=== PATIENT | female | born 1960 | race Caucasian/White ===

== ENCOUNTER 2019-08-12 17:33 | Emergency (ER) | payer MEDICAID, SELFPAY ==
[2019-08-12] VITALS (7 sets, daily range): BP systolic 146–179; BP diastolic 45–78; PULSE 88–95; RESP 18–20; TEMP 36.4–37.7; O2SAT 95–98; BMI 54.8
--- NOTE | 2019-08-12 19:51 | EKG12_ITS ---
Test Reason : SOB Blood Pressure : / mmHG Vent. Rate : 085 BPM Atrial Rate : 085 BPM P-R Int : 140 ms QRS Dur : 152 ms QT Int : 422 ms P-R-T Axes : 073 074 024 degrees QTc Int : 502 ms Normal sinus rhythm Right bundle branch block Abnormal ECG Confirmed by CHELSEA PITTMAN, MICHAEL ([id number]), department editor STANLEY HERRMANN ([id number]) on 08/15/2019 10:36:20 AM Referred By: JAY Confirmed By:MICHAEL TRAN MD
--- NOTE | 2019-08-12 19:53 | ED.VISSUMM ---
- ER Visit Summary Date of Service: 08/12/19 Chief Complaint: Shortness of breath History of Present Illness: The patient is a 58 F who presents with shortness of breath that began today. Patient states that her breathing has been getting worse throughout the day today. Patient went to express care and was referred to the emergency department because they were not sure if she was in congestive heart failure or had a pulmonary embolism. Patient states she had a chest x-ray there which did not show any pneumonia. Patient states her breathing feels similar to her prior episode of pneumonia. Patient has a history of lymphedema but states her legs are not more swollen than usual. Patient denies any chest pain. Patient denies any fevers but admits to subjective chills. Patient admits to a cough with some sputum production. Physical Examination: Vital signs are stable. Patient is afebrile. Patient is in no acute distress. Oral mucosa is pink and moist. Neck is supple. Trachea is midline. There is no JVD. Heart was regular rate and rhythm. Lungs were diminished bilaterally. Abdomen is soft. Bowel sounds are normal. There is no tenderness. Cranial nerves II through XII are intact. There are no focal motor or sensory deficits noted. Extremities were intact. There is 4+ edema of the lower extremities bilaterally. Patient states this is unchanged. Test Results: EKG showed normal sinus rhythm with a rate of 85. There is a right bundle branch block pattern noted. This was new compared to previous EKG dated 12/30/2012. There are no acute ST or T wave changes. PA and lateral chest x-ray was obtained. There is no acute cardiopulmonary process. This was interpreted by the radiologist and myself. CBC and basic metabolic profile were within normal limits. Troponin was less than 0.015. BNP was normal at 26. D-dimer was 0.52 which is normal for her age. Emergency Department Course and Treatment: Patient is feeling better on reevaluation. Patient was advised of her findings. Patient was instructed to follow-up with her primary care physician in 5 to 7 days. Patient understood and was agreeable with the plan. All questions were answered. Disposition: Discharge home Impression: Dyspnea This note was generated with [employer] software. It may contain incorrect words, spelling, and punctuation that were not noted in review of the chart prior to signing ED Disposition - Plan for ED Patient: Disposition: Home or Assisted Living Diagnosis: Dyspnea Instructions: ED Dyspnea Referrals: Radha Medina MD [Primary Care Provider] - 5-7 Days
[2019-08-12 19:54] LABS: Absolute Lymphocyte Count 0.52 X10^3/uL (0.83-4.51); Absolute Neutrophil Count 4.5 X10^3/uL (2.0-7.7); Basophil# 0.03 X10^3/uL; Basophil% 0.5 % (0-1); Eosinophil# 0.07 X10^3/uL; Eosinophils% 1.3 % (0-5); Hematocrit 37.9 % (37-47); Lymphocyte # 0.52 X10^3/ul (4.0); Lymphocyte % 9.4 % (19-41); Mean Corp Hgb Conc 31.7 g/dL (32-36); Mean Corpuscular Hgb 28.1 pg (27.0-32.0); Mean Corpuscular Volume 88.8 fL (81-99); Mean Platelet Vol. 9.9 fl (6.2-12.0); Monocyte# 0.44 X10^3/uL; Monocyte% 7.9 % (0-10); NRBC Flagged by Analyzer 0 % (0-5); Neutrophil # 4.45 X10^3/uL (2.7-7.7); Neutrophil % 80.4 % (47-70); POSITIVE DIFFERENTIAL YES; Platelet Count 371 K/mm3 (150-450); RBC Distribution Width CV 14.6 % (11.6-14.6); RBC Distribution Width SD 46.8 fl (35.1-43.9); Red Blood Count 4.27 M/mm3 (4.2-5.4); White Blood Count 5.5 K/mm3 (4.4-11.0)
[2019-08-12 20:04] LABS: Differential Indicated SCAN CRITERIA MET
[2019-08-12 20:05] LABS: Anion Gap 6 (5-15); BUN 10 mg/dL (7-18); BUN/Creat Ratio 8.3 RATIO (10-20); Chloride 100 mmol/L (98-107); Creatinine, Serum 1.21 mg/dL (0.55-1.02); EST Glomerular Filtration Rate 48 mL/min (>60); Est Glom Filt Rate - Afr Amer 59 mL/min (>60); Glucose 102 mg/dL (74-106); Sodium Level 137 mmol/L (136-145)
--- NOTE | 2019-08-12 20:11 | RAD_ITS ---
STUDY: X-RAY CHEST REASON FOR EXAM: Female, 58 years old. sob. hx of asthma TECHNIQUE: PA and lateral views of the chest. COMPARISON: Previous study of 12/30/2012 FINDINGS: radiation monitor leads are present. There is diffuse prominence of the pulmonary interstitial pattern appearing similar to the previous study. There is mild CHF with cephalization of pulmonary blood flow. There is bilateral perihilar peribronchial cuffing. There is no demonstrated pleural abnormality. There is mild cardiac enlargement. Normal mediastinum and getachew. Normal visualized pulmonary arteries. Normal visualized aortic arch and descending thoracic aorta. Normal visualized thoracic spine. Normal visualized ribs, clavicles, and shoulders. There is no demonstrated abnormality of the visualized soft tissue structures of the upper abdomen. RAD/Chest PA and Lateral IMPRESSION: Diffuse prominence of the pulmonary interstitial pattern, appearing similar to the previous study. Mild CHF is presently noted, new in the interval. Bilateral perihilar peribronchial cuffing. Electronically Signed: Héctor Kumar MD at 20:25 EDT , Service support ,
[2019-08-12 20:34] LABS: Platelet Estimate ADEQUATE (ADEQ); Red Cell Morphology NORM C+C NORMAL (NORM C&C)
[2019-08-12 21:05] LABS: D-Dimer Quantitative (DVT/PE) 0.52 FEU/ug/m (0.27-0.49)
== END 2019-08-12 22:39 | disposition home or self-care (01) ==
PROVIDERS: Emergency Provider Emergency Medicine; PCP Internal Medicine
DX: R06.00 Dyspnea, unspecified (principal); E11.9 Type 2 diabetes mellitus without complications; I10 Essential (primary) hypertension; I89.0 Lymphedema, not elsewhere classified; R60.0 Localized edema; J45.909 Unspecified asthma, uncomplicated; G47.33 Obstructive sleep apnea (adult) (pediatric); Z79.82 Long term (current) use of aspirin; Z79.4 Long term (current) use of insulin; Z79.899 Other long term (current) drug therapy
CPT/HCPCS: 71046; 80048; 83880; 84484; 85025; 85379; 93005; 94760; 99284; A4216

== ENCOUNTER → 2019-08-23 16:30 | Outpatient (CLI) | payer MEDICAID, SELFPAY ==
[2019-08-12 17:35] VITALS: BMI 54.8
== END ==
PROVIDERS: PCP Internal Medicine; Referring Provider Clinical Nurse Specialist; Visit Provider Clinical Nurse Specialist
DX: Z20.828 Contact with and (suspected) exposure to other viral communicable diseases (principal); R06.02 Shortness of breath; R05 Cough
CPT/HCPCS: 87635; G2023; U0003

== ENCOUNTER → 2020-01-20 12:54 | Outpatient (CLI) | payer MEDICAID, SELFPAY ==
[2019-08-12 17:35] VITALS: BMI 54.8
--- NOTE | 2020-01-20 12:59 | CT_ITS ---
STUDY: LOW DOSE CT LUNG CANCER SCREENING REASON FOR EXAM: Female, 59 years old. LUNG SCREEN, NON-SMOKER X 9 YRS, SMOKER X 45 YRS 1PPD RADIATION DOSAGE (If Supplied By Facility): CTDIvol = ( 3.40 ) mGy, DLP = ( 106.37 ) mGycm TECHNIQUE: No contrast was administered. Low dose technique was utilized (average mAS-38 and kVp 120). 1.25 mm axial source images with a slice interval of 1.25-mm were reconstructed in lung windows. 2.5 mm axial source images with a slice interval of 2.5-mm were reconstructed in lung windows. 5.0 mm axial source images with a slice interval of 5.0-mm were reconstructed in soft tissue windows. Nodule measured using lung windows on PACS and/or independent workstation with automated measurement of minimum and maximum diameter. Nodule measurement reported as average diameter rounded to the nearest whole number. Growth is defined as an increase ins size of greater than 1.5 mm. COMPARISON: None. NODULES: Emphysema: Mild degree of reticular interstitial nodular pattern suggestive of chronic scarring. Endobronchial lesion: None Aorta: Atherosclerotic plaque formation of the aortic arch. Coronary arteries: Coronary artery calcification Heart: Unremarkable Pulmonary artery: Unremarkable Mediastinal nodes: Small mediastinal lymph nodes. Other chest and abdominal findings: CT/Low Dose CT Lung Screening IMPRESSION: Lung-RADS category 2 - Continue annual screening with LDCT in 12 months. IMPORTANT NOTES FOR USE: ACR Lung-RADS Version 1.0 Assessment Categories Release Date: July 08, 2013 Category: Coded 0-4 bases on nodule(s) with highest degree of suspicion. Negative screen is defined as categories 1 and 2; a positive screen is defined as categories 3 and 4. Category 3 and 4A nodules that are unchanged on interval CT should be coded as category 2, and individuals returned to screening in 12 months. Category 4X: Category 3 or 4 nodules with additional imaging findings that increase the suspicion of lung cancer, such as spiculation, GGN that doubles in size in 1 year, enlarged lymph notes, etc. Category Modifiers: S (significant finding unrelated to lung cancer) and C (prior history of treated lung cancer) may be added to the 0-4 Lung-RADS Electronically Signed: Meir Kingsley, at 14:25 EST , Service support ,
== END ==
PROVIDERS: PCP Internal Medicine; Referring Provider Internal Medicine Pulmonary Disease; Visit Provider Internal Medicine Pulmonary Disease
DX: Z87.891 Personal history of nicotine dependence (principal)
CPT/HCPCS: G0297

== ENCOUNTER 2021-12-26 11:30 | Emergency (ER) | payer MEDICAID, SELFPAY ==
[2021-12-26 11:33] VITALS: BP 179/68; PULSE 81; RESP 18; TEMP 36.8; O2SAT 98; BMI 64.1
[2021-12-26 11:44] VITALS: BP 160/67; PULSE 85; RESP 15; TEMP 36.8; O2SAT 96
--- NOTE | 2021-12-26 11:48 | EX.ED.DYSGE1 ---
HPI History of Present Illness Chief Complaint: Cellulitis Informant: patient Narrative Narrative: Patient presents with concern for cellulitis. She states she has been having more discomfort and some weeping on her legs since October. She has never had fevers or chills. No trauma. She has history of chronic lymphedema. The lymphedema has not worsened. But she is getting moisture around the left heel where her sock digs in. She has been treated with Bactrim before with good results. She came in today just because she last saw her doctor more than a month ago and she is concerned that it is getting worse. She is eating and drinking normally. She does not feel ill. No fevers. She states her blood sugars have been overall reasonably well controlled. She tells me she checks it 3 or 4 times a day. She was 125 last night. She states she was little higher this morning at 280 but she normally ranges between 1 50-2 50 so these are within her range relatively PFSH PFSH Home Medications Omeprazole [Prilosec] 40 mg PO DAILY 12/30/12 [History Last Taken 01/17/13] aspirin 81 mg chewable tablet 81 mg PO DAILY@0800 12/30/12 [History Last Taken 01/17/13] gabapentin 600 mg tablet 1,200 mg PO QHS 12/30/12 [History Last Taken Unknown] loratadine 10 mg tablet (Allergy Relief (loratadine)) 10 mg PO DAILY 12/30/12 [History Last Taken 01/17/13] metformin 1,000 mg tablet 1,000 mg PO BID 12/30/12 [History Last Taken 01/17/13] montelukast 10 mg tablet 10 mg PO DAILY 12/30/12 [History Last Taken 01/17/13] furosemide 40 mg tablet 40 mg PO DAILY 08/12/19 [History Last Taken Unknown] cholecalciferol (vitamin D3) 1,250 mcg (50,000 unit) capsule 50,000 unit PO WE 12/26/21 [History Last Taken Unknown] dulaglutide 3 mg/0.5 mL subcutaneous pen injector (Trulicity) 3 mg subcut NIEVES 12/26/21 [History Last Taken Unknown] hydrocodone-acetaminophen 5-325mg 5mg-325mg 1 tab PO Q6H PRN Pain 12/26/21 [History Last Taken Unknown] insulin degludec 100 unit/mL (3 mL) subcutaneous pen (Tresiba FlexTouch U-100 insulin) 80 unit subcut QHS 12/26/21 [History Last Taken Unknown] insulin lispro 100 unit/mL subcutaneous pen 20 unit subcut TIDCM 12/26/21 [History Last Taken Unknown] nortriptyline 10 mg capsule 20 mg PO QHS 12/26/21 [History Last Taken Unknown] potassium chloride 10 mEq tablet,extended release 10 meq PO DAILY 12/26/21 [History Last Taken Unknown] sulfamethoxazole 800 mg-trimethoprim 160 mg tablet (Bactrim DS) 1 tab PO BID #20 tabs 12/26/21 [Rx Last Taken Unknown] Allergy/AdvReac Type Severity Reaction Status Date / Time Penicillins [PCN] Allergy Rash Verified 12/26/21 11:31 Social History Smoking Status: Former smoker ROS ROS ED Constitutional Constitutional ED: Denies chills, fever(s) or subjective ENT ENT ED: Denies rhinorrhea Cardiovascular Cardiovascular: Denies chest pain or palpitations Respiratory/Chest Respiratory/Chest: Denies cough or dyspnea Gastrointestinal Gastrointestinal: Denies abdominal pain, diarrhea, nausea or vomiting Genitourinary Genitourinary ED: Denies dysuria Musculoskeletal Musculoskeletal: Denies myalgias Integumentary Reports rash and other Details: See history of present illness. Endocrine Endocrinology: Denies polydipsia or polyuria Hematologic/Lymphatic Hematologic/Lymphatic: Denies easy bleeding or easy bruising EXAM Physical Exam Const Vital Signs: 12/26/21 11:33 12/26/21 11:33 12/26/21 11:44 Temperature 98.2 F 98.2 F Temperature Source Oral Oral Pulse Rate 81 85 Respiratory Rate 18 15 Respiratory Effort Normal Non-Labored Respiratory Pattern Normal Blood Pressure 179/68 H 160/67 H Blood Pressure Mean 105 98 Pulse Ox 98 96 Oxygen Delivery Method Room Air Room Air 12/26/21 13:11 Temperature 98.2 F Temperature Source Oral Pulse Rate 79 Respiratory Rate 17 Respiratory Effort Respiratory Pattern Blood Pressure 163/68 H Blood Pressure Mean 99 Pulse Ox 96 Oxygen Delivery Method Room Air Positive well nourished and well developed General Appearance ED: well developed and NAD; Negative for cyanotic or diaphoretic HEENT Reports moist mucous membranes Resp normal respiratory effort and clear to auscultation bilaterally Cardio regular rate and regular rhythm GI normal to inspection, nondistended, normoactive bowel sounds, non-tender and non-distended Extremity Extremity Narrative: Patient has significant lymphedema both lower extremities. I was able to get her socks off. There is minimal erythema around the back of the lower calf on the right. On the left side in this area she has some moist skin with some overall mild erosion. No ulceration or hole. There is some moisture in the area but no obvious purulence. There is a bit of an odor. There are also 2 areas of slight break in the skin about a centimeter round on the posterior left thigh but these do not look acutely infected. Neuro Sensorium / Orientation: alert Psych mental status grossly normal Skin Skin Narrative: See above exam. MDM MDM MDM Narrative Medical decision making narrative: Blood work shows normal white count. She does have some anemia. She states that she has had this. She also has a low MCV and MCH. She denies black or bloody stools. She is not having symptoms of this. Electrolytes are overall unremarkable other than her glucose is at 249. This is within her normal range. Patient does not have fevers white count hypotension tachycardia. She has had symptoms since October. I do think this does represent a cellulitis. But I do not think we need to come in the hospital at this point. She has responded to and tolerated Bactrim well in the past so we will try this initially and have her follow-up with her physician. If she is failing outpatient therapy she may need admission at some point. But she has evidently responded to oral drugs well. Lab Data Attestation: I reviewed the patient's lab results. Labs: Laboratory Results - last 24 hr 12/26/21 12/26/21 11:15 11:15 WBC 8.8 RBC 4.13 L Hgb 8.8 L Hct 31.9 L MCV 77.2 L MCH 21.3 L MCHC 27.6 L RDW Std Deviation 57.9 H RDW Coeff of Heather 21.2 H Plt Count 465 H MPV 9.4 Immature Gran % (Auto) 2.000 H Neut % (Auto) 74.4 H Lymph % (Auto) 15.0 L [place] % (Auto) 6.8 Eos % (Auto) 1.5 Baso % (Auto) 0.3 Absolute Neuts (auto) 6.6 Absolute Lymphs (auto) 1.33 Nucleated RBC % 0 Differential Comment SCANNED Anisocytosis 2+ Microcytosis 1+ Macrocytosis 1+ Sodium 136 Potassium 4.0 Chloride 99 Carbon Dioxide 30.0 Anion Gap 7 BUN 13 Creatinine 1.06 H Estim Creat Clear Calc 46.10 Est GFR (MDRD) Af Amer 68 Est GFR (MDRD) Non-Af 56 L BUN/Creatinine Ratio 12.3 Glucose 249 H Calcium 9.0 Radiography Diagnostic Testing: Clinical Impression(s) from Imaging Studies Ankle X-Ray 12/26/21 11:55 IMPRESSION: Significant soft tissue swelling Electronically Signed: Hugo Wren MD at 12:54 EDT , X-ray is read as soft tissue swelling but this is really patient's chronic edema. There is no sign of bony involvement or osteomyelitis seen on these films. Discharge Plan Triage Chief Complaint: Cellulitis ED Provider: Pedro Gao Dx/Rx/DC Orders Clinical Impression: Cellulitis of left lower extremity Instructions: ED Cellulitis Prescriptions: New sulfamethoxazole-trimethoprim [Bactrim DS] 800-160 mg tablet 1 tab PO BID Qty: 20 0RF No Action gabapentin 600 MG tablet 1,200 mg PO QHS aspirin 81 MG tablet,chewable 81 mg PO DAILY@0800 Label Comments: HEART montelukast 10 MG tablet 10 mg PO DAILY Label Comments: ALLERGIES Omeprazole [Prilosec] 40 MG capsule 40 mg PO DAILY Label Comments: REFLUX metformin 1,000 MG tablet 1,000 mg PO BID Label Comments: DIABETES loratadine [Allergy Relief (loratadine)] 10 MG tablet 10 mg PO DAILY Label Comments: ALLERGIES furosemide 40 MG tablet 40 mg PO DAILY potassium chloride 10 mEq tablet extended release 10 meq PO DAILY Label Comments: TAKE 1 TABLET BY MOUTH EVERY DAY nortriptyline 10 mg capsule 20 mg PO QHS Label Comments: TAKE 2 CAPSULES BY MOUTH DAILY AT BEDTIME. insulin lispro 100 unit/mL insulin pen 20 unit SUBCUT TIDCM Label Comments: INJECT 20 UNITS SUBCUTANEOUSLY WITH MEALS PLUS SLIDING SCALE OF 0-10 UNITS PER MEAL cholecalciferol (vitamin D3) 1,250 mcg (50,000 unit) capsule 50,000 unit PO WE Label Comments: TAKE ONE CAPSULE BY MOUTH ONE TIME A WEEK insulin degludec [Tresiba FlexTouch U-100] 100 unit/mL (3 mL) insulin pen 80 unit SUBCUT QHS Label Comments: INJECT 80 UNITS SUBCUTANEOUSLY DAILY AT BEDTIME. Trulicity 3 mg/0.5 mL pen injector 3 mg SUBCUT NIEVES Label Comments: INJECT 3 MG SUBCUTANEOUSLY ONE TIME A WEEK. hydrocodone-acetaminophen 5-325 mg tablet 1 tab PO Q6H PRN (Reason: Pain) Label Comments: TAKE 1 TABLET BY MOUTH EVERY 6 HOURS NEEDED FOR UP TO 7 DAYS Primary Care Provider: Radha Medina Referrals: Radha Medina MD [Primary Care Provider] - 1 Week if not improving Disposition Disposition: Home, Self Care
--- NOTE | 2021-12-26 11:55 | RAD_ITS ---
STUDY: X-RAY - LEFT ANKLE REASON FOR EXAM: Female, 61 years old. pain INCREASED EDEMA AND REDNESS IN B/L LOWER EXTREMITIES OVER THE LAST 2 WEEKS. WOUNDS TO LOWER LEGS INCREASED DRAINAGE TECHNIQUE: 4 view(s) of the ankle. COMPARISON: None. FINDINGS: Significant soft tissue swelling of the lower leg and ankle and foot. No subcutaneous gas is present. No evidence of osteomyelitis. Moderate to large size plantar calcaneal spur noted. No fractures seen. Normal visualized distal tibia and fibula. Normal medial and lateral malleoli. Normal tibiotalar articulation and ankle mortise. Normal visualized talus and calcaneus. The visualized subtalar, talonavicular, calcaneocuboid and tarsal articulations are normal. RAD/Ankle min 3 Views IMPRESSION: Significant soft tissue swelling Electronically Signed: Hugo Wren MD at 12:54 EDT ,
[2021-12-26 12:18] LABS: Absolute Lymphocyte Count 1.33 X10^3/uL (0.83-4.51); Absolute Neutrophil Count 6.6 X10^3/uL (2.0-7.7); Basophil# 0.03 X10^3/uL; Basophil% 0.3 % (0-1); Eosinophil# 0.13 X10^3/uL; Eosinophils% 1.5 % (0-5); Hematocrit 31.9 % (37-47); Hemoglobin 8.8 g/dL (12.0-15.0); Lymphocyte # 1.33 X10^3/ul (0.83-4.51); Mean Corp Hgb Conc 27.6 g/dL (32-36); Mean Corpuscular Hgb 21.3 pg (27.0-32.0); Mean Corpuscular Volume 77.2 fL (81-99); Mean Platelet Vol. 9.4 fl (6.2-12.0); Monocyte% 6.8 % (0-10); NRBC Flagged by Analyzer 0 % (0-5); Neutrophil # 6.57 X10^3/uL (2.7-7.7); Neutrophil % 74.4 % (47-70); POSITIVE MORPHOLOGY YES; Platelet Count 465 K/mm3 (150-450); RBC Distribution Width CV 21.2 % (11.6-14.6); RBC Distribution Width SD 57.9 fl (35.1-43.9); Red Blood Count 4.13 M/mm3 (4.2-5.4); White Blood Count 8.8 K/mm3 (4.4-11.0)
[2021-12-26 12:20] LABS: Differential Indicated SCAN CRITERIA MET
[2021-12-26 12:27] LABS: Anion Gap 7 (5-15); BUN 13 mg/dL (7-18); BUN/Creat Ratio 12.3 RATIO (10-20); Chloride 99 mmol/L (98-107); Creatinine, Serum 1.06 mg/dL (0.55-1.02); EST Glomerular Filtration Rate 56 mL/min (>60); Est Glom Filt Rate - Afr Amer 68 mL/min (>60); Glucose 249 mg/dL (74-106); Sodium Level 136 mmol/L (136-145)
[2021-12-26 12:47] LABS: Anisocytosis 2+; Differential Comment SCANNED; Macrocytosis 1+; Microcytosis 1+
[2021-12-26 13:11] VITALS: BP 163/68; PULSE 79; RESP 17; TEMP 36.8; O2SAT 96
[2021-12-26 15:39] VITALS: BP 154/66; PULSE 83; RESP 18; TEMP 36.6; O2SAT 91
[2021-12-26 16:03] VITALS: PULSE 88; RESP 17; O2SAT 95
== END 2021-12-26 16:05 | disposition home or self-care (01) ==
PROVIDERS: Emergency Provider Emergency Medicine; PCP Internal Medicine; Visit Provider Emergency Medicine
DX: L03.116 Cellulitis of left lower limb (principal); Z79.4 Long term (current) use of insulin; I89.0 Lymphedema, not elsewhere classified; D64.9 Anemia, unspecified; Z79.82 Long term (current) use of aspirin; Z79.899 Other long term (current) drug therapy; Z87.891 Personal history of nicotine dependence
CPT/HCPCS: 73610; 80048; 85025; 96365; 96366; 99285; J7040; J7050

== ENCOUNTER 2022-04-28 19:57 | Inpatient (IN) | payer MEDICAID, SELFPAY ==
[2022-04-28] VITALS (7 sets, daily range): BP systolic 109–133; BP diastolic 57–79; PULSE 88–104; RESP 18–22; TEMP 36.8; O2SAT 87–100; BMI 56.5; BMI 61.7
--- NOTE | 2022-04-28 20:59 | EX.ED.DYSGE1 ---
HPI History of Present Illness Chief Complaint: Chest Pain Narrative Narrative: Patient presents with multiple complaints, she is feeling weak and short of breath, she has some chest pain, she also has nausea vomiting and diarrhea, she also has left leg pain and cellulitis. Patient has chronic debility at home with significant lymphedema and morbid obesity she is wheelchair-bound. She has been feeling worse over the past few days. [facility] Medical History Chest pain Home Medications Omeprazole [Prilosec] 40 mg PO DAILY 12/30/12 [History Last Taken 01/17/13] aspirin 81 mg chewable tablet 81 mg PO DAILY@0800 12/30/12 [History Last Taken 01/17/13] gabapentin 600 mg tablet 1,200 mg PO QHS 12/30/12 [History Last Taken Unknown] loratadine 10 mg tablet (Allergy Relief (loratadine)) 10 mg PO DAILY 12/30/12 [History Last Taken 01/17/13] metformin 1,000 mg tablet 1,000 mg PO BID 12/30/12 [History Last Taken 01/17/13] montelukast 10 mg tablet 10 mg PO DAILY 12/30/12 [History Last Taken 01/17/13] furosemide 40 mg tablet 40 mg PO DAILY 08/12/19 [History Last Taken Unknown] cholecalciferol (vitamin D3) 1,250 mcg (50,000 unit) capsule 50,000 unit PO WE 12/26/21 [History Last Taken Unknown] dulaglutide 3 mg/0.5 mL subcutaneous pen injector (Trulicity) 3 mg subcut NIEVES 12/26/21 [History Last Taken Unknown] hydrocodone-acetaminophen 5-325mg 5mg-325mg 1 tab PO Q6H PRN Pain 12/26/21 [History Last Taken Unknown] insulin degludec 100 unit/mL (3 mL) subcutaneous pen (Tresiba FlexTouch U-100 insulin) 80 unit subcut QHS 12/26/21 [History Last Taken Unknown] insulin lispro 100 unit/mL subcutaneous pen 20 unit subcut TIDCM 12/26/21 [History Last Taken Unknown] nortriptyline 10 mg capsule 20 mg PO QHS 12/26/21 [History Last Taken Unknown] potassium chloride 10 mEq tablet,extended release 10 meq PO DAILY 12/26/21 [History Last Taken Unknown] sulfamethoxazole 800 mg-trimethoprim 160 mg tablet (Bactrim DS) 1 tab PO BID #20 tabs 12/26/21 [Rx Last Taken Unknown] Allergy/AdvReac Type Severity Reaction Status Date / Time Penicillins [PCN] Allergy Rash Verified 04/28/22 20:10 Social History Smoking Status: Former smoker ROS ROS ED ROS Narrative Past medical history: Reviewed Medications: Reviewed Social history: Noncontributory Review of systems: All systems negative except as indicated General: No fever. Generalized weakness Eyes: No visual changes ENT: No upper airway congestion, normal voice Neck: No neck pain Cardiovascular: Chest pain as in HPI Respiratory: Dyspnea as in HPI. She was found to be hypoxic at 87% on room air Gastrointestinal: Nausea vomiting and watery diarrhea Genitourinary: No dysuria Musculoskeletal: Left lower extremity redness, bilateral lymphedema Skin: As above Neurological: No memory loss, confusion or any focal weakness EXAM Physical Exam Narrative Exam Narrative: Physical exam General: Patient appears chronically ill. Smell of feces and necroses in the room. Head: Normocephalic, Atraumatic Eyes: Conjunctiva not pale ENT: Somewhat dry mucous membranes Neck: Supple, Nontender, No lymphadenopathy Cardiovascular: Regular rate, Regular rhythm Respiratory: Coarse bilateral breath sounds, slightly tachypneic. Abdomen: Soft, as I palpate throughout the abdomen she does not seem to have any pain. Back: Nontender, Normal Inspection. Negative for: CVA tenderness Extremities: Significant chronic bilateral lymphedema, left-sided shows erythema and calor consistent with cellulitis. Skin: As above Const Vital Signs: 04/28/22 20:10 04/28/22 20:12 04/28/22 20:55 Temperature 98.3 F Temperature Source Oral Pulse Rate 104 H Respiratory Rate 22 H Blood Pressure 109/57 L Blood Pressure Mean 74 Pulse Ox 91 87 Oxygen Delivery Method Room Air Room Air Oxygen Flow Rate (L/min) 04/28/22 20:55 04/28/22 21:39 Temperature Temperature Source Pulse Rate 102 H 96 Respiratory Rate 18 18 Blood Pressure 133/63 H 125/69 H Blood Pressure Mean 86 87 Pulse Ox 95 94 Oxygen Delivery Method Room Air Nasal Cannula Oxygen Flow Rate (L/min) 2 MDM MDM Lab Data Labs: Laboratory Results - last 24 hr 04/28/22 04/28/22 04/28/22 21:00 21:00 21:00 WBC 12.7 H RBC 3.95 L Hgb 9.3 L Hct 30.4 L MCV 77.0 L MCH 23.5 L MCHC 30.6 L RDW Std Deviation 46.1 H RDW Coeff of Heather 16.4 H Plt Count 416 MPV 9.5 Immature Gran % (Auto) 1.200 H Neut % (Auto) 89.0 H Lymph % (Auto) 4.3 L [place] % (Auto) 5.2 Eos % (Auto) 0.0 Baso % (Auto) 0.3 Absolute Neuts (auto) 11.3 H Absolute Lymphs (auto) 0.54 L Nucleated RBC % 0 Differential Comment SCANNED PT 15.6 H INR 1.3 Sodium 130 L Potassium 3.8 Chloride 93 L Carbon Dioxide 25.0 Anion Gap 12 BUN 27 H Creatinine 1.86 H Estim Creat Clear Calc 26.27 Est GFR (MDRD) Af Amer 35 L Est GFR (MDRD) Non-Af 29 L BUN/Creatinine Ratio 14.5 Glucose 213 H Calcium 8.6 Total Bilirubin 1.30 H AST 37 ALT 15 Alkaline Phosphatase 215 H Troponin I High Sens 2224 H* B-Natriuretic Peptide Total Protein 7.8 Albumin 2.2 L Globulin 5.6 H Albumin/Globulin Ratio 0.4 L POC Glucose 04/28/22 04/28/22 21:00 21:27 WBC RBC Hgb Hct MCV MCH MCHC RDW Std Deviation RDW Coeff of Heather Plt Count MPV Immature Gran % (Auto) Neut % (Auto) Lymph % (Auto) [place] % (Auto) Eos % (Auto) Baso % (Auto) Absolute Neuts (auto) Absolute Lymphs (auto) Nucleated RBC % Differential Comment PT INR Sodium Potassium Chloride Carbon Dioxide Anion Gap BUN Creatinine Estim Creat Clear Calc Est GFR (MDRD) Af Amer Est GFR (MDRD) Non-Af BUN/Creatinine Ratio Glucose Calcium Total Bilirubin AST ALT Alkaline Phosphatase Troponin I High Sens B-Natriuretic Peptide 243.3 H Total Protein Albumin Globulin Albumin/Globulin Ratio POC Glucose 173 H Radiography Diagnostic Testing: Clinical Impression(s) from Imaging Studies Chest X-Ray 04/28/22 21:10 IMPRESSION: No radiographic evidence of acute cardiopulmonary disease. Electronically Signed: Bhaskar Ordonez MD at 21:26 EST , Chest x-ray interpreted by me is unremarkable Treatment and Re-Evaluation Narrative: A. Problems addressed: Patient is hypoxic on room air she was started on 2 L. She also has a significant NSTEMI but her pain is almost gone. I talked to cardiology who recommended heparin drip. Patient also has lower extremity cellulitis which I will treat. She will need admission talk to the hospitalist. B. Amount and/or complexity of the data (2 out of 3) 1. CBC, CMP, troponin, natruretic peptide ordered interpreted by me 2. Independent interpretation of test Telemetry: Sinus rhythm with a rate in the 90s without ectopy 3. I discussed the patient with cardiology, Dr. Cotton, and the hospitalist for admission C. Risk of complications and/or morbidity Differential diagnosis: See above Critical Care Time Critical Care Time: Yes Critical care time (excluding procedures): 30-74 minutes and - (30 minutes. I certify that I spent 30 minutes of critical care time with the patient this includes time at the bedside, time documenting, time discussing with consultants including medicine and cardiology.) Discharge Plan Triage Chief Complaint: Chest Pain ED Provider: Sam Fletcher Dx/Rx/DC Orders Clinical Impression: Acute non-ST elevation myocardial infarction (NSTEMI), Cellulitis, Hypoxia, Weakness Prescriptions: No Action gabapentin 600 MG tablet 1,200 mg PO QHS aspirin 81 MG tablet,chewable 81 mg PO DAILY@0800 Label Comments: HEART montelukast 10 MG tablet 10 mg PO DAILY Label Comments: ALLERGIES Omeprazole [Prilosec] 40 MG capsule 40 mg PO DAILY Label Comments: REFLUX metformin 1,000 MG tablet 1,000 mg PO BID Label Comments: DIABETES loratadine [Allergy Relief (loratadine)] 10 MG tablet 10 mg PO DAILY Label Comments: ALLERGIES furosemide 40 MG tablet 40 mg PO DAILY potassium chloride 10 mEq tablet extended release 10 meq PO DAILY Label Comments: TAKE 1 TABLET BY MOUTH EVERY DAY nortriptyline 10 mg capsule 20 mg PO QHS Label Comments: TAKE 2 CAPSULES BY MOUTH DAILY AT BEDTIME. insulin lispro 100 unit/mL insulin pen 20 unit SUBCUT TIDCM Label Comments: INJECT 20 UNITS SUBCUTANEOUSLY WITH MEALS PLUS SLIDING SCALE OF 0-10 UNITS PER MEAL cholecalciferol (vitamin D3) 1,250 mcg (50,000 unit) capsule 50,000 unit PO WE Label Comments: TAKE ONE CAPSULE BY MOUTH ONE TIME A WEEK insulin degludec [Tresiba FlexTouch U-100] 100 unit/mL (3 mL) insulin pen 80 unit SUBCUT QHS Label Comments: INJECT 80 UNITS SUBCUTANEOUSLY DAILY AT BEDTIME. Trulicity 3 mg/0.5 mL pen injector 3 mg SUBCUT NIEVES Label Comments: INJECT 3 MG SUBCUTANEOUSLY ONE TIME A WEEK. hydrocodone-acetaminophen 5-325 mg tablet 1 tab PO Q6H PRN (Reason: Pain) Label Comments: TAKE 1 TABLET BY MOUTH EVERY 6 HOURS NEEDED FOR UP TO 7 DAYS sulfamethoxazole-trimethoprim [Bactrim DS] 800-160 mg tablet 1 tab PO BID Qty: 20 0RF Primary Care Provider: Radha Medina Referrals: Radha Medina MD [Primary Care Provider] -
--- NOTE | 2022-04-28 21:10 | RAD_ITS ---
EXAM: XR CHEST, 1 VIEW CLINICAL INDICATION: sob TECHNIQUE: Frontal view of the chest. This report was created using [employer] report generation technology. COMPARISON: 08.12.19 FINDINGS: LUNGS AND PLEURAL SPACES: Unremarkable. No consolidation or edema. No pneumothorax. No effusion. HEART: Unremarkable. Cardiac silhouette not enlarged. MEDIASTINUM: Central airways and mediastinal contour are unremarkable. BONES/JOINTS: Unremarkable. SOFT TISSUES: Unremarkable. RAD/Chest 1 View (Portable) IMPRESSION: No radiographic evidence of acute cardiopulmonary disease. Electronically Signed: Bhaskar Ordonez MD at 21:26 [facility] ,
[2022-04-28 21:15] LABS: Absolute Lymphocyte Count 0.54 X10^3/uL (0.83-4.51); Absolute Neutrophil Count 11.3 X10^3/uL (2.0-7.7); Basophil# 0.04 X10^3/uL; Basophil% 0.3 % (0-1); Hematocrit 30.4 % (37-47); Hemoglobin 9.3 g/dL (12.0-15.0); Lymphocyte # 0.54 X10^3/ul (0.83-4.51); Lymphocyte % 4.3 % (19-41); Mean Corp Hgb Conc 30.6 g/dL (32-36); Mean Corpuscular Hgb 23.5 pg (27.0-32.0); Mean Platelet Vol. 9.5 fl (6.2-12.0); Monocyte# 0.66 X10^3/uL; Monocyte% 5.2 % (0-10); NRBC Flagged by Analyzer 0 % (0-5); Neutrophil # 11.26 X10^3/uL (2.7-7.7); POSITIVE DIFFERENTIAL YES; POSITIVE MORPHOLOGY YES; Platelet Count 416 K/mm3 (150-450); RBC Distribution Width CV 16.4 % (11.6-14.6); RBC Distribution Width SD 46.1 fl (35.1-43.9); Red Blood Count 3.95 M/mm3 (4.2-5.4); White Blood Count 12.7 K/mm3 (4.4-11.0)
[2022-04-28 21:32] LABS: International Normalized Ratio 1.3; Prothrombin Time (Protime)PT. 15.6 SECONDS (11.7-14.9)
[2022-04-28 21:33] LABS: Differential Indicated SCAN CRITERIA MET
[2022-04-28 21:40] LABS: ALB/GLOB Ratio 0.4 RATIO (0.9-2.4); AST(SGOT) 37 U/L (15-37); Alanine Aminotransfer ALT/SGPT 15 U/L (13-56); Albumin, Serum 2.2 g/dL (3.2-5.0); Alkaline Phosphatase 215 U/L (45-117); Anion Gap 12 (5-15); BUN 27 mg/dL (7-18); BUN/Creat Ratio 14.5 RATIO (10-20); Calcium,Total 8.6 mg/dL (8.5-10.1); Chloride 93 mmol/L (98-107); Creatinine, Serum 1.86 mg/dL (0.55-1.02); EST Glomerular Filtration Rate 29 mL/min (>60); Est Glom Filt Rate - Afr Amer 35 mL/min (>60); Estimated Creatinine Clearance 26.27 ml/min; Globulin 5.6 g/dL (2.2-4.2); Glucose 213 mg/dL (74-106); Potassium 3.8 mmol/L (3.5-5.1); Protein, Total 7.8 g/dL (6.4-8.2); Sodium Level 130 mmol/L (136-145); Troponin-I HS 2224 pg/mL (3.0-54.0)
[2022-04-28 21:41] LABS: Differential Comment SCANNED
[2022-04-28 21:45] LABS: Bedside Glucose 173 mg/dL (74-106)
[2022-04-28 21:58] LABS: BNP,B-Type NATRIURETIC PEPTIDE 243.3 pg/mL (0-100)
[2022-04-28] MEDS: Ipratropium/Albuterol Sulfate 3 ML AMPUL.NEB INHALATION (21:58)
[2022-04-28 22:20] LABS: Base Excess 0 mmol/L (-2 to +2); Bicarbonate 24.4 mmol/L (22-26); Blood Gas Specimen Type ART; O2 Delivery Device Cannula; PO2 96 mmHG (75-100); SITE L Radial; SO2 98 % (95-99); Total Carbon Dioxide 26 mmol/L; pCO2 39.2 mmHg (35-45)
[2022-04-28 22:38] LABS: Partial Thromboplast Time 38.7 Seconds (24.1-36.2)
[2022-04-28] MEDS: Clindamycin 600 MG/50 ML BAG 100 MG IV (22:41)
[2022-04-28] MEDS: Heparin Injection (Vial) 5,000 UNIT/ML VIAL 4000 UNIT IV (22:42)
[2022-04-28] MEDS: HEPARIN/D5w 25,000 UNITS 25,000 UNITS/250 ML IV.SOLN. 10 UNITS CONT INF (22:43)
[2022-04-29] VITALS (13 sets, daily range): BP systolic 116–150; BP diastolic 67–128; PULSE 86–106; RESP 14–21; TEMP 36.1–37.2; O2SAT 84–99
[2022-04-29 00:14] LABS: Troponin-I HS 2490 pg/mL (3.0-54.0)
[2022-04-29 02:31] LABS: Troponin-I HS 2391 pg/mL (3.0-54.0)
--- NOTE | 2022-04-29 02:45 | ECHOCS_ITS ---
Reason For Study: S/P IA Procedure This was a 2D Doppler, Color Flow transthoracic echocardiogram. The study was technically difficult. Contrast injection was performed. Exam performed portable in ICU/CCU. Left Ventricle Normal size and thickness. The left ventricular ejection fraction is 50 %. Right Ventricle Mildly dilated right ventricle. Moderate global right ventricular systolic dysfunction. Atria Normal left atrium. The right atrium is not well visualized. Mitral Valve The mitral valve is structurally normal. No prolapse or stenosis seen. Tricuspid Valve Trivial tricuspid valve insufficiency. Aortic Valve Normal aortic valve. Pulmonic Valve The pulmonic valve is not well visualized. Mild (1+) eccentric pulmonic valve insufficiency. Great Vessels Normal sized aortic root. Pericardium/Pleural No pericardial effusion. Medication Diluted definity 3ml given slow IV push to enhance endocardial definition. MMode/2D Measurements & Calculations LVIDd: 5.1 cm IVSd: 1.4 cm Ao root diam: 3.0 cm LVIDs: 3.5 cm LVPWd: 1.3 cm FS: 31.1 % LA dimension(2D): 3.7 cm Time Measurements MV dec time: 0.22 sec Doppler Measurements & Calculations MV E max graham: 105.2 cm/sec Lat Peak E' Graham: 8.5 cm/sec Med Peak E' Graham: 7.9 cm/sec MV A max graham: 103.2 cm/sec E/E' lat: 12.4 E/E' med: 13.3 MV E/A: 1.0 MV V2 max: 117.0 cm/sec Ao V2 max: 131.7 cm/sec MV max P.5 mmHg MV dec slope: 493.9 cm/sec2 Ao max P.0 mmHg MV V2 mean: 78.4 cm/sec Ao V2 mean: 90.9 cm/sec MV mean P.7 mmHg Ao mean P.8 mmHg MV V2 VTI: 30.8 cm Ao V2 VTI: 23.9 cm AV (velocity ratio): 1.2 LV V1 max: 142.8 cm/sec PA V2 max: 119.9 cm/sec TR max graham: 265.6 cm/sec LV V1 max P.2 mmHg PA V2 mean: 82.9 cm/sec TR max P.2 mmHg LV V1 mean P.1 mmHg LV V1 mean: 104.1 cm/sec LV V1 VTI: 28.5 cm ECHO/Echo Complete W/ Contrast Interpretation Summary The left ventricular ejection fraction is 50 %. Mildly dilated right ventricle. Moderate global right ventricular systolic dysfunction. Mild (1+) eccentric pulmonic valve insufficiency. Ordering Physician: Kierra Rivera Referring Physician: Radha Medina M.D. Performed By: Erika Harrell RCS
[2022-04-29 03:03] LABS: Absolute Neutrophil Count 7.4 X10^3/uL (2.0-7.7); Basophil# 0.03 X10^3/uL; Basophil% 0.3 % (0-1); Eosinophil# 0.01 X10^3/uL; Eosinophils% 0.1 % (0-5); Hemoglobin 8.8 g/dL (12.0-15.0); Lymphocyte % 6.9 % (19-41); Mean Corp Hgb Conc 30.3 g/dL (32-36); Mean Corpuscular Hgb 23.6 pg (27.0-32.0); Mean Corpuscular Volume 77.7 fL (81-99); Mean Platelet Vol. 9.4 fl (6.2-12.0); Monocyte# 0.46 X10^3/uL; Monocyte% 5.3 % (0-10); NRBC Flagged by Analyzer 0 % (0-5); Neutrophil # 7.44 X10^3/uL (2.7-7.7); POSITIVE DIFFERENTIAL YES; POSITIVE MORPHOLOGY YES; Platelet Count 367 K/mm3 (150-450); RBC Distribution Width CV 16.6 % (11.6-14.6); RBC Distribution Width SD 47.1 fl (35.1-43.9); Red Blood Count 3.73 M/mm3 (4.2-5.4); White Blood Count 8.7 K/mm3 (4.4-11.0)
--- NOTE | 2022-04-29 03:07 | PCM.HP.STD ---
HPI - General General Date of Admission: 04/28/22 Date of Service: 04/29/22 Chief Complaint: Chest pain HPI Narrative JUNG DUNAWAY, is a 61 F with a history of COPD, type 1 diabetes mellitus, SUSANNA per chart review, hypertension, chronic lymphedema of bilateral lower extremities, morbid obesity who presented to [facility] 04/28 with chest pain. She had been having chest pain for 2 to 3 days and shortness of breath for 3 to 4 days. In the ED she was found to have a troponin of 2391 and cardiology was contacted and recommended heparin drip and admission. Additionally she was found to have left lower extremity cellulitis and was given a dose of clindamycin due to her penicillin allergy. Hospitalist consulted for admission. Upon evaluation patient will wake up and participate in exam but often was tired and would fall back asleep. She did endorse the chest pain for 2 to 3 days with some possible shortness of breath. Was unable to identify anything that made the chest pain better or worse. Denied cough. Reports left leg is chronically red and appears more cellulitic than right leg. Additional complaint of some diarrhea for the past 1 to 2 days after her son bought a sandwich at a gas station that she said tasted foul. Has not had nausea and vomiting but has had some slight abdominal discomfort. Did not endorse any other complaints at this time. Additionally chest pain had resolved by time of evaluation [facility] Medical History Chest pain Home Medications Omeprazole [Prilosec] 40 mg PO DAILY 12/30/12 [History Last Taken 01/17/13] aspirin 81 mg chewable tablet 81 mg PO DAILY@0800 12/30/12 [History Last Taken 01/17/13] gabapentin 600 mg tablet 1,200 mg PO QHS 12/30/12 [History Last Taken Unknown] loratadine 10 mg tablet (Allergy Relief (loratadine)) 10 mg PO DAILY 12/30/12 [History Last Taken 01/17/13] metformin 1,000 mg tablet 1,000 mg PO BID 12/30/12 [History Last Taken 01/17/13] montelukast 10 mg tablet 10 mg PO DAILY 12/30/12 [History Last Taken 01/17/13] furosemide 40 mg tablet 40 mg PO DAILY 08/12/19 [History Last Taken Unknown] cholecalciferol (vitamin D3) 1,250 mcg (50,000 unit) capsule 50,000 unit PO WE 12/26/21 [History Last Taken Unknown] dulaglutide 3 mg/0.5 mL subcutaneous pen injector (Trulicity) 3 mg subcut NIEVES 12/26/21 [History Last Taken Unknown] hydrocodone-acetaminophen 5-325mg 5mg-325mg 1 tab PO Q6H PRN Pain 12/26/21 [History Last Taken Unknown] insulin degludec 100 unit/mL (3 mL) subcutaneous pen (Tresiba FlexTouch U-100 insulin) 80 unit subcut QHS 12/26/21 [History Last Taken Unknown] insulin lispro 100 unit/mL subcutaneous pen 20 unit subcut TIDCM 12/26/21 [History Last Taken Unknown] nortriptyline 10 mg capsule 20 mg PO QHS 12/26/21 [History Last Taken Unknown] potassium chloride 10 mEq tablet,extended release 10 meq PO DAILY 12/26/21 [History Last Taken Unknown] sulfamethoxazole 800 mg-trimethoprim 160 mg tablet (Bactrim DS) 1 tab PO BID #20 tabs 12/26/21 [Rx Last Taken Unknown] Allergy/AdvReac Type Severity Reaction Status Date / Time Penicillins [PCN] Allergy Rash Verified 04/28/22 20:10 Social History Smoking Status: Former smoker ROS ROS Narrative General: Denies fever or chills HENT: Denies headache, denies stuffy nose, denies sore throat EYES: Denies changes in vision Resp: Denies cough, did have some shortness of breath Cardiac: Did have some central chest pain for several days but is resolved since being in the ED GI: Did have some general diffuse abdominal pain reported with diarrhea : Denies changes in urination Extremity: Denies swelling MSK: Denies weakness Neuro: Denies any numbness, denies tingling Heme: Denies any bleeding or bruising Skin: Left lower extremity cellulitis Psychiatric: No complaints voiced Vital Signs Vital Signs Vital Signs: 04/28/22 20:10 04/28/22 20:12 04/28/22 20:55 Temperature 98.3 F Temperature Source Oral Pulse Rate 104 H Respiratory Rate 22 H Respiratory Effort Respiratory Depth Respiratory Pattern Blood Pressure 109/57 L Blood Pressure Mean 74 Blood Pressure Source Blood Pressure Position Blood Pressure Location Pulse Ox 91 87 Oxygen Delivery Method Room Air Room Air Oxygen Flow Rate (L/min) 04/28/22 20:55 04/28/22 21:39 04/28/22 21:59 Temperature Temperature Source Pulse Rate 102 H 96 88 Respiratory Rate 18 18 22 H Respiratory Effort Respiratory Depth Respiratory Pattern Blood Pressure 133/63 H 125/69 H Blood Pressure Mean 86 87 Blood Pressure Source Blood Pressure Position Blood Pressure Location Pulse Ox 95 94 Oxygen Delivery Method Room Air Nasal Cannula Oxygen Flow Rate (L/min) 2 04/28/22 22:41 04/28/22 23:33 04/29/22 00:00 Temperature 98.3 F Temperature Source Oral Pulse Rate 93 89 Respiratory Rate 18 18 Respiratory Effort Normal Non-Labored Respiratory Depth Normal Respiratory Pattern Tachypnea Blood Pressure 132/72 H 111/79 Blood Pressure Mean 92 89 Blood Pressure Source Blood Pressure Position Blood Pressure Location Pulse Ox 100 98 Oxygen Delivery Method Nasal Cannula Nasal Cannula Nasal Cannula Oxygen Flow Rate (L/min) 2 2 2 04/29/22 00:00 04/29/22 00:52 Temperature 97.0 F L 97.0 F L Temperature Source Temporal Temporal Pulse Rate 95 95 Respiratory Rate 18 18 Respiratory Effort Respiratory Depth Respiratory Pattern Blood Pressure 127/99 H 116/67 Blood Pressure Mean 108 83 Blood Pressure Source Monitor Blood Pressure Position Semi-Fowlers Blood Pressure Location Right Forearm Pulse Ox 96 96 Oxygen Delivery Method Nasal Cannula Nasal Cannula Oxygen Flow Rate (L/min) 2 2 Weight Weight: 158.2 kg Body Mass Index (BMI) 61.7 Physical Exam Narrative General: Resting comfortably, will wake up when prompted but does fall back asleep quickly HEENT: Atraumatic, normocephalic Eyes: Anicteric, normal conjunctiva, extraocular movements grossly intact Neck: Supple Respiratory: Normal respiratory effort, breath sounds diminished at the bases but suspect this is largely due to body habitus Cardiovascular: Regular rate and rhythm GI: Soft, nondistended, mild tenderness to palpation diffusely without rebound, guarding, rigidity Extremities: Significant bilateral lower extremity lymphedema appreciated Musculoskeletal: Moving all extremities Neuro: No overt focal neurological deficits Skin: Left foot cellulitis and chronic changes on both legs Psych: Overall cooperative Results Lab / Micro Data Result Diagrams: 04/29/22 02:05 04/29/22 02:05 Labs: Laboratory Results - last 24 hr 04/28/22 21:00: WBC 12.7 H, RBC 3.95 L, Hgb 9.3 L, Hct 30.4 L, MCV 77.0 L, MCH 23.5 L, MCHC 30.6 L, RDW Std Deviation 46.1 H, RDW Coeff of Heather 16.4 H, Plt Count 416, MPV 9.5, Immature Gran % (Auto) 1.200 H, Neut % (Auto) 89.0 H, Lymph % (Auto) 4.3 L, [place] % (Auto) 5.2, Eos % (Auto) 0.0, Baso % (Auto) 0.3, Absolute Neuts (auto) 11.3 H, Absolute Lymphs (auto) 0.54 L, Nucleated RBC % 0, Differential Comment SCANNED 04/28/22 21:00: PT 15.6 H, INR 1.3 04/28/22 21:00: Sodium 130 L, Potassium 3.8, Chloride 93 L, Carbon Dioxide 25.0, Anion Gap 12, BUN 27 H, Creatinine 1.86 H, Estim Creat Clear Calc 26.27, Est GFR (MDRD) Af Amer 35 L, Est GFR (MDRD) Non-Af 29 L, BUN/Creatinine Ratio 14.5, Glucose 213 H, Calcium 8.6, Total Bilirubin 1.30 H, AST 37, ALT 15, Alkaline Phosphatase 215 H, Troponin I High Sens 2224 H*, Total Protein 7.8, Albumin 2.2 L, Globulin 5.6 H, Albumin/Globulin Ratio 0.4 L 04/28/22 21:00: B-Natriuretic Peptide 243.3 H 04/28/22 21:00: APTT 38.7 H 04/28/22 21:27: POC Glucose 173 H 04/28/22 23:40: Troponin I High Sens 2490 H* 04/29/22 02:05: Troponin I High Sens 2391 H* Micro: Microbiology 04/28/22 21:05 Nasal Secretion SARS-CoV-2 & FLU Antigen (Rapid) - Final ABG Data ABG results: ABG 04/28/22 22:13 Specimen Type ART Sample Site L Radial pH 7.40 Bicarbonate Actual 24.4 Total CO2 26 Base Excess 0 O2 Saturation 98 ABG pCO2 39.2 ABG pO2 96 Valeriy Test N/A O2 Delivery Device Cannula Liter Flow 2.0 Radiology Impression Chest X-Ray 04/28/22 21:10 IMPRESSION: No radiographic evidence of acute cardiopulmonary disease. Electronically Signed: Bhaskar Ordonez MD at 21:26 EST Reading Location ID and State: [facility] / [place] , Service support , Assessment & Plan Assessment/Plan (1) Acute non-ST elevation myocardial infarction (NSTEMI): (2) Hypoxia: (3) Cellulitis: (4) Obstructive sleep apnea: (5) Type I diabetes mellitus: PLAN: Plan #NSTEMI, concern for type I Troponin 2391 in the ED and peaked at 2490 before downtrending to 2224 Cardiology consulted in the ED and recommended heparin drip Chest pain has resolved at time of exam Had refused chewable aspirin prior to arrival We will try daily aspirin first dose now Lipid panel Echocardiogram Continue heparin drip Start beta-татьяна and statin Cardiology consulted #Hypoxia and shortness of breath with reported history of COPD Reported to be hypoxic in the ED with several days of shortness of breath but work-up unrevealing Chest x-ray in ED with no radiographic evidence of acute pulmonary disease, ABG without significant abnormality Unclear if she uses CPAP or BiPAP at home but on chart review she does have SUSANNA listed, will check VBG in a.m. to assess for CO2 retention, will likely need BiPAP or CPAP nightly Is not wheezing has not had increased cough with sputum production so do not feel she is in exacerbation and will hold off on any steroids Nebs #Type 1 diabetes mellitus Every 6 glucose checks and coverage while n.p.o. for possible heart cath A1c in the a.m. We will start glargine lower then home dose of long-acting, given reported type I patient will need some amount of basal insulin but is n.p.o. #Left lower extremity cellulitis with chronic bilateral lower extremity lymphedema No systemic signs or symptoms of infection Given dose of antibiotics in the ED, given nonsevere infection will start cefazolin, has penicillin allergy that is listed as rash but no mention of history of anaphylaxis Wound care consulted Blood culture sent in the ED, WBC 12.7 but afebrile do not suspect sepsis but will monitor cultures #Diarrhea and some abdominal pain Reportedly after eating a foul gas station sandwich on Monday We will send stool studies Slight diffuse tenderness without rebound, guarding, rigidity, no indication for abdominal imaging at this time but can reevaluate pending progress and symptoms #STEPHY on CKD stage III unclear subtype Unclear why she is on furosemide, will need to clarify but will hold at this time and will give small fluid bolus as with her diarrhea this is likely prerenal No echo in our system and no reported history of heart failure noted, BNP is 243 with no recent value, chest x-ray does not appear overloaded or have any acute process Echo ordered #Morbid obesity Complicates care #General debility pt/ot #DVT ppx: On heparin drip Kierra Rivera MD Time spent in the patient's overall evaluation,decision-making process, review of diagnostic data, adjustment of management, discussion with other providers, nursing nursing and ancillary staff involved in patient's care documentation, 60 minutes Charges/Coding Visit Charges Inpatient E&M: 59537 Init Hosp L2
[2022-04-29 03:14] LABS: ALB/GLOB Ratio 0.4 RATIO (0.9-2.4); AST(SGOT) 44 U/L (15-37); Alanine Aminotransfer ALT/SGPT 15 U/L (13-56); Alkaline Phosphatase 196 U/L (45-117); Anion Gap 10 (5-15); BUN 28 mg/dL (7-18); BUN/Creat Ratio 16.1 RATIO (10-20); Calcium,Total 8.6 mg/dL (8.5-10.1); Chloride 95 mmol/L (98-107); Cholesterol 68 mg/dL (200); Creatinine, Serum 1.74 mg/dL (0.55-1.02); EST Glomerular Filtration Rate 32 mL/min (>60); Est Glom Filt Rate - Afr Amer 38 mL/min (>60); Estimated Creatinine Clearance 28.09 ml/min; Globulin 5.4 g/dL (2.2-4.2); Glucose 142 mg/dL (74-106); High Density Lipoprotein 14 mg/dL; Potassium 3.9 mmol/L (3.5-5.1); Protein, Total 7.4 g/dL (6.4-8.2); Sodium Level 131 mmol/L (136-145); Triglycerides 112 mg/dL; Very Low Density Lipoprotein 22 mg/dL (5-40)
[2022-04-29 03:37] LABS: Differential Indicated SCAN CRITERIA MET
[2022-04-29] MEDS: 0.9% Normal Saline 1,000 ML 100 ML IV (03:45)
[2022-04-29] MEDS: Ondansetron 4 MG/2 ML Vial IV (03:48)
[2022-04-29] MEDS: CLARIFY ORDER NOTE (04:14)
[2022-04-29 04:25] LABS: Differential Comment SCANNED; Hypochromasia RARE
[2022-04-29 05:06] LABS: Blood Gas Specimen Type VEN; O2 Delivery Device Cannula; VBG BASE EXCESS 3 mmol/L (-1.0-3.5); VBG Bicarbonate 27 mmol/L (22-26); VBG PO2 30 mmHg (25-40); VBG SO2 57 % (50-70); VBG TCO2 29 mmol/L (23-33); VBG pCO2 44.2 mmHg (41-51)
[2022-04-29] MEDS: Cefazolin 1 GM/50 ML BAG IV (05:39)
[2022-04-29 06:10] LABS: Bedside Glucose 117 mg/dL (74-106)
[2022-04-29] MEDS: Ipratropium/Albuterol Sulfate 3 ML AMPUL.NEB INHALATION ×3 (07:03→18:53)
--- NOTE | 2022-04-29 07:42 | PN.HOSP_ITS ---
Reason for Visit Reason for Visit: Follow-up for shortness of breath, non-STEMI left heel cellulitis with purulent collection. Diagnoses Type 1 diabetes mellitus without complications (04/28/22) Obstructive sleep apnea (adult) (pediatric) (04/28/22) Non-ST elevation (NSTEMI) myocardial infarction (04/28/22) Cellulitis, unspecified (04/28/22) Hypoxemia (04/28/22) Objective Data Objective Data Seen and examined. I talked to the patient's daughter near the bedside. Patient admitted with shortness of breath. She has been admitted before for cellulitis. Left heel purulent collection and painful. Physical exam General: Alert, Oriented x3, Cooperative, morbid obesity BMI 61.8 KG per square meter HEENT: Atraumatic, PERRLA, EOMI, Normocephalic Oral: Deep oropharyngeal structures could not be seen. Neck: Supple, No JVD, Negative Carotid Bruits Lungs: Air entry diminished in bilateral lung bases. No crepitation/rhonchi Cardiovascular: Sinus rhythm with PVCs, Normal S1, Normal S2, No murmurs Abdomen: Bowel Sounds Present, Soft, Non Tender, Non-Distended : No renal angle tenderness. No suprapubic tenderness. Extremities: No edema, Capillary Refill Less than 3 Seconds Skin: History rash over abdominal fold of his skin and groin. Left heel purulent collection, pain tenderness with adjoining cellulitis. Musculoskeletal: No Tenderness to Palpation of Joints or Extremities. ROM severely limited, degenerative arthritis of hip and knee joints. Neurological: Cranial nerves II-XII grossly intact, DTR 2+/4, muscle strength could not be evaluated. Psych/Mental Status: Flat affect. Vital Signs: Vital Signs Temp Pulse Resp BP Pulse Ox O2 Del Method O2 Flow Rate 99.0 F 106 H 20 H 139/88 H 94 Nasal Cannula 3 04/29/22 06:00 04/29/22 07:04 04/29/22 07:04 04/29/22 06:00 04/29/22 07:04 04/29/22 07:04 04/29/22 07:04 Oxygen Flow Rate (L/min) 3 Oxygen Delivery Method Nasal Cannula Weight: 348 lb 12.34 oz Body Mass Index (BMI) 61.7 Intake & Output: Intake and Output for Last 24 Hours 0204/28/22 04/29/22 23:59 23:59 23:59 Intake Total 50 / 50 50 / 50 Output Total 0 / 0 Balance 50 / 50 50 / 50 Lab / Micro Data Result Diagrams: 04/29/22 02:05 04/29/22 02:05 Labs: Laboratory Results - last 24 hr 04/28/22 21:00: WBC 12.7 H, RBC 3.95 L, Hgb 9.3 L, Hct 30.4 L, MCV 77.0 L, MCH 23.5 L, MCHC 30.6 L, RDW Std Deviation 46.1 H, RDW Coeff of Heather 16.4 H, Plt Count 416, MPV 9.5, Immature Gran % (Auto) 1.200 H, Neut % (Auto) 89.0 H, Lymph % (Auto) 4.3 L, [place] % (Auto) 5.2, Eos % (Auto) 0.0, Baso % (Auto) 0.3, Absolute Neuts (auto) 11.3 H, Absolute Lymphs (auto) 0.54 L, Nucleated RBC % 0, Differential Comment SCANNED 04/28/22 21:00: PT 15.6 H, INR 1.3 04/28/22 21:00: Sodium 130 L, Potassium 3.8, Chloride 93 L, Carbon Dioxide 25.0, Anion Gap 12, BUN 27 H, Creatinine 1.86 H, Estim Creat Clear Calc 26.27, Est GFR (MDRD) Af Amer 35 L, Est GFR (MDRD) Non-Af 29 L, BUN/Creatinine Ratio 14.5, Glucose 213 H, Calcium 8.6, Total Bilirubin 1.30 H, AST 37, ALT 15, Alkaline Phosphatase 215 H, Troponin I High Sens 2224 H*, Total Protein 7.8, Albumin 2.2 L, Globulin 5.6 H, Albumin/Globulin Ratio 0.4 L 04/28/22 21:00: B-Natriuretic Peptide 243.3 H 04/28/22 21:00: APTT 38.7 H 04/28/22 21:27: POC Glucose 173 H 04/28/22 23:40: Troponin I High Sens 2490 H* 04/29/22 02:05: Troponin I High Sens 2391 H* 04/29/22 02:05: WBC 8.7, RBC 3.73 L, Hgb 8.8 L, Hct 29.0 L, MCV 77.7 L, MCH 23.6 L, MCHC 30.3 L, RDW Std Deviation 47.1 H, RDW Coeff of Heather 16.6 H, Plt Count 367, MPV 9.4, Immature Gran % (Auto) 1.400 H, Neut % (Auto) 86.0 H, Lymph % (Auto) 6.9 L, [place] % (Auto) 5.3, Eos % (Auto) 0.1, Baso % (Auto) 0.3, Absolute Neuts (auto) 7.4, Absolute Lymphs (auto) 0.60 L, Nucleated RBC % 0, Differential Comment SCANNED, Hypochromasia RARE 04/29/22 02:05: Sodium 131 L, Potassium 3.9, Chloride 95 L, Carbon Dioxide 26.0, Anion Gap 10, BUN 28 H, Creatinine 1.74 H, Estim Creat Clear Calc 28.09, Est GFR (MDRD) Af Amer 38 L, Est GFR (MDRD) Non-Af 32 L, BUN/Creatinine Ratio 16.1, Glucose 142 H, Calcium 8.6, Total Bilirubin 1.20 H, AST 44 H, ALT 15, Alkaline Phosphatase 196 H, Total Protein 7.4, Albumin 2.0 L, Globulin 5.4 H, Album in/Globulin Ratio 0.4 L, Triglycerides 112, Cholesterol 68, LDL Cholesterol 32, VLDL Cholesterol 22, HDL Cholesterol 14 L 04/29/22 04:47: APTT 45.0 H 04/29/22 05:43: POC Glucose 117 H Micro: Microbiology 04/28/22 21:05 Nasal Secretion SARS-CoV-2 & FLU Antigen (Rapid) - Final ABG Data ABG results: ABG 04/28/22 04/29/22 22:13 04:58 Specimen Type ART ARBEN Sample Site L Radial pH 7.40 Bicarbonate Actual 24.4 Total CO2 26 Base Excess 0 O2 Saturation 98 ABG pCO2 39.2 ABG pO2 96 Valeriy Test N/A VBG pH 7.40 VBG pO2 30 VBG HCO3 27 H VBG Total CO2 29 VBG O2 Sat (Calc) 57 VBG Base Excess 3 POC Mix VBG pCO2 Pt Tmp 44.2 O2 Delivery Device Cannula Cannula Liter Flow 2.0 6.0 Radiography Diagnostic Testing: Radiology Impression Chest X-Ray 04/28/22 21:10 IMPRESSION: No radiographic evidence of acute cardiopulmonary disease. Electronically Signed: Bhaskar Ordonez MD at 21:26 EST Reading Location ID and State: [facility] / ID , Service support , Assessment & Plan Assessment/Plan (1) Acute non-ST elevation myocardial infarction (NSTEMI): (2) Hypoxia: (3) Cellulitis: (4) Obstructive sleep apnea: (5) Type I diabetes mellitus: PLAN: Plan 61-year-old female was admitted for shortness of breath, chest pain mild nausea vomiting and diarrhea. She cannot describe completely about characteristics of chest pain poor historian. Troponins elevated suggestive of non-STEMI. #NSTEMI: Troponin progressively increased. Patient is admitted in ICU. Delivery Man consulted. Currently asymptomatic for chest pain, shortness of breath better. On aspirin, Plavix, metoprolol. Discussed with the psychiatric nurse practitioner. Patient creatinine is high with creatinine clearance about 28 mill per minute therefore nephrology consult and optimization of kidney function prior to cardiac cath. Fasting lipid profile normal except HDL very low 14. 2D echo EF 50%, mildly dilated RV with moderate global RV systolic dysfunction. Mild eccentric PI. Technically difficult study suggestive of biventricular heart failure with chronic HFpEF Microbiology Past 72 Hours 04/29/22 10:15 Wound - Heel, Left Gram Stain - Final 04/28/22 21:05 Nasal Secretion SARS-CoV-2 & FLU Antigen (Rapid) - Final Laboratory Results 04/28/22 21:00: WBC 12.7 H, RBC 3.95 L, Hgb 9.3 L, Hct 30.4 L, MCV 77.0 L, MCH 23.5 L, MCHC 30.6 L, RDW Std Deviation 46.1 H, RDW Coeff of Heather 16.4 H, Plt Count 416, MPV 9.5, Immature Gran % (Auto) 1.200 H, Neut % (Auto) 89.0 H, Lymph % (Auto) 4.3 L, [place] % (Auto) 5.2, Eos % (Auto) 0.0, Baso % (Auto) 0.3, Absolute Neuts (auto) 11.3 H, Absolute Lymphs (auto) 0.54 L, Nucleated RBC % 0, Differential Comment SCANNED 04/28/22 21:00: PT 15.6 H, INR 1.3 04/28/22 21:00: Sodium 130 L, Potassium 3.8, Chloride 93 L, Carbon Dioxide 25.0, Anion Gap 12, BUN 27 H, Creatinine 1.86 H, Estim Creat Clear Calc 26.27, Est GFR (MDRD) Af Amer 35 L, Est GFR (MDRD) Non-Af 29 L, BUN/Creatinine Ratio 14.5, Gluc ose 213 H, Calcium 8.6, Total Bilirubin 1.30 H, AST 37, ALT 15, Alkaline Phosphatase 215 H, Troponin I High Sens 2224 H*, Total Protein 7.8, Albumin 2.2 L, Globulin 5.6 H, Albumin/Globulin Ratio 0.4 L 04/28/22 21:00: B-Natriuretic Peptide 243.3 H 04/28/22 21:00: APTT 38.7 H 04/28/22 21:27: POC Glucose 173 H 04/28/22 22:13: Specimen Type ART, Sample Site L Radial, pH 7.40, Bicarbonate Actual 24.4, Total CO2 26, Base Excess 0, O2 Saturation 98, ABG pCO2 39.2, ABG pO2 96, Valeriy Test N/A, O2 Delivery Device Cannula, Liter Flow 2.0 04/28/22 23:40: Troponin I High Sens 2490 H* 04/29/22 02:05: Troponin I High Sens 2391 H* 04/29/22 02:05: WBC 8.7, RBC 3.73 L, Hgb 8.8 L, Hct 29.0 L, MCV 77.7 L, MCH 23.6 L, MCHC 30.3 L, RDW Std Deviation 47.1 H, RDW Coeff of Heather 16.6 H, Plt Count 367, MPV 9.4, Immature Gran % (Auto) 1.400 H, Neut % (Auto) 86.0 H, Lymph % (Auto) 6.9 L, [place] % (Auto) 5.3, Eos % (Auto) 0.1, Baso % (Auto) 0.3, Absolute Neuts (auto) 7.4, Absolute Lymphs (auto) 0.60 L, Nucleated RBC % 0, Differential Comment SCANNED, Hypochromasia RARE 04/29/22 02:05: Sodium 131 L, Potassium 3.9, Chloride 95 L, Carbon Dioxide 26.0, Anion Gap 10, BUN 28 H, Creatinine 1.74 H, Estim Creat Clear Calc 28.09, Est GFR (MDRD) Af Amer 38 L, Est GFR (MDRD) Non-Af 32 L, BUN/Creatinine Ratio 16.1, Glucose 142 H, Calcium 8.6, Total Bilirubin 1.20 H, AST 44 H, ALT 15, Alkaline Phosphatase 196 H, Total Protein 7.4, Albumin 2.0 L, Globulin 5.4 H, Albumin/Globulin Ratio 0.4 L, Triglycerides 112, Cholesterol 68, LDL Cholesterol 32, VLDL Cholesterol 22, HDL Cholesterol 14 L 04/29/22 02:05: Hemoglobin A1c 7.7 H 04/29/22 04:47: APTT 45.0 H 04/29/22 04:58: Specimen Type ARBEN, VBG pH 7.40, VBG pO2 30, VBG HCO3 27 H, VBG Total CO2 29, VBG O2 Sat (Calc) 57, VBG Base Excess 3, POC Mix VBG pCO2 Pt Tmp 44.2, O2 Delivery Device Cannula, Liter Flow 6.0 04/29/22 05:43: POC Glucose 117 H 04/29/22 10:15: S.aureus Protein A PCR NEGATIVE, MRSA (PCR) Negative 04/29/22 12:10: APTT 39.6 H 04/29/22 12:15: POC Glucose 65 L # COPD with chronic cor pulmonale: Noted chronic cor pulmonale as mentioned in echo above. Chest x-ray does not show acute cardiopulmonary disease, individually reviewed. ABG no significant abnormality. BiPAP as patient might have sleep apnea. DuoNeb as needed patient not in exacerbation. #Type 1 diabetes mellitus: Diet allowed. Accu-Chek insulin coverage with sliding scale. A1c 7.7%. Mild hyperglycemia but not bad. #Left heel purulent fluid/abscess with surrounding cellulitis, bilateral lymphedema: Wound photo reviewed and shows left heel purulent collection, absc ess with surrounding cellulitis. Gram stain from left heel drainage shows 4+ GPC, 3+ GPR, 2+ GNR, no cells seen. Bilateral Candidal intertrigo over abdominal folds of inframammary skin and groin. Podiatry consulted. Wound nurse consulted. Patient on IV antibiotics, IV cefazolin. On fluconazole. #Diarrhea and some abdominal pain probably food poisoning: Patient diarrhea has stopped. Stool studies could not be done. Reportedly after eating a foul gas station sandwich on Monday We will send stool studies Slight diffuse tenderness without rebound, guarding, rigidity, no indication for abdominal imaging at this time but can reevaluate pending progress and symptoms #STEPHY on CKD stage III unclear subtype: Director Skills is consulted. Patient creatinine was 1.0 in December 2021. Patient admitted with creatinine 1.86, today 1.74. Director Skills consulted for optimization of kidney function prior to heart cath. #Morbid obesity Complicates care #General debility pt/ot #DVT ppx: On heparin drip Total time of the visit including total time spent in counseling or coordination of care, (more than 50% of the total time, spent in obtaining medical information from nurses and other ancillary care providers,explaining to the patient about labs, imaging, diagnosis and management of active complex medical conditions), clinical update given to the patient's daughter on the room, discussion with psychiatric nurse practitioner, vice president of software development, client services representative and wound care nurse, review of labs and imaging is 55 minutes Charges/Coding Visit Charges Inpatient E&M: 92370 Subs Hosp L3
[2022-04-29 09:34] LABS: Hemoglobin A1c 7.7 % (3.8-5.6)
--- NOTE | 2022-04-29 10:42 | CASEMGMT ---
Addendum entered by Jessica Momin 04/29/22 10:52: SW also called [facility], message left. ROXANE Herbert Original Note: Social Work SW met w/pt and daughter Jami in room. SW reviewed prior level of function and anticipated discharge plan. PCP: Dr. Medina Specialists: Dr. Johns--podiatry. Dr. Caro--pt states this is a [facility] clinical care manager she sees. Pharmacy: [facility] Insurance: Medicaid LW/POA: Pt has not completed the documents, but states daughter Jami is the one who helps. Pt interested in completing the document while here. LNOK: Pt has three children, and an exhusband. Living arrangements: Pt rents a two story house, lives w/her son Jackson. Pt explains has lived there for 20 years. She states the home has black mold so she has to stay upstairs. She crawls up the steps as she cannot walk. She states the landlord won't do anything about it. Pt explains every time she tries to move the landlord sabotages it as he thinks she needs to be in a long term, and he doesn't like her son. Prior level of function: Pt's son helps pt with most ADLs, including dressing, getting into the tub to shower, cooking, laundry, cleaning. At times she can get to the toilet on her own, pt's son does need to help her at times. As per pt and daughter son is not very good at cooking and cleaning. Pt organizes her own medication. Pt's son drives pt when needed. DME: Pt primarily uses a wheelchair to get around. She has two rollators, grab bars, shower chair, bedside commode. SNF/HHC: Pt does not have a history of SNF, had HHC at one time. Pt does have [facility], Brittany Gunderson is her CM. Pt does get home delivered meals. She does not have an aide as there are no aides willing to come to the home due to both black mold and bed bugs. SW spoke w/pt and daughter about the home issues. They state they have called [facility] and they will not help. They have spoken w/Brittany at [facility] also who has not helped. Daughter states the only thing they can do is call the Department of Health, but they have not done this yet. SW spoke w/pt and daughter about discharge plan. SW provided to daughter(as pt is visually impaired) a list [facility] custod[facility] in their preferred geographic area, complete with quality and resource use data, that takes pt's insurance. Pt immediately stated she can't go to a long term as there will be nobody to take care of Jackson(her son). SW explained we are talking about short term, not termite helper. Pt still focused on concern over son. bead wire insulator came in to care for pt's legs. SW left list w/daughter, explained will come back. SW will also assist w/LW and POA if time allows today. CARLOS called Brittany Gunderson at [facility] and left a message to call CARLOS. CARLOS will continue to follow. ROXANE Herbert
[2022-04-29] MEDS: Nystatin Powder 15gm Bottle 1 APPLIC TOPICAL ×2 (10:59→21:16)
[2022-04-29] MEDS: Menthol/Lanolin/Calamine/Znox 113 GM Tube 1 APPLIC TOPICAL ×2 (11:00→21:17)
--- NOTE | 2022-04-29 11:12 | WOUNDNOTE ---
wound photo: left heel
--- NOTE | 2022-04-29 11:12 | WOUNDNOTE ---
wound photo: left heel
--- NOTE | 2022-04-29 11:13 | WOUNDNOTE ---
skin photo: right abdominal fold
--- NOTE | 2022-04-29 11:36 | CON.PCM.CA_ITS ---
Assessment & Plan Assessment/Plan (1) Acute non-ST elevation myocardial infarction (NSTEMI): PLAN: Presently asymptomatic. Continue aspirin. Started on Plavix. Continue beta-blockers. Coronary angiography with possible revascularization offered to patient. Risks benefits and alternatives discussed. She understands these and wishes to proceed. However she is reluctant to have it done today. Also noted increased creatinine. Will get nephrology input regarding optimizing her renal function for coronary angiography. Plan coronary angiography on Monday. (2) Benign hypertension: PLAN: Controlled. (3) Type I diabetes mellitus: PLAN: As per internal medicine. (4) Obstructive sleep apnea: PLAN: As per pulmonary/internal medicine. (5) Cellulitis: PLAN: As per internal medicine. Diabetic foot. (6) Morbid obesity: PLAN: Lose weight. (7) Elevated serum creatinine: PLAN: Recommend nephrology consult. HPI Consult Data Date of Consult: 04/29/22 HPI Narrative Reason for Consultation: Non-ST elevation ID HPI Narrative: Patient is 61-year-old female with past medical history significant for diabetes mellitus, COPD, obstructive sleep apnea, hypertension and morbid obesity who presented to the emergency room with complaints of chest discomfort for the last 2 to 3 days. Also shortness of breath associated with it. Her troponins were noted to be elevated ruling her in for non-ST elevation myocardial infarction. Started on medical management and admitted. Presently patient is pain-free. Denies any previous history of coronary artery disease. [facility] Medical History Chest pain Home Medications Omeprazole [Prilosec] 40 mg PO DAILY 12/30/12 [History Last Taken 01/17/13] aspirin 81 mg chewable tablet 81 mg PO DAILY@0800 12/30/12 [History Last Taken 01/17/13] gabapentin 600 mg tablet 1,200 mg PO QHS 12/30/12 [History Last Taken Unknown] loratadine 10 mg tablet (Allergy Relief (loratadine)) 10 mg PO DAILY 12/30/12 [History Last Taken 01/17/13] metformin 1,000 mg tablet 1,000 mg PO BID 12/30/12 [History Last Taken 01/17/13] montelukast 10 mg tablet 10 mg PO DAILY 12/30/12 [History Last Taken 01/17/13] furosemide 40 mg tablet 40 mg PO DAILY 06/01/20 [History Last Taken Unknown] cholecalciferol (vitamin D3) 1,250 mcg (50,000 unit) capsule 50,000 unit PO WE 12/26/21 [History Last Taken Unknown] dulaglutide 3 mg/0.5 mL subcutaneous pen injector (Trulicity) 3 mg subcut NIEVES 12/26/21 [History Last Taken Unknown] hydrocodone-acetaminophen 5-325mg 5mg-325mg 1 tab PO Q6H PRN Pain 12/26/21 [History Last Taken Unknown] insulin degludec 100 unit/mL (3 mL) subcutaneous pen (Tresiba FlexTouch U-100 insulin) 80 unit subcut QHS 12/26/21 [History Last Taken Unknown] insulin lispro 100 unit/mL subcutaneous pen 20 unit subcut TIDCM 12/26/21 [Hi story Last Taken Unknown] nortriptyline 10 mg capsule 20 mg PO QHS 12/26/21 [History Last Taken Unknown] potassium chloride 10 mEq tablet,extended release 10 meq PO DAILY 12/26/21 [History Last Taken Unknown] sulfamethoxazole 800 mg-trimethoprim 160 mg tablet (Bactrim DS) 1 tab PO BID #20 tabs 12/26/21 [Rx Last Taken Unknown] Allergy/AdvReac Type Severity Reaction Status Date / Time Penicillins [PCN] Allergy Rash Verified 04/28/22 20:10 Social History Smoking Status: Former smoker Physical Exam Narrative Morbidly obese. No apparent distress. Heart sounds 1 and 2 are normal. Diminished entry at bilateral lung bases. Abdomen soft. Obese. Alert oriented x3. Moving all 4 extremities. Risk Stratification Risk Stratification Applicable: No Objective Data Vital Signs: Vital Signs Temp Pulse Resp BP Pulse Ox O2 Del Method O2 Flow Rate 99.0 F 106 H 20 H 139/88 H 94 Nasal Cannula 2 04/29/22 06:00 04/29/22 07:04 04/29/22 07:04 04/29/22 06:00 04/29/22 07:04 04/29/22 08:00 04/29/22 08:00 Oxygen Flow Rate (L/min) 2 Oxygen Delivery Method Nasal Cannula Weight: 348 lb 12.34 oz Body Mass Index (BMI) 61.7 Intake & Output: Intake and Output for Last 24 Hours 04/27/22 04/28/22 04/29/22 23:59 23:59 23:59 Intake Total 50 / 50 50 / 50 Output Total 0 / 0 Balance 50 / 50 50 / 50 Lab / Micro Data Attestation: I reviewed the patient's lab results. Result Diagrams: 04/29/22 02:05 04/29/22 02:05 Labs: Laboratory Results - last 24 hr 04/28/22 21:00: WBC 12.7 H, RBC 3.95 L, Hgb 9.3 L, Hct 30.4 L, MCV 77.0 L, MCH 23.5 L, MCHC 30.6 L, RDW Std Deviation 46.1 H, RDW Coeff of Heather 16.4 H, Plt Count 416, MPV 9.5, Immature Gran % (Auto) 1.200 H, Neut % (Auto) 89.0 H, Lymph % (Auto) 4.3 L, [place] % (Auto) 5.2, Eos % (Auto) 0.0, Baso % (Auto) 0.3, Absolute Neuts (auto) 11.3 H, Absolute Lymphs (auto) 0.54 L, Nucleated RBC % 0, Differential Comment SCANNED 04/28/22 21:00: PT 15.6 H, INR 1.3 04/28/22 21:00: Sodium 130 L, Potassium 3.8, Chloride 93 L, Carbon Dioxide 25.0, Anion Gap 12, BUN 27 H, Creatinine 1.86 H, Estim Creat Clear Calc 26.27, Est GFR (MDRD) Af Amer 35 L, Est GFR (MDRD) Non-Af 29 L, BUN/Creatinine Ratio 14.5, Glucose 213 H, Calcium 8.6, Total Bilirubin 1.30 H, AST 37, ALT 15, Alkaline Phosphatase 215 H, Troponin I High Sens 2224 H*, Total Protein 7.8, Albumin 2.2 L, Globulin 5.6 H, Albumin/Globulin Ratio 0.4 L 04/28/22 21:00: B-Natriuretic Peptide 243.3 H 04/28/22 21:00: APTT 38.7 H 04/28/22 21:27: POC Glucose 173 H 04/28/22 23:40: Troponin I High Sens 2490 H* 04/29/22 02:05: Troponin I High Sens 2391 H* 04/29/22 02:05: WBC 8.7, RBC 3.73 L, Hgb 8.8 L, Hct 29.0 L, MCV 77.7 L, MCH 23.6 L, MCHC 30.3 L, RDW Std Deviation 47.1 H, RDW Coeff of Heather 16.6 H, Plt Count 367, MPV 9.4, Immature Gran % (Auto) 1.400 H, Neut % (Auto) 86.0 H, Lymph % (Auto) 6.9 L, [place] % (Auto) 5.3, Eos % (Auto) 0.1, Baso % (Auto) 0.3, Absolute Neuts (auto) 7.4, Absolute Lymphs (auto) 0.60 L, Nucleated RBC % 0, Differential Comment SCANNED, Hypochromasia RARE 04/29/22 02:05: Sodium 131 L, Potassium 3.9, Chloride 95 L, Carbon Dioxide 26.0, Anion Gap 10, BUN 28 H, Creatinine 1.74 H, Estim Creat Clear Calc 28.09, Est GFR (MDRD) Af Amer 38 L, Est GFR (MDRD) Non-Af 32 L, BUN/Creatinine Ratio 16.1, Glucose 142 H, Calcium 8.6, Total Bilirubin 1.20 H, AST 44 H, ALT 15, Alkaline Phosphatase 196 H, Total Protein 7.4, Albumin 2.0 L, Globulin 5.4 H, Albumin/Globulin Ratio 0.4 L, Triglycerides 112, Cholesterol 68, LDL Cholesterol 32, VLDL Cholesterol 22, HDL Cholesterol 14 L 04/29/22 02:05: Hemoglobin A1c 7.7 H 04/29/22 04:47: APTT 45.0 H 04/29/22 05:43: POC Glucose 117 H Micro: Microbiology 04/28/22 21:05 Nasal Secretion SARS-CoV-2 & FLU Antigen (Rapid) - Final ABG Data ABG results: ABG 04/28/22 04/29/22 22:13 04:58 Specimen Type ART ARBEN Sample Site L Radial pH 7.40 Bicarbonate Actual 24.4 Total CO2 26 Base Excess 0 O2 Saturation 98 ABG pCO2 39.2 ABG pO2 96 Valeriy Test N/A VBG pH 7.40 VBG pO2 30 VBG HCO3 27 H VBG Total CO2 29 VBG O2 Sat (Calc) 57 VBG Base Excess 3 POC Mix VBG pCO2 Pt Tmp 44.2 O2 Delivery Device Cannula Cannula Liter Flow 2.0 6.0 Rhythm Strip Rhythm Strip: Sinus Rhythm Cardiology Labs/Tests 04/28/22 21:00: WBC 12.7 H, RBC 3.95 L, Hgb 9.3 L, Hct 30.4 L, MCV 77.0 L, MCH 23.5 L, MCHC 30.6 L, Plt Count 416, MPV 9.5, Immature Gran % (Auto) 1.200 H, Neut % (Auto) 89.0 H, Lymph % (Auto) 4.3 L, [place] % (Auto) 5.2, Eos % (Auto) 0.0, Baso % (Auto) 0.3, Absolute Neuts (auto) 11.3 H, Nucleated RBC % 0 04/28/22 21:00: PT 15.6 H, INR 1.3 04/28/22 21:00: Sodium 130 L, Potassium 3.8, Chloride 93 L, Carbon Dioxide 25.0, Anion Gap 12, BUN 27 H, Creatinine 1.86 H, Est GFR (MDRD) Af Amer 35 L, Est GFR (MDRD) Non-Af 29 L, BUN/Creatinine Ratio 14.5, Glucose 213 H, Calcium 8.6, Total Bilirubin 1.30 H 04/28/22 21:00: B-Natriuretic Peptide 243.3 H 04/28/22 21:00: APTT 38.7 H 04/28/22 22:13: pH 7.40, Bicarbonate Actual 24.4, Base Excess 0, O2 Saturation 98, ABG pCO2 39.2, ABG pO2 96, Valeriy Test N/A 04/29/22 02:05: WBC 8.7, RBC 3.73 L, Hgb 8.8 L, Hct 29.0 L, MCV 77.7 L, MCH 23.6 L, MCHC 30.3 L, Plt Count 367, MPV 9.4, Immature Gran % (Auto) 1.400 H, Neut % (Auto) 86.0 H, Lymph % (Auto) 6.9 L, [place] % (Auto) 5.3, Eos % (Auto) 0.1, Baso % (Auto) 0.3, Absolute Neuts (auto) 7.4, Nucleated RBC % 0 04/29/22 02:05: Sodium 131 L, Potassium 3.9, Chloride 95 L, Carbon Dioxide 26.0, Anion Gap 10, BUN 28 H, Creatinine 1.74 H, Est GFR (MDRD) Af Amer 38 L, Est GFR (MDRD) Non-Af 32 L, BUN/Creatinine Ratio 16.1, Glucose 142 H, Calcium 8.6, Total Bilirubin 1.20 H, Triglycerides 112, Cholesterol 68, LDL Cholesterol 32, VLDL Cholesterol 22, HDL Cholesterol 14 L 04/29/22 02:05: Hemoglobin A1c 7.7 H 04/29/22 04:47: APTT 45.0 H 04/29/22 04:58: VBG pH 7.40, VBG pO2 30, VBG HCO3 27 H, VBG O2 Sat (Calc) 57, VBG Base Excess 3 Rhythm: Normal sinus rhythm EKG: Normal sinus rhythm with right bundle branch block ECHO: Stress Test: Cardiac Cath: PCI: CT Surgery: Holter monitor: EPS: PPM: CXR: Chest CT Scan: Radiography Diagnostic Testing: Radiology Impression Chest X-Ray 04/28/22 21:10 IMPRESSION: No radiographic evidence of acute cardiopulmonary disease. Electronically Signed: Bhaskar Ordonez MD at 21:26 EST ,
--- NOTE | 2022-04-29 11:59 | CASEMGMT ---
Social Work SW assisted pt in completing Healthcare POA, she put her daughter as POA. Copy on chart and copy and original given to pt. Pt agreeable to referral to [facility], then [facility] as a second choice. SW will start referral in [facility] now. ROXANE Herbert
[2022-04-29] MEDS: 0.9% Saline Lock 10 ML Syringe IV (12:25)
[2022-04-29] MEDS: Metoprolol Tartrate 25 MG Tablet 12.5 MG PO (12:27)
[2022-04-29] MEDS: Clopidogrel Bisulfate 75 MG Tablet PO (12:30)
[2022-04-29 12:39] LABS: M R Staph aureus DNA By PCR Negative (Negative); Probe Check PASS; Specimen Processing Control PASS; Staph aureus DNA By PCR NEGATIVE (Negative)
[2022-04-29 12:44] LABS: Partial Thromboplast Time 39.6 Seconds (24.1-36.2)
[2022-04-29 13:26] LABS: Bedside Glucose 65 mg/dL (74-106)
[2022-04-29] MEDS: Heparin Injection (Vial) 5,000 UNIT/ML VIAL IV (14:19)
[2022-04-29] MEDS: Nitroglycerin Oint 1 INCH PACKET TD ×2 (14:22→21:18)
--- NOTE | 2022-04-29 14:31 | CASEMGMT ---
CARLOS called [facility] and spoke with Taylor. They are full right now. CARLOS will send the referral to [facility] which is patient's second choice. CARLOS will also attempt to notify patient. Rizwana PALMER
--- NOTE | 2022-04-29 15:33 | CASEMGMT ---
[facility] has declined patient. SW to check with patient to see her next choice. Rizwana Steen COLLEGE COACH SPENCER
--- NOTE | 2022-04-29 15:52 | CASEMGMT ---
SW went to patient's room and let her know that [facility] is full. SW also let patient know [facility] cannot take her. Patient said she is not going to worry about this until after her surgeries. Patient said they told her she is going to be here a long time. SW also said her family was looking at a place but she did not know where. SW will follow up with patient regarding next choice. 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
--- NOTE | 2022-04-29 16:11 | RAD_ITS ---
EXAM: XR LEFT FOOT COMPLETE, 3 OR MORE VIEWS CLINICAL INDICATION: left foot infection TECHNIQUE: Frontal, lateral and oblique views of the left foot. This report was created using Shout report generation technology. COMPARISON: None. FINDINGS: BONES/JOINTS: See below. SOFT TISSUES: Plantar soft tissue ulcer overlying the region of the calcaneal spur. Soft tissue air at this level suggests infectious process. Diffuse soft tissue edema and swelling around the foot. No radiopaque foreign body. RAD/Foot 2 Views IMPRESSION: Plantar soft tissue ulcer overlying the region of the calcaneal spur. Soft tissue air at this level suggests infectious process. Diffuse soft tissue edema and swelling around the foot. Electronically Signed: Bhaskar Ordonez MD at 17:21 EST ,
--- NOTE | 2022-04-29 16:11 | RAD_ITS ---
EXAM: XR LEFT TIBIA AND FIBULA, 2 VIEWS CLINICAL INDICATION: left foot infection TECHNIQUE: Frontal and lateral views of the left tibia and fibula. This report was created using [email or web address] report generation technology. COMPARISON: None. FINDINGS: BONES/JOINTS: Calcaneal spur. No acute fracture. No subluxation. Normal alignment. Preservation of the joint space. No sclerotic or destructive changes observed. SOFT TISSUES: Diffuse soft tissue edema around the foot and leg. On the plantar surface of the soft tissue, there is an ulcer at the level of the calcaneus. No radiopaque foreign body. RAD/Tibia & Fibula 2 Views IMPRESSION: 1. Diffuse soft tissue edema around the foot and leg. 2. On the plantar surface of the soft tissue, there is an ulcer at the level of the calcaneus. Electronically Signed: Bhaskar Ordonez MD at 17:20 EST Reading Location ID and State: [facility] / [place] , Service support ,
[2022-04-29] MEDS: Acetaminophen 325 MG Tablet 650 MG PO (16:14)
--- NOTE | 2022-04-29 16:49 | RAD_ITS ---
STUDY: XR Ankle Min 3 Views REASON FOR EXAM: Female, 61 years old. ANKLE PAIN TECHNIQUE: XR Ankle Min 3 Views LEFT COMPARISON: None. FINDINGS: Normal visualized distal tibia and fibula. Normal medial and lateral malleoli. Normal tibiotalar articulation and ankle mortise. Diffuse soft tissue swelling around the ankle. The visualized subtalar, talonavicular, calcaneocuboid and tarsal articulations are normal. There is a plantar calcaneal spur. There is soft tissue swelling around the ankle. Soft tissue air in the plantar aspect of the foot. A calcaneal spur suggests an ulcer. RAD/Ankle 2 Views IMPRESSION: There is soft tissue swelling around the ankle. Soft tissue air in the plantar aspect of the foot. A calcaneal spur suggests an ulcer. Electronically Signed: Bhaskar Ordonez MD at 17:21 EST ,
--- NOTE | 2022-04-29 17:25 | EKG12_ITS ---
Test Reason : Blood Pressure : / mmHG Vent. Rate : 088 BPM Atrial Rate : 088 BPM P-R Int : 156 ms QRS Dur : 148 ms QT Int : 456 ms P-R-T Axes : 073 066 028 degrees QTc Int : 551 ms Normal sinus rhythm Right bundle branch block Abnormal ECG When compared with ECG of 29-APR-2022 04:36, MANUAL COMPARISON REQUIRED, DATA IS UNCONFIRMED Confirmed by MAYNOR PITTMAN, KAISER ([id number]), editor news DOROTA CARLSON ([id number]) on 05/03/2022 11:13:08 AM Referred By: JOSE Confirmed By:KAISER MCGUIRE MD
--- NOTE | 2022-04-29 17:36 | CON.PCM_ITS ---
Assessment & Plan Assessment/Plan (1) Gas gangrene of foot: PLAN: Detailed exam performed Radiographs of the foot, ankle, tib-fib taken. Soft tissue gas noted extending from foot into ankle, no gas noted proximally. Patient admitted for NSTEMI, but has a life and limb threatening gas infection to the left foot. Patient is awaiting cardiac cath on Monday per cardiology. I discussed performing emergent surgical debridement to the foot. Cardiology/Anesthesia recommending awaiting cardiac catheterization on Monday. Due to this will plan for surgical debridement likely on Monday05/03/22. Nephrology on board for STEPHY. Inflammatory labs ordered. MRI left ankle ordered for more definitive infection delineation. Infectious disease consulted; recommending IV vanc/zosyn/clindamycin, wound cultures pending. Today after obtaining oral consent from the patient a bedside Incisoin and drainage was performed, a superficial blister was deroofed after 10cc of 2.0% lidocaine plain was aseptically injected using local infiltration technique. Approximately 15cc of black foul smelling purulence drained from the foot/ankle. There were several portals extending from the wound site distal and proximal in the foot and ankle. Upon blunt expansion of these portals using hemostats, an additional 10ccs of purulence was drained. The remaining wound bed was necrotic with residual purulence. Wound site was flushed with copious amounts of normal sterile saline and re-dressed with betadine/DSD/Yasmany bandages. Ultimately it was discussed with the patient that she may require proximal amputation. At this time we are planning for extensive surgical debridement of the foot wound to the medial left ankle. Patient understands that this infection is life and limb threatening as I discussed this in great detail. Patient should remain nonweightbearing to left foot. Patient should keep left heel offloaded with egg crate to prevent additional pressure injury to site. I will continue to follow the patient daily. If anyone has any questions or would like to discuss this patient further, I can be directly reached at [phone] (2) Diabetic infection of left foot: (3) Osteomyelitis of foot, left, acute: (4) Lymphedema: (5) Type 2 diabetes mellitus with diabetic polyneuropathy: HPI Consult Data Date of Consult: 04/29/22 HPI Narrative Reason for Consultation: Left ankle wound with gas infection HPI Narrative: JUNG DUNAWAY, is a 61 N-STEMI waiting catheterization on Monday. Patient has a chronic left heel ulceration in setting of diabetic neuropathy, lymphedema, smoking, morbid obesity. 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 Patient was ultimately referred to the wound center, but failed to attend. Patient notes that she does not walk very frequently due to inability and concern for black mold on her first floor. Patient is typically assisted by her son at home. Patient has noted increased swelling and foul smelling drainage to her left ankle that has been worsening over the past week. At current she denies any fever, chills, nausea, vomiting. No other complaints. [facility] Medical History Chest pain Home Medications Omeprazole [Prilosec] 40 mg PO DAILY 12/30/12 [History Last Taken 01/17/13] aspirin 81 mg chewable tablet 81 mg PO DAILY@0800 12/30/12 [History Last Taken 01/17/13] gabapentin 600 mg tablet 1,200 mg PO QHS 12/30/12 [History Last Taken Unknown] loratadine 10 mg tablet (Allergy Relief (loratadine)) 10 mg PO DAILY 12/30/12 [History Last Taken 01/17/13] metformin 1,000 mg tablet 1,000 mg PO BID 12/30/12 [History Last Taken 01/17/13] montelukast 10 mg tablet 10 mg PO DAILY 12/30/12 [History Last Taken 01/17/13] furosemide 40 mg tablet 40 mg PO DAILY 08/12/19 [History Last Taken Unknown] cholecalciferol (vitamin D3) 1,250 mcg (50,000 unit) capsule 50,000 unit PO WE 12/26/21 [History Last Taken Unknown] dulaglutide 3 mg/0.5 mL subcutaneous pen injector (Trulicity) 3 mg subcut NIEVES 12/26/21 [History Last Taken Unknown] hydrocodone-acetaminophen 5-325mg 5mg-325mg 1 tab PO Q6H PRN Pain 12/26/21 [History Last Taken Unknown] insulin degludec 100 unit/mL (3 mL) subcutaneous pen (Tresiba FlexTouch U-100 insulin) 80 unit subcut QHS 12/26/21 [History Last Taken Unknown] insulin lispro 100 unit/mL subcutaneous pen 20 unit subcut TIDCM 12/26/21 [History Last Taken Unknown] nortriptyline 10 mg capsule 20 mg PO QHS 12/26/21 [History Last Taken Unknown] potassium chloride 10 mEq tablet,extended release 10 meq PO DAILY 12/26/21 [History Last Taken Unknown] sulfamethoxazole 800 mg-trimethoprim 160 mg tablet (Bactrim DS) 1 tab PO BID #20 tabs 12/26/21 [Rx Last Taken Unknown] Allergy/AdvReac Type Severity Reaction Status Date / Time Penicillins [PCN] Allergy Rash Verified 04/28/22 20:10 Social History Smoking Status: Former smoker ROS Constitutional Constitutional: Denies change in weight, chills or daytime sleepiness Eyes Eyes: Denies acute decrease in peripheral vision, change in eye color or di scongugate gaze ENT HEENT: Denies bleeding gums, change in voice or epistaxis Cardiovascular Cardiovascular: Denies abdominal edema, abdominal pain or chest pain at rest Respiratory/Chest Respiratory/Chest: Reports as per HPI Gastrointestinal Gastrointestinal: Denies belching, bloating or constipation Musculoskeletal Musculoskeletal: Reports atrophy, back pain, difficulty walking, extremity pain and limited range of motion Integumentary Integumentary: Reports change in hair, change in pigmentation, non-healing lesions and skin ulcer; Denies jaundice Neurologic Neurologic: Denies abnormal hearing, convulsions or loss of vision Endocrine Endocrinology: Reports fatigue; Denies cold intolerance or deepening of the voice Physical Exam Narrative Patient alert and oriented x3. Vascular: Dorsalis Pedis and Posterior Tibial Pulse palpable bilaterally. Capillary fill time brisk to all digits. Diffuse non-pitting edema to bilateral lower extremities. Focal increase in warmth to left ankle. Neurologic: light touch/protective sensation absent to bilateral feet. Dermatologic: Full thickness wound to left medial ankle, probes directly to calcaneus with periwound bullous that demonstrates fluctuance and crepitus extending along the medial ankle. There is diffuse edema, erythema and warmth to the site extending proximally along the medial ankle. Post debridement the wound was full thickness and traversed the foot from the medial ankle to the lateral foot w/ diffuse tissue necrosis extending to the level of bone. Musculoskeletal: No gross musculoskeletal deformities. Const alert and oriented x3 Lab / Micro Data Result Diagrams: 04/29/22 02:05 04/29/22 02:05 Labs: Laboratory Results - last 24 hr 04/28/22 21:00: WBC 12.7 H, RBC 3.95 L, Hgb 9.3 L, Hct 30.4 L, MCV 77.0 L, MCH 23.5 L, MCHC 30.6 L, RDW Std Deviation 46.1 H, RDW Coeff of Heather 16.4 H, Plt Count 416, MPV 9.5, Immature Gran % (Auto) 1.200 H, Neut % (Auto) 89.0 H, Lymph % (Auto) 4.3 L, [place] % (Auto) 5.2, Eos % (Auto) 0.0, Baso % (Auto) 0.3, Absolute Neuts (auto) 11.3 H, Absolute Lymphs (auto) 0.54 L, Nucleated RBC % 0, Differential Comment SCANNED 04/28/22 21:00: PT 15.6 H, INR 1.3 04/28/22 21:00: Sodium 130 L, Potassium 3.8, Chloride 93 L, Carbon Dioxide 25.0, Anion Gap 12, BUN 27 H, Creatinine 1.86 H, Estim Creat Clear Calc 26.27, Est GFR (MDRD) Af Amer 35 L, Est GFR (MDRD) Non-Af 29 L, BUN/Creatinine Ratio 14.5, Glucose 213 H, Calcium 8.6, Total Bilirubin 1.30 H, AST 37, ALT 15, Alkaline Phosphatase 215 H, Troponin I High Sens 2224 H*, Total Protein 7.8, Albumin 2.2 L, Globulin 5.6 H, Albumin/Globulin Ratio 0.4 L 04/28/22 21:00: B-Natriuretic Peptide 243.3 H 04/28/22 21:00: APTT 38.7 H 04/28/22 21:27: POC Glucose 173 H 04/28/22 23:40: Troponin I High Sens 2490 H* 04/29/22 02:05: Troponin I High Sens 2391 H* 04/29/22 02:05: WBC 8.7, RBC 3.73 L, Hgb 8.8 L, Hct 29.0 L, MCV 77.7 L, MCH 23.6 L, MCHC 30.3 L, RDW Std Deviation 47.1 H, RDW Coeff of Heather 16.6 H, Plt Count 367, MPV 9.4, Immature Gran % (Auto) 1.400 H, Neut % (Auto) 86.0 H, Lymph % (Auto) 6.9 L, [place] % (Auto) 5.3, Eos % (Auto) 0.1, Baso % (Auto) 0.3, Absolute Neuts (auto) 7.4, Absolute Lymphs (auto) 0.60 L, Nucleated RBC % 0, Differential Comment SCANNED, Hypochromasia RARE 04/29/22 02:05: Sodium 131 L, Potassium 3.9, Chloride 95 L, Carbon Dioxide 26.0, Anion Gap 10, BUN 28 H, Creatinine 1.74 H, Estim Creat Clear Calc 28.09, Est GF R (MDRD) Af Amer 38 L, Est GFR (MDRD) Non-Af 32 L, BUN/Creatinine Ratio 16.1, Glucose 142 H, Calcium 8.6, Total Bilirubin 1.20 H, AST 44 H, ALT 15, Alkaline Phosphatase 196 H, Total Protein 7.4, Albumin 2.0 L, Globulin 5.4 H, Albumin/Globulin Ratio 0.4 L, Triglycerides 112, Cholesterol 68, LDL Cholesterol 32, VLDL Cholesterol 22, HDL Cholesterol 14 L 04/29/22 02:05: Hemoglobin A1c 7.7 H 04/29/22 04:47: APTT 45.0 H 04/29/22 05:43: POC Glucose 117 H 04/29/22 10:15: S.aureus Protein A PCR NEGATIVE, MRSA (PCR) Negative 04/29/22 12:10: APTT 39.6 H 04/29/22 12:15: POC Glucose 65 L Micro: Microbiology 04/29/22 10:15 Wound - Heel, Left Gram Stain - Final 04/28/22 21:05 Nasal Secretion SARS-CoV-2 & FLU Antigen (Rapid) - Final ABG Data ABG results: ABG 04/28/22 04/29/22 22:13 04:58 Specimen Type ART ARBEN Sample Site L Radial pH 7.40 Bicarbonate Actual 24.4 Total CO2 26 Base Excess 0 O2 Saturation 98 ABG pCO2 39.2 ABG pO2 96 Valeriy Test N/A VBG pH 7.40 VBG pO2 30 VBG HCO3 27 H VBG Total CO2 29 VBG O2 Sat (Calc) 57 VBG Base Excess 3 POC Mix VBG pCO2 Pt Tmp 44.2 O2 Delivery Device Cannula Cannula Liter Flow 2.0 6.0 Rhythm Strip Rhythm Strip: Sinus Rhythm Radiology Impression Chest X-Ray 04/28/22 21:10 IMPRESSION: No radiographic evidence of acute cardiopulmonary disease. Electronically Signed: Bhaskar Ordonez MD at 21:26 EST , Echocardiogram 04/29/22 02:45 Interpretation Summary The left ventricular ejection fraction is 50 %. Mildly dilated right ventricle. Moderate global right ventricular systolic dysfunction. Mild (1+) eccentric pulmonic valve insufficiency. Ordering Physician: Kierra Rivera Referring Physician: Radha Medina M.D. Performed By: Erika Harrell RCS Foot X-Ray 04/29/22 16:11 IMPRESSION: Plantar soft tissue ulcer overlying the region of the calcaneal spur. Soft tissue air at this level suggests infectious process. Diffuse soft tissue edema and swelling around the foot. Electronically Signed: Bhaskar Ordonez MD at 17:21 EST , Tibia/Fibula X-Ray 04/29/22 16:11 IMPRESSION: 1. Diffuse soft tissue edema around the foot and leg. 2. On the plantar surface of the soft tissue, there is an ulcer at the level of the calcaneus. Electronically Signed: Bhaskar Ordonez MD at 17:20 EST , Ankle X-Ray 04/29/22 16:49 IMPRESSION: There is soft tissue swelling around the ankle. Soft tissue air in the plantar aspect of the foot. A calcaneal spur suggests an ulcer. Electronically Signed: Bhaskar Ordonez MD at 17:21 EST ,
[2022-04-29] MEDS: Lidocaine 1% (20 ml mdv) 20 ML Vial INFILT (18:15)
[2022-04-29] MEDS: Fluconazole 100 MG Tablet 200 MG PO (18:15)
[2022-04-29] MEDS: Clindamycin 600 MG/50 ML BAG 100 MG IV (18:16)
[2022-04-29 18:35] LABS: Bedside Glucose 119 mg/dL (74-106)
[2022-04-29 18:44] LABS: Erythrocyte Sedimentation Rate > 130 mm/hr (0-30)
[2022-04-29 19:28] LABS: Procalcitonin 41.51 ng/mL (0.00-0.09)
[2022-04-29] MEDS: Metoprolol Tartrate 25 MG Tablet PO (21:17)
[2022-04-29] MEDS: Atorvastatin Calcium 40 MG Tablet PO (21:17)
[2022-04-29 22:03] LABS: Partial Thromboplast Time 37.8 Seconds (24.1-36.2)
[2022-04-29 22:11] LABS: Bedside Glucose 135 mg/dL (74-106)
--- NOTE | 2022-04-29 22:47 | PCM.RX.CS ---
Consult Pharmacy has been consulted to manage selected antiobiotic: Vancomycin Type of Consult: New start Suspected Infection: Osteomyelitis Prior Doses of Antibiotics Received/Current Regimen: Medications Vancomycin HCl 1,500 mg/ (Sodium Chloride) 530 mls @ 250 mls/hr IV Q24H SARAH Discontinued Medications Vancomycin HCl 2,000 mg/ (Sodium Chloride) 540 mls @ 250 mls/hr IV X1 ONE Stop: 04/29/22 20:09 Last Admin: 04/29/22 21:16 Dose: 250 mls/hr Labs: Sodium 131 mmol/L (136-145) L 04/29/22 02:05 Potassium 3.9 mmol/L (3.5-5.1) 04/29/22 02:05 Chloride 95 mmol/L (98-107) L 04/29/22 02:05 Carbon Dioxide 26.0 mmol/L (21.0-32.0) 04/29/22 02:05 Anion Gap 10 (5-15) 04/29/22 02:05 BUN 28 mg/dL (7-18) H 04/29/22 02:05 Creatinine 1.74 mg/dL (0.55-1.02) H 04/29/22 02:05 Est GFR (MDRD) Af Amer 38 mL/min (>60) L 04/29/22 02:05 Est GFR (MDRD) Non-Af 32 mL/min (>60) L 04/29/22 02:05 BUN/Creatinine Ratio 16.1 RATIO (10-20) 04/29/22 02:05 Glucose 142 mg/dL (74-106) H 04/29/22 02:05 Microbiology: Microbiology 04/29/22 10:15 Wound - Heel, Left Gram Stain - Final 04/28/22 21:05 Nasal Secretion SARS-CoV-2 & FLU Antigen (Rapid) - Final Weight used for dosin kg Estimated Creatinine Clearance: 48.5 Goal Trough: 15-20 mcg/mL Pharmacy Plan for Drug Dosing: Pharmacy Service will continue to monitor and adjust dosing as required. Follow-Up Labs: Trough Vancomycin Labs to be done on [date and time ordered]: 05/01/22 @2100
[2022-04-30] VITALS (13 sets, daily range): BP systolic 121–141; BP diastolic 64–112; PULSE 85–93; RESP 15–22; TEMP 36.4–36.8; O2SAT 96–99
[2022-04-30] MEDS: Heparin Injection (Vial) 5,000 UNIT/ML VIAL IV
[2022-04-30] MEDS: HEPARIN/D5w 25,000 UNITS 25,000 UNITS/250 ML IV.SOLN. 14 UNITS CONT INF ×2 (00:05→17:15)
[2022-04-30] MEDS: Clindamycin 600 MG/50 ML BAG 100 MG IV ×3 (02:06→13:40)
[2022-04-30] MEDS: Acetaminophen 325 MG Tablet 650 MG PO ×2 (02:29→16:19)
[2022-04-30] MEDS: Nitroglycerin Oint 1 INCH PACKET TD ×3 (05:04→21:48)
[2022-04-30 06:21] LABS: Partial Thromboplast Time 45.2 Seconds (24.1-36.2)
[2022-04-30] MEDS: Insulin Lispro 100 UNIT/ML INSULN.PEN SC ×3 (06:48→22:06)
[2022-04-30 07:10] LABS: Bedside Glucose 163 mg/dL (74-106)
[2022-04-30] MEDS: Ipratropium/Albuterol Sulfate 3 ML AMPUL.NEB INHALATION ×3 (07:23→19:23)
--- NOTE | 2022-04-30 08:36 | PCM.PN.HOSP ---
Reason for Visit Reason for Visit: Diagnoses Gas gangrene of left foot NSTEMI Subjective Subjective Mrs. Rojas is a 61-year-old female with a history of type 1 diabetes who presented to emergency department on 04/28/2021 with chest pain late in the evening. She had evidently been having chest pain for 2 or 3 days and increased shortness of breath for 3 or 4 days prior to presentation. In the emergency department she was found to have an initial troponin of 2391 and cardiology was contacted at that time and recommended a heparin drip and admission. She was also found to have a left lower extremity cellulitis and given a dose of clindamycin due to penicillin allergy. She was admitted to the PCU and cardiology was consulted. She was maintained on aspirin and started on Plavix. Coronary angiography was discussed with her with possible revascularization and the patient wished to proceed however was reluctant to have it done on the day of presentation therefore it was deferred until 05/02/2022. Nephrology was consulted as she does have some elevated renal function on presentation. She was also noted to have a left lower extremity cellulitis and podiatry was consulted. Imaging of her foot/ankle and tibia and fibula were performed. Imaging of the foot shows plantar soft tissue ulceration and soft tissue air along with diffuse soft tissue edema and swelling this was also noted in the ankle but the imaging of her tibia and fibula were unremarkable for any extension up into the leg. Podiatry did recommend emergent surgical debridement however with the patient awaiting cardiac catheterization and diagnosis of an NSTEMI this was deferred until 05/03/2022 until after her cardiac issues can be addressed. In the meantime an I&D was performed of the superficial blister and cultures were obtained. Purulent fluid was drained from this area and the remaining wound bed was necrotic with residual purulence and was flushed aggressively and redressed. It was discussed with the patient that she may ultimately require amputation, high however at this time limb salvaging surgery is planned for Monday as noted above. Broad-spectrum antibiotics were initiated and will be maintained. Patient is currently denying chest pain. Is talking on phone with family. Denies any current issues. Indicates she does not wear chronic oxygen however then states she was told previously that she needed it. She was a smoker but quit 12 years ago. Objective Data Objective Data Vital Signs: Vital Signs Temp Pulse Resp BP Pulse Ox O2 Del Method O2 Flow Rate 97.9 F 85 20 H 132/69 H 96 Nasal Cannula 3 04/30/22 04:19 04/30/22 07:24 04/30/22 07:24 04/30/22 05:04 04/30/22 07:24 04/30/22 07:24 04/30/22 07:24 Oxygen Flow Rate (L/min) 3 Oxygen Delivery Method Nasal Cannula Weight: 158.3 kg Body Mass Index (BMI) 61.7 Intake & Output: Intake and Output for Last 24 Hours 04/28/22 04/29/22 04/30/22 23:59 23:59 23:59 Intake Total 50 / 50 1302.83 / 1542.83 977.17 / 977.17 Output Total 675 / 875 650 / 650 Balance 50 / 50 627.83 / 667.83 327.17 / 327.17 Lab / Micro Data Result Diagrams: 04/29/22 02:05 04/29/22 02:05 Labs: Laboratory Results - last 24 hr 04/29/22 02:05: Hemoglobin A1c 7.7 H 04/29/22 10:15: S.aureus Protein A PCR NEGATIVE, MRSA (PCR) Negative 04/29/22 12:10: APTT 39.6 H 04/29/22 12:15: POC Glucose 65 L 04/29/22 18:11: POC Glucose 119 H 04/29/22 18:25: ESR > 130 H 04/29/22 18:25: C-React Prot Ext Range 316.00 H 04/29/22 18:25: Procalcitonin 41.51 H 04/29/22 21:22: POC Glucose 135 H 04/29/22 21:30: APTT 37.8 H 04/30/22 06:00: APTT 45.2 H 04/30/22 06:47: POC Glucose 163 H Micro: Microbiology 04/29/22 10:15 Wound - Heel, Left Gram Stain - Final 04/28/22 21:05 Nasal Secretion SARS-CoV-2 & FLU Antigen (Rapid) - Final Radiography Diagnostic Testing: Radiology Impression Echocardiogram 04/29/22 02:45 Interpretation Summary The left ventricular ejection fraction is 50 %. Mildly dilated right ventricle. Moderate global right ventricular systolic dysfunction. Mild (1+) eccentric pulmonic valve insufficiency. Ordering Physician: Kierra Rivera Referring Physician: Radha Medina M.D. Performed By: Erika Harrell RCS Foot X-Ray 04/29/22 16:11 IMPRESSION: Plantar soft tissue ulcer overlying the region of the calcaneal spur. Soft tissue air at this level suggests infectious process. Diffuse soft tissue edema and swelling around the foot. Electronically Signed: Bhaskar Ordonez MD at 17:21 EST Reading Location ID and State: [facility] / [place] , Service support , Tibia/Fibula X-Ray 04/29/22 16:11 IMPRESSION: 1. Diffuse soft tissue edema around the foot and leg. 2. On the plantar surface of the soft tissue, there is an ulcer at the level of the calcaneus. Electronically Signed: Bhaskar Ordonez MD at 17:20 EST , Ankle X-Ray 04/29/22 16:49 IMPRESSION: There is soft tissue swelling around the ankle. Soft tissue air in the plantar aspect of the foot. A calcaneal spur suggests an ulcer. Electronically Signed: Bhaskar Ordonez MD at 17:21 EST , Rhythm Strip Rhythm Strip: Sinus Rhythm Physical Exam Const alert, oriented x3, no apparent distress and well nourished Constitutional Narrative: Morbidly obese, upper middle-aged white female sitting up in bed on cell phone, patient appears older than stated age, nontoxic, appears comfortable HEENT head/scalp atraumatic and moist oral mucous membranes HEENT Narrative: edentulous, Mallampati 3, no thrush Head and Scalp: normocephalic Resp normal respiratory effort, no retractions, no use of accessory muscles and clear to auscultation bilaterally Resp Narrative: Diffusely diminished but clear Auscultation: Negative for rales, rhonchi or wheezes Cardio regular rate, regular rhythm, S1 normal heart sound, S2 normal heart sound, no murmurs, no rub, no gallops, no clicks and no JVD Cardio Narrative: Few intermittent ectopic beats GI normal to inspection, nondistended, normoactive bowel sounds, soft to palpation and non-tender Extremity Extremity Narrative: Cap refill is 1+ bilateral lower extremities, bilateral lower extremities with dressing in place, bilateral lower extremity lymphedema, no cyanosis or clubbing Neuro oriented x3, moves all extremities and no focal motor deficits Neuro Narrative: Decreased sensation bilateral lower extremities Speech: speech normal Psych Psych Narrative: Affect is somewhat flat however eye contact is good and mood does not appear to be depressed Assessment & Plan Assessment/Plan (1) Osteomyelitis of foot, left, acute: (2) Diabetic infection of left foot: (3) Gas gangrene of foot: (4) Elevated serum creatinine: (5) Type I diabetes mellitus: (6) Weakness: (7) Acute non-ST elevation myocardial infarction (NSTEMI): (8) Cellulitis: PLAN: Plan NSTEMI -Continue aspirin -Continue Plavix -Lipid panel obtained and shows a total cholesterol of 68/LDL 32/HDL 14/triglycerides 112 -Continue atorvastatin 40 mg daily -Continue metoprolol -KELSEA deferred with STEPHY -Echocardiogram performed and showed EF of 50% with a mildly dilated RV and moderate right ventricular global systolic dysfunction, pulmonary pressures were not identified -Plan is for cardiac catheterization on 05/02/2022 -Patient is currently chest pain-free Gas gangrene/osteomyelitis/cellulitis of the left foot -Podiatry is following and plans for surgical debridement with possible need for amputation -Surgical plan is for 05/03/2022 with presentation of NSTEMI and plans for cardiac catheterization on 05/02/2020 -Cultures are pending -Continue broad-spectrum antibiotics with vancomycin, clindamycin--> switch ceftriaxone to cefepime for pseudomonal coverage -Patient has allergy to penicillin in the form of a rash -Infectious disease was consulted Elevated serum creatinine -Last measured serum creatinine in our system was 1.06 from December 2021 -Serum creatinine on admission was 1.86 -Down slightly yesterday to 1.74 -Indra lab this morning -Highly suspect patient has diabetic nephropathy with history -Current baseline is unclear -Nephrology was consulted and this is pending -We will start some gentle hydration with IV fluids at 60 cc/h of LR -Repeat BMP in a.m. DM-2 -Uncontrolled but hemoglobin A1c was 7.7 -Blood sugar is may trend up with infection and NSTEMI due to stress response -Continue glargine 30 units daily -Continue sliding scale -Hold home oral agents -Hold home Trulicity -Would recommend outpatient endocrinology follow-up for improved glycemic control after discharge GERD -Continue PPI Seasonal allergies -Continue home loratadine -Continue home Singulair Diabetic neuropathy -Continue home nortriptyline -Continue home gabapentin but reduce dose Vitamin D deficiency -Continue home vitamin D weekly on Monday Chronic hypoxic respiratory failure -Suspected COPD but no documented history/OHS/SUSANNA -Patient with marked history of tobacco abuse -At baseline patient appears to wear 2 to 3 L -Continue supplemental oxygen -Echocardiogram does show some RV strain and dilation -Hold home diuretics for now with STEPHY Morbid obesity -BMI is 61.8 -Complicates treatment, prognosis, outcomes -Recommend weight loss CODE STATUS -Full code Charges/Coding Visit Charges Inpatient E&M: 34393 [facility] Hosp L3
[2022-04-30] MEDS: Metoprolol Tartrate 25 MG Tablet PO ×2 (09:17→21:46)
[2022-04-30] MEDS: Lactated Ringers 1,000 ML 60 ML IV (09:18)
[2022-04-30] MEDS: Clopidogrel Bisulfate 75 MG Tablet PO (09:18)
[2022-04-30] MEDS: Aspirin 81 MG TAB.CHEW PO (09:18)
[2022-04-30] MEDS: Fluconazole 100 MG Tablet 200 MG PO (09:19)
[2022-04-30] MEDS: Nystatin Powder 15gm Bottle 1 APPLIC TOPICAL ×2 (09:20→21:49)
[2022-04-30] MEDS: Insulin Glargine-YFGN 100 UNIT/ML Pen 30 UNIT SC (09:20)
[2022-04-30] MEDS: Menthol/Lanolin/Calamine/Znox 113 GM Tube 1 APPLIC TOPICAL ×2 (09:21→21:45)
[2022-04-30] MEDS: Loratadine 10 MG Tablet PO (09:22)
[2022-04-30] MEDS: Pantoprazole Sodium 40 MG Tablet PO (09:29)
--- NOTE | 2022-04-30 10:29 | PCM.PN.CARD ---
Subjective Subjective Resting comfortably. Denies any complaints. Objective Data Vital Signs: Vital Signs Temp Pulse Resp BP Pulse Ox O2 Del Method O2 Flow Rate 97.9 F 87 20 H 132/69 H 96 Nasal Cannula 3 04/30/22 04:19 04/30/22 09:17 04/30/22 07:24 04/30/22 05:04 04/30/22 07:24 04/30/22 08:39 04/30/22 07:24 Oxygen Flow Rate (L/min) 3 Oxygen Delivery Method Nasal Cannula Weight: 348 lb 15.868 oz Body Mass Index (BMI) 61.7 Intake & Output: Intake and Output for Last 24 Hours 04/28/22 04/29/22 04/30/22 23:59 23:59 23:59 Intake Total 50 / 50 1302.83 / 1542.83 977.17 / 977.17 Output Total 675 / 875 650 / 650 Balance 50 / 50 627.83 / 667.83 327.17 / 327.17 Lab / Micro Data Result Diagrams: 04/29/22 02:05 04/29/22 02:05 Labs: Laboratory Results - last 24 hr 04/29/22 10:15: S.aureus Protein A PCR NEGATIVE, MRSA (PCR) Negative 04/29/22 12:10: APTT 39.6 H 04/29/22 12:15: POC Glucose 65 L 04/29/22 18:11: POC Glucose 119 H 04/29/22 18:25: ESR > 130 H 04/29/22 18:25: C-React Prot Ext Range 316.00 H 04/29/22 18:25: Procalcitonin 41.51 H 04/29/22 21:22: POC Glucose 135 H 04/29/22 21:30: APTT 37.8 H 04/30/22 06:00: APTT 45.2 H 04/30/22 06:47: POC Glucose 163 H Micro: Microbiology 04/29/22 10:15 Wound - Heel, Left Gram Stain - Final 04/29/22 10:15 Wound - Heel, Left Wound Culture - Preliminary GNR non ophthalmic photographer Rhythm Strip Rhythm Strip: Sinus Rhythm Cardiology Labs/Tests 04/29/22 12:10: APTT 39.6 H 04/29/22 21:30: APTT 37.8 H 04/30/22 06:00: APTT 45.2 H Rhythm: EKG: ECHO: Stress Test: Cardiac Cath: PCI: CT Surgery: Holter monitor: EPS: PPM: CXR: Chest CT Scan: Radiography Diagnostic Testing: Radiology Impression Echocardiogram 04/29/22 02:45 Interpretation Summary The left ventricular ejection fraction is 50 %. Mildly dilated right ventricle. Moderate global right ventricular systolic dysfunction. Mild (1+) eccentric pulmonic valve insufficiency. Ordering Physician: Kierra Rivera Referring Physician: Radha Medina M.D. Performed By: Erika Harrell RCS Foot X-Ray 04/29/22 16:11 IMPRESSION: Plantar soft tissue ulcer overlying the region of the calcaneal spur. Soft tissue air at this level suggests infectious process. Diffuse soft tissue edema and swelling around the foot. Electronically Signed: Bhaskar Ordonez MD at 17:21 EST , Tibia/Fibula X-Ray 04/29/22 16:11 IMPRESSION: 1. Diffuse soft tissue edema around the foot and leg. 2. On the plantar surface of the soft tissue, there is an ulcer at the level of the calcaneus. Electronically Signed: Bhaskar Ordonez MD at 17:20 EST , Ankle X-Ray 04/29/22 16:49 IMPRESSION: There is soft tissue swelling around the ankle. Soft tissue air in the plantar aspect of the foot. A calcaneal spur suggests an ulcer. Electronically Signed: Bhaskar Ordonez MD at 17:21 EST , Physical Exam Narrative No apparent distress. Heart sounds 1 and 2 are normal. Decreased air entry at bilateral bases. Abdomen obese. Alert oriented x3. Moving all 4 extremities. Assessment & Plan Assessment/Plan (1) Acute non-ST elevation myocardial infarction (NSTEMI): PLAN: Continue medical management. For coronary angiography on Monday. (2) Benign hypertension: PLAN: Controlled. (3) Type I diabetes mellitus: PLAN: As per internal medicine. (4) Obstructive sleep apnea: PLAN: As per pulmonary/internal medicine. (5) Cellulitis: PLAN: As per podiatry. (6) Morbid obesity: PLAN: Lose weight. (7) Elevated serum creatinine: PLAN: Recommend nephrology consult.
--- NOTE | 2022-04-30 10:47 | PCM.PROGNOTE ---
Subjective Subjective Patient notes some fever/sweats overnight. no chest pain at current, patient on room air. No new complaints. left ankle wound demonstrates pain with manipulation. Objective Data Objective Data Vital Signs: Vital Signs Temp Pulse Resp BP Pulse Ox O2 Del Method O2 Flow Rate 97.9 F 87 20 H 132/69 H 96 Nasal Cannula 3 04/30/22 04:19 04/30/22 09:17 04/30/22 07:24 04/30/22 05:04 04/30/22 07:24 04/30/22 08:39 04/30/22 07:24 Oxygen Flow Rate (L/min) 3 Oxygen Delivery Method Nasal Cannula Weight: 158.3 kg Body Mass Index (BMI) 61.7 Intake & Output: Intake and Output for Last 24 Hours 04/28/22 04/29/22 04/30/22 23:59 23:59 23:59 Intake Total 50 / 50 1302.83 / 1542.83 977.17 / 977.17 Output Total 675 / 875 650 / 650 Balance 50 / 50 627.83 / 667.83 327.17 / 327.17 Lab / Micro Data Result Diagrams: 04/29/22 02:05 04/29/22 02:05 Labs: Laboratory Results - last 24 hr 04/29/22 10:15: S.aureus Protein A PCR NEGATIVE, MRSA (PCR) Negative 04/29/22 12:10: APTT 39.6 H 04/29/22 12:15: POC Glucose 65 L 04/29/22 18:11: POC Glucose 119 H 04/29/22 18:25: ESR > 130 H 04/29/22 18:25: C-React Prot Ext Range 316.00 H 04/29/22 18:25: Procalcitonin 41.51 H 04/29/22 21:22: POC Glucose 135 H 04/29/22 21:30: APTT 37.8 H 04/30/22 06:00: APTT 45.2 H 04/30/22 06:47: POC Glucose 163 H Micro: Microbiology 04/29/22 10:15 Wound - Heel, Left Gram Stain - Final 04/29/22 10:15 Wound - Heel, Left Wound Culture - Preliminary GNR non cloth colorer 04/28/22 21:05 Nasal Secretion SARS-CoV-2 & FLU Antigen (Rapid) - Final Radiography Diagnostic Testing: Radiology Impression Echocardiogram 04/29/22 02:45 Interpretation Summary The left ventricular ejection fraction is 50 %. Mildly dilated right ventricle. Moderate global right ventricular systolic dysfunction. Mild (1+) eccentric pulmonic valve insufficiency. Ordering Physician: Kierra Rivera Referring Physician: Radha Medina M.D. Performed By: Erika Harrell RCS Foot X-Ray 04/29/22 16:11 IMPRESSION: Plantar soft tissue ulcer overlying the region of the calcaneal spur. Soft tissue air at this level suggests infectious process. Diffuse soft tissue edema and swelling around the foot. Electronically Signed: Bhaskar Ordonez MD at 17:21 EST , Tibia/Fibula X-Ray 04/29/22 16:11 IMPRESSION: 1. Diffuse soft tissue edema around the foot and leg. 2. On the plantar surface of the soft tissue, there is an ulcer at the level of the calcaneus. Electronically Signed: Bhaskar Ordonez MD at 17:20 EST , Ankle X-Ray 04/29/22 16:49 IMPRESSION: There is soft tissue swelling around the ankle. Soft tissue air in the plantar aspect of the foot. A calcaneal spur suggests an ulcer. Electronically Signed: Bhaskar Ordonez MD at 17:21 EST , Rhythm Strip Rhythm Strip: Sinus Rhythm Physical Exam Narrative Patient alert and oriented x3. Vascular: Dorsalis Pedis and Posterior Tibial Pulse palpable bilaterally. Capillary fill time brisk to all digits. Diffuse non-pitting edema to bilateral lower extremities. Focal increase in warmth to left ankle. Neurologic: light touch/protective sensation absent to bilateral feet. Dermatologic: Full thickness wound to left medial ankle, probes directly to calcaneus with periwound bullous that demonstrates fluctuance and crepitus extending along the medial ankle. There is diffuse edema, erythema and warmth to the site extending proximally along the medial ankle. The wound is full thickness and traversed the foot from the medial ankle to the lateral foot w/ diffuse tissue necrosis extending to the level of bone. Musculoskeletal: No gross musculoskeletal deformities. Const alert and oriented x3 Assessment & Plan Assessment/Plan (1) Gas gangrene of foot: PLAN: Detailed exam performed Radiographs of the foot, ankle, tib-fib taken. Soft tissue gas noted extending from foot into ankle medially and laterally, no gas noted proximally. MRI pending, No leukocytosis, ESR>120, CRP >300. Patient has severe life and limb threatening infection to left ankle We are awaiting cardiac stabilization prior to surgical debridement Wound cultures + GNR (non-fermenting), patient receiving IV vanc/zosyn/clindamycin Intensivitist/hospitalist/ID/Cardiology/nephrology on board Dressing changed today bilaterally, no wounds on right, left heel wound still demonstrates significant necrosis and malodorous purulent drainage. Left side dressed with betadine wet to dry, DSD, Yasmany bandages Patient to maintain NWB on left Will follow patient daily. (2) Diabetic infection of left foot: (3) Osteomyelitis of foot, left, acute: (4) Lymphedema: (5) Type 2 diabetes mellitus with diabetic polyneuropathy:
[2022-04-30 11:29] LABS: Anion Gap 7 (5-15); BUN 25 mg/dL (7-18); BUN/Creat Ratio 17.2 RATIO (10-20); Chloride 98 mmol/L (98-107); Creatinine, Serum 1.45 mg/dL (0.55-1.02); EST Glomerular Filtration Rate 39 mL/min (>60); Est Glom Filt Rate - Afr Amer 47 mL/min (>60); Glucose 199 mg/dL (74-106); Potassium 3.9 mmol/L (3.5-5.1); Sodium Level 134 mmol/L (136-145)
[2022-04-30 15:36] LABS: Partial Thromboplast Time 46.7 Seconds (24.1-36.2)
[2022-04-30 16:46] LABS: Bedside Glucose 141 mg/dL (74-106)
[2022-04-30] MEDS: Gabapentin 300 MG Capsule PO (17:15)
--- NOTE | 2022-04-30 17:39 | PCM.CONS.R ---
Assessment & Plan Assessment/Plan (1) STEPHY (acute kidney injury): (2) Acute non-ST elevation myocardial infarction (NSTEMI): (3) Osteomyelitis of foot, left, acute: PLAN: Plan Impression/Plan: The patient is a 61-year-old woman with past history of type 1 diabetes mellitus, hypertension, chronic lymphedema to lower extremities, morbid obesity, SUSANNA, and GERD. The patient is admitted with NSTEMI and left diabetic foot infection/osteomyelitis. Nephrology is following for STEPHY. Acute kidney injury. The patient presented to the hospital with serum creatinine of 1.86 mg/dL on 04/28/2022. I suspect STEPHY was prerenal as kidney function has gradually improved with volume expansion. Serum creatinine is 1.45 mg/dL today. Continue volume expansion with current rate of IV LR. Since renal function has improved, risk for contrast associated nephropathy should be low and acceptable. Nonetheless, I would limit contrast load as much as we can. Recommend keeping patient on some fluid around the time of left heart catheterization to protect the kidney. Continue holding furosemide for now. NSTEMI. As discussed above, okay from my standpoint to proceed with left heart catheterization. Limit contrast load as much as possible. Continue hydration with isotonic crystalloid as were doing for at least 2 to 3 hours post contrast exposure. Left diabetic foot infection/gangrene/osteomyelitis. The patient is on antimicrobial. Looks like she will eventually need surgical intervention with podiatry after cardiac catheterization. HPI Consult Data Date of Consult: 04/30/22 HPI Narrative Reason for Consultation: Renal risk assessment and the patient requiring LHC in the setting of STEPHY HPI Narrative: The patient is a 61-year-old woman with past history of type 1 diabetes mellitus, hypertension, chronic lymphedema to lower extremities, morbid obesity, SUSANNA, and GERD. The patient presented to the hospital on 04/29/2022 with chest pain. She has been diagnosed with NSTEMI. She has been seen by cardiology who recommends left heart catheterization. The patient also has left diabetic foot infection with probable osteomyelitis. She will require surgical management although she will need cardiac clearance/work-up first. Nephrology was asked to see the patient because of STEPHY. The patient presented to the hospital with serum creatinine of 1.86 mg/dL. Prior serum creatinine in December 2021 was 1.06 mg/dL. Estimated GFR was 56 mL/min at that time. The patient denies current chest pain. She denies shortness of breath at rest. She denies nausea, vomiting, or diarrhea. There has been no LUTS. [facility] Medical History (Updated 04/30/22 @ 20:[address] Wilfrido Ramsey MD) Asymptomatic gallstones Benign hypertension Chest pain Chronic respiratory failure with hypoxia Diabetic neuropathy GERD (gastroesophageal reflux disease) History of smoking Interstitial cystitis Lymphedema Lymphedema of lower extremity Morbid obesity Obstructive sleep apnea Type 2 diabetes mellitus with diabetic polyneuropathy Home Medications Omeprazole [Prilosec] 40 mg PO DAILY 12/30/12 [History Last Taken 01/17/13] aspirin 81 mg chewable tablet 81 mg PO DAILY@0800 12/30/12 [History Last Taken 01/17/13] gabapentin 600 mg tablet 1,200 mg PO QHS 12/30/12 [History Last Taken Unknown] loratadine 10 mg tablet (Allergy Relief (loratadine)) 10 mg PO DAILY 12/30/12 [History Last Taken 01/17/13] metformin 1,000 mg tablet 1,000 mg PO BID 12/30/12 [History Last Taken 01/17/13] montelukast 10 mg tablet 10 mg PO DAILY 12/30/12 [History Last Taken 01/17/13] furosemide 40 mg tablet 40 mg PO DAILY 08/12/19 [History Last Taken Unknown] cholecalciferol (vitamin D3) 1,250 mcg (50,000 unit) capsule 50,000 unit PO WE 12/26/21 [History Last Taken Unknown] dulaglutide 3 mg/0.5 mL subcutaneous pen injector (Trulicity) 3 mg subcut NIEVES 12/26/21 [History Last Taken Unknown] hydrocodone-acetaminophen 5-325mg 5mg-325mg 1 tab PO Q6H PRN Pain 12/26/21 [History Last Taken Unknown] insulin degludec 100 unit/mL (3 mL) subcutaneous pen (Tresiba FlexTouch U-100 insulin) 80 unit subcut QHS 12/26/21 [History Last Taken Unknown] insulin lispro 100 unit/mL subcutaneous pen 20 unit subcut TIDCM 12/26/21 [History Last Taken Unknown] nortriptyline 10 mg capsule 20 mg PO QHS 12/26/21 [History Last Taken Unknown] potassium chloride 10 mEq tablet,extended release 10 meq PO DAILY 12/26/21 [History Last Taken Unknown] sulfamethoxazole 800 mg-trimethoprim 160 mg tablet (Bactrim DS) 1 tab PO BID #20 tabs 12/26/21 [Rx Last Taken Unknown] Allergy/AdvReac Type Severity Reaction Status Date / Time Penicillins [PCN] Allergy Rash Verified 04/28/22 20:10 Social History Smoking Status: Former smoker ROS ROS Narrative 12/20 ROS was done and is otherwise noncontributory to what is already documented in HPI. Physical Exam Narrative General: Resting comfortably, no apparent distress. HEENT: Atraumatic, normocephalic, mucous membrane moist without erythema, PERRLA, EOMI, hearing is intact. Neck: Supple, no JVD. No thyromegaly or lymphadenopathy. Respiratory: Normal respiratory effort, breath sounds diminished at the bases. Cardiovascular: Normal S1, S2. No rubs, murmurs, or gallops. Abdomen: Obese, soft, mild tenderness to palpation diffusely without rebound, guarding, rigidity. Extremities: Both legs are wrapped in Yasmany bandage which I did not take down. There is obvious edema/lymphedema of the lower extremities bilaterally Musculoskeletal: Full passive range of motion, no joint swelling or synovitis. Neurologic: No focal neurologic deficit. Cranial nerves II through XII are grossly intact. Skin: Erythema of the lower extremities bilaterally on the portion that I can see through the bandage. Psych: Normal mood and affect. Lab / Micro Data Result Diagrams: 04/29/22 02:05 04/30/22 11:05 Labs: Laboratory Results - last 24 hr 04/29/22 18:11: POC Glucose 119 H 04/29/22 18:25: ESR > 130 H 04/29/22 18:25: C-React Prot Ext Range 316.00 H 04/29/22 18:25: Procalcitonin 41.51 H 04/29/22 21:22: POC Glucose 135 H 04/29/22 21:30: APTT 37.8 H 04/30/22 06:00: APTT 45.2 H 04/30/22 06:47: POC Glucose 163 H 04/30/22 10:38: Sodium Cancelled, Potassium Cancelled, Chloride Cancelled, Carbon Dioxide Cancelled, Anion Gap Cancelled, BUN Cancelled, Creatinine Cancelled, Estim Creat Clear Calc Cancelled, Est GFR (MDRD) Af Amer Cancelled, Est GFR (MDRD) Non-Af Cancelled, BUN/Creatinine Ratio Cancelled, Glucose Cancelled, Calcium Cancelled 04/30/22 11:05: Sodium 134 L, Potassium 3.9, Chloride 98, Carbon Dioxide 29.0, Anion Gap 7, BUN 25 H, Creatinine 1.45 H, Estim Creat Clear Calc 33.70, Est GFR (MDRD) Af Amer 47 L, Est GFR (MDRD) Non-Af 39 L, BUN/Creatinine Ratio 17.2, Glucose 199 H, Calcium 9.0 04/30/22 14:48: APTT 46.7 H 04/30/22 16:24: POC Glucose 141 H Micro: Microbiology 04/29/22 10:15 Wound - Heel, Left Gram Stain - Final 04/29/22 10:15 Wound - Heel, Left Wound Culture - Preliminary GNR non ladle watcher Rhythm Strip Rhythm Strip: Sinus Rhythm
[2022-04-30] MEDS: Atorvastatin Calcium 40 MG Tablet PO (21:46)
[2022-04-30] MEDS: Montelukast 10 MG Tablet PO (21:48)
[2022-04-30 23:10] LABS: Bedside Glucose 230 mg/dL (74-106)
[2022-05-01] VITALS (14 sets, daily range): BP systolic 126–142; BP diastolic 63–75; PULSE 67–91; RESP 13–19; TEMP 36–36.9; O2SAT 95–99
[2022-05-01] MEDS: Clindamycin 600 MG/50 ML BAG 100 MG IV ×4 (00:47→22:16)
[2022-05-01 05:09] LABS: Absolute Lymphocyte Count 0.93 X10^3/uL (0.83-4.51); Absolute Neutrophil Count 9.3 X10^3/uL (2.0-7.7); Basophil# 0.03 X10^3/uL; Basophil% 0.3 % (0-1); Eosinophil# 0.06 X10^3/uL; Eosinophils% 0.5 % (0-5); Hematocrit 25.9 % (37-47); Hemoglobin 7.8 g/dL (12.0-15.0); Lymphocyte # 0.93 X10^3/ul (0.83-4.51); Lymphocyte % 8.2 % (19-41); Mean Corp Hgb Conc 30.1 g/dL (32-36); Mean Corpuscular Hgb 23.2 pg (27.0-32.0); Mean Corpuscular Volume 77.1 fL (81-99); Mean Platelet Vol. 9.4 fl (6.2-12.0); Monocyte# 0.74 X10^3/uL; Monocyte% 6.5 % (0-10); NRBC Flagged by Analyzer 0 % (0-5); Neutrophil # 9.34 X10^3/uL (2.7-7.7); Neutrophil % 82.5 % (47-70); Platelet Count 332 K/mm3 (150-450); RBC Distribution Width CV 17.1 % (11.6-14.6); RBC Distribution Width SD 47.8 fl (35.1-43.9); Red Blood Count 3.36 M/mm3 (4.2-5.4); White Blood Count 11.3 K/mm3 (4.4-11.0)
[2022-05-01 05:25] LABS: Anion Gap 7 (5-15); BUN 23 mg/dL (7-18); BUN/Creat Ratio 17.7 RATIO (10-20); Calcium,Total 9.1 mg/dL (8.5-10.1); Chloride 99 mmol/L (98-107); EST Glomerular Filtration Rate 44 mL/min (>60); Est Glom Filt Rate - Afr Amer 53 mL/min (>60); Estimated Creatinine Clearance 37.59 ml/min; Glucose 162 mg/dL (74-106); Partial Thromboplast Time 60.8 Seconds (24.1-36.2); Potassium 4.5 mmol/L (3.5-5.1); Sodium Level 134 mmol/L (136-145)
[2022-05-01] MEDS: Nitroglycerin Oint 1 INCH PACKET TD ×3 (05:52→22:18)
[2022-05-01] MEDS: Lactated Ringers 1,000 ML 60 ML IV ×2 (06:28→22:13)
[2022-05-01] MEDS: Ipratropium/Albuterol Sulfate 3 ML AMPUL.NEB INHALATION ×3 (07:27→19:54)
--- NOTE | 2022-05-01 07:42 | PCM.PN.HOSP ---
Reason for Visit Reason for Visit: Chest pain Subjective Subjective No issues overnight. Patient was sleeping at my arrival however does awaken and denies any chest pain now or through the evening. Falls back asleep quickly. Objective Data Objective Data Vital Signs: Vital Signs Temp Pulse Resp BP Pulse Ox O2 Del Method O2 Flow Rate 98.4 F 79 18 136/63 H 98 Nasal Cannula 2 05/01/22 02:18 05/01/22 07:28 05/01/22 07:28 05/01/22 05:52 05/01/22 07:28 05/01/22 07:28 05/01/22 07:28 Oxygen Flow Rate (L/min) 2 Oxygen Delivery Method Nasal Cannula Weight: 162.2 kg Body Mass Index (BMI) 61.7 Intake & Output: Intake and Output for Last 24 Hours 04/29/22 04/30/22 05/01/22 23:59 23:59 23:59 Intake Total 1302.83 / 1542.83 2402.00 / 2402.00 1261.75 / 1261.75 Output Total 675 / 875 1550 / 1550 350 / 350 Balance 627.83 / 667.83 852.00 / 852.00 911.75 / 911.75 Lab / Micro Data Result Diagrams: 05/01/22 05:00 05/01/22 05:00 Labs: Laboratory Results - last 24 hr 04/30/22 10:38: Sodium Cancelled, Potassium Cancelled, Chloride Cancelled, Carbon Dioxide Cancelled, Anion Gap Cancelled, BUN Cancelled, Creatinine Cancelled, Estim Creat Clear Calc Cancelled, Est GFR (MDRD) Af Amer Cancelled, Est GFR (MDRD) Non-Af Cancelled, BUN/Creatinine Ratio Cancelled, Glucose Cancelled, Calcium Cancelled 04/30/22 11:05: Sodium 134 L, Potassium 3.9, Chloride 98, Carbon Dioxide 29.0, Anion Gap 7, BUN 25 H, Creatinine 1.45 H, Estim Creat Clear Calc 33.70, Est GFR (MDRD) Af Amer 47 L, Est GFR (MDRD) Non-Af 39 L, BUN/Creatinine Ratio 17.2, Glucose 199 H, Calcium 9.0 04/30/22 14:48: APTT 46.7 H 04/30/22 16:24: POC Glucose 141 H 04/30/22 22:05: POC Glucose 230 H 05/01/22 05:00: WBC 11.3 H, RBC 3.36 L, Hgb 7.8 L, Hct 25.9 L, MCV 77.1 L, MCH 23.2 L, MCHC 30.1 L, RDW Std Deviation 47.8 H, RDW Coeff of Heather 17.1 H, Plt Count 332, MPV 9.4, Immature Gran % (Auto) 2.000 H, Neut % (Auto) 82.5 H, Lymph % (Auto) 8.2 L, [place] % (Auto) 6.5, Eos % (Auto) 0.5, Baso % (Auto) 0.3, Absolute Neuts (auto) 9.3 H, Absolute Lymphs (auto) 0.93, Nucleated RBC % 0 05/01/22 05:00: Sodium 134 L, Potassium 4.5, Chloride 99, Carbon Dioxide 28.0, Anion Gap 7, BUN 23 H, Creatinine 1.30 H, Estim Creat Clear Calc 37.59, Est GFR (MDRD) Af Amer 53 L, Est GFR (MDRD) Non-Af 44 L, BUN/Creatinine Ratio 17.7, Glucose 162 H, Calcium 9.1 05/01/22 05:00: APTT 60.8 H Micro: Microbiology 04/29/22 10:15 Wound - Heel, Left Gram Stain - Final 04/29/22 10:15 Wound - Heel, Left Wound Culture - Preliminary Serratia marcescens 04/28/22 21:10 Blood Culture (Wb) - Venous Blood Culture - Preliminary 04/28/22 21:05 Nasal Secretion SARS-CoV-2 & FLU Antigen (Rapid) - Final Rhythm Strip Rhythm Strip: Sinus Rhythm Physical Exam Const alert, oriented x3, no apparent distress and well nourished Constitutional Narrative: Morbidly obese, upper middle-aged white female lying in bed, sleeping, awakens and answers questions but falls back to sleep quickly, appears older than stated age, nontoxic, appears comfortable HEENT head/scalp atraumatic and moist oral mucous membranes Head and Scalp: normocephalic Resp normal respiratory effort, no retractions, no use of accessory muscles and clear to auscultation bilaterally Resp Narrative: Diffusely diminished but clear Auscultation: Negative for rales, rhonchi or wheezes Cardio regular rate, regular rhythm, S1 normal heart sound, S2 normal heart sound, no murmurs, no rub, no gallops, no clicks and no JVD Cardio Narrative: Few intermittent ectopic beats GI normal to inspection, nondistended, normoactive bowel sounds, soft to palpation and non-tender Extremity Extremity Narrative: Cap refill is 1+ bilateral lower extremities, bilateral lower extremities with dressing in place, bilateral lower extremity lymphedema, no cyanosis or clubbing Neuro oriented x3, moves all extremities and no focal motor deficits Neuro Narrative: Decreased sensation bilateral lower extremities Assessment & Plan Assessment/Plan (1) Osteomyelitis of foot, left, acute: (2) Diabetic infection of left foot: (3) Gas gangrene of foot: (4) Elevated serum creatinine: (5) Type I diabetes mellitus: (6) Weakness: (7) Acute non-ST elevation myocardial infarction (NSTEMI): (8) Cellulitis: PLAN: Plan NSTEMI -Continue aspirin -Continue Plavix -Lipid panel obtained and shows a total cholesterol of 68/LDL 32/HDL 14/triglycerides 112 -Continue atorvastatin 40 mg daily -Continue metoprolol -KELSEA deferred with STEPHY -Echocardiogram performed and showed EF of 50% with a mildly dilated RV and moderate right ventricular global systolic dysfunction, pulmonary pressures were not identified -Plan is for cardiac catheterization on 05/02/2022 -Renal function is improving with hydration -Patient is currently chest pain-free Gas gangrene/osteomyelitis/cellulitis of the left foot -Podiatry is following and plans for surgical debridement with possible need for amputation -Surgical plan is for 05/03/2022 with presentation of NSTEMI and plans for cardiac catheterization on 05/02/2020 -I did discuss the case with podiatry and they did attempt to do debridement in the OR under local however anesthesia would not allow it with her diagnosis of NSTEMI on admission -Wound culture is showing Serratia marcescens -Anaerobic blood culture positive for gram-positive cocci however it is only 1 of 2 cultures and I suspect this is going to be contaminant -Patient is on vancomycin and has coverage we will await finalized cultures -Continue broad-spectrum antibiotics with vancomycin, clindamycin, and cefepime -MRI foot is pending--> anticipate that this will be done tomorrow -Infectious disease was consulted--> awaiting input tomorrow Elevated serum creatinine -Last measured serum creatinine in our system was 1.06 from December 2021 -Serum creatinine on admission was 1.86 -Serum creatinine down to 1.3 today with hydration -Highly suspect patient has diabetic nephropathy with history -Current baseline is unclear -Nephrology is following and agrees with IV fluids -Continue gentle hydration with IV fluids at 60 cc/h of LR -Repeat BMP in a.m. DM-2 -Uncontrolled but hemoglobin A1c was 7.7 -Blood sugar is may trend up with infection and NSTEMI due to stress response -Fasting blood sugar was 162 -Overall blood sugars are fairly well controlled -Continue glargine but increase from 30 units daily to 35 units -Continue sliding scale -Hold home oral agents -Hold home Trulicity -Would recommend outpatient endocrinology follow-up for improved glycemic control after discharge GERD -Continue PPI Seasonal allergies -Continue home loratadine -Continue home Singulair 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 diabetic retinopathy Diabetic neuropathy -Continue home nortriptyline -Continue home gabapentin but reduce dose Vitamin D deficiency -Continue home vitamin D weekly on Monday Chronic hypoxic respiratory failure -Suspected COPD but no documented history/OHS/SUSANNA -Patient with marked history of tobacco abuse -At baseline patient appears to wear 2 to 3 L -Continue supplemental oxygen -Echocardiogram does show some RV strain and dilation -Hold home diuretics for now with STEPHY Morbid obesity -BMI is 61.8 -Complicates treatment, prognosis, outcomes -Recommend weight loss CODE STATUS -Full code Charges/Coding Visit Charges Inpatient E&M: 07579 Subs Hosp L2
[2022-05-01] MEDS: Gabapentin 300 MG Capsule PO ×2 (08:41→16:48)
[2022-05-01] MEDS: Acetaminophen 325 MG Tablet 650 MG PO (08:42)
[2022-05-01] MEDS: Aspirin 81 MG TAB.CHEW PO (08:43)
[2022-05-01] MEDS: Clopidogrel Bisulfate 75 MG Tablet PO (08:43)
[2022-05-01] MEDS: Pantoprazole Sodium 40 MG Tablet PO (08:43)
[2022-05-01] MEDS: Loratadine 10 MG Tablet PO (08:43)
[2022-05-01] MEDS: Metoprolol Tartrate 25 MG Tablet PO ×2 (08:44→22:23)
[2022-05-01] MEDS: Fluconazole 100 MG Tablet 200 MG PO (08:44)
[2022-05-01] MEDS: Insulin Lispro 100 UNIT/ML INSULN.PEN SC ×3 (08:45→22:42)
[2022-05-01 08:55] LABS: Bedside Glucose 165 mg/dL (74-106)
--- NOTE | 2022-05-01 10:00 | PCM.PN.CARD ---
Subjective Subjective Denies any Objective Data Vital Signs: Vital Signs Temp Pulse Resp BP Pulse Ox O2 Del Method O2 Flow Rate 97.7 F L 88 18 142/75 H 95 Nasal Cannula 2 05/01/22 08:20 05/01/22 08:44 05/01/22 08:20 05/01/22 08:44 05/01/22 08:20 05/01/22 08:20 05/01/22 08:20 Oxygen Flow Rate (L/min) 2 Oxygen Delivery Method Nasal Cannula Weight: 357 lb 9.436 oz Body Mass Index (BMI) 61.7 Intake & Output: Intake and Output for Last 24 Hours 04/29/22 04/30/22 05/01/22 23:59 23:59 23:59 Intake Total 1302.83 / 1542.83 2402.00 / 2402.00 1261.75 / 1261.75 Output Total 675 / 875 1550 / 1550 350 / 350 Balance 627.83 / 667.83 852.00 / 852.00 911.75 / 911.75 Lab / Micro Data Result Diagrams: 05/01/22 05:00 05/01/22 05:00 Labs: Laboratory Results - last 24 hr 04/30/22 10:38: Sodium Cancelled, Potassium Cancelled, Chloride Cancelled, Carbon Dioxide Cancelled, Anion Gap Cancelled, BUN Cancelled, Creatinine Cancelled, Estim Creat Clear Calc Cancelled, Est GFR (MDRD) Af Amer Cancelled, Est GFR (MDRD) Non-Af Cancelled, BUN/Creatinine Ratio Cancelled, Glucose Cancelled, Calcium Cancelled 04/30/22 11:05: Sodium 134 L, Potassium 3.9, Chloride 98, Carbon Dioxide 29.0, Anion Gap 7, BUN 25 H, Creatinine 1.45 H, Estim Creat Clear Calc 33.70, Est GFR (MDRD) Af Amer 47 L, Est GFR (MDRD) Non-Af 39 L, BUN/Creatinine Ratio 17.2, Glucose 199 H, Calcium 9.0 04/30/22 14:48: APTT 46.7 H 04/30/22 16:24: POC Glucose 141 H 04/30/22 22:05: POC Glucose 230 H 05/01/22 05:00: WBC 11.3 H, RBC 3.36 L, Hgb 7.8 L, Hct 25.9 L, MCV 77.1 L, MCH 23.2 L, MCHC 30.1 L, RDW Std Deviation 47.8 H, RDW Coeff of Heather 17.1 H, Plt Count 332, MPV 9.4, Immature Gran % (Auto) 2.000 H, Neut % (Auto) 82.5 H, Lymph % (Auto) 8.2 L, [place] % (Auto) 6.5, Eos % (Auto) 0.5, Baso % (Auto) 0.3, Absolute Neuts (auto) 9.3 H, Absolute Lymphs (auto) 0.93, Nucleated RBC % 0 05/01/22 05:00: Sodium 134 L, Potassium 4.5, Chloride 99, Carbon Dioxide 28.0, Anion Gap 7, BUN 23 H, Creatinine 1.30 H, Estim Creat Clear Calc 37.59, Est GFR (MDRD) Af Amer 53 L, Est GFR (MDRD) Non-Af 44 L, BUN/Creatinine Ratio 17.7, Glucose 162 H, Calcium 9.1 05/01/22 05:00: APTT 60.8 H 05/01/22 08:13: POC Glucose 165 H Micro: Microbiology 04/29/22 10:15 Wound - Heel, Left Gram Stain - Final 04/29/22 10:15 Wound - Heel, Left Wound Culture - Preliminary Serratia marcescens 04/28/22 21:10 Blood Culture (Wb) - Venous Blood Culture - Preliminary Rhythm Strip Rhythm Strip: Sinus Rhythm Cardiology Labs/Tests 04/30/22 10:38: Sodium Cancelled, Potassium Cancelled, Chloride Cancelled, Carbon Dioxide Cancelled, Anion Gap Cancelled, BUN Cancelled, Creatinine Cancelled, Est GFR (MDRD) Af Amer Cancelled, Est GFR (MDRD) Non-Af Cancelled, BUN/Creatinine Ratio Cancelled, Glucose Cancelled, Calcium Cancelled 04/30/22 11:05: Sodium 134 L, Potassium 3.9, Chloride 98, Carbon Dioxide 29.0, Anion Gap 7, BUN 25 H, Creatinine 1.45 H, Est GFR (MDRD) Af Amer 47 L, Est GFR (MDRD) Non-Af 39 L, BUN/Creatinine Ratio 17.2, Glucose 199 H, Calcium 9.0 04/30/22 14:48: APTT 46.7 H 05/01/22 05:00: WBC 11.3 H, RBC 3.36 L, Hgb 7.8 L, Hct 25.9 L, MCV 77.1 L, MCH 23.2 L, MCHC 30.1 L, Plt Count 332, MPV 9.4, Immature Gran % (Auto) 2.000 H, Neut % (Auto) 82.5 H, Lymph % (Auto) 8.2 L, [place] % (Auto) 6.5, Eos % (Auto) 0.5, Baso % (Auto) 0.3, Absolute Neuts (auto) 9.3 H, Nucleated RBC % 0 05/01/22 05:00: Sodium 134 L, Potassium 4.5, Chloride 99, Carbon Dioxide 28.0, Anion Gap 7, BUN 23 H, Creatinine 1.30 H, Est GFR (MDRD) Af Amer 53 L, Est GFR (MDRD) Non-Af 44 L, BUN/Creatinine Ratio 17.7, Glucose 162 H, Calcium 9.1 05/01/22 05:00: APTT 60.8 H Rhythm: EKG: ECHO: Stress Test: Cardiac Cath: PCI: CT Surgery: Holter monitor: EPS: PPM: CXR: Chest CT Scan: Physical Exam Narrative Comfortable. No distress. Heart rate regular rate and rhythm. Respirations unlabored. Alert oriented x3. Moving all 4 extremities. Assessment & Plan Assessment/Plan (1) Acute non-ST elevation myocardial infarction (NSTEMI): PLAN: Continue medical management. For coronary angiography on Monday. (2) Benign hypertension: PLAN: Controlled. (3) Type I diabetes mellitus: PLAN: As per internal medicine. (4) Obstructive sleep apnea: PLAN: As per pulmonary/internal medicine. (5) Cellulitis: PLAN: As per podiatry. (6) Morbid obesity: PLAN: Lose weight. (7) Elevated serum creatinine: PLAN: Recommend nephrology consult. (8) Anemia: PLAN: Hemoglobin dropped to 7.8 g/dL today. Microcytic. Consider GI consult. Follow as per internal medicine. Stop heparin. Monitor
[2022-05-01] MEDS: Menthol/Lanolin/Calamine/Znox 113 GM Tube 1 APPLIC TOPICAL ×2 (10:33→22:14)
[2022-05-01] MEDS: Nystatin Powder 15gm Bottle 1 APPLIC TOPICAL ×2 (10:34→22:14)
[2022-05-01] MEDS: Insulin Glargine-YFGN 100 UNIT/ML Pen 35 UNIT SC (10:35)
--- NOTE | 2022-05-01 11:18 | PCM.PROGNOTE ---
Subjective Subjective 61 year old female seen bedside for left lower extremity gas gangrene. No changes today. Dressing draining through. Objective Data Objective Data Vital Signs: Vital Signs Temp Pulse Resp BP Pulse Ox O2 Del Method O2 Flow Rate 97.7 F L 88 18 142/75 H 95 Nasal Cannula 2 05/01/22 08:20 05/01/22 08:44 05/01/22 08:20 05/01/22 08:44 05/01/22 08:20 05/01/22 08:20 05/01/22 08:20 Oxygen Flow Rate (L/min) 2 Oxygen Delivery Method Nasal Cannula Weight: 162.2 kg Body Mass Index (BMI) 61.7 Intake & Output: Intake and Output for Last 24 Hours 04/29/22 04/30/22 05/01/22 23:59 23:59 23:59 Intake Total 1302.83 / 1542.83 2402.00 / 2402.00 1261.75 / 1261.75 Output Total 675 / 875 1550 / 1550 350 / 350 Balance 627.83 / 667.83 852.00 / 852.00 911.75 / 911.75 Lab / Micro Data Result Diagrams: 05/01/22 05:00 05/01/22 05:00 Labs: Laboratory Results - last 24 hr 04/30/22 11:05: Sodium 134 L, Potassium 3.9, Chloride 98, Carbon Dioxide 29.0, Anion Gap 7, BUN 25 H, Creatinine 1.45 H, Estim Creat Clear Calc 33.70, Est GFR (MDRD) Af Amer 47 L, Est GFR (MDRD) Non-Af 39 L, BUN/Creatinine Ratio 17.2, Glucose 199 H, Calcium 9.0 04/30/22 14:48: APTT 46.7 H 04/30/22 16:24: POC Glucose 141 H 04/30/22 22:05: POC Glucose 230 H 05/01/22 05:00: WBC 11.3 H, RBC 3.36 L, Hgb 7.8 L, Hct 25.9 L, MCV 77.1 L, MCH 23.2 L, MCHC 30.1 L, RDW Std Deviation 47.8 H, RDW Coeff of Heather 17.1 H, Plt Count 332, MPV 9.4, Immature Gran % (Auto) 2.000 H, Neut % (Auto) 82.5 H, Lymph % (Auto) 8.2 L, [place] % (Auto) 6.5, Eos % (Auto) 0.5, Baso % (Auto) 0.3, Absolute Neuts (auto) 9.3 H, Absolute Lymphs (auto) 0.93, Nucleated RBC % 0 05/01/22 05:00: Sodium 134 L, Potassium 4.5, Chloride 99, Carbon Dioxide 28.0, Anion Gap 7, BUN 23 H, Creatinine 1.30 H, Estim Creat Clear Calc 37.59, Est GFR (MDRD) Af Amer 53 L, Est GFR (MDRD) Non-Af 44 L, BUN/Creatinine Ratio 17.7, Glucose 162 H, Calcium 9.1 05/01/22 05:00: APTT 60.8 H 05/01/22 08:13: POC Glucose 165 H Micro: Microbiology 04/28/22 21:10 Blood Culture (Wb) - Venous Blood Culture - Preliminary No growth in 48 hours. 04/29/22 10:15 Wound - Heel, Left Gram Stain - Final 04/29/22 10:15 Wound - Heel, Left Wound Culture - Preliminary Serratia marcescens 04/28/22 21:10 Blood Culture (Wb) - Venous Blood Culture - Preliminary 04/28/22 21:05 Nasal Secretion SARS-CoV-2 & FLU Antigen (Rapid) - Final Rhythm Strip Rhythm Strip: Sinus Rhythm Physical Exam Narrative Patient alert and oriented x3. Vascular: Dorsalis Pedis and Posterior Tibial Pulse palpable bilaterally. Capillary fill time brisk to all digits. Diffuse non-pitting edema to bilateral lower extremities. Focal increase in warmth to left ankle. Neurologic: light touch/protective sensation absent to bilateral feet. Dermatologic: Full thickness wound to left medial ankle, probes directly to calcaneus with periwound bullous that demonstrates fluctuance and crepitus extending along the medial ankle. There is diffuse edema, erythema and warmth to the site extending proximally along the medial ankle. The wound is full thickness and traversed the foot from the medial ankle to the lateral foot w/ diffuse tissue necrosis extending to the level of bone. Musculoskeletal: No gross musculoskeletal deformities. Const alert and oriented x3 Assessment & Plan Assessment/Plan (1) Gas gangrene of foot: PLAN: Detailed exam performed Awaiting cardiac cath prior to surgical debridement. Patient AOx3. Awaiting MRI No changes to wound, significant malodorous drainage, patient on IV vanc/zosyn/clindamycin. wound cultures demonstrate serratia marcescens, blood culture show anaerobic gram + cocci. Dressing changed today will continue to follow daily. remain NWB to left foot, offload left heel. (2) Diabetic infection of left foot: (3) Osteomyelitis of foot, left, acute: (4) Lymphedema: (5) Type 2 diabetes mellitus with diabetic polyneuropathy:
[2022-05-01 12:25] LABS: Bedside Glucose 149 mg/dL (74-106)
[2022-05-01 17:06] LABS: Bedside Glucose 169 mg/dL (74-106)
--- NOTE | 2022-05-01 19:45 | PCM.PN.REN ---
Subjective Subjective Following for STEPHY on CKD. The patient denies chest pain or shortness of breath at rest. She is scheduled for heart cath tomorrow. Objective Data Objective Data Vital Signs: Vital Signs Temp Pulse Resp BP Pulse Ox O2 Del Method O2 Flow Rate 96.8 F L 72 17 132/63 H 99 Nasal Cannula 2 05/01/22 14:00 05/01/22 14:18 05/01/22 14:00 05/01/22 14:18 05/01/22 14:00 05/01/22 14:00 05/01/22 15:07 Oxygen Flow Rate (L/min) 2 Oxygen Delivery Method Nasal Cannula Weight: 162.2 kg Body Mass Index (BMI) 61.7 Intake & Output: Intake and Output for Last 24 Hours 04/29/22 04/30/22 05/01/22 23:59 23:59 23:59 Intake Total 1302.83 / 1542.83 2402.00 / 2402.00 2175.50 / 2175.50 Output Total 675 / 875 1550 / 1550 1200 / 1200 Balance 627.83 / 667.83 852.00 / 852.00 975.50 / 975.50 Lab / Micro Data Result Diagrams: 05/01/22 05:00 05/01/22 05:00 Labs: Laboratory Results - last 24 hr 04/30/22 22:05: POC Glucose 230 H 05/01/22 05:00: WBC 11.3 H, RBC 3.36 L, Hgb 7.8 L, Hct 25.9 L, MCV 77.1 L, MCH 23.2 L, MCHC 30.1 L, RDW Std Deviation 47.8 H, RDW Coeff of Heather 17.1 H, Plt Count 332, MPV 9.4, Immature Gran % (Auto) 2.000 H, Neut % (Auto) 82.5 H, Lymph % (Auto) 8.2 L, [place] % (Auto) 6.5, Eos % (Auto) 0.5, Baso % (Auto) 0.3, Absolute Neuts (auto) 9.3 H, Absolute Lymphs (auto) 0.93, Nucleated RBC % 0 05/01/22 05:00: Sodium 134 L, Potassium 4.5, Chloride 99, Carbon Dioxide 28.0, Anion Gap 7, BUN 23 H, Creatinine 1.30 H, Estim Creat Clear Calc 37.59, Est GFR (MDRD) Af Amer 53 L, Est GFR (MDRD) Non-Af 44 L, BUN/Creatinine Ratio 17.7, Glucose 162 H, Calcium 9.1 05/01/22 05:00: APTT 60.8 H 05/01/22 08:13: POC Glucose 165 H 05/01/22 12:06: POC Glucose 149 H 05/01/22 16:43: POC Glucose 169 H Micro: Microbiology 04/29/22 10:15 Wound - Heel, Left Gram Stain - Final 04/29/22 10:15 Wound - Heel, Left Wound Culture - Final Serratia marcescens 04/29/22 10:15 Wound - Heel, Left Anaerobic Culture - Preliminary Checking for anaerobes, further studies to follow. 04/28/22 21:10 Blood Culture (Wb) - Venous Blood Culture - Preliminary No growth in 48 hours. 04/28/22 21:10 Blood Culture (Wb) - Venous Blood Culture - Preliminary 04/28/22 21:05 Nasal Secretion SARS-CoV-2 & FLU Antigen (Rapid) - Final Rhythm Strip Rhythm Strip: Sinus Rhythm Physical Exam Narrative General: Resting comfortably, no apparent distress. HEENT: Atraumatic, normocephalic, mucous membrane moist without erythema, PERRLA, EOMI, hearing is intact. Neck: Supple, no JVD. No thyromegaly or lymphadenopathy. Respiratory: Normal respiratory effort, breath sounds diminished at the bases. Cardiovascular: Normal S1, S2. No rubs, murmurs, or gallops. Abdomen: Obese, soft, mild tenderness to palpation diffusely without rebound, guarding, rigidity. Extremities: Both legs are wrapped in Yasmany bandage which I did not take down. There is obvious edema/lymphedema of the lower extremities bilaterally Musculoskeletal: Full passive range of motion, no joint swelling or synovitis. Neurologic: No focal neurologic deficit. Cranial nerves II through XII are grossly intact. Skin: Erythema of the lower extremities bilaterally on the portion that I can see through the bandage. Psych: Normal mood and affect. Assessment & Plan Assessment/Plan (1) STEPHY (acute kidney injury): (2) Acute non-ST elevation myocardial infarction (NSTEMI): (3) Osteomyelitis of foot, left, acute: PLAN: Plan Impression/Plan: The patient is a 61-year-old woman with past history of type 1 diabetes mellitus, hypertension, chronic lymphedema to lower extremities, morbid obesity, SUSANNA, and GERD. The patient is admitted with NSTEMI and left diabetic foot infection/osteomyelitis. Nephrology is following for STEPHY. Acute kidney injury. The patient presented to the hospital with serum creatinine of 1.86 mg/dL on 04/28/2022. I suspect STEPHY was prerenal as kidney function has gradually improved with volume expansion. Serum creatinine is stable at 1.30 mg/dL today. Continue volume expansion with current rate of IV LR. Since renal function has improved, risk for contrast associated nephropathy should be low and acceptable. Nonetheless, I would limit contrast load as much as we can. Recommend keeping patient on some fluid around the time of left heart catheterization to protect the kidney. Continue holding furosemide for now. NSTEMI. As discussed above, okay from my standpoint to proceed with left heart catheterization. Limit contrast load as much as possible. Continue hydration with isotonic crystalloid as were doing for at least 2 to 3 hours post contrast exposure. Left diabetic foot infection/gangrene/osteomyelitis. The patient is on antimicrobial. Looks like she will eventually need surgical intervention with podiatry after cardiac catheterization.
[2022-05-01] MEDS: Montelukast 10 MG Tablet PO (22:23)
[2022-05-01] MEDS: Atorvastatin Calcium 40 MG Tablet PO (22:23)
[2022-05-01 23:05] LABS: Bedside Glucose 152 mg/dL (74-106)
[2022-05-02] VITALS (17 sets, daily range): BP systolic 117–174; BP diastolic 53–103; PULSE 65–89; RESP 14–20; TEMP 36.3–36.6; O2SAT 90–99
[2022-05-02 05:05] LABS: Absolute Lymphocyte Count 1.01 X10^3/uL (0.83-4.51); Absolute Neutrophil Count 8.2 X10^3/uL (2.0-7.7); Basophil# 0.04 X10^3/uL; Basophil% 0.4 % (0-1); Hematocrit 26.2 % (37-47); Hemoglobin 7.7 g/dL (12.0-15.0); Lymphocyte # 1.01 X10^3/ul (0.83-4.51); Lymphocyte % 9.9 % (19-41); Mean Corp Hgb Conc 29.4 g/dL (32-36); Mean Corpuscular Hgb 23.3 pg (27.0-32.0); Mean Corpuscular Volume 79.2 fL (81-99); Mean Platelet Vol. 9.6 fl (6.2-12.0); Monocyte# 0.57 X10^3/uL; Monocyte% 5.6 % (0-10); NRBC Flagged by Analyzer 0 % (0-5); Neutrophil # 8.23 X10^3/uL (2.7-7.7); Neutrophil % 80.6 % (47-70); Platelet Count 354 K/mm3 (150-450); RBC Distribution Width CV 17.3 % (11.6-14.6); Red Blood Count 3.31 M/mm3 (4.2-5.4); White Blood Count 10.2 K/mm3 (4.4-11.0)
[2022-05-02 05:19] LABS: Anion Gap 5 (5-15); BUN 23 mg/dL (7-18); BUN/Creat Ratio 20.5 RATIO (10-20); Calcium,Total 8.9 mg/dL (8.5-10.1); Chloride 100 mmol/L (98-107); Creatinine, Serum 1.12 mg/dL (0.55-1.02); EST Glomerular Filtration Rate 53 mL/min (>60); Est Glom Filt Rate - Afr Amer 64 mL/min (>60); Estimated Creatinine Clearance 43.63 ml/min; Glucose 146 mg/dL (74-106); Potassium 4.3 mmol/L (3.5-5.1); Sodium Level 134 mmol/L (136-145)
[2022-05-02] MEDS: Ipratropium/Albuterol Sulfate 3 ML AMPUL.NEB INHALATION ×3 (06:40→18:54)
[2022-05-02] MEDS: Clindamycin 600 MG/50 ML BAG 100 MG IV ×3 (06:52→21:20)
[2022-05-02] MEDS: Nitroglycerin Oint 1 INCH PACKET TD (06:55)
[2022-05-02 07:20] LABS: Bedside Glucose 136 mg/dL (74-106)
--- NOTE | 2022-05-02 07:31 | PN_ITS ---
Subjective Subjective No changes overnight. No new complaints. Objective Data Objective Data Vital Signs: Vital Signs Temp Pulse Resp BP Pulse Ox O2 Del Method O2 Flow Rate 97.6 F L 75 20 H 117/103 H 99 Nasal Cannula 2 05/02/22 02:00 05/02/22 06:55 05/02/22 02:00 05/02/22 06:55 05/02/22 02:00 05/02/22 04:00 05/02/22 04:00 Oxygen Flow Rate (L/min) 2 Oxygen Delivery Method Nasal Cannula Weight: 161.4 kg Body Mass Index (BMI) 61.7 Intake & Output: Intake and Output for Last 24 Hours 04/30/22 05/01/22 05/02/22 23:59 23:59 23:59 Intake Total 2402.00 / 2402.00 3170.50 / 3170.50 530 / 530 Output Total 1550 / 1550 1200 / 1700 750 / 750 Balance 852.00 / 852.00 1970.50 / 1470.50 -220 / -220 Lab / Micro Data Result Diagrams: 05/02/22 05:00 05/02/22 05:00 Labs: Laboratory Results - last 24 hr 05/01/22 08:13: POC Glucose 165 H 05/01/22 12:06: POC Glucose 149 H 05/01/22 16:43: POC Glucose 169 H 05/01/22 22:41: POC Glucose 152 H 05/02/22 05:00: Sodium 134 L, Potassium 4.3, Chloride 100, Carbon Dioxide 29.0, Anion Gap 5, BUN 23 H, Creatinine 1.12 H, Estim Creat Clear Calc 43.63, Est GFR (MDRD) Af Amer 64, Est GFR (MDRD) Non-Af 53 L, BUN/Creatinine Ratio 20.5 H, Glucose 146 H, Calcium 8.9 05/02/22 05:00: WBC 10.2, RBC 3.31 L, Hgb 7.7 L, Hct 26.2 L, MCV 79.2 L, MCH 23.3 L, MCHC 29.4 L, RDW Std Deviation 50.0 H, RDW Coeff of Heather 17.3 H, Plt Count 354, MPV 9.6, Immature Gran % (Auto) 2.500 H, Neut % (Auto) 80.6 H, Lymph % (Auto) 9.9 L, [place] % (Auto) 5.6, Eos % (Auto) 1.0, Baso % (Auto) 0.4, Absolute Neuts (auto) 8.2 H, Absolute Lymphs (auto) 1.01, Nucleated RBC % 0 05/02/22 06:54: POC Glucose 136 H Micro: Microbiology 04/29/22 10:15 Wound - Heel, Left Gram Stain - Final 04/29/22 10:15 Wound - Heel, Left Wound Culture - Final Serratia marcescens 04/29/22 10:15 Wound - Heel, Left Anaerobic Culture - Preliminary Checking for anaerobes, further studies to follow. 04/28/22 21:10 Blood Culture (Wb) - Venous Blood Culture - Preliminary No growth in 48 hours. 04/28/22 21:10 Blood Culture (Wb) - Venous Blood Culture - Preliminary 04/28/22 21:05 Nasal Secretion SARS-CoV-2 & FLU Antigen (Rapid) - Final Rhythm Strip Rhythm Strip: Sinus Rhythm Physical Exam Narrative Patient alert and oriented x3. Vascular: Dorsalis Pedis and Posterior Tibial Pulse palpable bilaterally. Capillary fill time brisk to all digits. Diffuse non-pitting edema to bilateral lower extremities. Focal increase in warmth to left ankle. Neurologic: light touch/protective sensation absent to bilateral feet. Dermatologic: Full thickness wound to left medial ankle, probes directly to calcaneus with periwound bullous that demonstrates fluctuance and crepitus extending along the medial ankle. There is diffuse edema, erythema and warmth to the site extending proximally along the medial ankle. The wound is full thickness and traversed the foot from the medial ankle to the lateral foot w/ diffuse tissue necrosis extending to the level of bone. Musculoskeletal: No gross musculoskeletal deformities. Const alert and oriented x3 Assessment & Plan Assessment/Plan (1) Gas gangrene of foot: PLAN: Detailed exam performed Awaiting cardiac cath prior to surgical debridement. Patient requesting BKA, will contact vascular for possible evaluation. Patient AOx3. Awaiting MRI No changes to wound, significant malodorous drainage, patient on IV vanc/ zosyn/clindamycin. wound cultures demonstrate serratia marcescens, blood culture show anaerobic gram + cocci. ID on board. Dressing changed today will continue to follow daily. remain NWB to left foot, offload left heel. (2) Diabetic infection of left foot: (3) Osteomyelitis of foot, left, acute: (4) Lymphedema: (5) Type 2 diabetes mellitus with diabetic polyneuropathy:
[2022-05-02] MEDS: Metoprolol Tartrate 25 MG Tablet PO ×2 (07:52→22:01)
[2022-05-02] MEDS: Clopidogrel Bisulfate 75 MG Tablet PO (07:52)
[2022-05-02] MEDS: Aspirin 81 MG TAB.CHEW PO (07:53)
--- NOTE | 2022-05-02 09:00 | MRI_ITS ---
EXAM: MR LEFT LOWER EXTREMITY WITHOUT INTRAVENOUS CONTRAST, ANKLE CLINICAL INDICATION: left ankle abscess TECHNIQUE: Multiplanar and multisequence MR images of the left ankle without intravenous contrast. This report was created using [employer] report generation technology. COMPARISON: X-ray ankle 04/29/2022. FINDINGS: LIGAMENTS: Medial and lateral ligament complexes are unremarkable. TENDONS: Achilles tendon is intact. Peroneus, flexor and extensor tendons are unremarkable. No tendinosis or tear. PLANTAR FASCIA: Plantar fascia is intact. Small heel spur. BONES/JOINTS: Marked marrow edema in the patella. Signal alteration in the patella extends from the heel into the mid calcaneus. There is loss of cortex of the posterior-plantar surface of the calcaneus. Findings are suspicious for osteomyelitis. Soft tissue defects in the posterior ankle and heel consistent with reported abscess. Extensive soft tissue edema around the ankle and midfoot. No organized collection is demonstrated. MRI/Lower Ext Joint Only (Routine) IMPRESSION: 1. Findings suspicious for osteomyelitis of the calcaneus. 2. No soft tissue collection. Electronically Signed: Viktoria De La Torre MD at 17:11 EST Reading Location ID and State: [id number] / Tel , Service support ,
--- NOTE | 2022-05-02 10:38 | PCM.PN.BLA ---
Progress Note Mild nonobstructive CAD noted on coronary angiography. Possible vasospastic angina. Start on calcium channel blockers. May proceed with the foot surgery with an acceptable cardiac risk.
--- NOTE | 2022-05-02 10:43 | WOUNDNOTE ---
wound photo: left heel
--- NOTE | 2022-05-02 10:48 | CL.D_ITS ---
Patient Name: JUNG DUNAWAY Study Date: 05/02/2022 Performing: Yosi Cotton MD Ht: 63 inches 160.02 cm : 1960 Wt: 355.83 lbs 161.4 kg Age: 61 Gender: female BSA: 2.47 PROCEDURE(S) PERFORMED [id number])[facility] CLINICAL PROFILE AND INDICATIONS Indications: ACS > 24 hrs Heart Failure: None Angina Classification Anginal Classification w/in 2 Weeks: CCS IV CAD Presentations: Non-STEMI. Symptom onset Date/Time: Time Not Available CONCLUSIONS Mild non-obstructive CAD Consider vasospatic angina RECOMMENDATIONS Medical therapy Risk factor modification DESCRIPTION OF PROCEDURE The patient arrived to the procedure lab. The risks and benefits of the procedure as well as a full description of our services here and current unavailability of surgical backup were fully explained to the patient and/or their significant other prior to the catheterization. The Timeout was completed, verifying the correct patient and procedure. The patient's procedural site was prepped and draped in the usual fashion. Local anesthetic was given subcutaneously to right radial region with Lidocaine 2%. Using a modified Seldinger technique, arterial access was obtained via the right radial artery, a 6Fr sheath was inserted. Left Coronary Artery selective angiography was performed in multiple views using a 5 Fr. 4.0 Clymer catheter. Right Coronary Artery selective angiography was then performed in multiple views using a 5 Fr. 4.0 Clymer catheter.The arterial sheath was pulled and a TR Band was applied for hemostasis CORONARY ANGIOGRAPHY DOMINANCE: Right Dominant LEFT HEART ASSESSMENT Left Ventricular Ejection Fraction: Not assessed LEFT MAIN: Angiographically normal DIAGONAL 1: Tubular 40% Proximal lesion in 1st Diagonal CIRCUMFLEX ARTERY: CIRCUMFLEX: Tubular 20% Ostial lesion in Circumflex RIGHT CORONARY ARTERY: RCA: Tubular 20% Mid lesion in RCA COMPLICATIONS No Complications PROCEDURE MEDICATIONS Fentanyl 50 mcg IV Versed 1 mg IV Fentanyl 20 mcg IV Versed 1 mg IV Oxygen: 2 L/min via nasal cannula Oxygen: 4 L/min via nasal cannula Heparin given IA 05/02/2022 10:18:09 Verapamil 2.5mg, Ntg 200mcgs, 2000 units of Heparin given IA 05/02/2022 10:18:09 IV Fluids: .9 NaCl IV started @ 100 ml/hr 05/02/2022 10:24:37 SUMMARY OF HEMODYNAMIC DATA Time AIR REST ECG 09:51:56 AO 104/57 (75) SA 10:18:43 AIR REST 10:39:47 Signed By Yosi Cotton MD On 05/02/2022 10:46:57 Yosi Cotton MD
[2022-05-02] MEDS: 0.9% Normal Saline 1,000 ML 100 ML IV (11:00)
[2022-05-02] MEDS: Loratadine 10 MG Tablet PO (11:18)
[2022-05-02] MEDS: amLODIPine 5 MG Tablet PO (11:18)
[2022-05-02] MEDS: Menthol/Lanolin/Calamine/Znox 113 GM Tube 1 APPLIC TOPICAL ×2 (11:19→22:00)
[2022-05-02] MEDS: Pantoprazole Sodium 40 MG Tablet PO (11:19)
[2022-05-02] MEDS: Nystatin Powder 15gm Bottle 1 APPLIC TOPICAL ×2 (11:20→22:04)
[2022-05-02] MEDS: Acetaminophen 325 MG Tablet 650 MG PO (11:29)
[2022-05-02] MEDS: Gabapentin 300 MG Capsule PO ×2 (11:30→17:05)
[2022-05-02] MEDS: Lactated Ringers 1,000 ML 60 ML IV (11:30)
[2022-05-02 12:05] LABS: Bedside Glucose 133 mg/dL (74-106)
--- NOTE | 2022-05-02 13:07 | PCM.CONS.GEN ---
Assessment & Plan Assessment/Plan (1) STEPHY (acute kidney injury): (2) Osteomyelitis of foot, left, acute: PLAN: STEPHY improved. 1 of 2 bcx (+). Wound cx with serratia. Cont vanc/cefepime/clinda, will increase dose of cefepime given improvement in GFR and add flagyl due to anaerobe GPC seen on bcx. Will follow, thank you (3) Gas gangrene of foot: HPI Consult Data Date of Consult: 05/02/22 HPI Narrative Reason for Consultation: gangrene HPI Narrative: JUNG DUNAWAY, is a 61 F with IDDM, COPD, chronic lymphedema, presented to ED 04/29 with chest pain for 2-3 days. Has chronic LLE redness, but had acute severe stabbing pain with worsened swelling and redness. No fever or chills. Came to ED, concern for gangrene but surgery delayed for heart cath. Bedside I&D done, on vanc/clinda/cefepime, cath done this AM. Still having a lot of pain in leg. No n/v/d. Full ROS performed and neg except as noted above. [facility] Medical History Asymptomatic gallstones Benign hypertension Chest pain Chronic respiratory failure with hypoxia Diabetic neuropathy GERD (gastroesophageal reflux disease) History of smoking Interstitial cystitis Lymphedema Lymphedema of lower extremity Morbid obesity Obstructive sleep apnea Type 2 diabetes mellitus with diabetic polyneuropathy Home Medications Omeprazole [Prilosec] 40 mg PO DAILY 12/30/12 [History Last Taken 01/17/13] aspirin 81 mg chewable tablet 81 mg PO DAILY@0800 12/30/12 [History Last Taken 01/17/13] gabapentin 600 mg tablet 1,200 mg PO QHS 12/30/12 [History Last Taken Unknown] loratadine 10 mg tablet (Allergy Relief (loratadine)) 10 mg PO DAILY 12/30/12 [History Last Taken 01/17/13] metformin 1,000 mg tablet 1,000 mg PO BID 12/30/12 [History Last Taken 01/17/13] montelukast 10 mg tablet 10 mg PO DAILY 12/30/12 [History Last Taken 01/17/13] furosemide 40 mg tablet 40 mg PO DAILY 08/12/19 [History Last Taken Unknown] cholecalciferol (vitamin D3) 1,250 mcg (50,000 unit) capsule 50,000 unit PO WE 12/26/21 [History Last Taken Unknown] dulaglutide 3 mg/0.5 mL subcutaneous pen injector (Trulicity) 3 mg subcut NIEVES 12/26/21 [History Last Taken Unknown] hydrocodone-acetaminophen 5-325mg 5mg-325mg 1 tab PO Q6H PRN Pain 12/26/21 [History Last Taken Unknown] insulin degludec 100 unit/mL (3 mL) subcutaneous pen (Tresiba FlexTouch U-100 insulin) 80 unit subcut QHS 12/26/21 [History Last Taken Unknown] insulin lispro 100 unit/mL subcutaneous pen 20 unit subcut TIDCM 12/26/21 [History Last Taken Unknown] nortriptyline 10 mg capsule 20 mg PO QHS 12/26/21 [History Last Taken Unknown] potassium chloride 10 mEq tablet,extended release 10 meq PO DAILY 12/26/21 [History Last Taken Unknown] sulfamethoxazole 800 mg-trimethoprim 160 mg tablet (Bactrim DS) 1 tab PO BID #20 tabs 12/26/21 [Rx Last Taken Unknown] Allergy/AdvReac Type Severity Reaction Status Date / Time Penicillins [PCN] Allergy Rash Verified 04/28/22 20:10 Social History Smoking Status: Former smoker Physical Exam Const alert, oriented x3 and no apparent distress General Appearance: cooperative HEENT normocephalic and head/scalp atraumatic Eyes Eyes Narrative: limited vision Neck supple and No nodes Resp normal air movement and clear to auscultation bilaterally Cardio regular rate and regular rhythm GI soft to palpation, non-tender and non-distended Extremity General Extremity: edema Skin Skin Narrative: Reviewed wound photo of LLE Lab / Micro Data Attestation: I reviewed the patient's lab results. Result Diagrams: 05/02/22 05:00 05/02/22 05:00 Labs: Laboratory Results - last 24 hr 05/01/22 16:43: POC Glucose 169 H 05/01/22 22:41: POC Glucose 152 H 05/02/22 05:00: Sodium 134 L, Potassium 4.3, Chloride 100, Carbon Dioxide 29.0, Anion Gap 5, BUN 23 H, Creatinine 1.12 H, Estim Creat Clear Calc 43.63, Est GFR (MDRD) Af Amer 64, Est GFR (MDRD) Non-Af 53 L, BUN/Creatinine Ratio 20.5 H, Glucose 146 H, Calcium 8.9 05/02/22 05:00: WBC 10.2, RBC 3.31 L, Hgb 7.7 L, Hct 26.2 L, MCV 79.2 L, MCH 23.3 L, MCHC 29.4 L, RDW Std Deviation 50.0 H, RDW Coeff of Heather 17.3 H, Plt Count 354, MPV 9.6, Immature Gran % (Auto) 2.500 H, Neut % (Auto) 80.6 H, Lymph % (Auto) 9.9 L, [place] % (Auto) 5.6, Eos % (Auto) 1.0, Baso % (Auto) 0.4, Absolute Neuts (auto) 8.2 H, Absolute Lymphs (auto) 1.01, Nucleated RBC % 0 05/02/22 06:54: POC Glucose 136 H 05/02/22 11:36: POC Glucose 133 H Micro: Microbiology 04/29/22 10:15 Wound - Heel, Left Gram Stain - Final 04/29/22 10:15 Wound - Heel, Left Wound Culture - Final Serratia marcescens 04/29/22 10:15 Wound - Heel, Left Anaerobic Culture - Preliminary Checking for anaerobes, further studies to follow. 04/28/22 21:10 Blood Culture (Wb) - Venous Blood Culture - Preliminary No growth in 48 hours. Rhythm Strip Rhythm Strip: Sinus Rhythm
[2022-05-02] MEDS: Insulin Glargine-YFGN 100 UNIT/ML Pen 35 UNIT SC (13:37)
[2022-05-02] MEDS: metroNIDAZOLE 500 MG Tablet PO ×2 (13:37→22:00)
--- NOTE | 2022-05-02 13:51 | CHAPLAIN ---
Type of Pastoral Visit _x__ Initial Visit ___ Follow-up Visit ___ On-call Visit ___ General Patient Visit ___ Spiritual Assessment ___ Family Conference ___ Bereavement ___ Rapid Response ___ Code Blue ___ Other (describe below) Pastoral Care Referral From _x__ Patient ___ Family ___ Nurse ___ Physician ___ Natural Resource Officer ___ Founding Partner ___ Other (describe below) Sacrament/Intervention _x__ Active listening ___ Anointing ___ Alevism ___ Bereavement ___ Communion _x__ Elizabeth exploration ___ _x__ Life review _x__ Prayer ___ Reconciliation ___ Sacrament of Sick _x__ Supportive presence ___ Wedding ___ Other (describe below) Pastoral Comments patient is very talkative and gives details about her health situation, current home life with an adult son, and some past history including disappointments with adults when she was a child; pt has concerns about her son who lives with her; pt speaks of her elizabeth and that she prays almost every day; pt welcomes time to talk and for prayer support; pt is eyesight impaired
--- NOTE | 2022-05-02 16:16 | PN.HOSP_ITS ---
Reason for Visit Reason for Visit: Chest pain Subjective Subjective No issues overnight. Patient has just returned from [place] [place] and reportedly there was not a need for acute intervention. Probable surgery tomorrow but waiting on finalized plans from Dr. Coelho. He did indicate he wanted vascular medicine to see her. Objective Data Objective Data Vital Signs: Vital Signs Temp Pulse Resp BP Pulse Ox O2 Del Method O2 Flow Rate 97.3 F L 81 19 H 131/56 H 96 Nasal Cannula 2 05/02/22 14:00 05/02/22 14:00 05/02/22 14:00 05/02/22 14:00 05/02/22 14:00 05/02/22 15:08 05/02/22 15:08 Oxygen Flow Rate (L/min) 2 Oxygen Delivery Method Nasal Cannula Weight: 161.4 kg Body Mass Index (BMI) 61.7 Intake & Output: Intake and Output for Last 24 Hours 04/30/22 05/01/22 05/02/22 23:59 23:59 23:59 Intake Total 2402.00 / 2402.00 3170.50 / 3170.50 1637 / 1637 Output Total 1550 / 1550 1200 / 1700 1150 / 1150 Balance 852.00 / 852.00 1970.50 / 1470.50 487 / 487 Lab / Micro Data Result Diagrams: 05/02/22 05:00 05/02/22 05:00 Labs: Laboratory Results - last 24 hr 05/01/22 16:43: POC Glucose 169 H 05/01/22 22:41: POC Glucose 152 H 05/02/22 05:00: Sodium 134 L, Potassium 4.3, Chloride 100, Carbon Dioxide 29.0, Anion Gap 5, BUN 23 H, Creatinine 1.12 H, Estim Creat Clear Calc 43.63, Est GFR (MDRD) Af Amer 64, Est GFR (MDRD) Non-Af 53 L, BUN/Creatinine Ratio 20.5 H, Glucose 146 H, Calcium 8.9 05/02/22 05:00: WBC 10.2, RBC 3.31 L, Hgb 7.7 L, Hct 26.2 L, MCV 79.2 L, MCH 23.3 L, MCHC 29.4 L, RDW Std Deviation 50.0 H, RDW Coeff of Heather 17.3 H, Plt Count 354, MPV 9.6, Immature Gran % (Auto) 2.500 H, Neut % (Auto) 80.6 H, Lymph % (Auto) 9.9 L, [place] % (Auto) 5.6, Eos % (Auto) 1.0, Baso % (Auto) 0.4, Absolute Neuts (auto) 8.2 H, Absolute Lymphs (auto) 1.01, Nucleated RBC % 0 05/02/22 06:54: POC Glucose 136 H 05/02/22 11:36: POC Glucose 133 H Micro: Microbiology 04/29/22 10:15 Wound - Heel, Left Gram Stain - Final 04/29/22 10:15 Wound - Heel, Left Wound Culture - Final Serratia marcescens 04/29/22 10:15 Wound - Heel, Left Anaerobic Culture - Preliminary Checking for anaerobes, further studies to follow. 04/28/22 21:10 Blood Culture (Wb) - Venous Blood Culture - Preliminary No growth in 48 hours. 04/28/22 21:10 Blood Culture (Wb) - Venous Blood Culture - Preliminary 04/28/22 21:05 Nasal Secretion SARS-CoV-2 & FLU Antigen (Rapid) - Final Rhythm Strip Rhythm Strip: Sinus Rhythm Physical Exam Const alert, oriented x3, no apparent distress and well nourished Constitutional Narrative: Morbidly obese, upper middle-aged white female sitting up in bed, appears older than stated age, nontoxic, appears comfortable, nursing at bedside HEENT head/scalp atraumatic and moist oral mucous membranes HEENT Narrative: edentulous, Mallampati 3 Head and Scalp: normocephalic Resp normal respiratory effort, no retractions, no use of accessory muscles and clear to auscultation bilaterally Resp Narrative: Diffusely diminished but clear Auscultation: Negative for rales, rhonchi or wheezes Cardio regular rate, regular rhythm, S1 normal heart sound, S2 normal heart sound, no murmurs, no rub, no gallops, no clicks and no JVD GI normal to inspection, nondistended, normoactive bowel sounds, soft to palpation and non-tender Extremity Extremity Narrative: Cap refill is 1+ bilateral lower extremities, bilateral lower extremities with dressing in place, bilateral lower extremity lymphedema, no cyanosis or clubbing Neuro oriented x3, moves all extremities and no focal motor deficits Neuro Narrative: Decreased sensation bilateral lower extremities Speech: speech normal Assessment & Plan Assessment/Plan (1) Osteomyelitis of foot, left, acute: (2) Diabetic infection of left foot: (3) Gas gangrene of foot: (4) Elevated serum creatinine: (5) Type I diabetes mellitus: (6) Weakness: (7) Acute non-ST elevation myocardial infarction (NSTEMI): (8) Cellulitis: PLAN: Plan NSTEMI -Suspect related to possible vasospastic angina -Calcium channel blockers initiated -Continue aspirin -Continue Plavix -Lipid panel obtained and shows a total cholesterol of 68/LDL 32/HDL 14/triglycerides 112 -Continue atorvastatin 40 mg daily -Continue metoprolol -KELSEA deferred with STEPHY -Echocardiogram performed and showed EF of 50% with a mildly dilated RV and moderate right ventricular global systolic dysfunction, pulmonary pressures were not identified -Cardiac catheterization done today on 05/02/2022 shows mild nonobstructive CAD and medical therapy was recommended Gas gangrene/osteomyelitis/cellulitis of the left foot -Podiatry is following and plans for surgical debridement with possible need for amputation -Surgical plan is for 05/03/2022 with presentation of NSTEMI and plans for cardiac catheterization on 05/02/2020 -Possible BKA tomorrow -Vascular surgery consulted -Wound culture is showing Serratia marcescens -Anaerobic blood culture positive for gram-positive cocci however it is only 1 of 2 cultures and I suspect this is going to be contaminant -Patient is on vancomycin and has coverage we will await finalized cultures -Continue broad-spectrum antibiotics with vancomycin, clindamycin, and cefepime as per infectious disease recommendations at this time -MRI foot is pending--> this has been done but pending read Elevated serum creatinine -Last measured serum creatinine in our system was 1.06 from December 2021 -Serum creatinine on admission was 1.86 -Serum creatinine down to 1.12 -We will continue IV hydration through the night in preparation for surgery and to help clear contrast utilize during cath -Highly suspect patient has diabetic nephropathy with history -Current baseline is unclear -Continue gentle hydration with IV fluids at 60 cc/h of LR -Repeat BMP in a.m. -Discontinue IV fluids after surgery Anemia -Appears to be chronic with a baseline between 8 and 9 -Current serum creatinine down to 7.7 stable from yesterday at 7.8 -Patient is 4 L positive for hospital course -Microcytic -Check iron studies -Check guaiac stool DM-2 -Uncontrolled but hemoglobin A1c was 7.7 -Blood sugar is may trend up with infection and NSTEMI due to stress response -Fasting blood sugar was 146 -Overall blood sugars are fairly well controlled -Continue glargine but increase from 30 units daily to 35 units -Continue sliding scale -Hold home oral agents -Hold home Trulicity -Would recommend outpatient endocrinology follow-up for improved glycemic control after discharge GERD -Continue PPI Seasonal allergies -Continue home loratadine -Continue home Singulair 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 diabetic retinopathy Diabetic neuropathy -Continue home nortriptyline -Continue home gabapentin but reduce dose Vitamin D deficiency -Continue home vitamin D weekly on Monday Chronic hypoxic respiratory failure -Suspected COPD but no documented history/OHS/SUSANNA -Patient with marked history of tobacco abuse -At baseline patient appears to wear 2 to 3 L -Continue supplemental oxygen -Echocardiogram does show some RV strain and dilation -Hold home diuretics for now with STEPHY Morbid obesity -BMI is 61.8 -Complicates treatment, prognosis, outcomes -Recommend weight loss CODE STATUS -Full code Charges/Coding Visit Charges Inpatient E&M: 07860 Subs Hosp L2
[2022-05-02] MEDS: Insulin Lispro 100 UNIT/ML INSULN.PEN SC ×2 (17:02→22:03)
[2022-05-02 17:07] LABS: Platelet Count 333 K/mm3 (150-450); RET-HE 19.9 pg (30-35)
[2022-05-02 17:13] LABS: Ferritin 214 ng/mL (8-252); Iron 38 ug/dL (50-170); Iron Binding Capacity,Total 399 ug/dL (250-450); PERCENT IRON SATURATION 9.5 % (15.0-55.0)
[2022-05-02 17:36] LABS: Bedside Glucose 154 mg/dL (74-106)
[2022-05-02] MEDS: Atorvastatin Calcium 40 MG Tablet PO (22:01)
[2022-05-02] MEDS: Montelukast 10 MG Tablet PO (22:07)
[2022-05-02 22:25] LABS: Bedside Glucose 193 mg/dL (74-106)
[2022-05-02 22:36] LABS: Vancomycin, Trough Level 12.4 ug/mL (5.0-15.0)
[2022-05-03] VITALS (12 sets, daily range): BP systolic 143–179; BP diastolic 56–81; PULSE 74–85; RESP 16–26; TEMP 36.3–36.7; O2SAT 4–100; BMI 64.5
--- NOTE | 2022-05-03 00:17 | PCM.RX.CS ---
Consult Pharmacy has been consulted to manage selected antiobiotic: Vancomycin Type of Consult: Follow-up Suspected Infection: Osteomyelitis Prior Doses of Antibiotics Received/Current Regimen: Medications Vancomycin HCl 750 mg/ Sodium (Chloride) 265 mls @ 250 mls/hr IV Q12H SARAH Vancomycin HCl 1,500 mg/ (Sodium Chloride) 530 mls @ 250 mls/hr IV Q24H SARAH Stop: 05/03/22 02:00 Last Admin: 05/02/22 23:21 Dose: 250 mls/hr Labs: Sodium 134 mmol/L (136-145) L 05/02/22 05:00 Potassium 4.3 mmol/L (3.5-5.1) 05/02/22 05:00 Chloride 100 mmol/L (98-107) 05/02/22 05:00 Carbon Dioxide 29.0 mmol/L (21.0-32.0) 05/02/22 05:00 Anion Gap 5 (5-15) 05/02/22 05:00 BUN 23 mg/dL (7-18) H 05/02/22 05:00 Creatinine 1.12 mg/dL (0.55-1.02) H 05/02/22 05:00 Est GFR (MDRD) Af Amer 64 mL/min (>60) 05/02/22 05:00 Est GFR (MDRD) Non-Af 53 mL/min (>60) L 05/02/22 05:00 BUN/Creatinine Ratio 20.5 RATIO (10-20) H 05/02/22 05:00 Glucose 146 mg/dL (74-106) H 05/02/22 05:00 Vancomycin Trough 12.4 ug/mL (5.0-15.0) 05/02/22 21:46 Microbiology: Microbiology 04/29/22 10:15 Wound - Heel, Left Gram Stain - Final 04/29/22 10:15 Wound - Heel, Left Wound Culture - Final Serratia marcescens 04/29/22 10:15 Wound - Heel, Left Anaerobic Culture - Preliminary Checking for anaerobes, further studies to follow. 04/28/22 21:10 Blood Culture (Wb) - Venous Blood Culture - Preliminary No growth in 48 hours. 04/28/22 21:10 Blood Culture (Wb) - Venous Blood Culture - Preliminary 04/28/22 21:05 Nasal Secretion SARS-CoV-2 & FLU Antigen (Rapid) - Final Weight used for dosin.4 kg Estimated Creatinine Clearance: 80 Goal Trough: 15-20 mcg/mL Pharmacy Plan for Drug Dosing: Vancomycin trough, drawn 23 hrs post-dose, was 12.4mcg/ml. This was below the target range of 15-20. Per dosing calculator a new regimen of 750mg q12h should give an estimated trough of 15.2. Another level will be drawn prior to the fourth dose. Pharmacy Service will continue to monitor and adjust dosing as required. Follow-Up Labs: Trough Vancomycin Labs to be done on [date and time ordered]: 05/04/22 @4776
[2022-05-03 05:09] LABS: Anion Gap 7 (5-15); BUN 22 mg/dL (7-18); BUN/Creat Ratio 19.8 RATIO (10-20); Calcium,Total 8.7 mg/dL (8.5-10.1); Chloride 103 mmol/L (98-107); Creatinine, Serum 1.11 mg/dL (0.55-1.02); EST Glomerular Filtration Rate 53 mL/min (>60); Est Glom Filt Rate - Afr Amer 64 mL/min (>60); Estimated Creatinine Clearance 44.03 ml/min; Glucose 171 mg/dL (74-106); Potassium 4.9 mmol/L (3.5-5.1); Sodium Level 132 mmol/L (136-145)
[2022-05-03 06:10] LABS: Absolute Lymphocyte Count 1.11 X10^3/uL (0.83-4.51); Basophil# 0.12 X10^3/uL; Basophil% 1.3 % (0-1); Eosinophil# 0.08 X10^3/uL; Eosinophils% 0.9 % (0-5); Hematocrit 32.2 % (37-47); Hemoglobin 8.7 g/dL (12.0-15.0); Lymphocyte # 1.11 X10^3/ul (0.83-4.51); Lymphocyte % 11.9 % (19-41); Mean Corpuscular Hgb 23.5 pg (27.0-32.0); Mean Platelet Vol. 10.1 fl (6.2-12.0); Monocyte# 0.59 X10^3/uL; Monocyte% 6.3 % (0-10); NRBC Flagged by Analyzer 0.3 % (0-5); Neutrophil # 6.99 X10^3/uL (2.7-7.7); Neutrophil % 74.9 % (47-70); Platelet Count 441 K/mm3 (150-450); RBC Distribution Width SD 56.9 fl (35.1-43.9); White Blood Count 9.3 K/mm3 (4.4-11.0)
[2022-05-03] MEDS: metroNIDAZOLE 500 MG Tablet PO ×3 (06:34→22:28)
[2022-05-03] MEDS: Clindamycin 600 MG/50 ML BAG 100 MG IV ×3 (06:34→22:31)
[2022-05-03] MEDS: Insulin Lispro 100 UNIT/ML INSULN.PEN SC ×4 (06:39→22:45)
[2022-05-03] MEDS: Ipratropium/Albuterol Sulfate 3 ML AMPUL.NEB INHALATION ×3 (07:10→19:27)
[2022-05-03 07:30] LABS: Bedside Glucose 157 mg/dL (74-106)
[2022-05-03] MEDS: Aspirin 81 MG TAB.CHEW PO (08:02)
[2022-05-03] MEDS: Loratadine 10 MG Tablet PO (08:02)
[2022-05-03] MEDS: amLODIPine 5 MG Tablet PO (08:02)
[2022-05-03] MEDS: Pantoprazole Sodium 40 MG Tablet PO (08:02)
[2022-05-03] MEDS: Metoprolol Tartrate 25 MG Tablet PO ×2 (08:02→22:32)
[2022-05-03] MEDS: Gabapentin 300 MG Capsule PO ×2 (08:04→17:07)
[2022-05-03] MEDS: Senna/Docusate Sodium 1 Tablet 2 TABLET PO (08:20)
--- NOTE | 2022-05-03 10:04 | CASEMGMT ---
Social Work This social insurance analyst following up with patient in room on discharge planning. Patient to have surgery today or tomorrow per Dr. Tipton (hospitalist). This social insurance analyst updated patient further that [facility] not able to accommodate patient. Patient reports that third choice is [place] and fourth choice would be [facility]. Patient states but I am not ready to discharge yet. This social insurance analyst confirms that patient is not medically cleared per medical team but that social work is working to have a discharge plan in place for when patient is medically cleared, patient voiced understanding. Referral sent to [facility] via [facility]. Pt. will need a level of care due to patient being straight medicaid. PLAN: SNF, pending acceptance Social Work to continue to follow. Katarina LOVE, ROXANE
--- NOTE | 2022-05-03 10:16 | PCM.PN.ID ---
Physical Exam Narrative No fever. Leg is painful, wants amputation Const alert and no apparent distress Resp normal air movement and clear to auscultation bilaterally Cardio regular rate and regular rhythm GI soft to palpation, non-tender and non-distended Extremity General Extremity: edema Skin Skin Narrative: LLE wrapped ID ID: Route of nutrition/ use of supplements: [] Nutritional Intake: [] IV Site: [] [place] Catheter: [] Assessment & Plan Assessment/Plan (1) STEPHY (acute kidney injury): (2) Osteomyelitis of foot, left, acute: PLAN: STEPHY improved. 1 of 2 bcx (+). Wound cx with serratia. Cont vanc/cefepime/clinda/flagyl Will follow (3) Gas gangrene of foot:
[2022-05-03] MEDS: Menthol/Lanolin/Calamine/Znox 113 GM Tube 1 APPLIC TOPICAL ×2 (11:03→22:28)
[2022-05-03] MEDS: Nystatin Powder 15gm Bottle 1 APPLIC TOPICAL ×2 (11:03→22:30)
[2022-05-03] MEDS: Insulin Glargine-YFGN 100 UNIT/ML Pen 35 UNIT SC (11:04)
[2022-05-03 12:01] LABS: Bedside Glucose 155 mg/dL (74-106)
[2022-05-03] MEDS: Lactated Ringers 1,000 ML 60 ML IV (12:23)
--- NOTE | 2022-05-03 12:34 | PN_ITS ---
Subjective Subjective No changes overnight. Objective Data Objective Data Vital Signs: Vital Signs Temp Pulse Resp BP Pulse Ox O2 Del Method O2 Flow Rate 98.1 F 78 20 H 143/58 H 4 Nasal Cannula 29 05/03/22 07:57 05/03/22 08:02 05/03/22 07:57 05/03/22 08:02 05/03/22 09:56 05/03/22 08:13 05/03/22 09:56 Oxygen Flow Rate (L/min) 29 Oxygen Delivery Method Nasal Cannula Weight: 165.3 kg Body Mass Index (BMI) 64.5 Intake & Output: Intake and Output for Last 24 Hours 05/01/22 05/02/22 05/03/22 23:59 23:59 23:59 Intake Total 3170.50 / 3170.50 1787 / 1787 2445 / 2445 Output Total 1200 / 1700 1500 / 1900 1300 / 1300 Balance 1970.50 / 1470.50 287 / -113 1145 / 1145 Lab / Micro Data Result Diagrams: 05/03/22 06:00 05/03/22 04:35 Labs: Laboratory Results - last 24 hr 05/02/22 05:00: Retic Count 0.90, Immature Retic Fraction 28.20 H, Retic Hgb Equivalent 19.9 L 05/02/22 05:00: Iron 38 L, TIBC 399, Iron Saturation 9.5 L, Ferritin 214 05/02/22 17:01: POC Glucose 154 H 05/02/22 21:46: Vancomycin Trough 12.4 05/02/22 22:02: POC Glucose 193 H 05/03/22 04:35: Sodium 132 L, Potassium 4.9, Chloride 103, Carbon Dioxide 22.0, Anion Gap 7, BUN 22 H, Creatinine 1.11 H, Estim Creat Clear Calc 44.03, Est GFR (MDRD) Af Amer 64, Est GFR (MDRD) Non-Af 53 L, BUN/Creatinine Ratio 19.8, Glucose 171 H, Calcium 8.7 05/03/22 04:35: WBC Cancelled, Corrected WBC Cancelled, RBC Cancelled, Hgb Cancelled, Hct Cancelled, MCV Cancelled, MCH Cancelled, MCHC Cancelled, RDW Std Deviation Cancelled, RDW Coeff of Heather Cancelled, Plt Count Cancelled, MPV Cancelled, Immature Gran % (Auto) Cancelled, Neut % (Auto) Cancelled, Lymph % (Auto) Cancelled, [place] % (Auto) Cancelled, Eos % (Auto) Cancelled, Baso % (Auto) Cancelled, Absolute Neuts (auto) Cancelled, Absolute Lymphs (auto) Cancelled, Total Counted Cancelled, Neutrophils % (Manual) Cancelled, Band Neutrophils % Cancelled, Lymphocytes % (Manual) Cancelled, Monocytes % (Manual) Cancelled, Eosinophils % (Manual) Cancelled, Basophils % (Manual) Cancelled, Metamyelocytes % Cancelled, Myelocytes % Cancelled, Promyelocytes % Cancelled, Blast Cells % Cancelled, Plasma Cell % (Manual) Cancelled, Other Cells % Cancelled, Nucleated RBC % Cancelled, Nucleated RBCs/100 WBC Cancelled, Differential Comment Cancelled, Diff Path Review Cancelled, Hypersegmented Neuts Cancelled, Atypical Lymphocytes Cancelled, Reactive Lymphocytes Cancelled, Smudge Cells Cancelled, Toxic Granulation Cancelled, Toxic Vacuolation Cancelled, Dohle Bodies Cancelled, Rosendo Rods Cancelled, Platelet Estimate Cancelled, Plt Morphology Comment Cancelled, RBC Morphology Cancelled, Polychromasia Cancelled, Hypochr omasia Cancelled, Poikilocytosis Cancelled, Basophilic Stippling Cancelled, Anisocytosis Cancelled, Microcytosis Cancelled, Macrocytosis Cancelled, Spherocytes Cancelled, Sickle Cells Cancelled, Target Cells Cancelled, Tear Drop Cells Cancelled, Ovalocytes Cancelled, Stomatocytes Cancelled, [place] Bodies Cancelled, [place] Cells Cancelled, Bite Cells Cancelled, Crenated Cell Cancelled, Acanthocytes (Spur) Cancelled, Rouleaux Cancelled, Schistocytes Cancelled 05/03/22 06:00: WBC 9.3, RBC 3.70 L, Hgb 8.7 L, Hct 32.2 L, MCV 87.0 D, MCH 23.5 L, MCHC 27.0 L D, RDW Std Deviation 56.9 H, RDW Coeff of Heather 18.0 H, Plt Count 441, MPV 10.1, Immature Gran % (Auto) 4.700 H, Neut % (Auto) 74.9 H, Lymph % (Auto) 11.9 L, [place] % (Auto) 6.3, Eos % (Auto) 0.9, Baso % (Auto) 1.3 H, Absolute Neuts (auto) 7.0, Absolute Lymphs (auto) 1.11, Nucleated RBC % 0.3 05/03/22 06:38: POC Glucose 157 H 05/03/22 11:02: POC Glucose 155 H Micro: Microbiology 05/03/22 10:25 Stool Stool Occult Blood (JOVAN) - Final 04/28/22 21:10 Blood Culture (Wb) - Venous Blood Culture - Preliminary Anaerobic cocci 04/29/22 10:15 Wound - Heel, Left Gram Stain - Final 04/29/22 10:15 Wound - Heel, Left Wound Culture - Final Serratia marcescens 04/29/22 10:15 Wound - Heel, Left Anaerobic Culture - Preliminary Checking for anaerobes, further studies to follow. 04/28/22 21:10 Blood Culture (Wb) - Venous Blood Culture - Preliminary No growth in 48 hours. 04/28/22 21:05 Nasal Secretion SARS-CoV-2 & FLU Antigen (Rapid) - Final Radiography Diagnostic Testing: Radiology Impression Lower Extremity MRI 05/02/22 09:00 IMPRESSION: 1. Findings suspicious for osteomyelitis of the calcaneus. 2. No soft tissue collection. Electronically Signed: Viktoria De La Torre MD at 17:11 EST Reading Location ID and State: [id number] / Tel , Service support , Rhythm Strip Rhythm Strip: Sinus Rhythm Physical Exam Narrative Patient alert and oriented x3. Vascular: Dorsalis Pedis and Posterior Tibial Pulse palpable bilaterally. Capillary fill time brisk to all digits. Diffuse non-pitting edema to bilateral lower extremities. Focal increase in warmth to left ankle. Neurologic: light touch/protective sensation absent to bilateral feet. Dermatologic: Full thickness wound to left medial ankle, probes directly to calcaneus with periwound bullous that demonstrates fluctuance and crepitus extending along the medial ankle. There is diffuse edema, erythema and warmth to the site extending proximally along the medial ankle. The wound is full thickness and traversed the foot from the medial ankle to the lateral foot w/ diffuse tissue necrosis extending to the level of bone. Musculoskeletal: No gross musculoskeletal deformities. Const alert and oriented x3 Assessment & Plan Assessment/Plan (1) Gas gangrene of foot: PLAN: Detailed exam performed Cardiac cath didn't require intervention - patient okay for surgical debridment vascular evaluated patient, will proceed with AKA. ID/Medicine/Nephrology on board Dressing changed today will continue to follow daily. remain NWB to left foot, offload left heel. (2) Diabetic infection of left foot: (3) Osteomyelitis of foot, left, acute: (4) Lymphedema: (5) Type 2 diabetes mellitus with diabetic polyneuropathy:
--- NOTE | 2022-05-03 12:53 | CASEMGMT ---
Social Work Message from nursing that Brittany Juliana from [facility] called and would like a return phone call - [phone] Telephone call to Brittany Soto requesting updated on patient discharge plan and current medical course. This social work msw updated Brittany that patient is to have a BKA at some point during hospital stay and plan is senior care facility when medically cleared. Brittany thanked this social work msw for the information. PLAN: SNF, pending acceptance and medical clearance. Social Work to continue to follow. Katarina LOVE, ROXANE
--- NOTE | 2022-05-03 14:17 | CASEMGMT ---
Social Work Notified via care port that [facility] is declining patient and [facility] is accepting patient. CC inquired if patient is able to bring own Trulicity from home. This social service coordinator met with patient in room and updated patient on above. Patient reports to have not been taking Trulicity as the pharmacy does not carry it anymore. Patient states to have not been taking Trulicity at home due to this. This social service coordinator updated [facility] on above conversation with patient. PLAN: [facility], pending medical clearance. Social Work to continue to follow. Katarina LOVE, DIONES
--- NOTE | 2022-05-03 14:32 | CASEMGMT ---
Social Work Telephone call from adult protective services, [facility]. Eliot reports to have received referral for patient and to be following up on current discharge plan for patient. This social problems specialist updated Eliot that current plan is [facility], when patient is medically cleared. [facility] request to be updated on when patient discharges from the hospital. Social Work to continue to follow as needed. Katarina LOVE, SPENCER-S
--- NOTE | 2022-05-03 14:59 | PN.HOSP_ITS ---
Reason for Visit Reason for Visit: Chest pain Subjective Subjective No issues overnight. Current plan is for AKA of the left lower extremity tomorrow at [address] Ibarra. Objective Data Objective Data Vital Signs: Vital Signs Temp Pulse Resp BP Pulse Ox O2 Del Method O2 Flow Rate 97.5 F L 85 19 H 144/66 H 98 Nasal Cannula 29 05/03/22 14:00 05/03/22 14:00 05/03/22 14:00 05/03/22 14:00 05/03/22 14:00 05/03/22 14:00 05/03/22 09:56 Oxygen Flow Rate (L/min) 29 Oxygen Delivery Method Nasal Cannula Weight: 165.3 kg Body Mass Index (BMI) 64.5 Intake & Output: Intake and Output for Last 24 Hours 05/01/22 05/02/22 05/03/22 23:59 23:59 23:59 Intake Total 3170.50 / 3170.50 1787 / 1787 2545 / 2545 Output Total 1200 / 1700 1500 / 1900 1300 / 1300 Balance 1970.50 / 1470.50 287 / -113 1245 / 1245 Lab / Micro Data Result Diagrams: 05/03/22 06:00 05/03/22 04:35 Labs: Laboratory Results - last 24 hr 05/02/22 05:00: Retic Count 0.90, Immature Retic Fraction 28.20 H, Retic Hgb Equivalent 19.9 L 05/02/22 05:00: Iron 38 L, TIBC 399, Iron Saturation 9.5 L, Ferritin 214 05/02/22 17:01: POC Glucose 154 H 05/02/22 21:46: Vancomycin Trough 12.4 05/02/22 22:02: POC Glucose 193 H 05/03/22 04:35: Sodium 132 L, Potassium 4.9, Chloride 103, Carbon Dioxide 22.0, Anion Gap 7, BUN 22 H, Creatinine 1.11 H, Estim Creat Clear Calc 44.03, Est GFR (MDRD) Af Amer 64, Est GFR (MDRD) Non-Af 53 L, BUN/Creatinine Ratio 19.8, Glucose 171 H, Calcium 8.7 05/03/22 04:35: WBC Cancelled, Corrected WBC Cancelled, RBC Cancelled, Hgb Cancelled, Hct Cancelled, MCV Cancelled, MCH Cancelled, MCHC Cancelled, RDW Std Deviation Cancelled, RDW Coeff of Heather Cancelled, Plt Count Cancelled, MPV Cancelled, Immature Gran % (Auto) Cancelled, Neut % (Auto) Cancelled, Lymph % (Auto) Cancelled, [place] % (Auto) Cancelled, Eos % (Auto) Cancelled, Baso % (Auto) Cancelled, Absolute Neuts (auto) Cancelled, Absolute Lymphs (auto) Cancelled, Total Counted Cancelled, Neutrophils % (Manual) Cancelled, Band Neutrophils % Cancelled, Lymphocytes % (Manual) Cancelled, Monocytes % (Manual) Cancelled, Eosinophils % (Manual) Cancelled, Basophils % (Manual) Cancelled, Metamyelocytes % Cancelled, Myelocytes % Cancelled, Promyelocytes % Cancelled, Blast Cells % Cancelled, Plasma Cell % (Manual) Cancelled, Other Cells % Cancelled, Nucleated RBC % Cancelled, Nucleated RBCs/100 WBC Cancelled, Differential Comment Cancelled, Diff Path Review Cancelled, Hypersegmented Neuts Cancelled, Atypical Lymphocytes Cancelled, Reactive Lymphocytes Cancelled, Smudge Cells Cancelled, Toxic Granulation Cancelled, Toxic Vacuolation Cancelled, Dohle Bodies Cancelled, Rosendo Rods Cancelled, Platelet Estimate Cancelled, Plt Morphology Comment Cancelled, RBC Morphology Cancelled, Polychromasia Cancelled, Hypochromasia Cancelled, Poikilocytosis Cancelled, Basophilic Stippling Cancelled, Anisocytosis Cancelled, Microcytosis Cancelled, Macrocytosis Cancelled, Spherocytes Cancelled, Sickle Cells Cancelled, Target Cells Cancelled, Tear Drop Cells Cancelled, Ovalocytes Cancelled, Stomatocytes Cancelled, [place] Bodies Cancelled, Tomeka Cells Cancelled, Bite Cells Cancelled, Crenated Cell Cancelled, Acanthocytes (Spur) Cancelled, Rouleaux Cancelled, Schistocytes Cancelled 05/03/22 06:00: WBC 9.3, RBC 3.70 L, Hgb 8.7 L, Hct 32.2 L, MCV 87.0 D, MCH 23.5 L, MCHC 27.0 L D, RDW Std Deviation 56.9 H, RDW Coeff of Heather 18.0 H, Plt Count 441, MPV 10.1, Immature Gran % (Auto) 4.700 H, Neut % (Auto) 74.9 H, Lymph % (Auto) 11.9 L, [place] % (Auto) 6.3, Eos % (Auto) 0.9, Baso % (Auto) 1.3 H, Absolute Neuts (auto) 7.0, Absolute Lymphs (auto) 1.11, Nucleated RBC % 0.3 05/03/22 06:38: POC Glucose 157 H 05/03/22 11:02: POC Glucose 155 H Micro: Microbiology 05/03/22 10:25 Stool Stool Occult Blood (JOVAN) - Final 04/28/22 21:10 Blood Culture (Wb) - Venous Blood Culture - Preliminary Anaerobic cocci 04/29/22 10:15 Wound - Heel, Left Gram Stain - Final 04/29/22 10:15 Wound - Heel, Left Wound Culture - Final Serratia marcescens 04/29/22 10:15 Wound - Heel, Left Anaerobic Culture - Preliminary Checking for anaerobes, further studies to follow. 04/28/22 21:10 Blood Culture (Wb) - Venous Blood Culture - Preliminary No growth in 48 hours. 04/28/22 21:05 Nasal Secretion SARS-CoV-2 & FLU Antigen (Rapid) - Final Radiography Diagnostic Testing: Radiology Impression Lower Extremity MRI 05/02/22 09:00 IMPRESSION: 1. Findings suspicious for osteomyelitis of the calcaneus. 2. No soft tissue collection. Electronically Signed: Viktoria De La Torre MD at 17:11 EST Reading Location ID and State: [id number] / Tel , Service support , Rhythm Strip Rhythm Strip: Sinus Rhythm Physical Exam Const alert, oriented x3, no apparent distress and well nourished Constitutional Narrative: Morbidly obese, upper middle-aged white female sitting up in bed, appears older than stated age, nontoxic, appears comfortable, daughter is at the bedside HEENT head/scalp atraumatic and moist oral mucous membranes HEENT Narrative: edentulous, Mallampati is 3 Head and Scalp: normocephalic Resp normal respiratory effort, no retractions, no use of accessory muscles and clear to auscultation bilaterally Resp Narrative: Diffusely diminished but clear Auscultation: Negative for rales, rhonchi or wheezes Cardio regular rate, regular rhythm, S1 normal heart sound, S2 normal heart sound, no murmurs, no rub, no gallops and no clicks GI normal to inspection, nondistended, normoactive bowel sounds, soft to palpation and non-tender Extremity Extremity Narrative: Cap refill is 1+ bilateral lower extremities, bilateral lower extremities with dressing in place, bilateral lower extremity lymphedema, no cyanosis or clubbing Neuro oriented x3 and moves all extremities Neuro Narrative: Decreased sensation bilateral lower extremities Speech: speech normal Assessment & Plan Assessment/Plan (1) Osteomyelitis of foot, left, acute: (2) Diabetic infection of left foot: (3) Gas gangrene of foot: (4) Elevated serum creatinine: (5) Type I diabetes mellitus: (6) Weakness: (7) Acute non-ST elevation myocardial infarction (NSTEMI): (8) Cellulitis: PLAN: Plan NSTEMI -Suspect related to possible vasospastic angina -Calcium channel blockers initiated -Hold aspirin and Plavix in preparation for surgery -Lipid panel obtained and shows a total cholesterol of 68/LDL 32/HDL 14/triglycerides 112 -Continue atorvastatin 40 mg daily -Continue metoprolol -Echocardiogram performed and showed EF of 50% with a mildly dilated RV and moderate right ventricular global systolic dysfunction, pulmonary pressures were not identified -Cardiac catheterization done on 05/02/2022 shows mild nonobstructive CAD and medical therapy was recommended Gas gangrene/osteomyelitis/cellulitis of the left foot -Vascular surgery was consulted and plan is for AKA tomorrow 05/04/2022 -Wound culture is showing Serratia marcescens -MRI shows findings suspicious for osteomyelitis of the calcaneus along with extensive soft tissue edema around the ankle and midfoot along with soft tissue defect in the posterior ankle and heel consistent with abscess -Continue broad-spectrum antibiotics with vancomycin, clindamycin, and cefepime as per infectious disease recommendations at this time -Flagyl has been added Elevated serum creatinine -Last measured serum creatinine in our system was 1.06 from December 2021 -Serum creatinine on admission was 1.86 -Serum creatinine down to 1.11 -Continue IV fluids for surgery and then once eating postoperatively discontinue IV fluids -Highly suspect patient has diabetic nephropathy with history -Repeat BMP in a.m. Anemia -Appears to be chronic with a baseline between 8 and 9 -Hemoglobin 8.7 and stable today -Microcytic -Reticulocyte count is not elevated -Iron studies are most consistent with iron deficiency having an total iron of 38/TIBC of 399/iron saturation of 9.5 -We will give 3 doses of IV iron -Start oral iron and vitamin C to improve absorption DM-2 -Uncontrolled but hemoglobin A1c was 7.7 -Blood sugar is may trend up with infection and NSTEMI due to stress response -Fasting blood sugar was 171 -Overall blood sugars are fairly well controlled during the admission -Continue glargine 35 units daily -Continue sliding scale -Hold home oral agents -Hold home Trulicity--> patient has not been taking this due to issues with obtaining it -Would recommend outpatient endocrinology follow-up for improved glycemic control after discharge GERD -Continue PPI Seasonal allergies -Continue home loratadine -Continue home Singulair 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 diabetic retinopathy Diabetic neuropathy -Continue home nortriptyline -Continue home gabapentin but reduce dose Vitamin D deficiency -Continue home vitamin D weekly on Monday Chronic hypoxic respiratory failure -Suspected COPD but no documented history/OHS/SUSANNA -Patient with marked history of tobacco abuse -At baseline patient appears to wear 2 to 3 L -Continue supplemental oxygen -Echocardiogram does show some RV strain and dilation -Hold home diuretics for now with STEPHY Morbid obesity -BMI is 64.6 -Complicates treatment, prognosis, outcomes -Recommend weight loss CODE STATUS -Full code Charges/Coding Visit Charges Inpatient E&M: 09774 Subs Hosp L2
[2022-05-03] MEDS: Sodium Ferric Gluconat 250 MG in 0.9% Normal Saline 250 ML 135 MG IV (15:42)
--- NOTE | 2022-05-03 17:05 | CON.PCM.SX_ITS ---
Assessment & Plan Assessment/Plan (1) Osteomyelitis of foot, left, acute: PLAN: -foot salvage would include protracted local wound care effort which patient would not like to undertake, and may not be successful -size of calf/lymphedema prohibits BKA -PVRs would be of little utility given that she would not be candidate for BKA -plan left AKA HPI Consult Data Date of Consult: 05/03/22 HPI Narrative HPI Narrative: JUNG DUNAWAY, is a 61 F who presents with an NSTEMI. Had cardiac cath that revealed no coronary occlusive disease. While admitted noted to have left heel wound; per patient has been dealing with it for several months/a year. Has not improved despite local care. She was seen podiatry and felt to have poor prospects for foot salvage and would require calcanectomy/prolonged wound care. The patient states she is tired of dealing without wound/pain and would prefer more proximal amputation. She has history of lymphedema, wearing compression but has not tolerated pumps. [facility] Medical History Asymptomatic gallstones Benign hypertension Chest pain Chronic respiratory failure with hypoxia Diabetic neuropathy GERD (gastroesophageal reflux disease) History of smoking Interstitial cystitis Lymphedema Lymphedema of lower extremity Morbid obesity Obstructive sleep apnea Type 2 diabetes mellitus with diabetic polyneuropathy Home Medications Omeprazole [Prilosec] 40 mg PO DAILY 12/30/12 [History Last Taken 01/17/13] aspirin 81 mg chewable tablet 81 mg PO DAILY@0800 12/30/12 [History Last Taken 01/17/13] gabapentin 600 mg tablet 1,200 mg PO QHS 12/30/12 [History Last Taken Unknown] loratadine 10 mg tablet (Allergy Relief (loratadine)) 10 mg PO DAILY 12/30/12 [History Last Taken 01/17/13] metformin 1,000 mg tablet 1,000 mg PO BID 12/30/12 [History Last Taken 01/17/13] montelukast 10 mg tablet 10 mg PO DAILY 12/30/12 [History Last Taken 01/17/13] furosemide 40 mg tablet 40 mg PO DAILY 08/12/19 [History Last Taken Unknown] cholecalciferol (vitamin D3) 1,250 mcg (50,000 unit) capsule 50,000 unit PO WE 12/26/21 [History Last Taken Unknown] dulaglutide 3 mg/0.5 mL subcutaneous pen injector (Trulicity) 3 mg subcut NIEVES 12/26/21 [History Last Taken Unknown] hydrocodone-acetaminophen 5-325mg 5mg-325mg 1 tab PO Q6H PRN Pain 12/26/21 [History Last Taken Unknown] insulin degludec 100 unit/mL (3 mL) subcutaneous pen (Tresiba FlexTouch U-100 insulin) 80 unit subcut QHS 12/26/21 [History Last Taken Unknown] insulin lispro 100 unit/mL subcutaneous pen 20 unit subcut TIDCM 12/26/21 [History Last Taken Unknown] nortriptyline 10 mg capsule 20 mg PO QHS 12/26/21 [History Last Taken Unknown] potassium chloride 10 mEq tablet,extended release 10 meq PO DAILY 12/26/21 [History Last Taken Unknown] sulfamethoxazole 800 mg-trimethoprim 160 mg tablet (Bactrim DS) 1 tab PO BID #20 tabs 12/26/21 [Rx Last Taken Unknown] Allergy/AdvReac Type Severity Reaction Status Date / Time Penicillins [PCN] Allergy Rash Verified 04/28/22 20:10 Social History Smoking Status: Former smoker ROS Constitutional Constitutional: Reports weakness; Denies chills, fever(s), frequent falls or lethargy Eyes Eyes: Reports blindness ENT HEENT: Denies hoarseness or sore throat Cardiovascular Cardiovascular: Reports leg edema and leg ulcers Integumentary Integumentary: Reports non-healing lesions and wounds Neurologic Neurologic: Reports loss of vision; Denies abnormal speech Lab / Micro Data Result Diagrams: 05/03/22 06:00 05/03/22 04:35 Labs: Laboratory Results - last 24 hr 05/02/22 05:00: Retic Count 0.90, Immature Retic Fraction 28.20 H, Retic Hgb Eq uivalent 19.9 L 05/02/22 05:00: Iron 38 L, TIBC 399, Iron Saturation 9.5 L, Ferritin 214 05/02/22 17:01: POC Glucose 154 H 05/02/22 21:46: Vancomycin Trough 12.4 05/02/22 22:02: POC Glucose 193 H 05/03/22 04:35: Sodium 132 L, Potassium 4.9, Chloride 103, Carbon Dioxide 22.0, Anion Gap 7, BUN 22 H, Creatinine 1.11 H, Estim Creat Clear Calc 44.03, Est GFR (MDRD) Af Amer 64, Est GFR (MDRD) Non-Af 53 L, BUN/Creatinine Ratio 19.8, Glucose 171 H, Calcium 8.7 05/03/22 04:35: WBC Cancelled, Corrected WBC Cancelled, RBC Cancelled, Hgb Cancelled, Hct Cancelled, MCV Cancelled, MCH Cancelled, MCHC Cancelled, RDW Std Deviation Cancelled, RDW Coeff of Heather Cancelled, Plt Count Cancelled, MPV Cancelled, Immature Gran % (Auto) Cancelled, Neut % (Auto) Cancelled, Lymph % (Auto) Cancelled, [place] % (Auto) Cancelled, Eos % (Auto) Cancelled, Baso % (Auto) Cancelled, Absolute Neuts (auto) Cancelled, Absolute Lymphs (auto) Cancelled, Total Counted Cancelled, Neutrophils % (Manual) Cancelled, Band Neutrophils % Cancelled, Lymphocytes % (Manual) Cancelled, Monocytes % (Manual) Cancelled, Eosinophils % (Manual) Cancelled, Basophils % (Manual) Cancelled, Metamyelocytes % Cancelled, Myelocytes % Cancelled, Promyelocytes % Cancelled, Blast Cells % Cancelled, Plasma Cell % (Manual) Cancelled, Other Cells % Cancelled, Nucleated RBC % Cancelled, Nucleated RBCs/100 WBC Cancelled, Differential Comment Cancelled, Diff Path Review Cancelled, Hypersegmented Neuts Cancelled, Atypical Lymphocytes Cancelled, Reactive Lymphocytes Cancelled, Smudge Cells Cancelled, Toxic Granulation Cancelled, Toxic Vacuolation Cancelled, Dohle Bodies Cancelled, Rosendo Rods Cancelled, Platelet Estimate Cancelled, Plt Morphology Comment Cancelled, RBC Morphology Cancelled, Polychromasia Cancelled, Hypochromasia Cancelled, Poikilocytosis Cancelled, Basophilic Stippling Cancell ed, Anisocytosis Cancelled, Microcytosis Cancelled, Macrocytosis Cancelled, Spherocytes Cancelled, Sickle Cells Cancelled, Target Cells Cancelled, Tear Drop Cells Cancelled, Ovalocytes Cancelled, Stomatocytes Cancelled, [place] Bodies Cancelled, [place] Cells Cancelled, Bite Cells Cancelled, Crenated Cell Cancelled, Acanthocytes (Spur) Cancelled, Rouleaux Cancelled, Schistocytes Cancelled 05/03/22 06:00: WBC 9.3, RBC 3.70 L, Hgb 8.7 L, Hct 32.2 L, MCV 87.0 D, MCH 23 .5 L, MCHC 27.0 L D, RDW Std Deviation 56.9 H, RDW Coeff of Heather 18.0 H, Plt Count 441, MPV 10.1, Immature Gran % (Auto) 4.700 H, Neut % (Auto) 74.9 H, Lymph % (Auto) 11.9 L, [place] % (Auto) 6.3, Eos % (Auto) 0.9, Baso % (Auto) 1.3 H, Absolute Neuts (auto) 7.0, Absolute Lymphs (auto) 1.11, Nucleated RBC % 0.3 05/03/22 06:38: POC Glucose 157 H 05/03/22 11:02: POC Glucose 155 H Micro: Microbiology 05/03/22 10:25 Stool Stool Occult Blood (JOVAN) - Final 04/28/22 21:10 Blood Culture (Wb) - Venous Blood Culture - Preliminary Anaerobic cocci Rhythm Strip Rhythm Strip: Sinus Rhythm Radiology Impression Lower Extremity MRI 05/02/22 09:00 IMPRESSION: 1. Findings suspicious for osteomyelitis of the calcaneus. 2. No soft tissue collection. Electronically Signed: Viktoria De La Torre MD at 17:11 EST Reading Location ID and State: [id number] / Tel , Service support , Charges/Coding Visit Charges Inpatient E&M: 82744 Init Hosp L2
[2022-05-03] MEDS: Ascorbic Acid 500 MG Tablet PO (17:07)
[2022-05-03] MEDS: Ferrous Sulfate 325 MG Tablet PO (17:07)
[2022-05-03 17:36] LABS: Bedside Glucose 213 mg/dL (74-106)
[2022-05-03] MEDS: Montelukast 10 MG Tablet PO (22:29)
[2022-05-03] MEDS: Atorvastatin Calcium 40 MG Tablet PO (22:30)
[2022-05-03 23:05] LABS: Bedside Glucose 175 mg/dL (74-106)
[2022-05-04] VITALS (17 sets, daily range): BP systolic 108–176; BP diastolic 58–108; PULSE 69–92; RESP 16–22; TEMP 36.1–36.9; O2SAT 89–100; BMI 64.6
--- NOTE | 2022-05-04 | AMP_PTH ---
PATIENT: JUNG DUNAWAY LOC: [facility]#:[id number] AGE/SX: 61/F ROOM: [facility] RE04/28/[address]: Dr. Abdiel Wise MD : 1960 BED: 1 DIS: 05/10/2022 SPEC #: [id number] RECD: 05/04/22 13:38 STATUS: DRE REAmeena #: [id number] KANDICE: 05/04/22 00:[address]: Ariel Ibarra DEPT: SURGICAL PATHOLOGY RECD BY: Kelvin Hall ENTERED: 05/05/22 09:16 SP TYPE: Amputation OTHR DR: MD Dr. Joshua Arnold, DPM MD Dr. Goldie Liu MD Dr. Kathryn Lee, DO Dr. Liza D Talampas, MD Dr. Natthavat Tanphaichitr, MD Dr. Prakash Chand, MD Dr. Paige Pierce, MD Dr. Robert Leininger, MD Tissues: Leg, NOS Procedures: Decalcification bone/plaque Surgery Specimen Level V Comments: @ Ordering doctor for DEC edited from to @ by JUDE at 05/05/22 125 @ Ordering doctor for SUV edited from to @ by JUDE at 05/05/22 1259 @ Submitting doctor edited from to @ by JUDE at 05/05/22 1259 HEADER OPERATION: Amputation, above knee PRE-OP DIAGNOSIS: Osteomyelitis of left foot TISSUE SUBMITTED: Left leg MICROSCOPIC DIAGNOSIS Left leg, above knee amputation: Focal area of ulceration, necrosis and abscess formation, heel. Underlying bone with reactive changes, chronic osteomyelitis and mild acute osteomyelitis. Focal changes consistent with status dermatitis. Atherosclerotic changes, popliteal artery, anterior tibial artery and posterior tibial artery. SJ:katherine 05/11/2022 COMMENT Case has been reviewed in consultation with Dr. Doyle who concurs with the above diagnosis. IDC:AM MICROSCOPIC DESCRIPTION Slides are reviewed. GROSS DESCRIPTION Received labeled with the patient's name and designated left leg. The specimen consists of a foul smelling left above the knee amputation. The soft tissue and bone margin to knee measures 13.0 cm. The knee to ankle measures 44.0 cm and the heel to toe measures 23.0 cm. Significant edema is noted in the foot. The foot contains a dorsal remote scar measuring 7.0 cm in greatest dimension. A dark castillo ulcerated area is noted at the heel measuring 7.0 x 4.0 x 1.5 cm. The ankle to soft tissue margin of resection reveals significant edema with the resection margin measuring approximately 27.5 cm in diameter. The skin in the lower portion of the leg and extending from the ankle to a distance of 16.0 cm reveals hardening of the skin, but no mass lesion is identified. The skin, bone and soft tissue at margin of resection are grossly unremarkable. The posterior aspect of the lower midfoot displays focal skin sloughing, but no ulcer is seen at this site. / AM:katherine 05/05/2022 [employer] sections are submitted in seven cassettes as follows: 1 - bone and soft tissue at margin of resection after decalcification, 2 - ulcer from heel of foot, 3 - bone at base of ulcer from heel of foot after decalcification, 4 - skin from distal leg above ankle, 5 - popliteal artery, 6 - anterior tibial artery, 7??posterior tibial artery. / AM:katherine 05/06/2022 TC:2 CPT: 46883, 27364
[2022-05-04] MEDS: Clindamycin 600 MG/50 ML BAG 100 MG IV ×3 (05:00→21:30)
[2022-05-04 05:12] LABS: Hematocrit 25.3 % (37-47); Hemoglobin 7.8 g/dL (12.0-15.0); Mean Corp Hgb Conc 30.8 g/dL (32-36); Mean Corpuscular Hgb 23.9 pg (27.0-32.0); Mean Corpuscular Volume 77.6 fL (81-99); Mean Platelet Vol. 9.5 fl (6.2-12.0); POSITIVE COUNT YES; POSITIVE MORPHOLOGY YES; Platelet Count 488 K/mm3 (150-450); RBC Distribution Width CV 17.4 % (11.6-14.6); RBC Distribution Width SD 48.6 fl (35.1-43.9); Red Blood Count 3.26 M/mm3 (4.2-5.4); White Blood Count 10.1 K/mm3 (4.4-11.0)
[2022-05-04 05:16] LABS: Differential Indicated MANUAL DIFF
[2022-05-04 05:47] LABS: Anion Gap 6 (5-15); BUN 20 mg/dL (7-18); BUN/Creat Ratio 18.2 RATIO (10-20); Calcium,Total 9.1 mg/dL (8.5-10.1); Chloride 104 mmol/L (98-107); EST Glomerular Filtration Rate 54 mL/min (>60); Est Glom Filt Rate - Afr Amer 65 mL/min (>60); Estimated Creatinine Clearance 44.43 ml/min; Glucose 141 mg/dL (74-106); Potassium 4.4 mmol/L (3.5-5.1); Sodium Level 137 mmol/L (136-145)
[2022-05-04] MEDS: Ipratropium/Albuterol Sulfate 3 ML AMPUL.NEB INHALATION (07:03)
[2022-05-04 07:15] LABS: Bedside Glucose 132 mg/dL (74-106)
--- NOTE | 2022-05-04 07:54 | WOUNDNOTE ---
Pt scheduled for a left AKA this am with Dr Ibarra. will leave dressing to the LLE in place.
[2022-05-04 07:56] LABS: Eosinophil 1 % (0-5); Lymphocyte 11 % (19-41); Metamyelocyte 1 % (0-1); Monocyte 4 % (0-10); Myelocyte 4 % (0-0); Neutrophil-Band 3 % (0-5); Neutrophil-Segmented 76 % (47-70); Total Cells Counted 100 (MANUAL DIFF)
[2022-05-04 08:01] LABS: Hypochromasia 1+; Platelet Estimate ADEQUATE (ADEQ); Polychromasia 1+
[2022-05-04 08:02] LABS: Red Cell Morphology N CYTIC NORMAL (NORM C&C)
[2022-05-04 08:05] LABS: Promyelocyte 4 % (0-0)
[2022-05-04] MEDS: Metoprolol Tartrate 25 MG Tablet PO ×2 (08:36→21:30)
[2022-05-04] MEDS: Lactated Ringers 1,000 ML 60 ML IV (08:40)
[2022-05-04] MEDS: Lactated Ringers 1,000 ML 15 ML IV (09:15)
[2022-05-04 10:37] LABS: International Normalized Ratio 1.3
[2022-05-04 10:38] LABS: Partial Thromboplast Time 36.1 Seconds (24.1-36.2)
[2022-05-04 10:40] LABS: Bedside Glucose 141 mg/dL (74-106)
[2022-05-04] MEDS: Bupivacaine 0.5% PF 10 ML VIAL (13:00)
[2022-05-04 13:45] LABS: Pathologist Review Reviewed
--- NOTE | 2022-05-04 14:46 | PCM.OPRPT ---
Report of Operation Date of Procedure: 05/04/22 Pre-Operative Diagnosis: osteomyelitis , left heel Post-Operative Diagnosis: same Surgery/Procedure Performed:: left above knee amputation, wound vac application 6x5 Surgeon: Ariel Ibarra Type of Anesthesia: General Specimen's removed: left leg Estimated Blood Loss (mL): 700 Fluids Replaced: 2 u prbc Description of Procedure: HPI: Patient is a 61-year-old female with osteomyelitis and significant tissue loss of the left heel complicated by morbid obesity, lymphedema, and baseline immobility. She has failed local wound care and is to the point where calcaneus excision and further prolonged wound care versus more proximal amputation are only options. She would prefer to avoid any further prolongation of her wound care, and pain so she would prefer more proximal amputation. She has satisfactory perfusion for below-knee amputation given her lymphedema she is not a candidate for this. She presents now for above-knee amputation. Description of procedure: Upon obtaining form consent and verification correct patient procedure site the patient was taken to the operating room she was placed in general anesthesia. She was then positioned prepped and draped in usual sterile fashion timeout was performed. A fishmouth incision was made 1 hand width superior to the patella. Bovie cautery used to dissect down through subcutaneous tissue to level the fascia along the entirety of the length of the anterior aspect of the incision. We then fashioned our posterior incision and Bovie was used to dissect down to the fascia posteriorly with some of the posterior musculature divided as well at this time. We then returned to the anterior began incising the muscle. Superficial veins were ligated with silk ties and divided. Once the dissection on the medial aspect reached the neurovascular bundle the femoral vein and superficial femoral artery were dissected free with sharp dissection clamped and divided. These were each oversewn with Prolene in 2 layers with satisfactory stasis noted after clamp removal. Once the entirety of the anterior muscle tissue was divided the femur was then divided with a reciprocating saw approximately 3 cm superior to the skin edge. The nerve was then identified and injected with Marcaine divided and tied with a silk tie along to retract into the muscle belly. The remainder of the posterior musculature was then divided and the specimen removed from the field. The wound was then inspected for hemostasis with control obtained with combination of Bovie and clips. Holes were then drilled in the anterior lateral aspect of the femur and anchoring suture with PDS placed, anchoring the medial musculature and posterior musculature. Bone x-ray then placed in the cut end of the femur with stasis obtained. The incision was then closed with 2-0 Vicryl, 3-0 Vicryl interrupted nylon for the skin. Due to the patient's volume of adipose tissue the lateral aspect of the incision was under too much tension for skin closure so a wound VAC was applied over a 6 x 5 cm portion of the wound. Patient was then awake from anesthesia taken to the recovery room with anticipated return to the ICU.
--- NOTE | 2022-05-04 16:00 | PCM.PN.HOSP ---
Reason for Visit Reason for Visit: Chest pain Subjective Subjective Patient seen in the afternoon after surgery. Per discussion with vascular surgery overall surgical procedure went well. AKA was performed. No issues at this time. Patient was given intraoperative blood. States she is not really having much pain at this time. She was evaluated in PACU. No complaints. Objective Data Objective Data Vital Signs: Vital Signs Temp Pulse Resp BP Pulse Ox O2 Del Method O2 Flow Rate 97.2 F L 87 21 H 108/58 L 93 Nasal Cannula 4 05/04/22 14:56 05/04/22 15:45 05/04/22 15:45 05/04/22 15:45 05/04/22 15:45 05/04/22 15:45 05/04/22 15:45 Oxygen Flow Rate (L/min) 4 Oxygen Delivery Method Nasal Cannula Weight: 165.5 kg Body Mass Index (BMI) 64.6 Intake & Output: Intake and Output for Last 24 Hours 05/02/22 05/03/22 05/04/22 23:59 23:59 23:59 Intake Total 1787 / 1787 2865 / 3165 2230 / 2230 Output Total 1500 / 1900 1750 / 2100 1300 / 1300 Balance 287 / -113 1115 / 1065 930 / 930 Lab / Micro Data Result Diagrams: 05/04/22 04:55 05/04/22 04:55 Labs: Laboratory Results - last 24 hr 05/03/22 17:10: POC Glucose 213 H 05/03/22 18:18: Blood Type O POSITIVE, Antibody Screen NEGATIVE 05/03/22 18:18: Crossmatch See Detail 05/03/22 22:44: POC Glucose 175 H 05/04/22 04:55: WBC 10.1, RBC 3.26 L, Hgb 7.8 L, Hct 25.3 L, MCV 77.6 L D, MCH 23.9 L, MCHC 30.8 L D, RDW Std Deviation 48.6 H, RDW Coeff of Heather 17.4 H, Plt Count 488 H, MPV 9.5, Neut % (Auto) Not Reportable, Absolute Neuts (auto) 8.0 H, Absolute Lymphs (auto) 1.10, Total Counted 100, Neutrophils % (Manual) 76 H, Band Neutrophils % 3, Lymphocytes % (Manual) 11 L, Monocytes % (Manual) 4, Eosinophils % (Manual) 1, Metamyelocytes % 1, Myelocytes % 4 H, Promyelocytes % 4 H, Diff Path Review Reviewed, Platelet Estimate ADEQUATE, RBC Morphology N CYTIC, Polychromasia 1+, Hypochromasia 1+ 05/04/22 04:55: Sodium 137, Potassium 4.4, Chloride 104, Carbon Dioxide 27.0, Anion Gap 6, BUN 20 H, Creatinine 1.10 H, Estim Creat Clear Calc 44.43, Est GFR (MDRD) Af Amer 65, Est GFR (MDRD) Non-Af 54 L, BUN/Creatinine Ratio 18.2, Glucose 141 H, Calcium 9.1 05/04/22 06:55: POC Glucose 132 H 05/04/22 10:11: PT 16.0 H, INR 1.3, APTT 36.1 05/04/22 10:22: POC Glucose 141 H Micro: Microbiology 04/28/22 21:10 Blood Culture (Wb) - Venous Blood Culture - Preliminary Anaerobic cocci 04/28/22 21:10 Blood Culture (Wb) - Venous Blood Culture - Final No growth in 5 days. 04/29/22 10:15 Wound - Heel, Left Gram Stain - Final 04/29/22 10:15 Wound - Heel, Left Wound Culture - Final Serratia marcescens 04/29/22 10:15 Wound - Heel, Left Anaerobic Culture - Final Prevotella melaninogenica 05/03/22 14:30 Stool Enteric Bacteriology - Final 05/03/22 10:25 Stool Stool Occult Blood (JOVAN) - Final 04/28/22 21:05 Nasal Secretion SARS-CoV-2 & FLU Antigen (Rapid) - Final Rhythm Strip Rhythm Strip: Sinus Rhythm Physical Exam Const alert, oriented x3, no apparent distress and well nourished Constitutional Narrative: Morbidly obese, upper middle-aged white female sitting up in bed, appears older than stated age, nontoxic, appears comfortable, in PACU HEENT head/scalp atraumatic HEENT Narrative: A dentulous, Mallampati 3-4, no thrush, mucous membranes are slightly dry Head and Scalp: normocephalic Resp normal respiratory effort, no retractions, no use of accessory muscles and clear to auscultation bilaterally Resp Narrative: Diffusely diminished but clear Auscultation: Negative for rales, rhonchi or wheezes Cardio regular rate, regular rhythm, S1 normal heart sound, S2 normal heart sound, no murmurs, no rub, no gallops, no clicks and no JVD GI normal to inspection, nondistended, normoactive bowel sounds, soft to palpation and non-tender Extremity Extremity Narrative: Right lower extremity with Yasmany wrap in place, skin at distal lower extremity is dry, left AKA noted with drain and place Neuro oriented x3, moves all extremities and no focal motor deficits Speech: speech normal Psych Psych Narrative: Patient was appropriately interactive and mood was good Assessment & Plan Assessment/Plan (1) Osteomyelitis of foot, left, acute: (2) Diabetic infection of left foot: (3) Gas gangrene of foot: (4) Elevated serum creatinine: (5) Type I diabetes mellitus: (6) Weakness: (7) Acute non-ST elevation myocardial infarction (NSTEMI): (8) Cellulitis: PLAN: Plan NSTEMI -Suspect related to possible vasospastic angina -Calcium channel blockers initiated -Hold aspirin and Plavix and restart when okay with general surgery -Lipid panel obtained and shows a total cholesterol of 68/LDL 32/HDL 14/triglycerides 112 -Continue atorvastatin 40 mg daily -Continue metoprolol -Echocardiogram performed and showed EF of 50% with a mildly dilated RV and moderate right ventricular global systolic dysfunction, pulmonary pressures were not identified -Cardiac catheterization done on 05/02/2022 shows mild nonobstructive CAD and medical therapy was recommended Gas gangrene/osteomyelitis/cellulitis of the left foot -AKA performed by Dr. Ibarra on 05/04/2022 -Wound culture is showing Serratia marcescens -MRI showed findings suspicious for osteomyelitis of the calcaneus along with extensive soft tissue edema around the ankle and midfoot along with soft tissue defect in the posterior ankle and heel consistent with abscess -Continue broad-spectrum antibiotics with vancomycin, clindamycin, and cefepime as per infectious disease recommendations at this time -Flagyl has been added Elevated serum creatinine -Last measured serum creatinine in our system was 1.06 from December 2021 -Serum creatinine on admission was 1.86 -Serum creatinine stable at 1.10 -Stop IV fluids -Highly suspect patient has diabetic nephropathy with history -Repeat BMP in a.m. Anemia -Appears to be chronic with a baseline between 8 and 9 -7.8 this morning -Patient was given 2 units of blood intraoperatively on 05/05/2022 -Microcytic -Reticulocyte count is not elevated -Iron studies are most consistent with iron deficiency having an total iron of 38/TIBC of 399/iron saturation of 9.5 -Continue IV iron -Continue oral iron and vitamin C to improve absorption DM-2 -Uncontrolled but hemoglobin A1c was 7.7 -Blood sugar is may trend up with infection and NSTEMI due to stress response -Fasting blood sugar was 141 however she was n.p.o. after midnight for surgery -Overall blood sugars are fairly well controlled during the admission--> may expect some elevation in the next 24 to 48 hours with surgical intervention today -Continue glargine 35 units daily -Continue sliding scale -Hold home oral agents -Hold home Trulicity--> patient has not been taking this due to issues with obtaining it -Would recommend outpatient endocrinology follow-up for improved glycemic control after discharge GERD -Continue PPI Seasonal allergies -Continue home loratadine -Continue home Singulair 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 diabetic retinopathy Diabetic neuropathy -Continue home nortriptyline -Continue home gabapentin but reduce dose Vitamin D deficiency -Continue home vitamin D weekly on Monday Chronic hypoxic respiratory failure -Suspected COPD but no documented history/OHS/SUSANNA -Patient with marked history of tobacco abuse -At baseline patient appears to wear 2 to 3 L -Continue supplemental oxygen -Echocardiogram does show some RV strain and dilation -We will likely start home diuretics tomorrow if oral intake is adequate Morbid obesity -BMI is 64.6 -Complicates treatment, prognosis, outcomes -Recommend weight loss CODE STATUS -Full code Charges/Coding Visit Charges Inpatient E&M: 15140 Subs Hosp L2
[2022-05-04 16:01] LABS: Bedside Glucose 153 mg/dL (74-106)
[2022-05-04] MEDS: Ferrous Sulfate 325 MG Tablet PO (17:34)
[2022-05-04] MEDS: Gabapentin 300 MG Capsule PO (17:34)
[2022-05-04] MEDS: Ascorbic Acid 500 MG Tablet PO (17:35)
[2022-05-04] MEDS: Sodium Ferric Gluconat 250 MG in 0.9% Normal Saline 250 ML 135 MG IV (17:44)
[2022-05-04 17:50] LABS: Bedside Glucose 138 mg/dL (74-106)
[2022-05-04] MEDS: Atorvastatin Calcium 40 MG Tablet PO (21:30)
[2022-05-04] MEDS: metroNIDAZOLE 500 MG Tablet PO (21:30)
[2022-05-04] MEDS: Menthol/Lanolin/Calamine/Znox 113 GM Tube 1 APPLIC TOPICAL (21:30)
[2022-05-04] MEDS: Montelukast 10 MG Tablet PO (21:30)
[2022-05-04] MEDS: HYDROmorphone Inj 0.2 MG/ML SYRINGE IV (21:30)
[2022-05-04 22:41] LABS: Bedside Glucose 200 mg/dL (74-106)
[2022-05-04] MEDS: Insulin Lispro 100 UNIT/ML INSULN.PEN SC (22:43)
[2022-05-04] MEDS: Acetaminophen 325 MG Tablet 650 MG PO (22:52)
[2022-05-05] VITALS (10 sets, daily range): BP systolic 128–165; BP diastolic 61–72; PULSE 78–88; RESP 16–26; TEMP 36.2–36.8; O2SAT 94–100; BMI 57.6
[2022-05-05] MEDS: oxyCODONE 5 MG Tablet PO ×4 (00:06→18:11)
[2022-05-05] MEDS: LORazepam 2 MG/ML Syringe 0.5 MG IV ×2 (00:06→23:42)
[2022-05-05] MEDS: HYDROmorphone Inj 0.2 MG/ML SYRINGE IV (03:19)
[2022-05-05] MEDS: Acetaminophen 325 MG Tablet 650 MG PO ×2 (04:28→13:00)
[2022-05-05] MEDS: Senna/Docusate Sodium 1 Tablet 2 TABLET PO (04:29)
[2022-05-05] MEDS: Clindamycin 600 MG/50 ML BAG 100 MG IV (04:30)
[2022-05-05] MEDS: metroNIDAZOLE 500 MG Tablet PO ×3 (04:35→20:24)
--- NOTE | 2022-05-05 04:58 | PCM.RX.CS ---
Consult Pharmacy has been consulted to manage selected antiobiotic: Vancomycin Type of Consult: Follow-up Labs: Sodium 137 mmol/L (136-145) 05/04/22 04:55 Potassium 4.4 mmol/L (3.5-5.1) 05/04/22 04:55 Chloride 104 mmol/L (98-107) 05/04/22 04:55 Carbon Dioxide 27.0 mmol/L (21.0-32.0) 05/04/22 04:55 Anion Gap 6 (5-15) 05/04/22 04:55 BUN 20 mg/dL (7-18) H 05/04/22 04:55 Creatinine 1.10 mg/dL (0.55-1.02) H 05/04/22 04:55 Est GFR (MDRD) Af Amer 65 mL/min (>60) 05/04/22 04:55 Est GFR (MDRD) Non-Af 54 mL/min (>60) L 05/04/22 04:55 BUN/Creatinine Ratio 18.2 RATIO (10-20) 05/04/22 04:55 Glucose 141 mg/dL (74-106) H 05/04/22 04:55 Vancomycin Trough 12.4 ug/mL (5.0-15.0) 05/02/22 21:46 Microbiology: Microbiology 04/28/22 21:10 Blood Culture (Wb) - Venous Blood Culture - Preliminary Anaerobic cocci 04/28/22 21:10 Blood Culture (Wb) - Venous Blood Culture - Final No growth in 5 days. 04/29/22 10:15 Wound - Heel, Left Gram Stain - Final 04/29/22 10:15 Wound - Heel, Left Wound Culture - Final Serratia marcescens 04/29/22 10:15 Wound - Heel, Left Anaerobic Culture - Final Prevotella melaninogenica 05/03/22 14:30 Stool Enteric Bacteriology - Final 05/03/22 10:25 Stool Stool Occult Blood (JOVAN) - Final 04/28/22 21:05 Nasal Secretion SARS-CoV-2 & FLU Antigen (Rapid) - Final Pharmacy Plan for Drug Dosing: Pharmacy Service will continue to monitor and adjust dosing as required. TROUGH NOT TAKEN, RESCHEDULE PRIOR TO NEXT DOSE
[2022-05-05] MEDS: Ipratropium/Albuterol Sulfate 3 ML AMPUL.NEB INHALATION ×2 (06:45→12:52)
[2022-05-05 06:49] LABS: Hematocrit 27.9 % (37-47); Hemoglobin 8.3 g/dL (12.0-15.0); Mean Corp Hgb Conc 29.7 g/dL (32-36); Mean Corpuscular Volume 80.6 fL (81-99); Mean Platelet Vol. 9.5 fl (6.2-12.0); POSITIVE COUNT YES; POSITIVE MORPHOLOGY YES; Platelet Count 567 K/mm3 (150-450); RBC Distribution Width CV 17.8 % (11.6-14.6); RBC Distribution Width SD 51.4 fl (35.1-43.9); Red Blood Count 3.46 M/mm3 (4.2-5.4); White Blood Count 13.3 K/mm3 (4.4-11.0)
[2022-05-05 06:53] LABS: Differential Indicated MANUAL DIFF
[2022-05-05] MEDS: Insulin Lispro 100 UNIT/ML INSULN.PEN SC ×4 (06:59→20:21)
[2022-05-05 07:06] LABS: Anion Gap 6 (5-15); BUN 19 mg/dL (7-18); BUN/Creat Ratio 19.5 RATIO (10-20); Calcium,Total 8.7 mg/dL (8.5-10.1); Chloride 103 mmol/L (98-107); Creatinine, Serum 0.97 mg/dL (0.55-1.02); EST Glomerular Filtration Rate 62 mL/min (>60); Est Glom Filt Rate - Afr Amer 75 mL/min (>60); Estimated Creatinine Clearance 50.38 ml/min; Glucose 176 mg/dL (74-106); Potassium 4.7 mmol/L (3.5-5.1); Sodium Level 136 mmol/L (136-145)
[2022-05-05 07:15] LABS: Bedside Glucose 166 mg/dL (74-106)
[2022-05-05] MEDS: Aspirin 81 MG TAB.CHEW PO (08:50)
[2022-05-05] MEDS: Ferrous Sulfate 325 MG Tablet PO ×3 (08:50→17:06)
[2022-05-05] MEDS: Ascorbic Acid 500 MG Tablet PO ×3 (08:50→17:06)
[2022-05-05] MEDS: Loratadine 10 MG Tablet PO (08:53)
[2022-05-05] MEDS: Gabapentin 300 MG Capsule PO ×2 (08:53→17:07)
[2022-05-05] MEDS: amLODIPine 5 MG Tablet PO (08:54)
[2022-05-05] MEDS: Metoprolol Tartrate 25 MG Tablet PO ×2 (08:54→20:25)
[2022-05-05] MEDS: Polyethylene Glycol 3350 17 GM PACKET PO (08:54)
[2022-05-05] MEDS: Clopidogrel Bisulfate 75 MG Tablet PO (08:55)
[2022-05-05] MEDS: Pantoprazole Sodium 40 MG Tablet PO (08:55)
[2022-05-05] MEDS: Insulin Glargine-YFGN 100 UNIT/ML Pen 35 UNIT SC (08:55)
[2022-05-05 09:18] LABS: Metamyelocyte 3 % (0-1); Myelocyte 4 % (0-0); Neutrophil-Band 2 % (0-5); Neutrophil-Segmented 83 % (47-70)
[2022-05-05 09:19] LABS: Eosinophil 1 % (0-5); Monocyte 3 % (0-10); Platelet Estimate MOD INC (ADEQ); Red Cell Morphology NORM C+C NORMAL (NORM C&C)
[2022-05-05 09:20] LABS: Absolute Neutrophil Count 11.3 X10^3/uL (2.0-7.7); Neutrophil # 11.34 X10^3/uL (2.7-7.7)
[2022-05-05 09:21] LABS: Absolute Lymphocyte Count 0.53 X10^3/uL (0.83-4.51); Lymphocyte 4 % (19-41); Lymphocyte # 0.53 X10^3/ul (0.83-4.51)
--- NOTE | 2022-05-05 09:28 | PN_ITS ---
Subjective Subjective Patient seen 1 day postop status post left AKA. Patient denies constitutionals chest pain calf pain shortness of breath at this. Vital signs stable at current. Objective Data Objective Data Vital Signs: Vital Signs Temp Pulse Resp BP Pulse Ox O2 Del Method O2 Flow Rate 97.6 F L 85 16 159/61 H 95 Nasal Cannula 2 05/05/22 08:00 05/05/22 08:54 05/05/22 08:00 05/05/22 08:00 05/05/22 08:00 05/05/22 08:00 05/05/22 08:00 FiO2 39 05/04/22 16:00 Oxygen Flow Rate (L/min) 2 Oxygen Delivery Method Nasal Cannula Weight: 147.8 kg Body Mass Index (BMI) 57.6 Intake & Output: Intake and Output for Last 24 Hours 05/03/22 05/04/22 05/05/22 23:59 23:59 23:59 Intake Total 2865 / 3165 4143 / 4583 1435 / 1435 Output Total 1750 / 2100 1400 / 1900 1150 / 1150 Balance 1115 / 1065 2743 / 2683 285 / 285 Lab / Micro Data Result Diagrams: 05/05/22 05:25 05/05/22 05:25 Labs: Laboratory Results - last 24 hr 05/03/22 18:18: Crossmatch See Detail 05/04/22 04:55: Diff Path Review Reviewed 05/04/22 10:11: PT 16.0 H, INR 1.3, APTT 36.1 05/04/22 10:22: POC Glucose 141 H 05/04/22 15:43: POC Glucose 153 H 05/04/22 17:28: POC Glucose 138 H 05/04/22 22:01: POC Glucose 200 H 05/05/22 05:25: WBC 13.3 H, RBC 3.46 L, Hgb 8.3 L, Hct 27.9 L, MCV 80.6 L, MCH 24.0 L, MCHC 29.7 L, RDW Std Deviation 51.4 H, RDW Coeff of Heather 17.8 H, Plt Count 567 H, MPV 9.5, Neut % (Auto) Not Reportable, Absolute Neuts (auto) 11.3 H , Absolute Lymphs (auto) 0.53 L, Neutrophils % (Manual) 83 H, Band Neutrophils % 2, Lymphocytes % (Manual) 4 L, Monocytes % (Manual) 3, Eosinophils % (Manual) 1, Metamyelocytes % 3 H, Myelocytes % 4 H, Diff Path Review May foll, Platelet Estimate MOD INC, RBC Morphology NORM C+C 05/05/22 05:25: Sodium 136, Potassium 4.7, Chloride 103, Carbon Dioxide 27.0, Anion Gap 6, BUN 19 H, Creatinine 0.97, Estim Creat Clear Calc 50.38, Est GFR (MDRD) Af Amer 75, Est GFR (MDRD) Non-Af 62, BUN/Creatinine Ratio 19.5, Glucose 176 H, Calcium 8.7 05/05/22 06:46: POC Glucose 166 H Micro: Microbiology 04/28/22 21:10 Blood Culture (Wb) - Venous Blood Culture - Final Anaerobic cocci 04/28/22 21:10 Blood Culture (Wb) - Venous Blood Culture - Final No growth in 5 days. 04/29/22 10:15 Wound - Heel, Left Gram Stain - Final 04/29/22 10:15 Wound - Heel, Left Wound Culture - Final Serratia marcescens 04/29/22 10:15 Wound - Heel, Left Anaerobic Culture - Final Prevotella melaninogenica 05/03/22 14:30 Stool Enteric Bacteriology - Final 05/03/22 10:25 Stool Stool Occult Blood (JOVAN) - Final 04/28/22 21:05 Nasal Secretion SARS-CoV-2 & FLU Antigen (Rapid) - Final Rhythm Strip Rhythm Strip: Sinus Rhythm Physical Exam Narrative Left AKA site wrapped with no evidence of strikethrough or breakdown. Right lower extremity Yasmany bandage wrapped due to lymphedema. No wounds on that side. Assessment & Plan Assessment/Plan (1) Gas gangrene of foot: PLAN: Detailed exam performed Patient is status post AKA on the left. Right lower extremity is no wounds. Podiatry to sign off. If additional care required please feel free to reach out to us with we will be happy to reevaluate the patient again. (2) Diabetic infection of left foot: (3) Osteomyelitis of foot, left, acute: (4) Lymphedema: (5) Type 2 diabetes mellitus with diabetic polyneuropathy:
--- NOTE | 2022-05-05 09:35 | PN.SURG_ITS ---
Subjective Subjective Doing well, pain controlled, better than pre op. Objective Data Objective Data Awake, alert, NAD RRR Resp non-labored LLE dressing intact, vac functioning with adequate seal Vital Signs: Vital Signs Temp Pulse Resp BP Pulse Ox O2 Del Method O2 Flow Rate 97.6 F L 85 16 159/61 H 95 Nasal Cannula 2 05/05/22 08:00 05/05/22 08:54 05/05/22 08:00 05/05/22 08:00 05/05/22 08:00 05/05/22 08:00 05/05/22 08:00 FiO2 39 05/04/22 16:00 Oxygen Flow Rate (L/min) 2 Oxygen Delivery Method Nasal Cannula Weight: 325 lb 13.491 oz Body Mass Index (BMI) 57.6 Intake & Output: Intake and Output for Last 24 Hours 05/03/22 05/04/22 05/05/22 23:59 23:59 23:59 Intake Total 2865 / 3165 4143 / 4583 1435 / 1435 Output Total 1750 / 2100 1400 / 1900 1150 / 1150 Balance 1115 / 1065 2743 / 2683 285 / 285 Lab / Micro Data Result Diagrams: 05/05/22 05:25 05/05/22 05:25 Labs: Laboratory Results - last 24 hr 05/03/22 18:18: Crossmatch See Detail 05/04/22 04:55: Diff Path Review Reviewed 05/04/22 10:11: PT 16.0 H, INR 1.3, APTT 36.1 05/04/22 10:22: POC Glucose 141 H 05/04/22 15:43: POC Glucose 153 H 05/04/22 17:28: POC Glucose 138 H 05/04/22 22:01: POC Glucose 200 H 05/05/22 05:25: WBC 13.3 H, RBC 3.46 L, Hgb 8.3 L, Hct 27.9 L, MCV 80.6 L, MCH 24.0 L, MCHC 29.7 L, RDW Std Deviation 51.4 H, RDW Coeff of Heather 17.8 H, Plt Count 567 H, MPV 9.5, Neut % (Auto) Not Reportable, Absolute Neuts (auto) 11.3 H , Absolute Lymphs (auto) 0.53 L, Neutrophils % (Manual) 83 H, Band Neutrophils % 2, Lymphocytes % (Manual) 4 L, Monocytes % (Manual) 3, Eosinophils % (Manual) 1, Metamyelocytes % 3 H, Myelocytes % 4 H, Diff Path Review July foll, Platelet Estimate MOD INC, RBC Morphology NORM C+C 05/05/22 05:25: Sodium 136, Potassium 4.7, Chloride 103, Carbon Dioxide 27.0, Anion Gap 6, BUN 19 H, Creatinine 0.97, Estim Creat Clear Calc 50.38, Est GFR (MDRD) Af Amer 75, Est GFR (MDRD) Non-Af 62, BUN/Creatinine Ratio 19.5, Glucose 176 H, Calcium 8.7 05/05/22 06:46: POC Glucose 166 H Micro: Microbiology 04/28/22 21:10 Blood Culture (Wb) - Venous Blood Culture - Final Anaerobic cocci 04/28/22 21:10 Blood Culture (Wb) - Venous Blood Culture - Final No growth in 5 days. 04/29/22 10:15 Wound - Heel, Left Gram Stain - Final 04/29/22 10:15 Wound - Heel, Left Wound Culture - Final Serratia marcescens 04/29/22 10:15 Wound - Heel, Left Anaerobic Culture - Final Prevotella melaninogenica 05/03/22 14:30 Stool Enteric Bacteriology - Final 05/03/22 10:25 Stool Stool Occult Blood (JOVAN) - Final 04/28/22 21:05 Nasal Secretion SARS-CoV-2 & FLU Antigen (Rapid) - Final Rhythm Strip Rhythm Strip: Sinus Rhythm Assessment & Plan Assessment/Plan (1) Osteomyelitis of foot, left, acute: PLAN: -POD # 1 left AKA -hgb stable -cont vac and operative dressing; will change tomorrow -if wound and vac satisfactory Monday then ok to dc
--- NOTE | 2022-05-05 09:52 | PCM.PN.ID ---
Physical Exam Narrative Feeling ok, pain controlled, no fever, no n/v/d. Const alert and no apparent distress Resp normal air movement and clear to auscultation bilaterally Cardio regular rate and regular rhythm GI soft to palpation, non-tender and non-distended Extremity General Extremity: edema Skin Skin Narrative: wound vac in place ID ID: Route of nutrition/ use of supplements: [] Nutritional Intake: [] IV Site: [] [place] Catheter: [] Assessment & Plan Assessment/Plan (1) STEPHY (acute kidney injury): (2) Osteomyelitis of foot, left, acute: PLAN: STEPHY improved. 1 of 2 bcx (+). Wound cx with serratia. On vanc/cefepime/clinda/flagyl. Taken for L AKA 05/04/[address] Ibarra. Will stop vanc and clinda today. Plan on a few more days of cefepime/flagyl. Will follow (3) Gas gangrene of foot:
[2022-05-05] MEDS: Sodium Ferric Gluconat 250 MG in 0.9% Normal Saline 250 ML 135 MG IV (10:32)
--- NOTE | 2022-05-05 10:59 | WOUNDNOTE ---
wound VAC dressing to the left AKA site intact with good seal noted at 100mmHg low continuous suction. KELSEA wrap intact over the VAC dressing. did not remove. will discuss with Dr Ibarra. this nurse can change the VAC dressing tomorrow if needed.
[2022-05-05 12:20] LABS: Bedside Glucose 188 mg/dL (74-106)
--- NOTE | 2022-05-05 12:30 | PN.HOSP_ITS ---
Reason for Visit Reason for Visit: Chest pain Subjective Subjective Patient complaining of leg pain however the vascular surgeon was just there and per nursing she denied pain at that time. Is dosing pain meds at this point. Overall no issues overnight. Patient back down to baseline oxygen. Hemoglobins are stable. I did discuss the case with vascular surgery and they thought that she would be stable for discharge early next week probably Monday or Monday. Objective Data Objective Data Vital Signs: Vital Signs Temp Pulse Resp BP Pulse Ox O2 Del Method O2 Flow Rate 97.6 F L 85 16 159/61 H 95 Nasal Cannula 2 05/05/22 08:00 05/05/22 08:54 05/05/22 08:00 05/05/22 08:00 05/05/22 08:00 05/05/22 08:00 05/05/22 08:00 FiO2 39 05/04/22 16:00 Oxygen Flow Rate (L/min) 2 Oxygen Delivery Method Nasal Cannula Weight: 147.8 kg Body Mass Index (BMI) 57.6 Intake & Output: Intake and Output for Last 24 Hours 05/03/22 05/04/22 05/05/22 23:59 23:59 23:59 Intake Total 2865 / 3165 4143 / 4583 1675 / 1675 Output Total 1750 / 2100 1400 / 1900 1800 / 1800 Balance 1115 / 1065 2743 / 2683 -125 / -125 Lab / Micro Data Result Diagrams: 05/05/22 05:25 05/05/22 05:25 Labs: Laboratory Results - last 24 hr 05/03/22 18:18: Crossmatch See Detail 05/04/22 04:55: Diff Path Review Reviewed 05/04/22 15:43: POC Glucose 153 H 05/04/22 17:28: POC Glucose 138 H 05/04/22 22:01: POC Glucose 200 H 05/05/22 05:25: WBC 13.3 H, RBC 3.46 L, Hgb 8.3 L, Hct 27.9 L, MCV 80.6 L, MCH 24.0 L, MCHC 29.7 L, RDW Std Deviation 51.4 H, RDW Coeff of Heather 17.8 H, Plt Count 567 H, MPV 9.5, Neut % (Auto) Not Reportable, Absolute Neuts (auto) 11.3 H , Absolute Lymphs (auto) 0.53 L, Neutrophils % (Manual) 83 H, Band Neutrophils % 2, Lymphocytes % (Manual) 4 L, Monocytes % (Manual) 3, Eosinophils % (Manual) 1, Metamyelocytes % 3 H, Myelocytes % 4 H, Diff Path Review May foll, Platelet Est imate MOD INC, RBC Morphology NORM C+C 05/05/22 05:25: Sodium 136, Potassium 4.7, Chloride 103, Carbon Dioxide 27.0, Anion Gap 6, BUN 19 H, Creatinine 0.97, Estim Creat Clear Calc 50.38, Est GFR (MDRD) Af Amer 75, Est GFR (MDRD) Non-Af 62, BUN/Creatinine Ratio 19.5, Glucose 176 H, Calcium 8.7 05/05/22 06:46: POC Glucose 166 H 05/05/22 11:58: POC Glucose 188 H Micro: Microbiology 04/28/22 21:10 Blood Culture (Wb) - Venous Blood Culture - Final Anaerobic cocci 04/28/22 21:10 Blood Culture (Wb) - Venous Blood Culture - Final No growth in 5 days. 04/29/22 10:15 Wound - Heel, Left Gram Stain - Final 04/29/22 10:15 Wound - Heel, Left Wound Culture - Final Serratia marcescens 04/29/22 10:15 Wound - Heel, Left Anaerobic Culture - Final Prevotella melaninogenica 05/03/22 14:30 Stool Enteric Bacteriology - Final 05/03/22 10:25 Stool Stool Occult Blood (JOVAN) - Final 04/28/22 21:05 Nasal Secretion SARS-CoV-2 & FLU Antigen (Rapid) - Final Rhythm Strip Rhythm Strip: Sinus Rhythm Physical Exam Narrative \ Const alert, oriented x3, no apparent distress and well nourished Constitutional Narrative: Morbidly obese, upper middle-aged white female sitting up in bed, appears older than stated age, nontoxic, appears comfortable, nursing at bedside HEENT head/scalp atraumatic and moist oral mucous membranes HEENT Narrative: A dentulous, Mallampati 2-3, no thrush Head and Scalp: normocephalic Resp normal respiratory effort, no retractions, no use of accessory muscles and clear to auscultation bilaterally Resp Narrative: Diffusely diminished but clear Auscultation: Negative for rales, rhonchi or wheezes Cardio regular rate, regular rhythm, S1 normal heart sound, S2 normal heart sound, no murmurs, no rub, no gallops, no clicks and no JVD GI normal to inspection, nondistended, normoactive bowel sounds, soft to palpation and non-tender Extremity Extremity Narrative: Right lower extremity with Yasmany wrap in place, skin at distal lower extremity is dry, left AKA noted with drain in place draining serosanguineous fluid-postop dressing is still in place with compression wrap Neuro oriented x3, moves all extremities and no focal motor deficits Neuro Narrative: Decree sensation right lower extremity Speech: speech normal Psych Psych Narrative: Affect was flat Assessment & Plan Assessment/Plan (1) Osteomyelitis of foot, left, acute: (2) Diabetic infection of left foot: (3) Gas gangrene of foot: (4) Elevated serum creatinine: (5) Type I diabetes mellitus: (6) Weakness: (7) Acute non-ST elevation myocardial infarction (NSTEMI): (8) Cellulitis: PLAN: Plan NSTEMI -Suspect related to possible vasospastic angina -Continue calcium channel blockers -Restart aspirin and Plavix-okay with vascular surgery -Lipid panel obtained and shows a total cholesterol of 68/LDL 32/HDL 14/triglycerides 112 -Continue atorvastatin 40 mg daily -Continue metoprolol -Echocardiogram performed and showed EF of 50% with a mildly dilated RV and moderate right ventricular global systolic dysfunction, pulmonary pressures were not identified -Cardiac catheterization done on 05/02/2022 shows mild nonobstructive CAD and medical therapy was recommended Gas gangrene/osteomyelitis/cellulitis of the left foot -AKA performed by Dr. Ibarra on 05/04/2022 -Is doing well -Plan to take down dressing tomorrow for the first time -This will happen again on Monday and patient will likely be ready for discharge on Monday if she remains stable -Wound culture is showing Serratia marcescens -MRI showed findings suspicious for osteomyelitis of the calcaneus along with extensive soft tissue edema around the ankle and midfoot along with soft tissue defect in the posterior ankle and heel consistent with abscess -Continue broad-spectrum antibiotics with vancomycin, clindamycin, and cefepime as per infectious disease recommendations at this time -Flagyl has been added Elevated serum creatinine -Last measured serum creatinine in our system was 1.06 from December 2021 -Serum creatinine on admission was 1.86 -Serum creatinine stable at 0.97 -Highly suspect patient has diabetic nephropathy with history -Repeat BMP in a.m. Anemia -Appears to be chronic with a baseline between 8 and 9 - 8.3 this morning -Patient was given 2 units of blood intraoperatively on 05/05/2022 -Microcytic -Reticulocyte count is not elevated -Iron studies are most consistent with iron deficiency having an total iron of 38/TIBC of 399/iron saturation of 9.5 -Continue IV iron day 3 of 3 -Continue oral iron and vitamin C to improve absorption DM-2 -Uncontrolled but hemoglobin A1c was 7.7 -Blood sugar is may trend up with infection and NSTEMI due to stress response -Fasting blood sugar was 176 -Overall blood sugars are fairly well controlled during the admission--> I expect that her sugars will be elevated over the next 24 hours as a reactive response to her surgery -Evaluate further for increased insulin needs over the next 24 hours -Continue glargine 35 units daily -Continue sliding scale -Hold home oral agents -Hold home Trulicity--> patient has not been taking this due to issues with obtaining it -Would recommend outpatient endocrinology follow-up for improved glycemic control after discharge GERD -Continue PPI Seasonal allergies -Continue home loratadine -Continue home Singulair 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 diabetic retinopathy Diabetic neuropathy -Continue home nortriptyline -Continue home gabapentin but reduce dose Vitamin D deficiency -Continue home vitamin D weekly on Monday Chronic hypoxic respiratory failure -Suspected COPD but no documented history/OHS/SUSANNA -Patient with marked history of tobacco abuse -At baseline patient appears to wear 2 to 3 L -Continue supplemental oxygen -Echocardiogram does show some RV strain and dilation -We will likely start home diuretics tomorrow if oral intake is adequate Morbid obesity -BMI is 64.6 -Complicates treatment, prognosis, outcomes -Recommend weight loss CODE STATUS -Full code Charges/Coding Visit Charges Inpatient E&M: 67566 Subs Hosp L2
[2022-05-05] MEDS: Enoxaparin 40 MG/0.4 ML Syringe SC ×2 (17:07→23:43)
[2022-05-05 18:01] LABS: Bedside Glucose 168 mg/dL (74-106)
[2022-05-05] MEDS: Menthol/Lanolin/Calamine/Znox 113 GM Tube 1 APPLIC TOPICAL (20:23)
[2022-05-05] MEDS: Atorvastatin Calcium 40 MG Tablet PO (20:24)
[2022-05-05] MEDS: Montelukast 10 MG Tablet PO (20:26)
[2022-05-05] MEDS: Nystatin Powder 15gm Bottle 1 APPLIC TOPICAL (20:26)
[2022-05-05 22:36] LABS: Bedside Glucose 173 mg/dL (74-106)
[2022-05-05] MEDS: 0.9% Saline Lock 10 ML Syringe IV (23:42)
[2022-05-06] VITALS (9 sets, daily range): BP systolic 129–160; BP diastolic 64–75; PULSE 80–87; RESP 16–20; TEMP 36.3–37.6; O2SAT 82–97; BMI 57.4
[2022-05-06] MEDS: oxyCODONE 5 MG Tablet PO (00:56)
[2022-05-06] MEDS: Acetaminophen 325 MG Tablet 650 MG PO ×2 (00:56→15:43)
[2022-05-06] MEDS: metroNIDAZOLE 500 MG Tablet PO ×3 (06:03→21:26)
[2022-05-06 06:20] LABS: Hematocrit 24.7 % (37-47); Hemoglobin 7.6 g/dL (12.0-15.0); Mean Corp Hgb Conc 30.8 g/dL (32-36); Mean Corpuscular Hgb 24.5 pg (27.0-32.0); Mean Corpuscular Volume 79.7 fL (81-99); POSITIVE COUNT YES; POSITIVE MORPHOLOGY YES; Platelet Count 519 K/mm3 (150-450); RBC Distribution Width CV 18.4 % (11.6-14.6); RBC Distribution Width SD 50.8 fl (35.1-43.9); White Blood Count 11.7 K/mm3 (4.4-11.0)
[2022-05-06 06:30] LABS: Bedside Glucose 90 mg/dL (74-106)
[2022-05-06 06:34] LABS: Differential Indicated MANUAL DIFF
[2022-05-06 06:43] LABS: Anion Gap 5 (5-15); BUN 12 mg/dL (7-18); BUN/Creat Ratio 13.9 RATIO (10-20); Calcium,Total 8.4 mg/dL (8.5-10.1); Chloride 106 mmol/L (98-107); Creatinine, Serum 0.86 mg/dL (0.55-1.02); EST Glomerular Filtration Rate 71 mL/min (>60); Est Glom Filt Rate - Afr Amer 86 mL/min (>60); Estimated Creatinine Clearance 56.83 ml/min; Glucose 94 mg/dL (74-106); Potassium 4.3 mmol/L (3.5-5.1); Sodium Level 139 mmol/L (136-145)
[2022-05-06 07:04] LABS: Platelet Estimate SLT INC (ADEQ); Total Cells Counted 100 (MANUAL DIFF)
[2022-05-06 07:09] LABS: Eosinophil 1 % (0-5); Lymphocyte 12 % (19-41); Metamyelocyte 2 % (0-1); Monocyte 4 % (0-10); Myelocyte 4 % (0-0); Neutrophil-Band 6 % (0-5); Neutrophil-Segmented 70 % (47-70); Promyelocyte 1 % (0-0)
[2022-05-06 07:12] LABS: Absolute Lymphocyte Count 2.21 X10^3/uL (0.83-4.51); Lymphocyte # 2.21 X10^3/ul (0.83-4.51); Neutrophil # 13.98 X10^3/uL (2.7-7.7); Red Cell Morphology NORM C+C NORMAL (NORM C&C)
[2022-05-06] MEDS: Ipratropium/Albuterol Sulfate 3 ML AMPUL.NEB INHALATION (07:41)
[2022-05-06] MEDS: Aspirin 81 MG TAB.CHEW PO (08:42)
[2022-05-06] MEDS: Ferrous Sulfate 325 MG Tablet PO ×3 (08:42→17:21)
[2022-05-06] MEDS: Gabapentin 300 MG Capsule PO ×2 (08:46→17:20)
[2022-05-06] MEDS: amLODIPine 5 MG Tablet PO (08:46)
[2022-05-06] MEDS: Ascorbic Acid 500 MG Tablet PO ×3 (08:46→17:20)
[2022-05-06] MEDS: Metoprolol Tartrate 25 MG Tablet PO ×2 (08:47→21:26)
[2022-05-06] MEDS: Pantoprazole Sodium 40 MG Tablet PO (08:47)
[2022-05-06] MEDS: Clopidogrel Bisulfate 75 MG Tablet PO (08:47)
[2022-05-06] MEDS: Loratadine 10 MG Tablet PO (08:48)
[2022-05-06] MEDS: Nystatin Powder 15gm Bottle 1 APPLIC TOPICAL ×2 (08:48→21:27)
[2022-05-06] MEDS: Enoxaparin 40 MG/0.4 ML Syringe SC ×2 (08:48→21:26)
[2022-05-06] MEDS: Polyethylene Glycol 3350 17 GM PACKET PO (08:48)
[2022-05-06] MEDS: Menthol/Lanolin/Calamine/Znox 113 GM Tube 1 APPLIC TOPICAL ×2 (08:49→21:24)
[2022-05-06] MEDS: Sodium Ferric Gluconat 250 MG in 0.9% Normal Saline 250 ML 135 MG IV (09:42)
[2022-05-06 10:34] LABS: Pathologist Review Reviewed
--- NOTE | 2022-05-06 12:06 | CASEMGMT ---
SW sent updates to [facility]. SW let them know patient will be ready Monday vs Monday next week. SW also let them know patient will have a wound vac and sent settings. Plan: [facility] when medically ready
[2022-05-06 12:10] LABS: Bedside Glucose 156 mg/dL (74-106)
--- NOTE | 2022-05-06 12:15 | PN.HOSP_ITS ---
Reason for Visit Reason for Visit: Chest pain Subjective Subjective No issues overnight. Plan is to change her postoperative dressing and VAC later today. Overall medically stable. Objective Data Objective Data Vital Signs: Vital Signs Temp Pulse Resp BP Pulse Ox O2 Del Method O2 Flow Rate 98.8 F 81 16 160/72 H 97 Room Air 3 05/06/22 10:50 05/06/22 10:50 05/06/22 10:50 05/06/22 10:50 05/06/22 10:50 05/06/22 10:50 05/06/22 07:43 FiO2 39 05/04/22 16:00 Oxygen Flow Rate (L/min) 3 Oxygen Delivery Method Room Air Weight: 147.236 kg Body Mass Index (BMI) 57.4 Intake & Output: Intake and Output for Last 24 Hours 05/04/22 05/05/22 05/06/22 23:59 23:59 23:59 Intake Total 4143 / 4583 3162.50 / 3282.50 440 / 440 Output Total 1400 / 1900 2750 / 3800 2024 / 2024 Balance 2743 / 2683 412.50 / -517.50 -1585 / -1585 Lab / Micro Data Result Diagrams: 05/06/22 06:00 05/06/22 06:00 Labs: Laboratory Results - last 24 hr 05/05/22 05:25: Diff Path Review Reviewed 05/05/22 11:58: POC Glucose 188 H 05/05/22 17:04: POC Glucose 168 H 05/05/22 20:20: POC Glucose 173 H 05/06/22 05:59: POC Glucose 90 05/06/22 06:00: WBC 11.7 H, RBC 3.10 L, Hgb 7.6 L, Hct 24.7 L, MCV 79.7 L, MCH 24.5 L, MCHC 30.8 L, RDW Std Deviation 50.8 H, RDW Coeff of Heather 18.4 H, Plt Count 519 H, MPV 9.0, Neut % (Auto) Not Reportable, Absolute Neuts (auto) 14.0 H , Absolute Lymphs (auto) 2.21, Total Counted 100, Neutrophils % (Manual) 70, Band Neutrophils % 6 H, Lymphocytes % (Manual) 12 L, Monocytes % (Manual) 4, Eosinophils % (Manual) 1, Metamyelocytes % 2 H, Myelocytes % 4 H, Promyelocytes % 1 H, Diff Path Review May foll, Platelet Estimate SLT INC, RBC Morphology NORM C+C 05/06/22 06:00: Sodium 139, Potassium 4.3, Chloride 106, Carbon Dioxide 28.0, Anion Gap 5, BUN 12, Creatinine 0.86, Estim Creat Clear Calc 56.83, Est GFR (MDRD) Af Amer 86, Est GFR (MDRD) Non-Af 71, BUN/Creatinine Ratio 13.9, Glucose 94, Calcium 8.4 L 05/06/22 11:51: POC Glucose 156 H Micro: Microbiology 04/28/22 21:10 Blood Culture (Wb) - Venous Blood Culture - Final Anaerobic cocci 04/28/22 21:10 Blood Culture (Wb) - Venous Blood Culture - Final No growth in 5 days. 04/29/22 10:15 Wound - Heel, Left Gram Stain - Final 04/29/22 10:15 Wound - Heel, Left Wound Culture - Final Serratia marcescens 04/29/22 10:15 Wound - Heel, Left Anaerobic Culture - Final Prevotella melaninogenica 05/03/22 14:30 Stool Enteric Bacteriology - Final 05/03/22 10:25 Stool Stool Occult Blood (JOVAN) - Final 04/28/22 21:05 Nasal Secretion SARS-CoV-2 & FLU Antigen (Rapid) - Final Rhythm Strip Rhythm Strip: Sinus Rhythm Physical Exam Narrative \ Const alert, oriented x3, no apparent distress and well nourished Constitutional Narrative: Morbidly obese, upper middle-aged white female lying in bed sleeping, awakens for exam and communicates appropriately however does easily fall back to sleep, was just medicated, nontoxic, appears much older than stated age HEENT head/scalp atraumatic and moist oral mucous membranes HEENT Narrative: Edentulous, Mallampati 2-3, no thrush Head and Scalp: normocephalic Resp normal respiratory effort, no retractions, no use of accessory muscles and clear to auscultation bilaterally Resp Narrative: Diffusely diminished but clear Auscultation: Negative for rales, rhonchi or wheezes Cardio regular rate, regular rhythm, S1 normal heart sound, S2 normal heart sound, no murmurs, no rub, no gallops, no clicks and no JVD GI normal to inspection, nondistended, normoactive bowel sounds, soft to palpation and non-tender Extremity Extremity Narrative: Right lower extremity with Yasmany wrap in place, skin at distal lower extremity is dry, left AKA noted with drain in place draining serosanguineous fluid-postop dressing is still in place with compression wrap--> plan is for change today by wound care and general surgery Neuro oriented x3, moves all extremities and no focal motor deficits Neuro Narrative: Decreased sensation distal right lower extremity Speech: speech normal Psych Psych Narrative: Affect was flat, patient is sleepy today Assessment & Plan Assessment/Plan (1) Osteomyelitis of foot, left, acute: (2) Diabetic infection of left foot: (3) Gas gangrene of foot: (4) Elevated serum creatinine: (5) Type I diabetes mellitus: (6) Weakness: (7) Acute non-ST elevation myocardial infarction (NSTEMI): (8) Cellulitis: PLAN: Plan NSTEMI -Suspect related to possible vasospastic angina -Continue calcium channel blockers -Restart aspirin and Plavix-okay with vascular surgery -Lipid panel obtained and shows a total cholesterol of 68/LDL 32/HDL 14/triglycerides 112 -Continue atorvastatin 40 mg daily -Continue metoprolol -Echocardiogram performed and showed EF of 50% with a mildly dilated RV and moderate right ventricular global systolic dysfunction, pulmonary pressures were not identified -Cardiac catheterization done on 05/02/2022 shows mild nonobstructive CAD and medical therapy was recommended Gas gangrene/osteomyelitis/cellulitis of the left foot -AKA performed by Dr. Ibarra on 05/04/2022--> postop day 2 -Continues to do well -Dressing change/VAC change planned for later today -This will happen again on Monday and patient will likely be ready for discharge on Monday if she remains stable -Wound culture is showing Serratia marcescens -MRI showed findings suspicious for osteomyelitis of the calcaneus along with extensive soft tissue edema around the ankle and midfoot along with soft tissue defect in the posterior ankle and heel consistent with abscess -Vancomycin and clindamycin were discontinued on 05/05/2022 -Per IDs documentation plan is for a few more days of Flagyl and cefepime -Anticipate patient will not be on IV antibiotics any longer discharge Elevated serum creatinine -Last measured serum creatinine in our system was 1.06 from December 2021 -Serum creatinine on admission was 1.86 -Serum creatinine stable at 0.86 -Highly suspect patient has diabetic nephropathy with history -We will intermittently monitor BMP Hypertension -Continue amlodipine but increase to 10 mg daily--> added preferentially to YASMANY for possible vasospastic angina -Continue metoprolol 25 mg p.o. twice daily -Home Lasix to daily -Blood pressure remains elevated will add low-dose lisinopril with her history of diabetes -At baseline patient has only been on diuretics at home for blood pressure Anemia -Appears to be chronic with a baseline between 8 and 9 - 7.6 this morning -Patient was given 2 units of blood intraoperatively on 05/05/2022 -Microcytic -Reticulocyte count is not elevated -Iron studies are most consistent with iron deficiency having an total iron of 38/TIBC of 399/iron saturation of 9.5 -IV iron infusions completed x3 days 200 mg -Continue oral iron and vitamin C to improve absorption -We will repeat CBC in a.m. with drop in the last 24 hours DM-2 -Uncontrolled but hemoglobin A1c was 7.7 -Blood sugar control is important for wound healing and overall blood sugar control in the last 24 hours has been better -Fasting blood sugar was 94 -Continue glargine 35 units daily -Continue sliding scale -Hold home oral agents -Hold home Trulicity--> patient has not been taking this due to issues with obtaining it -Would recommend outpatient endocrinology follow-up for improved glycemic control after discharge GERD -Continue PPI Seasonal allergies -Continue home loratadine -Continue home Singulair 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 diabetic retinopathy Diabetic neuropathy -Continue home nortriptyline -Continue home gabapentin but reduce dose Vitamin D deficiency -Continue home vitamin D weekly on Monday Chronic hypoxic respiratory failure -Suspected COPD but no documented history/OHS/SUSANNA -Patient with marked history of tobacco abuse -At baseline patient appears to wear 2 to 3 L -Continue supplemental oxygen -Echocardiogram does show some RV strain and dilation -Restart home Lasix 40 mg daily Morbid obesity -BMI is 64.6 -Complicates treatment, prognosis, outcomes -Recommend weight loss CODE STATUS -Full code Charges/Coding Visit Charges Inpatient E&M: 50351 Subs Hosp L2
[2022-05-06 12:31] LABS: Pathologist Review Reviewed
[2022-05-06] MEDS: Insulin Lispro 100 UNIT/ML INSULN.PEN SC ×2 (12:49→17:19)
[2022-05-06] MEDS: Insulin Glargine-YFGN 100 UNIT/ML Pen 35 UNIT SC (12:50)
--- NOTE | 2022-05-06 13:01 | WOUNDNOTE ---
wound photo: left AKA
--- NOTE | 2022-05-06 13:02 | WOUNDNOTE ---
wound photo: left AKA
[2022-05-06] MEDS: 0.9% Saline Lock 10 ML Syringe IV (13:39)
[2022-05-06] MEDS: Furosemide 40 MG Tablet PO (13:40)
[2022-05-06 16:01] LABS: Bedside Glucose 185 mg/dL (74-106)
--- NOTE | 2022-05-06 16:01 | PN.SURG_ITS ---
Subjective Subjective Patient is status post left AKA POD #2. She remains medically stable. Patient was seen in conjunction with wound care nurse for change of her wound VAC dressing. Patient reports pain is well controlled in general although the dressing change itself was painful at times. She has no complaints. Denies nausea, vomiting, fevers, chills, shortness of breath, chest pain. Objective Data Objective Data A&Ox3, NAD RRR Non-labored respirations Incision site with satisfactory appearance. Medial aspect of incision sutures intact, skin edges well-approximated, no oozing noted. Lateral aspect of the wound was left open, without sutures but with satisfactory appearance, mild oozing of blood noted. Wound vac dressing was removed and replaced. Vital Signs: Vital Signs Temp Pulse Resp BP Pulse Ox O2 Del Method O2 Flow Rate 99.6 F H 85 16 157/75 H 95 Nasal Cannula 3 05/06/22 15:33 05/06/22 15:33 05/06/22 15:33 05/06/22 15:33 05/06/22 15:33 05/06/22 15:33 05/06/22 15:33 FiO2 39 05/04/22 16:00 Oxygen Flow Rate (L/min) 3 Oxygen Delivery Method Nasal Cannula Weight: 324 lb 9.6 oz Body Mass Index (BMI) 57.4 Intake & Output: Intake and Output for Last 24 Hours 05/04/22 05/05/22 05/06/22 23:59 23:59 23:59 Intake Total 4143 / 4583 3162.50 / 3282.50 1350 / 1350 Output Total 1400 / 1900 2750 / 3800 3300 / 3300 Balance 2743 / 2683 412.50 / -517.50 -1950 / -1950 Lab / Micro Data Result Diagrams: 05/06/22 06:00 05/06/22 06:00 Labs: Laboratory Results - last 24 hr 05/05/22 05:25: Diff Path Review Reviewed 05/05/22 17:04: POC Glucose 168 H 05/05/22 20:20: POC Glucose 173 H 05/06/22 05:59: POC Glucose 90 05/06/22 06:00: WBC 11.7 H, RBC 3.10 L, Hgb 7.6 L, Hct 24.7 L, MCV 79.7 L, MCH 24.5 L, MCHC 30.8 L, RDW Std Deviation 50.8 H, RDW Coeff of Heather 18.4 H, Plt Count 519 H, MPV 9.0, Neut % (Auto) Not Reportable, Absolute Neuts (auto) 14.0 H , Absolute Lymphs (auto) 2.21, Total Counted 100, Neutrophils % (Manual) 70, Band Neutrophils % 6 H, Lymphocytes % (Manual) 12 L, Monocytes % (Manual) 4, Eosinophils % (Manual) 1, Metamyelocytes % 2 H, Myelocytes % 4 H, Promyelocytes % 1 H, Diff Path Review Reviewed, Platelet Estimate SLT INC, RBC Morphology NORM C+C 05/06/22 06:00: Sodium 139, Potassium 4.3, Chloride 106, Carbon Dioxide 28.0, Anion Gap 5, BUN 12, Creatinine 0.86, Estim Creat Clear Calc 56.83, Est GFR (MDR D) Af Amer 86, Est GFR (MDRD) Non-Af 71, BUN/Creatinine Ratio 13.9, Glucose 94, Calcium 8.4 L 05/06/22 11:51: POC Glucose 156 H Micro: Microbiology 04/28/22 21:10 Blood Culture (Wb) - Venous Blood Culture - Final Anaerobic cocci 04/28/22 21:10 Blood Culture (Wb) - Venous Blood Culture - Final No growth in 5 days. 04/29/22 10:15 Wound - Heel, Left Gram Stain - Final 04/29/22 10:15 Wound - Heel, Left Wound Culture - Final Serratia marcescens 04/29/22 10:15 Wound - Heel, Left Anaerobic Culture - Final Prevotella melaninogenica 05/03/22 14:30 Stool Enteric Bacteriology - Final 05/03/22 10:25 Stool Stool Occult Blood (JOVAN) - Final 04/28/22 21:05 Nasal Secretion SARS-CoV-2 & FLU Antigen (Rapid) - Final Rhythm Strip Rhythm Strip: Sinus Rhythm Assessment & Plan Assessment/Plan (1) Osteomyelitis of foot, left, acute: PLAN: Patient is POD # 2 left AKA. Her pain is well-controlled at baseline. Wound vac seal has been maintained without issue to this point. The wound vac and surgical dressings were taken down today in conjunction with wound care nurse. The incision site had satisfactory appearance. Wound vac dressing was replaced. Anticipate removing the wound vac dressing again on Monday for examination. If still with satisfactory appearance, will plan to d/c to SNF early next week with close outpatient f/u. Charges/Coding Visit Charges Inpatient E&M: 73446 Subs Hosp L2
[2022-05-06] MEDS: Atorvastatin Calcium 40 MG Tablet PO (21:26)
[2022-05-06] MEDS: Montelukast 10 MG Tablet PO (21:27)
[2022-05-07] VITALS (9 sets, daily range): BP systolic 128–157; BP diastolic 63–93; PULSE 74–91; RESP 16–20; TEMP 36.5–37.1; O2SAT 93–95; BMI 57.6
[2022-05-07 00:36] LABS: Bedside Glucose 130 mg/dL (74-106)
[2022-05-07] MEDS: metroNIDAZOLE 500 MG Tablet PO ×3 (05:11→22:23)
[2022-05-07] MEDS: oxyCODONE 5 MG Tablet PO ×2 (05:11→10:16)
[2022-05-07] MEDS: Acetaminophen 325 MG Tablet 650 MG PO (05:12)
[2022-05-07 06:50] LABS: Bedside Glucose 144 mg/dL (74-106)
[2022-05-07 07:29] LABS: Hematocrit 26.4 % (37-47); Hemoglobin 7.9 g/dL (12.0-15.0); Mean Corp Hgb Conc 29.9 g/dL (32-36); Mean Corpuscular Hgb 24.6 pg (27.0-32.0); Mean Corpuscular Volume 82.2 fL (81-99); Mean Platelet Vol. 9.1 fl (6.2-12.0); POSITIVE COUNT YES; POSITIVE MORPHOLOGY YES; Platelet Count 564 K/mm3 (150-450); RBC Distribution Width CV 19.9 % (11.6-14.6); RBC Distribution Width SD 53.9 fl (35.1-43.9); Red Blood Count 3.21 M/mm3 (4.2-5.4); White Blood Count 10.5 K/mm3 (4.4-11.0)
[2022-05-07] MEDS: Gabapentin 300 MG Capsule PO ×2 (08:01→17:15)
[2022-05-07] MEDS: Ascorbic Acid 500 MG Tablet PO ×3 (08:01→17:11)
[2022-05-07] MEDS: Ferrous Sulfate 325 MG Tablet PO ×3 (08:01→17:11)
[2022-05-07] MEDS: Aspirin 81 MG TAB.CHEW PO (08:01)
[2022-05-07 08:07] LABS: Anion Gap 6 (5-15); BUN 13 mg/dL (7-18); BUN/Creat Ratio 14.4 RATIO (10-20); Calcium,Total 8.8 mg/dL (8.5-10.1); Chloride 106 mmol/L (98-107); EST Glomerular Filtration Rate 67 mL/min (>60); Est Glom Filt Rate - Afr Amer 82 mL/min (>60); Glucose 151 mg/dL (74-106); Potassium 4.2 mmol/L (3.5-5.1); Sodium Level 140 mmol/L (136-145)
[2022-05-07 08:13] LABS: Differential Indicated MANUAL DIFF
[2022-05-07 08:51] LABS: Eosinophil 2 % (0-5); Lymphocyte 12 % (19-41); Metamyelocyte 4 % (0-1); Monocyte 4 % (0-10); Myelocyte 3 % (0-0); Neutrophil-Band 5 % (0-5); Neutrophil-Segmented 69 % (47-70); Platelet Estimate MOD INC (ADEQ); Promyelocyte 1 % (0-0); Total Cells Counted 100 (MANUAL DIFF)
[2022-05-07 08:53] LABS: Hypochromasia 1+
[2022-05-07 08:56] LABS: Absolute Lymphocyte Count 1.26 X10^3/uL (0.83-4.51); Absolute Neutrophil Count 7.8 X10^3/uL (2.0-7.7)
[2022-05-07] MEDS: Menthol/Lanolin/Calamine/Znox 113 GM Tube 1 APPLIC TOPICAL ×2 (10:02→22:22)
[2022-05-07] MEDS: 0.9% Saline Lock 10 ML Syringe IV (10:02)
[2022-05-07] MEDS: Nystatin Powder 15gm Bottle 1 APPLIC TOPICAL ×2 (10:02→22:36)
[2022-05-07] MEDS: Metoprolol Tartrate 25 MG Tablet PO ×2 (10:03→22:24)
[2022-05-07] MEDS: Loratadine 10 MG Tablet PO (10:03)
[2022-05-07] MEDS: Enoxaparin 40 MG/0.4 ML Syringe SC ×2 (10:03→22:24)
[2022-05-07] MEDS: Furosemide 40 MG Tablet PO (10:03)
[2022-05-07] MEDS: Clopidogrel Bisulfate 75 MG Tablet PO (10:04)
[2022-05-07] MEDS: amLODIPine 10 MG Tablet PO (10:04)
[2022-05-07] MEDS: Polyethylene Glycol 3350 17 GM PACKET PO (10:04)
[2022-05-07] MEDS: Pantoprazole Sodium 40 MG Tablet PO (10:05)
[2022-05-07] MEDS: Senna/Docusate Sodium 1 Tablet 2 TABLET PO (10:17)
--- NOTE | 2022-05-07 10:34 | PCM.PN.HOSP ---
Reason for Visit Reason for Visit: Chest pain Subjective Subjective No issues overnight. Patient is currently listening to a talking book. I discussed with her removing her Monroe. She would like to get out of bed up to a chair and start moving around. She states I have to learn how to get around now without my leg. I discussed with nursing and the pipe and test supervisor and they will proceed with this today. Objective Data Objective Data Vital Signs: Vital Signs Temp Pulse Resp BP Pulse Ox O2 Del Method O2 Flow Rate 98.7 F 83 20 H 155/63 H 93 Nasal Cannula 3 05/07/22 03:20 05/07/22 10:03 05/07/22 03:20 05/07/22 10:03 05/07/22 08:16 05/07/22 08:16 05/07/22 08:16 FiO2 39 05/04/22 16:00 Oxygen Flow Rate (L/min) 3 Oxygen Delivery Method Nasal Cannula Weight: 147.6 kg Body Mass Index (BMI) 57.6 Intake & Output: Intake and Output for Last 24 Hours 05/05/22 05/06/22 05/07/22 23:59 23:59 23:59 Intake Total 3162.50 / 3282.50 2150 / 2390 540 / 540 Output Total 2750 / 3800 4600 / 7250 3100 / 3100 Balance 412.50 / -517.50 -2450 / -4860 -2560 / -2560 Lab / Micro Data Result Diagrams: 05/07/22 06:51 05/07/22 06:51 Labs: Laboratory Results - last 24 hr 05/05/22 05:25: Diff Path Review Reviewed 05/06/22 06:00: Diff Path Review Reviewed 05/06/22 11:51: POC Glucose 156 H 05/06/22 15:30: POC Glucose 185 H 05/06/22 21:29: POC Glucose 130 H 05/07/22 06:30: POC Glucose 144 H 05/07/22 06:51: WBC 10.5, RBC 3.21 L, Hgb 7.9 L, Hct 26.4 L, MCV 82.2, MCH 24.6 L, MCHC 29.9 L, RDW Std Deviation 53.9 H, RDW Coeff of Heather 19.9 H, Plt Count 564 H, MPV 9.1, Neut % (Auto) Not Reportable, Absolute Neuts (auto) 7.8 H, Absolute Lymphs (auto) 1.26, Total Counted 100, Neutrophils % (Manual) 69, Band Neutrophils % 5, Lymphocytes % (Manual) 12 L, Monocytes % (Manual) 4, Eosinophils % (Manual) 2, Metamyelocytes % 4 H, Myelocytes % 3 H, Promyelocytes % 1 H, Diff Path Review July foll, Platelet Estimate MOD INC, Hypochromasia 1+ 05/07/22 06:51: Sodium 140, Potassium 4.2, Chloride 106, Carbon Dioxide 28.0, Anion Gap 6, BUN 13, Creatinine 0.90, Estim Creat Clear Calc 54.30, Est GFR (MDRD) Af Amer 82, Est GFR (MDRD) Non-Af 67, BUN/Creatinine Ratio 14.4, Glucose 151 H, Calcium 8.8 Micro: Microbiology 04/28/22 21:10 Blood Culture (Wb) - Venous Blood Culture - Final Anaerobic cocci 04/28/22 21:10 Blood Culture (Wb) - Venous Blood Culture - Final No growth in 5 days. 04/29/22 10:15 Wound - Heel, Left Gram Stain - Final 04/29/22 10:15 Wound - Heel, Left Wound Culture - Final Serratia marcescens 04/29/22 10:15 Wound - Heel, Left Anaerobic Culture - Final Prevotella melaninogenica 05/03/22 14:30 Stool Enteric Bacteriology - Final 05/03/22 10:25 Stool Stool Occult Blood (JOVAN) - Final 04/28/22 21:05 Nasal Secretion SARS-CoV-2 & FLU Antigen (Rapid) - Final Rhythm Strip Rhythm Strip: Sinus Rhythm Physical Exam Narrative \ Const alert, oriented x3, no apparent distress and well nourished Constitutional Narrative: Morbidly obese, upper middle-aged white female lying in bed sleeping, awakens for exam and communicates appropriately however does easily fall back to sleep, was just medicated, nontoxic, appears much older than stated age HEENT head/scalp atraumatic and moist oral mucous membranes HEENT Narrative: Edentulous, Mallampati 3, no thrush Head and Scalp: normocephalic Resp normal respiratory effort, no retractions, no use of accessory muscles and clear to auscultation bilaterally Resp Narrative: Diffusely diminished but clear Auscultation: Negative for rales, rhonchi or wheezes Cardio regular rate, regular rhythm, S1 normal heart sound, S2 normal heart sound, no murmurs, no rub, no gallops, no clicks and no JVD GI normal to inspection, nondistended, normoactive bowel sounds, soft to palpation and non-tender Extremity Extremity Narrative: Right lower extremity with Yasmany wrap in place, skin at distal lower extremity is dry, left AKA with drain in place continue to drain serosanguineous fluid, postop dressing has been removed and Yasmany wrap in place on wound with no drainage on the Yasmany bandage-images from dressing change yesterday reviewed-lateral aspect of the wound on review of imaging shows wound was left open and this is where the VAC has been placed to promote healing the rest of the wound is clean dry and intact with no drainage Neuro oriented x3 and no focal motor deficits Neuro Narrative: Decreased sensation distal right lower extremity Speech: speech normal Psych Psych Narrative: Very pleasant and appropriately interactive Assessment & Plan Assessment/Plan (1) Osteomyelitis of foot, left, acute: (2) Diabetic infection of left foot: (3) Gas gangrene of foot: (4) Elevated serum creatinine: (5) Type I diabetes mellitus: (6) Weakness: (7) Acute non-ST elevation myocardial infarction (NSTEMI): (8) Cellulitis: PLAN: Plan NSTEMI -Suspect related to possible vasospastic angina -Continue calcium channel blockers -Continue aspirin and Plavix -Lipid panel obtained and shows a total cholesterol of 68/LDL 32/HDL 14/triglycerides 112 -Continue atorvastatin 40 mg daily -Continue metoprolol -Echocardiogram performed and showed EF of 50% with a mildly dilated RV and moderate right ventricular global systolic dysfunction, pulmonary pressures were not identified -Cardiac catheterization done on 05/02/2022 shows mild nonobstructive CAD and medical therapy was recommended Gas gangrene/osteomyelitis/cellulitis of the left foot -AKA performed by Dr. Ibarra on 05/04/2022--> postop day 3 -Dressing change yesterday went well -Continue VAC -Repeat dressing change on Monday and as long as everything looks good should be able to discharge -Wound culture grew Serratia marcescens -Per IDs documentation plan is for a few more days of Flagyl and cefepime -Anticipate patient will not be on IV antibiotics any longer discharge Elevated serum creatinine -Last measured serum creatinine in our system was 1.06 from December 2021 -Serum creatinine on admission was 1.86 -Serum creatinine stable at 0.90 -Highly suspect patient has diabetic nephropathy with history -We will intermittently monitor BMP Hypertension -Continue amlodipine 10 mg daily -Continue metoprolol 25 mg p.o. twice daily -Continue home Lasix 40 mg daily -Add lisinopril 10 mg tomorrow if blood pressures remain elevated -At baseline patient has only been on diuretics at home for blood pressure Anemia -Appears to be chronic with a baseline between 8 and 9 - 7.6 this morning -Patient was given 2 units of blood intraoperatively on 05/05/2022 -Microcytic -Reticulocyte count is not elevated -Iron studies are most consistent with iron deficiency having an total iron of 38/TIBC of 399/iron saturation of 9.5 -IV iron infusions completed x3 days 200 mg -Continue oral iron and vitamin C to improve absorption -We will repeat CBC in a.m. 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 Diabetic neuropathy -Continue home nortriptyline -Continue home gabapentin but reduce dose Vitamin D deficiency -Continue home vitamin D weekly on Monday Chronic hypoxic respiratory failure -Suspected COPD but no documented history/OHS/SUSANNA -Patient with marked history of tobacco abuse -At baseline patient appears to wear 2 to 3 L -Continue supplemental oxygen -Echocardiogram does show some RV strain and dilation -Continue home Lasix 40 mg daily Morbid obesity -BMI is 64.6 -Complicates treatment, prognosis, outcomes -Recommend weight loss CODE STATUS -Full code Charges/Coding Visit Charges Inpatient E&M: 59729 Subs Hosp L2
[2022-05-07 11:30] LABS: Bedside Glucose 86 mg/dL (74-106)
[2022-05-07] MEDS: Ipratropium/Albuterol Sulfate 3 ML AMPUL.NEB INHALATION (13:05)
[2022-05-07] MEDS: Insulin Lispro 100 UNIT/ML INSULN.PEN SC ×2 (17:00→22:21)
[2022-05-07] MEDS: Insulin Glargine-YFGN 100 UNIT/ML Pen 35 UNIT SC (17:08)
[2022-05-07 17:30] LABS: Bedside Glucose 225 mg/dL (74-106)
[2022-05-07] MEDS: Atorvastatin Calcium 40 MG Tablet PO (22:23)
[2022-05-07] MEDS: Montelukast 10 MG Tablet PO (22:36)
[2022-05-07 23:51] LABS: Bedside Glucose 246 mg/dL (74-106)
[2022-05-08] VITALS (9 sets, daily range): BP systolic 117–140; BP diastolic 56–63; PULSE 69–85; RESP 16–20; TEMP 36.3–36.9; O2SAT 94–96; BMI 57.0
[2022-05-08] MEDS: metroNIDAZOLE 500 MG Tablet PO ×3 (04:50→21:13)
[2022-05-08] MEDS: 0.9% Saline Lock 10 ML Syringe IV ×2 (04:50→09:56)
[2022-05-08] MEDS: Acetaminophen 325 MG Tablet 650 MG PO ×3 (04:50→17:28)
[2022-05-08] MEDS: oxyCODONE 5 MG Tablet PO ×2 (04:51→17:28)
[2022-05-08] MEDS: Insulin Lispro 100 UNIT/ML INSULN.PEN SC ×4 (06:03→21:13)
[2022-05-08 06:56] LABS: Anion Gap 4 (5-15); BUN 12 mg/dL (7-18); BUN/Creat Ratio 13.1 RATIO (10-20); Calcium,Total 8.4 mg/dL (8.5-10.1); Chloride 104 mmol/L (98-107); Creatinine, Serum 0.92 mg/dL (0.55-1.02); EST Glomerular Filtration Rate 66 mL/min (>60); Est Glom Filt Rate - Afr Amer 80 mL/min (>60); Estimated Creatinine Clearance 53.12 ml/min; Glucose 235 mg/dL (74-106); Potassium 4.1 mmol/L (3.5-5.1); Sodium Level 137 mmol/L (136-145)
[2022-05-08 07:05] LABS: Bedside Glucose 229 mg/dL (74-106)
[2022-05-08] MEDS: Ipratropium/Albuterol Sulfate 3 ML AMPUL.NEB INHALATION ×2 (07:35→19:46)
[2022-05-08] MEDS: Ferrous Sulfate 325 MG Tablet PO ×3 (07:57→17:23)
[2022-05-08] MEDS: Aspirin 81 MG TAB.CHEW PO (07:58)
[2022-05-08] MEDS: Ascorbic Acid 500 MG Tablet PO ×3 (07:58→17:23)
[2022-05-08] MEDS: Gabapentin 300 MG Capsule PO ×2 (08:05→17:29)
[2022-05-08] MEDS: Nystatin Powder 15gm Bottle 1 APPLIC TOPICAL ×2 (09:56→21:15)
[2022-05-08] MEDS: Menthol/Lanolin/Calamine/Znox 113 GM Tube 1 APPLIC TOPICAL ×2 (09:56→21:12)
[2022-05-08] MEDS: Polyethylene Glycol 3350 17 GM PACKET PO (09:58)
[2022-05-08] MEDS: Loratadine 10 MG Tablet PO (10:00)
[2022-05-08] MEDS: Enoxaparin 40 MG/0.4 ML Syringe SC ×2 (10:00→21:15)
[2022-05-08] MEDS: Pantoprazole Sodium 40 MG Tablet PO (10:00)
[2022-05-08] MEDS: Metoprolol Tartrate 25 MG Tablet PO ×2 (10:00→21:14)
[2022-05-08] MEDS: Clopidogrel Bisulfate 75 MG Tablet PO (10:01)
[2022-05-08] MEDS: amLODIPine 10 MG Tablet PO (10:02)
[2022-05-08] MEDS: Furosemide 40 MG Tablet PO (10:02)
[2022-05-08] MEDS: Senna/Docusate Sodium 1 Tablet 2 TABLET PO (10:57)
[2022-05-08] MEDS: Insulin Glargine-YFGN 100 UNIT/ML Pen 35 UNIT SC (11:00)
[2022-05-08 11:55] LABS: Bedside Glucose 222 mg/dL (74-106)
--- NOTE | 2022-05-08 12:06 | PCM.PN.HOSP ---
Reason for Visit Reason for Visit: Chest pain Objective Data Objective Data Vital Signs: Vital Signs Temp Pulse Resp BP Pulse Ox O2 Del Method O2 Flow Rate 98.1 F 84 18 140/60 H 95 Nasal Cannula 3 05/08/22 10:07 05/08/22 10:07 05/08/22 10:07 05/08/22 10:07 05/08/22 10:07 05/08/22 10:07 05/08/22 11:19 FiO2 39 05/04/22 16:00 Oxygen Flow Rate (L/min) 3 Oxygen Delivery Method Nasal Cannula Weight: 146.093 kg Body Mass Index (BMI) 57.0 Intake & Output: Intake and Output for Last 24 Hours 05/06/22 05/07/22 05/08/22 23:59 23:59 23:59 Intake Total 2150 / 2390 2177.75 / 2877.75 2743 / 2743 Output Total 4600 / 7250 3600 / 3900 600 / 600 Balance -2450 / -4860 -1422.25 / -1022.25 2143 / 2143 Lab / Micro Data Result Diagrams: 05/07/22 06:51 05/08/22 06:18 Labs: Laboratory Results - last 24 hr 05/07/22 17:05: POC Glucose 225 H 05/07/22 22:20: POC Glucose 246 H 05/08/22 06:02: POC Glucose 229 H 05/08/22 06:18: Sodium 137, Potassium 4.1, Chloride 104, Carbon Dioxide 29.0, Anion Gap 4 L, BUN 12, Creatinine 0.92, Estim Creat Clear Calc 53.12, Est GFR (MDRD) Af Amer 80, Est GFR (MDRD) Non-Af 66, BUN/Creatinine Ratio 13.1, Glucose 235 H, Calcium 8.4 L 05/08/22 10:56: POC Glucose 222 H Micro: Microbiology 04/28/22 21:10 Blood Culture (Wb) - Venous Blood Culture - Final Anaerobic cocci 04/28/22 21:10 Blood Culture (Wb) - Venous Blood Culture - Final No growth in 5 days. 04/29/22 10:15 Wound - Heel, Left Gram Stain - Final 04/29/22 10:15 Wound - Heel, Left Wound Culture - Final Serratia marcescens 04/29/22 10:15 Wound - Heel, Left Anaerobic Culture - Final Prevotella melaninogenica 05/03/22 14:30 Stool Enteric Bacteriology - Final 05/03/22 10:25 Stool Stool Occult Blood (JOVAN) - Final 04/28/22 21:05 Nasal Secretion SARS-CoV-2 & FLU Antigen (Rapid) - Final Rhythm Strip Rhythm Strip: Sinus Rhythm Physical Exam Const alert, oriented x3, no apparent distress and well nourished Constitutional Narrative: Morbidly obese, upper middle-aged white female sitting up in bed, currently on her cell phone, appears comfortable, nontoxic appears much older than stated age HEENT head/scalp atraumatic and moist oral mucous membranes HEENT Narrative: Edentulous, Mallampati 2, no thrush Head and Scalp: normocephalic Resp normal respiratory effort, no retractions, no use of accessory muscles and clear to auscultation bilaterally Resp Narrative: Diffusely diminished but clear Auscultation: Negative for rales, rhonchi or wheezes Cardio regular rate, regular rhythm, S1 normal heart sound, S2 normal heart sound, no murmurs, no rub, no gallops and no clicks GI normal to inspection, nondistended, normoactive bowel sounds, soft to palpation and non-tender Extremity Extremity Narrative: Right lower extremity with Aysmany wrap in place, skin at distal lower extremity is dry, left AKA with drain in place continue to drain serosanguineous fluid, Yasmany wrap remains in place and is clean and dry, no cyanosis or clubbing Neuro oriented x3, moves all extremities and no focal motor deficits Neuro Narrative: Decreased sensation distal right lower extremity Speech: speech normal Psych affect normal Psych Narrative: Very pleasant and appropriately interactive Assessment & Plan Assessment/Plan (1) Osteomyelitis of foot, left, acute: (2) Diabetic infection of left foot: (3) Gas gangrene of foot: (4) Elevated serum creatinine: (5) Type I diabetes mellitus: (6) Weakness: (7) Acute non-ST elevation myocardial infarction (NSTEMI): (8) Cellulitis: PLAN: Plan NSTEMI -Suspect related to possible vasospastic angina -Continue calcium channel blockers -Continue aspirin and Plavix -Lipid panel obtained and shows a total cholesterol of 68/LDL 32/HDL 14/triglycerides 112 -Continue atorvastatin 40 mg daily -Continue metoprolol -Echocardiogram performed and showed EF of 50% with a mildly dilated RV and moderate right ventricular global systolic dysfunction, pulmonary pressures were not identified -Cardiac catheterization done on 05/02/2022 shows mild nonobstructive CAD and medical therapy was recommended Gas gangrene/osteomyelitis/cellulitis of the left foot -AKA performed by Dr. Ibarra on 05/04/2022--> postop day 4 -Continue VAC -Repeat dressing change on Monday and as long as everything looks good should be able to discharge -Wound culture grew Serratia marcescens -Per IDs documentation plan is for a few more days of Flagyl and cefepime--> await ID final input tomorrow -Anticipate patient will not be on IV antibiotics any longer discharge Elevated serum creatinine -Last measured serum creatinine in our system was 1.06 from December 2021 -Serum creatinine on admission was 1.86 -Serum creatinine stable at 0.92 Hypertension -Continue amlodipine 10 mg daily -Continue metoprolol 25 mg p.o. twice daily -Continue home Lasix 40 mg daily -Blood pressure remains higher than goal with systolics consistently in the 140s -We will add lisinopril 10 mg daily -At baseline patient has only been on diuretics at home for blood pressure Microcytic anemia -Appears to be chronic with a baseline between 8 and 9 -Patient was given 2 units of blood intraoperatively on 05/05/2022 -Reticulocyte count not elevated -Iron studies are most consistent with iron deficiency having an total iron of 38/TIBC of 399/iron saturation of 9.5 -IV iron infusions completed x3 days 200 mg -Continue oral iron and vitamin C to improve absorption -Repeat CBC in a.m. DM-2 -Oral agents are on hold -Restart oral agents at discharge -Uncontrolled but hemoglobin A1c was 7.7 -Fasting sugar up a little bit today however has been fairly well controlled while hospitalized--> no changes today -Continue glargine 35 units daily -Continue sliding scale -Hold home oral agents -Hold home Trulicity--> patient has not been taking this due to issues with obtaining it -Would recommend outpatient endocrinology follow-up for improved glycemic control after discharge GERD -Continue PPI Seasonal allergies -Continue home loratadine -Continue home Singulair 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 diabetic retinopathy Diabetic neuropathy -Continue home nortriptyline -Continue home gabapentin but reduce dose Vitamin D deficiency -Continue home vitamin D weekly on Monday Chronic hypoxic respiratory failure -Suspected COPD but no documented history/OHS/SUSANNA -Patient with marked history of tobacco abuse -At baseline patient appears to wear 2 to 3 L -Continue supplemental oxygen -Echocardiogram does show some RV strain and dilation -Continue home Lasix 40 mg daily Morbid obesity -BMI is 64.6 -Complicates treatment, prognosis, outcomes -Recommend weight loss CODE STATUS -Full code Charges/Coding Visit Charges Inpatient E&M: 60817 Subs Hosp L2
[2022-05-08] MEDS: Lisinopril 10 MG Tablet PO (15:34)
[2022-05-08 18:11] LABS: Bedside Glucose 248 mg/dL (74-106)
[2022-05-08] MEDS: Atorvastatin Calcium 40 MG Tablet PO (21:15)
[2022-05-08] MEDS: Montelukast 10 MG Tablet PO (21:16)
[2022-05-08 22:50] LABS: Bedside Glucose 340 mg/dL (74-106)
[2022-05-09] VITALS (10 sets, daily range): BP systolic 129–138; BP diastolic 47–69; PULSE 69–85; RESP 18–20; TEMP 36.4–36.9; O2SAT 93–96; BMI 56.5
--- NOTE | 2022-05-09 05:55 | EKG12_ITS ---
Test Reason : MORNING EKG Blood Pressure : / mmHG Vent. Rate : 070 BPM Atrial Rate : 070 BPM P-R Int : 146 ms QRS Dur : 142 ms QT Int : 462 ms P-R-T Axes : 072 069 019 degrees QTc Int : 498 ms Normal sinus rhythm Right bundle branch block Abnormal ECG Confirmed by CHELSEA PITTMAN, MICHAEL ([id number]), sound editor DOROTA CARLSON ([id number]) on 05/11/2022 1:22:23 PM Referred By: MANUEL Confirmed By:MICHAEL TRAN MD
[2022-05-09] MEDS: metroNIDAZOLE 500 MG Tablet PO ×3 (06:58→22:19)
[2022-05-09] MEDS: Insulin Lispro 100 UNIT/ML INSULN.PEN SC ×4 (06:58→22:19)
[2022-05-09 07:01] LABS: Absolute Lymphocyte Count 1.39 X10^3/uL (0.83-4.51); Absolute Neutrophil Count 6.1 X10^3/uL (2.0-7.7); Basophil# 0.06 X10^3/uL; Basophil% 0.7 % (0-1); Eosinophil# 0.19 X10^3/uL; Eosinophils% 2.2 % (0-5); Hematocrit 27.4 % (37-47); Hemoglobin 8.3 g/dL (12.0-15.0); Lymphocyte # 1.39 X10^3/ul (0.83-4.51); Lymphocyte % 16.3 % (19-41); Mean Corp Hgb Conc 30.3 g/dL (32-36); Mean Corpuscular Hgb 25.1 pg (27.0-32.0); Mean Corpuscular Volume 82.8 fL (81-99); Mean Platelet Vol. 8.8 fl (6.2-12.0); Monocyte# 0.41 X10^3/uL; Monocyte% 4.8 % (0-10); NRBC Flagged by Analyzer 0 % (0-5); Neutrophil % 71.7 % (47-70); POSITIVE MORPHOLOGY YES; Platelet Count 460 K/mm3 (150-450); RBC Distribution Width SD 55.5 fl (35.1-43.9); Red Blood Count 3.31 M/mm3 (4.2-5.4); White Blood Count 8.5 K/mm3 (4.4-11.0)
[2022-05-09 07:04] LABS: Differential Indicated SCAN CRITERIA MET
[2022-05-09 07:14] LABS: International Normalized Ratio 1.2; Partial Thromboplast Time 34.2 Seconds (24.1-36.2); Prothrombin Time (Protime)PT. 14.6 SECONDS (11.7-14.9)
[2022-05-09 07:24] LABS: Anion Gap 5 (5-15); Anisocytosis 1+; BUN 12 mg/dL (7-18); BUN/Creat Ratio 12.6 RATIO (10-20); Calcium,Total 8.8 mg/dL (8.5-10.1); Chloride 104 mmol/L (98-107); Creatinine, Serum 0.95 mg/dL (0.55-1.02); Differential Comment SCANNED; EST Glomerular Filtration Rate 63 mL/min (>60); Est Glom Filt Rate - Afr Amer 77 mL/min (>60); Estimated Creatinine Clearance 51.44 ml/min; Glucose 186 mg/dL (74-106); Hypochromasia 1+; Magnesium 1.7 mg/dL (1.6-2.6); Phosphorus 3.6 mg/dL (2.5-4.9); Polychromasia RARE; Potassium 4.1 mmol/L (3.5-5.1); Sodium Level 141 mmol/L (136-145)
[2022-05-09] MEDS: Ferrous Sulfate 325 MG Tablet PO ×3 (08:25→16:55)
[2022-05-09] MEDS: Aspirin 81 MG TAB.CHEW PO (08:25)
[2022-05-09] MEDS: Ascorbic Acid 500 MG Tablet PO ×3 (08:26→16:56)
[2022-05-09] MEDS: Gabapentin 300 MG Capsule PO ×2 (08:29→17:02)
[2022-05-09 09:16] LABS: Hemoglobin A1c 6.7 % (3.8-5.6)
[2022-05-09] MEDS: Furosemide 40 MG Tablet PO (11:00)
[2022-05-09] MEDS: Pantoprazole Sodium 40 MG Tablet PO (11:01)
[2022-05-09] MEDS: Lisinopril 10 MG Tablet PO (11:02)
[2022-05-09] MEDS: amLODIPine 10 MG Tablet PO (11:02)
[2022-05-09] MEDS: Clopidogrel Bisulfate 75 MG Tablet PO (11:02)
[2022-05-09] MEDS: NYSTATIN 500,000 UNIT/5 ML UDC 500000 UNIT PO ×4 (11:02→22:17)
[2022-05-09] MEDS: Nystatin Powder 15gm Bottle 1 APPLIC TOPICAL ×2 (11:03→22:17)
[2022-05-09] MEDS: Enoxaparin 40 MG/0.4 ML Syringe SC ×2 (11:03→22:18)
[2022-05-09] MEDS: Menthol/Lanolin/Calamine/Znox 113 GM Tube 1 APPLIC TOPICAL ×2 (11:04→22:19)
[2022-05-09] MEDS: Loratadine 10 MG Tablet PO (11:04)
[2022-05-09] MEDS: oxyCODONE 5 MG Tablet PO ×2 (11:05→16:57)
[2022-05-09] MEDS: Metoprolol Tartrate 25 MG Tablet PO ×2 (11:05→22:18)
[2022-05-09] MEDS: Acetaminophen 325 MG Tablet 650 MG PO ×2 (11:06→16:56)
[2022-05-09 11:35] LABS: Bedside Glucose 161 mg/dL (74-106)
[2022-05-09] MEDS: Insulin Glargine-YFGN 100 UNIT/ML Pen 35 UNIT SC (11:57)
[2022-05-09 12:20] LABS: Bedside Glucose 195 mg/dL (74-106)
[2022-05-09 14:08] LABS: Pathologist Review Reviewed
--- NOTE | 2022-05-09 14:14 | NURSING ---
1300 pt with 14beat run of wide accelerated vtach with no symptoms. dr. oconnor sent a pic. vs stable. pt sitting up in bed to eat talking on phone. no new orders received.
[2022-05-09] MEDS: 0.9% Saline Lock 10 ML Syringe IV (14:33)
--- NOTE | 2022-05-09 14:55 | PCM.PN.ID ---
Physical Exam Narrative Feeling ok, discharge planning ongoing, no fever Const alert and no apparent distress Resp normal air movement and clear to auscultation bilaterally Cardio regular rate and regular rhythm GI soft to palpation, non-tender and non-distended Skin Skin Narrative: Leg wrapped ID ID: Route of nutrition/ use of supplements: [] Nutritional Intake: [] IV Site: [] Monroe Catheter: [] Assessment & Plan Assessment/Plan (1) STEPHY (acute kidney injury): (2) Osteomyelitis of foot, left, acute: PLAN: STEPHY improved. 1 of 2 bcx (+). Wound cx with serratia. On vanc/cefepime/clinda/flagyl. Taken for L AKA 05/04/[address] Ibarra. Stable off abx. Will follow as needed (3) Gas gangrene of foot:
--- NOTE | 2022-05-09 15:35 | WOUNDNOTE ---
wound photo: left AKA
--- NOTE | 2022-05-09 15:35 | WOUNDNOTE ---
wound photo: left AKA
--- NOTE | 2022-05-09 16:00 | PCM.TXEXTCAR ---
Diet Diet Order/Speech Therapy: 04/29/22 11:41 Diet: Cardiac - Heart Healthy Dietary Modifications:: Consistent Carbohydrate Is pt able to select menu?: Yes Routine Orders/Code Status Routine Lab Work: CBC and BMP Code Status: Full Code Wound(s) LEFT FOOT/HEEL: Wound Type: Neuropathic/Diabetic Foot Ulcer left heel: Wound Type: Neuropathic/Diabetic Foot Ulcer Dressing Change: betadine gauze UNDER LEFT BREAST: Wound Type: Excoriation RT WRIST: Wound Type: Puncture left stump: Wound Type: surgical incision/wound s/p AKA Dressing Change: KCI wound VAC Therapies Weight Bearing: Non weight bearing Physical Therapy: Eval and Treat Occupational Therapy: Eval and Treat Problem/Diagnosis (1) STEPHY (acute kidney injury): Status: Acute Code(s): N17.9 - Acute kidney failure, unspecified (2) Osteomyelitis of foot, left, acute: Status: Acute Code(s): M86.172 - Other acute osteomyelitis, left ankle and foot (3) Gas gangrene of foot: Status: Acute Code(s): A48.0 - Gas gangrene Allergies/Procedures Done in Hospital Allergies Penicillins [PCN] Allergy (Verified 04/28/22 20:10) Rash Type of Care/Length of Stay Estimated LOS: Convalescent Care Less Than 30 days Type of Care Needed: Intermediate Rehab Potential: Fair Prognosis: Fair Additional Orders/Day of Discharge Day of Discharge: 05/09/22 Dietary and Speech Recommendations Dietitian Recommendations/Changes: will continue cardiac, carbohydrate controlled diet as tolerated will readdress options for ONS post op - pt would benefit from Ramesh bid to help w/ wound healing. Discharge Plan Admission Admit Date/Time: 04/28/22 23:40 Primary Reason for Your Visit: Chest Pain Attending Provider: Abdiel Wise Primary Care Provider: Radha Medina Consulting Providers: Yosi Cotton ; Kierra Rivera ; Wilfrido Ramsey ; Joshua Coelho ; Dawit Duran ; Abdiel Bhakta ; Goldie Bush ; Ariel Ibarra ; Karishma Tipton Discharge Orders/Prescriptions Prescriptions: New atorvastatin 40 mg Tablet 40 mg PO QHS Qty: 0 0RF acetaminophen [Tylenol] 325 mg Tablet 650 mg PO Q6H PRN PRN (Reason: Pain 1-10 Or Fever>100.7) Qty: 0 0RF albuterol sulfate 2.5 mg /3 mL (0.083 %) Solution For Nebulization 2.5 mg inhalation Q2H PRN PRN (Reason: SOB/Wheezing) Qty: 0 0RF polyethylene glycol 3350 17 gram Powder In Packet 17 g PO DAILY Qty: 0 0RF sennosides-docusate sodium [Stool Softener-Stimulant Laxat] 8.6-50 mg Tablet 2 tab PO BID PRN PRN (Reason: Constipation) Qty: 0 0RF clopidogrel 75 mg Tablet 75 mg PO DAILY Qty: 0 0RF ascorbic acid (vitamin C) 500 mg Tablet 500 mg PO TIDCM Qty: 0 0RF amlodipine 10 mg Tablet 10 mg PO DAILY Qty: 0 0RF ferrous sulfate [FeroSul] 325 mg (65 mg iron) Tablet 325 mg PO TIDCM Qty: 0 0RF gabapentin 300 mg Capsule 300 mg PO BIDCM Qty: 0 0RF enoxaparin 40 mg/0.4 mL Syringe 40 mg subcut BID Qty: 0 0RF Rx Instructions: for 30 days after discharge insulin lispro [Humalog KwikPen Insulin] 100 unit/mL Insulin Pen See Protocol subcut ACHS Qty: 0 0RF Protocol: 3. Sliding Scale Insulin Med Dosing Condition: 150-189 mg/dl = 1 unit Condition: 190-229 mg/dl = 2 units Condition: 230-269 mg/dl = 3 units Condition: 270-309 mg/dl = 4 units Condition: 310-349 mg/dl = 5 units Condition: 350-399 mg/dl = 6 units Condition: 400-449 mg/dl = 7 units Condition: Greater than 449 call physician Protocol Text: - Use for Total Daily Dose of Insulin 37-55 units - Obsese, infected, or steroid patients MEDIUM DOSING ALGORITHIM metoprolol tartrate 25 mg Tablet 25 mg PO BID Qty: 0 0RF menthol-zinc oxide [Calmoseptine] 0.44-20.6 % Ointment 1 applic topical BID Qty: 0 0RF Protocol: *Topical Application Instructions APPLICATION INSTRUCTIONS: Apply to affected areas insulin glargine-yfgn 100 unit/mL (3 mL) Insulin Pen 35 unit subcut 1100 Qty: 0 0RF Continued aspirin 81 MG tablet,chewable 81 mg PO DAILY@0800 Label Comments: HEART montelukast 10 MG tablet 10 mg PO DAILY Label Comments: ALLERGIES Omeprazole [Prilosec] 40 MG capsule 40 mg PO DAILY Label Comments: REFLUX metformin 1,000 MG tablet 1,000 mg PO BID Label Comments: DIABETES loratadine [Allergy Relief (loratadine)] 10 MG tablet 10 mg PO DAILY Label Comments: ALLERGIES furosemide 40 MG tablet 40 mg PO DAILY nortriptyline 10 mg capsule 20 mg PO QHS Label Comments: TAKE 2 CAPSULES BY MOUTH DAILY AT BEDTIME. cholecalciferol (vitamin D3) 1,250 mcg (50,000 unit) capsule 50,000 unit PO WE Label Comments: TAKE ONE CAPSULE BY MOUTH ONE TIME A WEEK Discontinued gabapentin 600 MG tablet 1,200 mg PO QHS potassium chloride 10 mEq tablet extended release 10 meq PO DAILY Label Comments: TAKE 1 TABLET BY MOUTH EVERY DAY insulin lispro 100 unit/mL insulin pen 20 unit SUBCUT TIDCM Label Comments: INJECT 20 UNITS SUBCUTANEOUSLY WITH MEALS PLUS SLIDING SCALE OF 0-10 UNITS PER MEAL insulin degludec [Tresiba FlexTouch U-100] 100 unit/mL (3 mL) insulin pen 80 unit SUBCUT QHS Label Comments: INJECT 80 UNITS SUBCUTANEOUSLY DAILY AT BEDTIME. Trulicity 3 mg/0.5 mL pen injector 3 mg SUBCUT NIEVES Label Comments: INJECT 3 MG SUBCUTANEOUSLY ONE TIME A WEEK. hydrocodone-acetaminophen 5-325 mg tablet 1 tab PO Q6H PRN (Reason: Pain) Label Comments: TAKE 1 TABLET BY MOUTH EVERY 6 HOURS NEEDED FOR UP TO 7 DAYS sulfamethoxazole-trimethoprim [Bactrim DS] 800-160 mg tablet 1 tab PO BID Qty: 20 0RF Referrals / Follow Up: Yosi Cotton MD [Med Staff - Active Staff] - Within 1 Month Ariel Ibarra MD [Med Staff - Active Staff] - Radha Medina MD [Primary Care Provider] - Within 1 Month Disposition Disposition (needs filled in before D/C Order can be placed): Long Term Facility
--- NOTE | 2022-05-09 16:02 | PN.HOSP_ITS ---
Subjective Subjective Doing well, no issues overnight Objective Data Objective Data Vital Signs: Vital Signs Temp Pulse Resp BP Pulse Ox O2 Del Method O2 Flow Rate 98.5 F 69 18 129/63 H 93 Nasal Cannula 2 05/09/22 13:00 05/09/22 13:00 05/09/22 13:00 05/09/22 13:00 05/09/22 13:00 05/09/22 14:00 05/09/22 14:00 FiO2 39 05/04/22 16:00 Oxygen Flow Rate (L/min) 2 Oxygen Delivery Method Nasal Cannula Weight: 318 lb 12.615 oz Body Mass Index (BMI) 56.5 Intake & Output: Intake and Output for Last 24 Hours 05/08/22 05/09/22 05/10/22 03:59 03:59 03:59 Intake Total 2637.75 / 2637.75 3614.5 / 3614.5 338.5 / 338.5 Output Total 1250 / 1250 1300 / 1300 50 / 50 Balance 1387.75 / 1387.75 2314.5 / 2314.5 288.5 / 288.5 Lab / Micro Data Result Diagrams: 05/09/22 06:30 05/09/22 06:30 Labs: Laboratory Results - last 24 hr 05/07/22 06:51: Diff Path Review Reviewed 05/08/22 17:14: POC Glucose 248 H 05/08/22 21:09: POC Glucose 340 H 05/09/22 06:30: WBC 8.5, RBC 3.31 L, Hgb 8.3 L, Hct 27.4 L, MCV 82.8, MCH 25.1 L , MCHC 30.3 L, RDW Std Deviation 55.5 H, RDW Coeff of Heather 21.0 H, Plt Count 460 H, MPV 8.8, Immature Gran % (Auto) 4.300 H, Neut % (Auto) 71.7 H, Lymph % (Auto) 16.3 L, [place] % (Auto) 4.8, Eos % (Auto) 2.2, Baso % (Auto) 0.7, Absolute Neuts (auto) 6.1, Absolute Lymphs (auto) 1.39, Nucleated RBC % 0, Differential Comment SCANNED, Polychromasia RARE, Hypochromasia 1+, Anisocytosis 1+ 05/09/22 06:30: Sodium 141, Potassium 4.1, Chloride 104, Carbon Dioxide 32.0, Anion Gap 5, BUN 12, Creatinine 0.95, Estim Creat Clear Calc 51.44, Est GFR (MDRD) Af Amer 77, Est GFR (MDRD) Non-Af 63, BUN/Creatinine Ratio 12.6, Glucose 186 H, Calcium 8.8, Phosphorus 3.6, Magnesium 1.7 05/09/22 06:30: Hemoglobin A1c 6.7 H 05/09/22 06:30: PT 14.6, INR 1.2, APTT 34.2 05/09/22 06:55: POC Glucose 161 H 05/09/22 11:54: POC Glucose 195 H Micro: Microbiology 04/28/22 21:10 Blood Culture (Wb) - Venous Blood Culture - Final Anaerobic cocci 04/28/22 21:10 Blood Culture (Wb) - Venous Blood Culture - Final No growth in 5 days. 04/29/22 10:15 Wound - Heel, Left Gram Stain - Final 04/29/22 10:15 Wound - Heel, Left Wound Culture - Final Serratia marcescens 04/29/22 10:15 Wound - Heel, Left Anaerobic Culture - Final Prevotella melaninogenica 05/03/22 14:30 Stool Enteric Bacteriology - Final 05/03/22 10:25 Stool Stool Occult Blood (JOVAN) - Final 04/28/22 21:05 Nasal Secretion SARS-CoV-2 & FLU Antigen (Rapid) - Final Rhythm Strip Rhythm Strip: Sinus Rhythm Physical Exam Narrative General: Alert, Oriented x3, Cooperative, No apparent distress HEENT: Atraumatic, PERRLA, EOMI, Normocephalic Oral: Moist Mucosa Neck: Supple, No JVD Lungs: Diminished, Normal air movement, No rhonchi, No wheeze, No rales Cardiovascular: Regular rate, Regular Rhythm, Normal S1, Normal S2, No murmurs Abdomen: Soft, Non Tender, Non-Distended, No Hepato-splenomegaly Extremities: No edema, Capillary Refill Less than 3 Seconds Skin: No rashes, No breakdown Musculoskeletal: Left AKA, dressing intact with wound VAC Neurological: Cranial nerves II-XII grossly intact, Motor Exam 5/5 strength throughout, Sensory exam intact to light touch and pain Psych/Mental Status: Normal Affect, Appropriate Assessment & Plan Assessment/Plan (1) STEPHY (acute kidney injury): (2) Osteomyelitis of foot, left, acute: (3) Gas gangrene of foot: PLAN: Plan 1. Non-STEMI/HTN/HLD ? Continue with medical management, cardiac catheterization on 05/02/2022 with mild nonobstructive CAD ? Echo with an EF of 50% with a mildly dilated RV ? Continue with aspirin and Plavix as well as Lipitor ? Her blood pressures are currently stable, continue with her home medications 2. 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 Continue with wound VAC ? Appreciate vascular surgery's assistance ? Appreciate IDs as's will monitor, continue with cefepime and Flagyl ? Peak creatinine was 1.86 on admission currently stable at less than 1, will monitor 3. DM2 with diabetic neuropathy and retinopathy/morbid obesity ? We will hold her oral hypoglycemics ? Continue with sliding scale insulin as well as long-acting insulin ? Accu-Cheks ACHS ? We will monitor and make adjustments ? We will continue with her nortriptyline and gabapentin ? BMI of 64.6, discussed lifestyle 4. Chronic hypoxic respiratory failure ? Likely due to SUSANNA versus COPD ? Baseline oxygen requirements are 2 to 3 L ? Continue with her home Lasix of 40 mg p.o. daily 5. Iron deficiency anemia/GERD ? She was given 2 units intraoperatively during her AKA and she had 3 iron infusions ? Continue with oral iron and vitamin C ? Continue with PPI DVT: Lovenox Charges/Coding Visit Charges Inpatient E&M: 91236 Subs Hosp L2
[2022-05-09 17:40] LABS: Bedside Glucose 272 mg/dL (74-106)
[2022-05-09] MEDS: Ipratropium/Albuterol Sulfate 3 ML AMPUL.NEB INHALATION (19:37)
[2022-05-09] MEDS: Montelukast 10 MG Tablet PO (22:17)
[2022-05-09] MEDS: Atorvastatin Calcium 40 MG Tablet PO (22:18)
[2022-05-10 02:15] LABS: Bedside Glucose 315 mg/dL (74-106)
[2022-05-10 04:30] VITALS: BP 136/72; PULSE 75; RESP 20; TEMP 36.7; O2SAT 94
[2022-05-10] MEDS: metroNIDAZOLE 500 MG Tablet PO (04:38)
[2022-05-10 05:19] VITALS: BMI 56.9
[2022-05-10] MEDS: Insulin Lispro 100 UNIT/ML INSULN.PEN SC ×2 (06:23→12:00)
[2022-05-10 06:45] LABS: Bedside Glucose 241 mg/dL (74-106)
[2022-05-10 07:25] VITALS: PULSE 77; O2SAT 97
[2022-05-10] MEDS: Ipratropium/Albuterol Sulfate 3 ML AMPUL.NEB INHALATION (07:25)
[2022-05-10] MEDS: Gabapentin 300 MG Capsule PO (08:17)
[2022-05-10] MEDS: Ferrous Sulfate 325 MG Tablet PO ×2 (08:17→12:01)
[2022-05-10] MEDS: Menthol/Lanolin/Calamine/Znox 113 GM Tube 1 APPLIC TOPICAL (08:17)
[2022-05-10] MEDS: Ascorbic Acid 500 MG Tablet PO ×2 (08:17→12:01)
[2022-05-10] MEDS: Enoxaparin 40 MG/0.4 ML Syringe SC (08:18)
[2022-05-10] MEDS: Nystatin Powder 15gm Bottle 1 APPLIC TOPICAL (08:19)
[2022-05-10 08:20] VITALS: BP 117/55; PULSE 77
[2022-05-10] MEDS: Aspirin 81 MG TAB.CHEW PO (08:20)
[2022-05-10] MEDS: Furosemide 40 MG Tablet PO (08:20)
[2022-05-10] MEDS: Loratadine 10 MG Tablet PO (08:20)
[2022-05-10] MEDS: Metoprolol Tartrate 25 MG Tablet PO (08:20)
[2022-05-10] MEDS: Pantoprazole Sodium 40 MG Tablet PO (08:20)
[2022-05-10 08:48] VITALS: BP 117/55; PULSE 77; RESP 18; TEMP 36.7; O2SAT 94
--- NOTE | 2022-05-10 08:55 | CASEMGMT ---
SW sent information to [facility] to obtain level of care. Rizwana Steen [employer] SUPERVIS[employer]
--- NOTE | 2022-05-10 09:05 | PCM.PN.SRG ---
Subjective Subjective Looking better. Pain controlled, tolerating vac change. Current anshu wrap a little too tight for her comfort. Objective Data Objective Data Vital Signs: Vital Signs Temp Pulse Resp BP Pulse Ox O2 Del Method O2 Flow Rate 98.0 F 77 18 117/55 L 94 Nasal Cannula 2 05/10/22 08:48 05/10/22 08:48 05/10/22 08:48 05/10/22 08:48 05/10/22 08:48 05/10/22 08:48 05/10/22 08:48 FiO2 39 05/04/22 16:00 Oxygen Flow Rate (L/min) 2 Oxygen Delivery Method Nasal Cannula Weight: 321 lb 10.471 oz Body Mass Index (BMI) 56.9 Intake & Output: Intake and Output for Last 24 Hours 05/08/22 05/09/22 05/10/22 23:59 23:59 23:59 Intake Total 4314.5 / 4314.5 938.5 / 1238.5 550 / 550 Output Total 1600 / 1600 50 / 50 400 / 400 Balance 2714.5 / 2714.5 888.5 / 1188.5 150 / 150 Lab / Micro Data Result Diagrams: 05/09/22 06:30 05/09/22 06:30 Labs: Laboratory Results - last 24 hr 05/07/22 06:51: Diff Path Review Reviewed 05/09/22 06:30: Hemoglobin A1c 6.7 H 05/09/22 06:55: POC Glucose 161 H 05/09/22 11:54: POC Glucose 195 H 05/09/22 16:53: POC Glucose 272 H 05/09/22 22:12: POC Glucose 315 H 05/10/22 06:21: POC Glucose 241 H Micro: Microbiology 04/28/22 21:10 Blood Culture (Wb) - Venous Blood Culture - Final Anaerobic cocci 04/28/22 21:10 Blood Culture (Wb) - Venous Blood Culture - Final No growth in 5 days. 04/29/22 10:15 Wound - Heel, Left Gram Stain - Final 04/29/22 10:15 Wound - Heel, Left Wound Culture - Final Serratia marcescens 04/29/22 10:15 Wound - Heel, Left Anaerobic Culture - Final Prevotella melaninogenica 05/03/22 14:30 Stool Enteric Bacteriology - Final 05/03/22 10:25 Stool Stool Occult Blood (JOVAN) - Final 04/28/22 21:05 Nasal Secretion SARS-CoV-2 & FLU Antigen (Rapid) - Final Rhythm Strip Rhythm Strip: Sinus Rhythm Physical Exam Const alert, oriented x3, no apparent distress and healthy appearing General Appearance: cooperative; Negative for combative or lethargic Orientation / Consciousness: awake Exam Limitations: no limitations HEENT Head and Scalp: normocephalic and atraumatic Eyes EOMs intact bilaterally General Eye: normal appearance of both eyes Neck full ROM General: trachea midline Resp normal respiratory effort and no use of accessory muscles Effort and Inspection: Negative for labored, stridor or audible wheezes Cardio regular rate and regular rhythm Back/Spine Cervical Spine: cervical ROM normal Skin no rashes or lesions noted Skin Narrative: Left AKA site dressing/vac intact, no spotting/seeping Neuro oriented x3, CN's II-XII intact bilaterally, no focal motor deficits and no sensory deficits noted Psych thought process normal, cooperative, affect normal, speech normal and activity/motor behavior normal Assessment & Plan Assessment/Plan (1) Diabetic infection of left foot: PLAN: -POD # 6 left AKA -cont vac, dry dressing -anshu loosened -ok for SNF
--- NOTE | 2022-05-10 09:55 | PHA.DC.MR ---
Pharmacy Service has performed discharge medication reconciliation for this patient. The patient's discharge medication list was reviewed for discrepancies and discrepancies were resolved. Home Medications Omeprazole [Prilosec] 40 mg PO DAILY 12/30/12 aspirin 81 mg chewable tablet 81 mg PO DAILY@0800 12/30/12 loratadine 10 mg tablet (Allergy Relief (loratadine)) 10 mg PO DAILY 12/30/12 metformin 1,000 mg tablet 1,000 mg PO BID 12/30/12 montelukast 10 mg tablet 10 mg PO DAILY 12/30/12 furosemide 40 mg tablet 40 mg PO DAILY 08/12/19 cholecalciferol (vitamin D3) 1,250 mcg (50,000 unit) capsule 50,000 unit PO WE 12/26/21 nortriptyline 10 mg capsule 20 mg PO QHS 12/26/21 acetaminophen 325 mg tablet (Tylenol) 650 mg PO Q6H PRN PRN Pain 1-10 Or Fever>100.7 #0 tabs 05/07/22 albuterol sulfate 2.5 mg/3 mL (0.083 %) solution for nebulization 2.5 mg (3 mL) inhalation Q2H PRN PRN SOB/Wheezing #0 mL 05/07/22 amlodipine 10 mg tablet 10 mg PO DAILY #0 tabs 05/07/22 ascorbic acid (vitamin C) 500 mg tablet 500 mg PO TIDCM #0 tabs 05/07/22 atorvastatin 40 mg tablet 40 mg PO QHS #0 tabs 05/07/22 clopidogrel 75 mg tablet 75 mg PO DAILY #0 tabs 05/07/22 enoxaparin 40 mg/0.4 mL subcutaneous syringe 40 mg (0.4 mL) subcut BID #0 mL 05/07/22 ferrous sulfate 325 mg (65 mg iron) tablet (FeroSul) 325 mg PO TIDCM #0 tabs 05/07/22 gabapentin 300 mg capsule 300 mg PO BIDCM #0 caps 05/07/22 insulin glargine-yfgn 100 unit/mL (3 mL) subcutaneous pen 35 unit (0.35 mL) subcut 1100 #0 mL 05/07/22 insulin lispro 100 unit/mL subcutaneous pen (Humalog KwikPen (U-100) Insulin) See Protocol subcut ACHS #0 mL 05/07/22 menthol 0.44 %-zinc oxide 20.6 % topical ointment (Calmoseptine) 1 applic topical BID #0 grams 05/07/22 metoprolol tartrate 25 mg tablet 25 mg PO BID #0 tabs 05/07/22 polyethylene glycol 3350 17 gram oral powder packet 17 g PO DAILY #0 ea 05/07/22 sennosides 8.6 mg-docusate sodium 50 mg tablet (Stool Softener-Stimulant Laxative) 2 tab PO BID PRN PRN Constipation #0 tabs 05/07/22
[2022-05-10] MEDS: amLODIPine 10 MG Tablet PO (10:13)
[2022-05-10] MEDS: Clopidogrel Bisulfate 75 MG Tablet PO (10:13)
[2022-05-10] MEDS: Lisinopril 10 MG Tablet PO (10:13)
[2022-05-10] MEDS: NYSTATIN 500,000 UNIT/5 ML UDC 500000 UNIT PO (10:13)
--- NOTE | 2022-05-10 10:15 | CASEMGMT ---
SW received level of care from [facility]. CARLOS sent orders and level of care to [facility]. CARLOS called Physicians and arranged for patient to get picked up at 1:00p via cot. CARLOS completed PASRR in [place] as patient will likely be longer than 30 days. CARLOS notified patient, CC, charge preparation technician, and real estate legal secretary of order picker/assembler time. CARLOS will notify RN as well. Plan: D/c to [facility] under intermediate level of care. Physicians will transport via cot. Rizwana PALMER
--- NOTE | 2022-05-10 10:27 | CASEMGMT ---
CARLOS called Brittanylexx Gunderson and left her a voice mail letting her know patient is being discharged to [facility] today. CARLOS also faxed her patient's d/c instructions. Plan: d/c to [facility] under intermediate level of care on a PASRR. Physicians will transport via cot. Rizwana PALMER
--- NOTE | 2022-05-10 11:55 | PCM.DC.SUM ---
Providers Date of Admission: 04/28/22 Primary Care Physician: Dr. Radha Medina MD Consultations 04/29/22 02:37 Consult: Onc/Wound/assistant to the dean Routine Comment: Reason for Consult:: bilateral lymphedema 04/29/22 02:45 Consult: Cardiology Routine Consulting Provider: Yosi Cototn Reason for Consult: Chest Pain EMERGENT Consult: No MD Notified: Yes Date Notified: 04/29/22 Time Notified: 02:45 Method of Notification: ED Physician Initiated 04/29/22 11:41 Consult: Nephrology Routine Consulting Provider: Goldie Bush Reason for Consult: Increased Creatinine EMERGENT Consult: No MD Notified: Yes Date Notified: 04/29/22 Time Notified: 12:07 Method of Notification: Answering Service 04/29/22 15:29 Consult: Podiatry Routine Consulting Provider: Joshua Coelho Reason for Consult: left heel purulent drainage/cellulitis EMERGENT Consult: No MD Notified: Yes Date Notified: 04/29/22 Time Notified: 15:29 Method of Notification: Verbal 04/29/22 15:33 Consult: Nephrology Routine Consulting Provider: Wilfrido Ramsey Reason for Consult: STEPHY, NSTEMI, opinion before [facility] EMERGENT Consult: No MD Notified: Yes Date Notified: 04/29/22 Time Notified: 15:33 Method of Notification: Verbal 04/29/22 17:26 Consult: Infectious Disease Routine Consulting Provider: Dawit Duran Reason for Consult: gas infection left ankle EMERGENT Consult: No MD Notified: Yes Date Notified: 04/29/22 Time Notified: 17:27 Method of Notification: Verbal 04/30/22 10:19 Consult: Onc/Wound/assistant to the dean Routine Comment: 05/02/22 08:07 Consult: Vascular Surgery Routine Consulting Provider: Ariel Ibarra Reason for Consult: VASCULAR STUDIES NEEDED EMERGENT Consult: No MD Notified: Yes Date Notified: 05/02/22 Time Notified: 08:56 Method of Notification: Verbal Reason For Visit: NSTEMI Diagnosis Discharge Diagnosis (1) Diabetic infection of left foot: Status: Acute Code(s): E11.628 - Type 2 diabetes mellitus with other skin complications; L08.9 - Local infection of the skin and subcutaneous tissue, unspecified Medications at Discharge Home Medications Omeprazole [Prilosec] 40 mg PO DAILY 12/30/12 aspirin 81 mg chewable tablet 81 mg PO DAILY@0800 12/30/12 loratadine 10 mg tablet (Allergy Relief (loratadine)) 10 mg PO DAILY 12/30/12 metformin 1,000 mg tablet 1,000 mg PO BID 12/30/12 montelukast 10 mg tablet 10 mg PO DAILY 12/30/12 furosemide 40 mg tablet 40 mg PO DAILY 08/12/19 cholecalciferol (vitamin D3) 1,250 mcg (50,000 unit) capsule 50,000 unit PO WE 12/26/21 nortriptyline 10 mg capsule 20 mg PO QHS 12/26/21 acetaminophen 325 mg tablet (Tylenol) 650 mg PO Q6H PRN PRN Pain 1-10 Or Fever>100.7 #0 tabs 05/07/22 albuterol sulfate 2.5 mg/3 mL (0.083 %) solution for nebulization 2.5 mg (3 mL) inhalation Q2H PRN PRN SOB/Wheezing #0 mL 05/07/22 amlodipine 10 mg tablet 10 mg PO DAILY #0 tabs 05/07/22 ascorbic acid (vitamin C) 500 mg tablet 500 mg PO TIDCM #0 tabs 05/07/22 atorvastatin 40 mg tablet 40 mg PO QHS #0 tabs 05/07/22 clopidogrel 75 mg tablet 75 mg PO DAILY #0 tabs 05/07/22 enoxaparin 40 mg/0.4 mL subcutaneous syringe 40 mg (0.4 mL) subcut BID #0 mL 05/07/22 ferrous sulfate 325 mg (65 mg iron) tablet (FeroSul) 325 mg PO TIDCM #0 tabs 05/07/22 gabapentin 300 mg capsule 300 mg PO BIDCM #0 caps 05/07/22 insulin glargine-yfgn 100 unit/mL (3 mL) subcutaneous pen 35 unit (0.35 mL) subcut 1100 #0 mL 05/07/22 insulin lispro 100 unit/mL subcutaneous pen (Humalog KwikPen (U-100) Insulin) See Protocol subcut ACHS #0 mL 05/07/22 menthol 0.44 %-zinc oxide 20.6 % topical ointment (Calmoseptine) 1 applic topical BID #0 grams 05/07/22 metoprolol tartrate 25 mg tablet 25 mg PO BID #0 tabs 05/07/22 polyethylene glycol 3350 17 gram oral powder packet 17 g PO DAILY #0 ea 05/07/22 sennosides 8.6 mg-docusate sodium 50 mg tablet (Stool Softener-Stimulant Laxative) 2 tab PO BID PRN PRN Constipation #0 tabs 05/07/22 Hospital Course Operations - (Left AKA 05/04/2022) Procedures 2-D Echocardiogram and Cardiac catheterization Summary of Care Provided Minutes Spent on Discharge: 45 Hospital Course: Per HPI: JUNG DUNAWAY, is a 61 F with a history of COPD, type 1 diabetes mellitus, SUSANNA per chart review, hypertension, chronic lymphedema of bilateral lower extremities, morbid obesity who presented to [facility] 04/28 with chest pain.? She had been having chest pain for 2 to 3 days and shortness of breath for 3 to 4 days.? In the ED she was found to have a troponin of 2391 and cardiology was contacted and recommended heparin drip and admission.? Additionally she was found to have left lower extremity cellulitis and was given a dose of clindamycin due to her penicillin allergy.? Hospitalist consulted for admission.? Upon evaluation patient will wake up and participate in exam but often was tired and would fall back asleep.? She did endorse the chest pain for 2 to 3 days with some possible shortness of breath.? Was unable to identify anything that made the chest pain better or worse.? Denied cough.? Reports left leg is chronically red and appears more cellulitic than right leg.? Additional complaint of some diarrhea for the past 1 to 2 days after her son bought a sandwich at a gas station that she said tasted foul.? Has not had nausea and vomiting but has had some slight abdominal discomfort.? Did not endorse any other complaints at this time.? Additionally chest pain had resolved by time of evaluation Hospital Course: 1.? Non-STEMI/HTN/HLD ? Continue with medical management, cardiac catheterization on 05/02/2022 with mild nonobstructive CAD ? Echo with an EF of 50% with a mildly dilated RV ? Continue with aspirin and Plavix as well as Lipitor ? Her blood pressures are currently stable, continue with her home medications ? I discussed with her the plan for possible discharge to SNF today and she expressed understanding of the risk benefits of going and would like to go today to start her rehab 2.? 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 Continue with wound VAC at SNF ? Appreciate vascular surgery's assistance ? Appreciate IDs assistance, they feel that she is stable off antibiotics at this time so will not discharge her on any antibiotics. I do recommend continued monitoring at the care home and if there is any changes to discuss with infectious disease about reinitiating oral antibiotics for possible ? Peak creatinine was 1.86 on admission currently stable at less than 1, will monitor 3.? DM2 with diabetic neuropathy and retinopathy/morbid obesity ? We will hold her oral hypoglycemics ? Continue with sliding scale insulin as well as long-acting insulin ? Accu-Cheks ACHS ? We will monitor and make adjustments ? We will continue with her nortriptyline and gabapentin ? BMI of 64.6, discussed lifestyle ? We will resume her home blood sugar medications on discharge 4.? Chronic hypoxic respiratory failure ? Likely due to SUSANNA versus COPD ? Baseline oxygen requirements are 2 to 3 L ? Continue with her home Lasix of 40 mg p.o. daily 5.? Iron deficiency anemia/GERD ? She was given 2 units intraoperatively during her AKA and she had 3 iron infusions ? Continue with oral iron and vitamin C to be given at the same time ? Continue with PPI Physical Exam Narrative General: Alert, Oriented x3, Cooperative, No apparent distress HEENT: Atraumatic, PERRLA, EOMI, Normocephalic Oral: Moist Mucosa Neck: Supple, No JVD Lungs: Diminished, Normal air movement, No rhonchi, No wheeze, No rales Cardiovascular: Regular rate, Regular Rhythm, Normal S1, Normal S2, No murmurs Abdomen: Soft, Non Tender, Non-Distended, No Hepato-splenomegaly Extremities: No edema, Capillary Refill Less than 3 Seconds Skin: No rashes, No breakdown Musculoskeletal: Left AKA, dressing intact with wound VAC Neurological: Cranial nerves II-XII grossly intact, Motor Exam 5/5 strength throughout, Sensory exam intact to light touch and pain Psych/Mental Status: Normal Affect, Appropriate Weight / BMI Weight Weight: 321 lb 10.471 oz Body Mass Index (BMI) 56.9 ABG / Lab / Microbiology Data Result Diagrams: 05/09/22 06:30 05/09/22 06:30 Laboratory: Laboratory Results - last 24 hr 05/07/22 06:51: Diff Path Review Reviewed 05/09/22 11:54: POC Glucose 195 H 05/09/22 16:53: POC Glucose 272 H 05/09/22 22:12: POC Glucose 315 H 05/10/22 06:21: POC Glucose 241 H Microbiology: Microbiology 04/28/22 21:10 Blood Culture (Wb) - Venous Blood Culture - Final Anaerobic cocci 04/28/22 21:10 Blood Culture (Wb) - Venous Blood Culture - Final No growth in 5 days. 04/29/22 10:15 Wound - Heel, Left Gram Stain - Final 04/29/22 10:15 Wound - Heel, Left Wound Culture - Final Serratia marcescens 04/29/22 10:15 Wound - Heel, Left Anaerobic Culture - Final Prevotella melaninogenica 05/03/22 14:30 Stool Enteric Bacteriology - Final 05/03/22 10:25 Stool Stool Occult Blood (JOVAN) - Final 04/28/22 21:05 Nasal Secretion SARS-CoV-2 & FLU Antigen (Rapid) - Final Meaningful Use Info Meaningful Use Diagnoses (Choose all that apply): None applicable Discharge Plan Admission Admit Date/Time: 04/28/22 23:40 Primary Reason for Your Visit: Chest Pain Attending Provider: Abdiel Wise Primary Care Provider: Radha Medina Consulting Providers: Yosi Cotton ; Kierra Rivera ; Wilfrido Ramsey ; Joshua Coelho ; Daiwt Duran ; Abdiel Bhakta ; Goldie Bush ; Ariel Ibarra ; Karishma Tipton Discharge Orders/Prescriptions Prescriptions: New atorvastatin 40 mg Tablet 40 mg PO QHS Qty: 0 0RF acetaminophen [Tylenol] 325 mg Tablet 650 mg PO Q6H PRN PRN (Reason: Pain 1-10 Or Fever>100.7) Qty: 0 0RF albuterol sulfate 2.5 mg /3 mL (0.083 %) Solution For Nebulization 2.5 mg inhalation Q2H PRN PRN (Reason: SOB/Wheezing) Qty: 0 0RF polyethylene glycol 3350 17 gram Powder In Packet 17 g PO DAILY Qty: 0 0RF sennosides-docusate sodium [Stool Softener-Stimulant Laxat] 8.6-50 mg Tablet 2 tab PO BID PRN PRN (Reason: Constipation) Qty: 0 0RF clopidogrel 75 mg Tablet 75 mg PO DAILY Qty: 0 0RF ascorbic acid (vitamin C) 500 mg Tablet 500 mg PO TIDCM Qty: 0 0RF amlodipine 10 mg Tablet 10 mg PO DAILY Qty: 0 0RF ferrous sulfate [FeroSul] 325 mg (65 mg iron) Tablet 325 mg PO TIDCM Qty: 0 0RF gabapentin 300 mg Capsule 300 mg PO BIDCM Qty: 0 0RF enoxaparin 40 mg/0.4 mL Syringe 40 mg subcut BID Qty: 0 0RF Rx Instructions: for 30 days after discharge insulin lispro [Humalog KwikPen Insulin] 100 unit/mL Insulin Pen See Protocol subcut ACHS Qty: 0 0RF Protocol: 3. Sliding Scale Insulin Med Dosing Condition: 150-189 mg/dl = 1 unit Condition: 190-229 mg/dl = 2 units Condition: 230-269 mg/dl = 3 units Condition: 270-309 mg/dl = 4 units Condition: 310-349 mg/dl = 5 units Condition: 350-399 mg/dl = 6 units Condition: 400-449 mg/dl = 7 units Condition: Greater than 449 call physician Protocol Text: - Use for Total Daily Dose of Insulin 37-55 units - Obsese, infected, or steroid patients MEDIUM DOSING ALGORITHIM metoprolol tartrate 25 mg Tablet 25 mg PO BID Qty: 0 0RF menthol-zinc oxide [Calmoseptine] 0.44-20.6 % Ointment 1 applic topical BID Qty: 0 0RF Protocol: *Topical Application Instructions APPLICATION INSTRUCTIONS: Apply to affected areas insulin glargine-yfgn 100 unit/mL (3 mL) Insulin Pen 35 unit subcut 1100 Qty: 0 0RF Continued aspirin 81 MG tablet,chewable 81 mg PO DAILY@0800 Label Comments: HEART montelukast 10 MG tablet 10 mg PO DAILY Label Comments: ALLERGIES Omeprazole [Prilosec] 40 MG capsule 40 mg PO DAILY Label Comments: REFLUX metformin 1,000 MG tablet 1,000 mg PO BID Label Comments: DIABETES loratadine [Allergy Relief (loratadine)] 10 MG tablet 10 mg PO DAILY Label Comments: ALLERGIES furosemide 40 MG tablet 40 mg PO DAILY nortriptyline 10 mg capsule 20 mg PO QHS Label Comments: TAKE 2 CAPSULES BY MOUTH DAILY AT BEDTIME. cholecalciferol (vitamin D3) 1,250 mcg (50,000 unit) capsule 50,000 unit PO WE Label Comments: TAKE ONE CAPSULE BY MOUTH ONE TIME A WEEK Discontinued gabapentin 600 MG tablet 1,200 mg PO QHS potassium chloride 10 mEq tablet extended release 10 meq PO DAILY Label Comments: TAKE 1 TABLET BY MOUTH EVERY DAY insulin lispro 100 unit/mL insulin pen 20 unit SUBCUT TIDCM Label Comments: INJECT 20 UNITS SUBCUTANEOUSLY WITH MEALS PLUS SLIDING SCALE OF 0-10 UNITS PER MEAL insulin degludec [Tresiba FlexTouch U-100] 100 unit/mL (3 mL) insulin pen 80 unit SUBCUT QHS Label Comments: INJECT 80 UNITS SUBCUTANEOUSLY DAILY AT BEDTIME. Trulicity 3 mg/0.5 mL pen injector 3 mg SUBCUT NIEVES Label Comments: INJECT 3 MG SUBCUTANEOUSLY ONE TIME A WEEK. hydrocodone-acetaminophen 5-325 mg tablet 1 tab PO Q6H PRN (Reason: Pain) Label Comments: TAKE 1 TABLET BY MOUTH EVERY 6 HOURS NEEDED FOR UP TO 7 DAYS sulfamethoxazole-trimethoprim [Bactrim DS] 800-160 mg tablet 1 tab PO BID Qty: 20 0RF Referrals / Follow Up: Yosi Cotton MD [Med Staff - Active Staff] - Within 1 Month Ariel Ibarra MD [Med Staff - Active Staff] - Radha Medina MD [Primary Care Provider] - Within 1 Month Disposition Disposition (needs filled in before D/C Order can be placed): Long Term Facility Charges/Coding Visit Charges Inpatient E&M: 11473 Disch Hosp >30min
[2022-05-10] MEDS: Insulin Glargine-YFGN 100 UNIT/ML Pen 35 UNIT SC (11:59)
[2022-05-10] MEDS: Acetaminophen 325 MG Tablet 650 MG PO (12:01)
[2022-05-10] MEDS: oxyCODONE 5 MG Tablet PO (12:02)
[2022-05-10 12:30] LABS: Bedside Glucose 275 mg/dL (74-106)
--- NOTE | 2022-05-10 16:00 | NURSING ---
1210-report called to [facility] rn with no questions voiced. belongings packed.
== END 2022-05-10 13:25 | disposition skilled nursing facility (03) | DRG 305 ==
LOC: ED 21:24 → ICU 23:42 → PCU 05-05 14:40
PROVIDERS: Anesthesiology; Internal Medicine; Internal Medicine Cardiovascular Disease; Internal Medicine Infectious Disease; Podiatrist; Surgery Trauma Surgery; Admitting Provider Internal Medicine; Emergency Provider Emergency Medicine; PCP Internal Medicine; Visit Provider Family Medicine
PROC: 0Y6D0Z3 Detachment at Left Upper Leg, Low, Open Approach (ICD-10-PCS; principal; 2022-05-04 09:45)
DX: E11.52 Type 2 diabetes mellitus with diabetic peripheral angiopathy with gangrene (principal); E11.69 Type 2 diabetes mellitus with other specified complication; I13.0 Hypertensive heart and chronic kidney disease with heart failure and stage 1 through stage 4 chronic kidney disease, or unspecified chronic kidney disease; I50.32 Chronic diastolic (congestive) heart failure; I27.81 Cor pulmonale (chronic); M65.072 Abscess of tendon sheath, left ankle and foot; I50.82 Biventricular heart failure; E11.65 Type 2 diabetes mellitus with hyperglycemia; A05.9 Bacterial foodborne intoxication, unspecified; L03.116 Cellulitis of left lower limb; N17.9 Acute kidney failure, unspecified; E11.42 Type 2 diabetes mellitus with diabetic polyneuropathy; E11.621 Type 2 diabetes mellitus with foot ulcer; Z68.44 Body mass index [BMI] 60.0-69.9, adult; E11.319 Type 2 diabetes mellitus with unspecified diabetic retinopathy without macular edema; J96.11 Chronic respiratory failure with hypoxia; I5A Non-ischemic myocardial injury (non-traumatic); E10.22 Type 1 diabetes mellitus with diabetic chronic kidney disease; E66.01 Morbid (severe) obesity due to excess calories; N18.30 Chronic kidney disease, stage 3 unspecified; J44.9 Chronic obstructive pulmonary disease, unspecified; L97.424 Non-pressure chronic ulcer of left heel and midfoot with necrosis of bone; M86.172 Other acute osteomyelitis, left ankle and foot; I89.0 Lymphedema, not elsewhere classified; G47.33 Obstructive sleep apnea (adult) (pediatric); K21.9 Gastro-esophageal reflux disease without esophagitis; E55.9 Vitamin D deficiency, unspecified; J30.2 Other seasonal allergic rhinitis; D50.9 Iron deficiency anemia, unspecified; E78.5 Hyperlipidemia, unspecified; I25.111 Atherosclerotic heart disease of native coronary artery with angina pectoris with documented spasm; H54.7 Unspecified visual loss; Z88.0 Allergy status to penicillin; Z20.822 Contact with and (suspected) exposure to COVID-19; Z99.3 Dependence on wheelchair; Z79.4 Long term (current) use of insulin; Z79.82 Long term (current) use of aspirin; Z79.84 Long term (current) use of oral hypoglycemic drugs; Z79.02 Long term (current) use of antithrombotics/antiplatelets; Z79.899 Other long term (current) drug therapy; Z87.891 Personal history of nicotine dependence
CPT/HCPCS: 36415; 36600; 71045; 73590; 73600; 73610; 73620; 73630; 73721; 80048; 80053; 80061; 80202; 82274; 82728; 82803; 82962; 83036; 83540; 83550; 83735; 83880; 84100; 84145; 84484; 85025; 85045; 85610; 85652; 85730; 86140; 86850; 86900; 86901; 86920; 87040; 87070; 87075; 87077; 87186; 87205; 87428; 87506; 87640; 88307; 88311; 93005; 93306; 93454; 94640; 94668; 94762; 97110; 97162; 97166; 97530; 97535; 97802; 99152; 99153; 99252; 99285; J7030; J7040; J7050; J7120; P9016; Q9957; Q9967; A4216; C1769; C1894; C8929; G0463; J0696; J2405; J2916

== ENCOUNTER → 2022-05-11 | Outpatient (REF) | payer MEDICAID, SELFPAY ==
[2022-05-11 10:41] LABS: Absolute Lymphocyte Count 1.39 X10^3/uL (0.83-4.51); Absolute Neutrophil Count 6.4 X10^3/uL (2.0-7.7); Basophil# 0.07 X10^3/uL; Basophil% 0.8 % (0-1); Eosinophil# 0.19 X10^3/uL; Eosinophils% 2.2 % (0-5); Hematocrit 31.6 % (37-47); Hemoglobin 9.3 g/dL (12.0-15.0); Lymphocyte # 1.39 X10^3/ul (0.83-4.51); Lymphocyte % 16.3 % (19-41); Mean Corp Hgb Conc 29.4 g/dL (32-36); Mean Corpuscular Hgb 25.3 pg (27.0-32.0); Mean Corpuscular Volume 85.9 fL (81-99); Monocyte# 0.33 X10^3/uL; Monocyte% 3.9 % (0-10); NRBC Flagged by Analyzer 0 % (0-5); Neutrophil # 6.41 X10^3/uL (2.7-7.7); POSITIVE MORPHOLOGY YES; Platelet Count 495 K/mm3 (150-450); RBC Distribution Width CV 22.4 % (11.6-14.6); RBC Distribution Width SD 62.6 fl (35.1-43.9); Red Blood Count 3.68 M/mm3 (4.2-5.4); White Blood Count 8.5 K/mm3 (4.4-11.0)
[2022-05-11 10:43] LABS: Differential Indicated SCAN CRITERIA MET
[2022-05-11 11:00] LABS: Anion Gap 8 (5-15); BUN 17 mg/dL (7-18); BUN/Creat Ratio 17.4 RATIO (10-20); Calcium,Total 9.1 mg/dL (8.5-10.1); Chloride 104 mmol/L (98-107); Creatinine, Serum 0.98 mg/dL (0.55-1.02); EST Glomerular Filtration Rate 62 mL/min (>60); Est Glom Filt Rate - Afr Amer 75 mL/min (>60); Glucose 213 mg/dL (74-106); Potassium 4.3 mmol/L (3.5-5.1); Sodium Level 139 mmol/L (136-145)
[2022-05-11 11:26] LABS: Anisocytosis 2+; Differential Comment SCANNED; Hypochromasia 1+; Macrocytosis 1+; Microcytosis 1+
== END | disposition home or self-care (01) ==
LOC: OLS.SW 05:00
PROVIDERS: PCP Internal Medicine; Visit Provider Family Medicine
DX: R68.89 Other general symptoms and signs (principal); Z13.228 Encounter for screening for other metabolic disorders; Z79.899 Other long term (current) drug therapy
CPT/HCPCS: 36415; 80048; 85025

== ENCOUNTER → 2022-05-13 | Outpatient (REF) | payer MEDICAID, SELFPAY ==
[2022-05-13 07:58] LABS: Absolute Lymphocyte Count 1.64 X10^3/uL (0.83-4.51); Absolute Neutrophil Count 4.9 X10^3/uL (2.0-7.7); Basophil# 0.06 X10^3/uL; Basophil% 0.9 % (0-1); Eosinophil# 0.14 X10^3/uL; Hematocrit 31.1 % (37-47); Hemoglobin 9.7 g/dL (12.0-15.0); Lymphocyte # 1.64 X10^3/ul (0.83-4.51); Lymphocyte % 23.3 % (19-41); Mean Corp Hgb Conc 31.2 g/dL (32-36); Mean Corpuscular Hgb 26.8 pg (27.0-32.0); Mean Corpuscular Volume 85.9 fL (81-99); Mean Platelet Vol. 9.6 fl (6.2-12.0); Monocyte# 0.28 X10^3/uL; NRBC Flagged by Analyzer 0 % (0-5); Neutrophil # 4.86 X10^3/uL (2.7-7.7); Neutrophil % 69.1 % (47-70); POSITIVE MORPHOLOGY YES; Platelet Count 444 K/mm3 (150-450); RBC Distribution Width CV 23.1 % (11.6-14.6); Red Blood Count 3.62 M/mm3 (4.2-5.4)
[2022-05-13 08:04] LABS: Differential Indicated SCAN CRITERIA MET
[2022-05-13 08:09] LABS: Anion Gap 8 (5-15); BUN 14 mg/dL (7-18); BUN/Creat Ratio 15.5 RATIO (10-20); Calcium,Total 8.8 mg/dL (8.5-10.1); Chloride 101 mmol/L (98-107); Cholesterol 117 mg/dL (200); EST Glomerular Filtration Rate 67 mL/min (>60); Est Glom Filt Rate - Afr Amer 81 mL/min (>60); Glucose 137 mg/dL (74-106); High Density Lipoprotein 32 mg/dL; Potassium 3.7 mmol/L (3.5-5.1); Sodium Level 139 mmol/L (136-145); Triglycerides 204 mg/dL; Very Low Density Lipoprotein 41 mg/dL (5-40)
[2022-05-13 08:46] LABS: Anisocytosis 2+; Differential Comment SCANNED
[2022-05-13 08:47] LABS: Macrocytosis 1+; Microcytosis 1+
[2022-05-13 10:22] LABS: Hemoglobin A1c 6.6 % (3.8-5.6)
== END | disposition home or self-care (01) ==
LOC: OLS.SW 05:50
PROVIDERS: PCP Internal Medicine; Visit Provider Family Medicine
DX: E10.621 Type 1 diabetes mellitus with foot ulcer (principal); N17.9 Acute kidney failure, unspecified; M86.172 Other acute osteomyelitis, left ankle and foot
CPT/HCPCS: 36415; 80048; 80061; 83036; 85025

== ENCOUNTER → 2022-05-18 | Outpatient (REF) | payer MEDICAID, SELFPAY ==
[2022-05-18 09:21] LABS: Absolute Lymphocyte Count 1.22 X10^3/uL (0.83-4.51); Absolute Neutrophil Count 3.9 X10^3/uL (2.0-7.7); Basophil# 0.08 X10^3/uL; Basophil% 1.4 % (0-1); Eosinophil# 0.12 X10^3/uL; Eosinophils% 2.1 % (0-5); Hematocrit 34.2 % (37-47); Hemoglobin 10.4 g/dL (12.0-15.0); Lymphocyte # 1.22 X10^3/ul (0.83-4.51); Mean Corp Hgb Conc 30.4 g/dL (32-36); Mean Corpuscular Hgb 26.3 pg (27.0-32.0); Mean Corpuscular Volume 86.6 fL (81-99); Mean Platelet Vol. 9.8 fl (6.2-12.0); Monocyte# 0.45 X10^3/uL; Monocyte% 7.7 % (0-10); NRBC Flagged by Analyzer 0 % (0-5); Neutrophil # 3.92 X10^3/uL (2.7-7.7); Neutrophil % 67.3 % (47-70); POSITIVE MORPHOLOGY YES; Platelet Count 384 K/mm3 (150-450); RBC Distribution Width CV 24.3 % (11.6-14.6); Red Blood Count 3.95 M/mm3 (4.2-5.4); White Blood Count 5.8 K/mm3 (4.4-11.0)
[2022-05-18 09:26] LABS: Differential Indicated SCAN CRITERIA MET
[2022-05-18 09:33] LABS: Anion Gap 9 (5-15); BUN 27 mg/dL (7-18); BUN/Creat Ratio 28.8 RATIO (10-20); Calcium,Total 9.7 mg/dL (8.5-10.1); Chloride 103 mmol/L (98-107); Creatinine, Serum 0.94 mg/dL (0.55-1.02); EST Glomerular Filtration Rate 64 mL/min (>60); Est Glom Filt Rate - Afr Amer 78 mL/min (>60); Glucose 110 mg/dL (74-106); Potassium 4.1 mmol/L (3.5-5.1); Sodium Level 140 mmol/L (136-145)
[2022-05-18 10:41] LABS: Anisocytosis 1+
== END | disposition home or self-care (01) ==
LOC: OLS.SW 05:00
PROVIDERS: PCP Internal Medicine; Visit Provider Family Medicine
DX: R68.89 Other general symptoms and signs (principal); Z13.228 Encounter for screening for other metabolic disorders; Z79.899 Other long term (current) drug therapy
CPT/HCPCS: 36415; 80048; 85025

== ENCOUNTER → 2022-05-27 | Outpatient (REF) | payer MEDICAID, SELFPAY ==
[2022-05-27 08:10] LABS: Hemoglobin 9.5 g/dL (12.0-15.0); Mean Corp Hgb Conc 30.6 g/dL (32-36); Mean Corpuscular Hgb 27.1 pg (27.0-32.0); Mean Corpuscular Volume 88.6 fL (81-99); Mean Platelet Vol. 9.9 fl (6.2-12.0); POSITIVE MORPHOLOGY YES; Platelet Count 381 K/mm3 (150-450); RBC Distribution Width CV 22.8 % (11.6-14.6); RBC Distribution Width SD 72.3 fl (35.1-43.9); White Blood Count 5.2 K/mm3 (4.4-11.0)
[2022-05-27 08:14] LABS: Scan Indicated on CBC? Y/N YES- FLAGS NOTED
[2022-05-27 08:18] LABS: Anion Gap 11 (5-15); BUN 18 mg/dL (7-18); BUN/Creat Ratio 16.1 RATIO (10-20); Calcium,Total 9.7 mg/dL (8.5-10.1); Chloride 100 mmol/L (98-107); Creatinine, Serum 1.12 mg/dL (0.55-1.02); EST Glomerular Filtration Rate 52 mL/min (>60); Est Glom Filt Rate - Afr Amer 64 mL/min (>60); Glucose 129 mg/dL (74-106); Potassium 3.8 mmol/L (3.5-5.1); Sodium Level 140 mmol/L (136-145)
== END | disposition home or self-care (01) ==
LOC: OLS.SW 05:00
PROVIDERS: PCP Internal Medicine; Visit Provider Family Medicine
DX: E10.621 Type 1 diabetes mellitus with foot ulcer (principal); N17.9 Acute kidney failure, unspecified; M86.172 Other acute osteomyelitis, left ankle and foot
CPT/HCPCS: 36415; 80048; 85027

== ENCOUNTER 2022-06-01 01:30 | Observation (INO) | payer MEDICAID, SELFPAY ==
[2022-06-01] VITALS (14 sets, daily range): BP systolic 120–147; BP diastolic 52–68; PULSE 82–113; RESP 15–18; TEMP 37.1–39.4; O2SAT 91–100; BMI 51.5; BMI 51.0
--- NOTE | 2022-06-01 01:34 | RAD_ITS ---
EXAM: XR CHEST, 2 VIEWS CLINICAL INDICATION: fever TECHNIQUE: Frontal and lateral views of the chest. This report was created using [email or web address] report generation technology. COMPARISON: 04/28/2022 FINDINGS: LUNGS AND PLEURAL SPACES: Unremarkable. No consolidation or edema. No pneumothorax. No effusion. HEART: Mild enlargement of the cardiac silhouette. MEDIASTINUM: Central airways and mediastinal contour are unremarkable. BONES/JOINTS: Unremarkable. SOFT TISSUES: Unremarkable. RAD/Chest PA and Lateral IMPRESSION: No acute findings in the chest. Electronically Signed: Bhaskar Yadav MD at 3:14 EDT ,
--- NOTE | 2022-06-01 01:34 | RAD_ITS ---
EXAM: XR LEFT FEMUR, 2 VIEWS CLINICAL INDICATION: pain, infection TECHNIQUE: Frontal and lateral views of the left femur. This report was created using [employer] report generation technology. COMPARISON: None. FINDINGS: BONES/JOINTS: Brjza-smo-yuog amputation. No acute fracture. No subluxation. Normal alignment. Preservation of the joint space. No sclerotic or destructive changes observed. SOFT TISSUES: Some soft tissue swelling distally with possible ulceration. No radiopaque foreign body. RAD/Femur Min 2 Views IMPRESSION: Some soft tissue swelling distally with possible ulceration. This may indicate a soft tissue infection. Electronically Signed: Bhaskar Yadav MD at 3:16 EDT ,
--- NOTE | 2022-06-01 01:39 | EDS_ITS ---
HPI History of Present Illness Chief Complaint: Fever Informant: patient and EMS Narrative Narrative: Patient sent from half-way for fever, some disorientation, increasing pain in her left AKA stump/wound. She denies any other new symptoms. Unknown timing of all of this. She presents around 1:30 AM. [facility] Medical History (Updated 06/01/22 @ 03:[address] Vesna Guardado MD) Benign hypertension CAD (coronary artery disease) Chronic respiratory failure with hypoxia COPD (chronic obstructive pulmonary disease) Diabetic neuropathy Former tobacco use GERD (gastroesophageal reflux disease) History of non-ST elevation myocardial infarction (NSTEMI) HLD (hyperlipidemia) Lymphedema of lower extremity Morbid obesity Obstructive sleep apnea Type 2 diabetes mellitus with diabetic polyneuropathy Home Medications Omeprazole [Prilosec] 40 mg PO DAILY 12/30/12 [History Last Taken 01/17/13] aspirin 81 mg chewable tablet 81 mg PO DAILY@0800 12/30/12 [History Last Taken 01/17/13] loratadine 10 mg tablet (Allergy Relief (loratadine)) 10 mg PO DAILY 12/30/12 [History Last Taken 01/17/13] metformin 1,000 mg tablet 1,000 mg PO BID 12/30/12 [History Last Taken 01/17/13] montelukast 10 mg tablet 10 mg PO DAILY 12/30/12 [History Last Taken 01/17/13] furosemide 40 mg tablet 40 mg PO DAILY 08/12/19 [History Last Taken Unknown] cholecalciferol (vitamin D3) 1,250 mcg (50,000 unit) capsule 50,000 unit PO WE 12/26/21 [History Last Taken Unknown] nortriptyline 10 mg capsule 20 mg PO QHS 12/26/21 [History Last Taken Unknown] acetaminophen 325 mg tablet (Tylenol) 650 mg PO Q6H PRN PRN Pain 1-10 Or Fever>100.7 #0 tabs 05/07/22 [Rx Last Taken Unknown] albuterol sulfate 2.5 mg/3 mL (0.083 %) solution for nebulization 2.5 mg (3 mL) inhalation Q2H PRN PRN SOB/Wheezing #0 mL 05/07/22 [Rx Last Taken Unknown] amlodipine 10 mg tablet 10 mg PO DAILY #0 tabs 05/07/22 [Rx Last Taken Unknown] ascorbic acid (vitamin C) 500 mg tablet 500 mg PO TIDCM #0 tabs 05/07/22 [Rx Last Taken Unknown] atorvastatin 40 mg tablet 40 mg PO QHS #0 tabs 05/07/22 [Rx Last Taken Unknown] clopidogrel 75 mg tablet 75 mg PO DAILY #0 tabs 05/07/22 [Rx Last Taken Unknown] enoxaparin 40 mg/0.4 mL subcutaneous syringe 40 mg (0.4 mL) subcut BID #0 mL 05/07/22 [Rx Last Taken Unknown] ferrous sulfate 325 mg (65 mg iron) tablet (FeroSul) 325 mg PO TIDCM #0 tabs 05/07/22 [Rx Last Taken Unknown] gabapentin 300 mg capsule 300 mg PO BIDCM #0 caps 05/07/22 [Rx Last Taken Unknown] insulin glargine-yfgn 100 unit/mL (3 mL) subcutaneous pen 35 unit (0.35 mL) subcut 1100 #0 mL 05/07/22 [Rx Last Taken Unknown] insulin lispro 100 unit/mL subcutaneous pen (Humalog KwikPen (U-100) Insulin) See Protocol subcut ACHS #0 mL 05/07/22 [Rx Last Taken Unknown] menthol 0.44 %-zinc oxide 20.6 % topical ointment (Calmoseptine) 1 applic topical BID #0 grams 05/07/22 [Rx Last Taken Unknown] metoprolol tartrate 25 mg tablet 25 mg PO BID #0 tabs 05/07/22 [Rx Last Taken Unknown] polyethylene glycol 3350 17 gram oral powder packet 17 g PO DAILY #0 ea 05/07/22 [Rx Last Taken Unknown] sennosides 8.6 mg-docusate sodium 50 mg tablet (Stool Softener-Stimulant Laxative) 2 tab PO BID PRN PRN Constipation #0 tabs 05/07/22 [Rx Last Taken Unknown] Allergy/AdvReac Type Severity Reaction Status Date / Time Penicillins [PCN] Allergy Rash Verified 05/25/22 13:05 Surgical History (Updated 06/01/22 @ 03:[address] Vesna Guardado MD) S/P AKA (above knee amputation) unilateral Social History (Updated 06/01/22 @ 03:[address] Vesna Guardado MD) housing: half-way Smoking Status: Former smoker alcohol intake: never substance use type: does not use ROS ROS ED Constitutional Constitutional ED: Reports chills, fever(s) and malaise Eyes Eyes: Denies change in vision or diplopia ENT ENT ED: Denies rhinorrhea or sore throat Cardiovascular Cardiovascular: Denies chest pain or palpitations Respiratory/Chest Respiratory/Chest: Denies cough or dyspnea Gastrointestinal Gastrointestinal: Denies abdominal pain, diarrhea, nausea or vomiting Genitourinary Genitourinary ED: Denies dysuria or hematuria Musculoskeletal Musculoskeletal: Reports extremity pain; Denies back pain or neck pain Integumentary Reports as per HPI and wounds; Denies abscess or rash Neurologic Neurologic: Denies headache(s), paresthesias or weakness Psychiatric Psychiatric: Denies anxiety or suicidal thoughts EXAM Physical Exam Const Vital Signs: 06/01/22 01:31 06/01/22 01:41 06/01/22 01:37 Temperature 102.1 F H 102.1 F H Temperature Source Oral Oral Pulse Rate 112 H 113 H Respiratory Rate 17 15 Blood Pressure 131/63 H 131/63 H Blood Pressure Mean 85 85 Pulse Ox 96 95 96 Oxygen Delivery Method Nasal Cannula Nasal Cannula Nasal Cannula Oxygen Flow Rate (L/min) 3 3 3 Positive well nourished, well developed and obese General Appearance ED: well developed and NAD Nutritional Appearance: obese HEENT Reports moist mucous membranes normocephalic and atraumatic Eyes PERRL and EOMs intact bilaterally Neck full ROM and supple Resp normal respiratory effort and clear to auscultation bilaterally Cardio regular rate, regular rhythm and no murmurs Rate: tachycardic GI non-tender and non-distended GI Narrative: Exam limited by morbid obesity/pannus, but otherwise benign Auscultation: normoactive bowel sounds Palpation: soft Back/Spine no CVA tenderness General Back: other FROM Extremity Extremity Narrative: Neurovascularly intact right lower extremity with chronic edema, there is a line drawn around her medial lower leg, there is no tenderness or abscess or signs of infection. Left lower extremity AKA stump has purulent discharge from the mildly dehisced wound laterally, all of this area is tender and erythemetous, there is no palpable subcutaneous emphysema, there is no discrete palpable abscess but exam limited by obesity, and I do not see any lymphangitis. She can move the hip okay. General Extremety ED: Yes tenderness; Negative for edema or pulses abnormal General Extremity: Negative for edema or pulses abnormal Neuro CN's II-XII intact bilaterally and no sensory deficits noted Neuro Narrative: For the most part oriented but disoriented to time Sensorium / Orientation: awake and alert Motor Exam: strength 5/5 throughout Skin no rashes or lesions noted Skin Narrative: Wound to left lower extremity AKA stump see above. Appears to be infected. Wound VAC is not in place, just multilayered gauze/ABD dressing. Sepsis Attestation Sepsis Attestation: Sepsis Ruled Out Date exam was performed: 06/01/22 Time exam was performed: 03:00 MDM MDM MDM Narrative Medical decision making narrative: Patient does not know how long her left lower extremity stump has been seeping discharge, it has been hurting a whole time and gradually just worsening in the past week or so, and half-way was not able to provide us information about when the wound VAC came off. This is the first time I have seen this wound but it appears to be infected. I would say this is the source of the fever until proven otherwise, I am ordering a septic work-up which includes a chest x-ray, urinalysis, and I am obtaining x-rays of her left lower extremity stump. Also sending a swab culture of the purulent discharge from that area. Empiric Rocephin and vancomycin ordered, patient has allergy to penicillins, reportedly a rash, not anaphylaxis. She tolerated it here without reaction. X-rays of the left femur 2 view showed no subcutaneous emphysema or signs of gas production on my interpretation, and chest x-ray 2 views showed no signs of acute pneumonia on my interpretation. Septic work-up shows a mild leukocytosis no lactic acidosis and no other abnormalities that would suggest acute sepsis. Treated her fever and will admit. History & Record Review Discussion w/independent historian: EMS personnel and Patient Additional record(s) reviewed:: Prior inpatient record (Left AKA about 1 month ago) and Prior outpatient record (Outpatient follow-up 1 week ago without signs of LLE infection, wound VAC in place) Lab Data Attestation: I reviewed the patient's lab results. Labs: Laboratory Results - last 24 hr 06/01/22 06/01/22 06/01/22 02:00 02:00 02:00 WBC 12.5 H RBC 3.52 L Hgb 9.8 L Hct 29.2 L MCV 83.0 D MCH 27.8 MCHC 33.6 D RDW Std Deviation 63.8 H RDW Coeff of Heather 21.6 H Plt Count 361 MPV 9.2 Immature Gran % (Auto) 0.400 Neut % (Auto) 84.5 H Lymph % (Auto) 7.7 L [place] % (Auto) 6.9 Eos % (Auto) 0.1 Baso % (Auto) 0.4 Absolute Neuts (auto) 10.6 H Absolute Lymphs (auto) 0.96 Nucleated RBC % 0 Anisocytosis 2+ PT 14.9 INR 1.2 APTT 38.8 H Sodium 132 L Potassium 4.0 Chloride 94 L Carbon Dioxide 29.0 Anion Gap 9 BUN 24 H Creatinine 1.43 H Estim Creat Clear Calc 34.18 Est GFR (MDRD) Af Amer 48 L Est GFR (MDRD) Non-Af 40 L BUN/Creatinine Ratio 16.8 Glucose 209 H Lactic Acid Calcium 8.9 Total Bilirubin 0.80 AST 16 ALT 22 Alkaline Phosphatase 289 H Total Protein 7.6 Albumin 2.6 L Globulin 5.0 H Albumin/Globulin Ratio 0.5 L 06/01/22 02:00 WBC RBC Hgb Hct MCV MCH MCHC RDW Std Deviation RDW Coeff of Heather Plt Count MPV Immature Gran % (Auto) Neut % (Auto) Lymph % (Auto) [place] % (Auto) Eos % (Auto) Baso % (Auto) Absolute Neuts (auto) Absolute Lymphs (auto) Nucleated RBC % Anisocytosis PT INR APTT Sodium Potassium Chloride Carbon Dioxide Anion Gap BUN Creatinine Estim Creat Clear Calc Est GFR (MDRD) Af Amer Est GFR (MDRD) Non-Af BUN/Creatinine Ratio Glucose Lactic Acid 1.8 Calcium Total Bilirubin AST ALT Alkaline Phosphatase Total Protein Albumin Globulin Albumin/Globulin Ratio Radiography Diagnostic Testing: Clinical Impression(s) from Imaging Studies Chest X-Ray 06/01/22 01:34 IMPRESSION: No acute findings in the chest. Electronically Signed: Bhaskar Yadav MD at 3:14 EDT , Femur X-Ray 06/01/22 01:34 IMPRESSION: Some soft tissue swelling distally with possible ulceration. This may indicate a soft tissue infection. Electronically Signed: Bhaskar Yadav MD at 3:16 EDT , Rhythm Strip Rhythm Strip: Sinus Tach Rate: 110 Ectopy: None EKG Initial EKG: Attestation: I personally reviewed and interpreted this EKG as follows: Interpretation: Sinus Rhythm, No Acute Injury Pattern and RBBB Prior EKG tracings: available for review Prior: Unchanged Management Discussion w/another healthcare provider: Hospitalist Discharge Plan Dx/Rx/DC Orders Clinical Impression: Postoperative wound infection, Encephalopathy acute Disposition Disposition: Acute Care Hospital [facility]
[2022-06-01 02:09] LABS: Absolute Lymphocyte Count 0.96 X10^3/uL (0.83-4.51); Absolute Neutrophil Count 10.6 X10^3/uL (2.0-7.7); Basophil# 0.05 X10^3/uL; Basophil% 0.4 % (0-1); Eosinophil# 0.01 X10^3/uL; Eosinophils% 0.1 % (0-5); Hematocrit 29.2 % (37-47); Hemoglobin 9.8 g/dL (12.0-15.0); Lymphocyte # 0.96 X10^3/ul (0.83-4.51); Lymphocyte % 7.7 % (19-41); Mean Corp Hgb Conc 33.6 g/dL (32-36); Mean Corpuscular Hgb 27.8 pg (27.0-32.0); Mean Platelet Vol. 9.2 fl (6.2-12.0); Monocyte# 0.86 X10^3/uL; Monocyte% 6.9 % (0-10); NRBC Flagged by Analyzer 0 % (0-5); Neutrophil # 10.57 X10^3/uL (2.7-7.7); Neutrophil % 84.5 % (47-70); POSITIVE MORPHOLOGY YES; Platelet Count 361 K/mm3 (150-450); RBC Distribution Width CV 21.6 % (11.6-14.6); RBC Distribution Width SD 63.8 fl (35.1-43.9); Red Blood Count 3.52 M/mm3 (4.2-5.4); White Blood Count 12.5 K/mm3 (4.4-11.0)
[2022-06-01] MEDS: Acetaminophen 500 MG Tablet 1000 MG PO (02:12)
[2022-06-01 02:13] LABS: Differential Indicated SCAN CRITERIA MET
[2022-06-01 02:17] LABS: Anisocytosis 2+; International Normalized Ratio 1.2; Prothrombin Time (Protime)PT. 14.9 SECONDS (11.7-14.9)
[2022-06-01 02:18] LABS: Partial Thromboplast Time 38.8 Seconds (24.1-36.2)
[2022-06-01 02:27] LABS: ALB/GLOB Ratio 0.5 RATIO (0.9-2.4); AST(SGOT) 16 U/L (15-37); Alanine Aminotransfer ALT/SGPT 22 U/L (13-56); Albumin, Serum 2.6 g/dL (3.2-5.0); Alkaline Phosphatase 289 U/L (45-117); Anion Gap 9 (5-15); BUN 24 mg/dL (7-18); BUN/Creat Ratio 16.8 RATIO (10-20); Calcium,Total 8.9 mg/dL (8.5-10.1); Chloride 94 mmol/L (98-107); Creatinine, Serum 1.43 mg/dL (0.55-1.02); EST Glomerular Filtration Rate 40 mL/min (>60); Est Glom Filt Rate - Afr Amer 48 mL/min (>60); Estimated Creatinine Clearance 34.18 ml/min; Glucose 209 mg/dL (74-106); Protein, Total 7.6 g/dL (6.4-8.2); Sodium Level 132 mmol/L (136-145)
[2022-06-01 02:34] LABS: Lactic Acid 1.8 mmol/L (0.4-1.9)
--- NOTE | 2022-06-01 03:45 | HP.PCM_ITS ---
HPI - General General Date of Admission: 06/01/22 Date of Service: 06/01/22 Chief Complaint: Confusion, fever, L AKA drainage, L stump pain. 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 Ibarra complicated by STEPHY and NSTEMI who now presents to the [facility] ED on 06/01/22 with history of onset fever as well as confusion and increasing pain to the left AKA stump over the last 24 hours therefore patient transition from her skilled facility for evaluation in the ED. She reports the pain in her stump is 10 out of 10 in severity, sharp stabbing and constant aching as well. Worse with any movement or alteration to the dressing. She reports that she had a wound VAC until the day prior and that this was taken down with planned reevaluation 06/01/2022 per vascular surgery for potential closure of the lateral wound. Upon dressing takedown in the emergency room patient with significant lateral wound dehiscence which has been there previously however significant macerated appearance, poor tissue appearance with significant purulent and foul-smelling discharge. Patient had seen vascular surgery approximately 1 week prior to current presentation and per their report none of these findings were present at that time. Skilled facility nursing staff could not report when the VAC had come down or appearance of the wound necessarily over the last several days. Work-up in the ED included T102.1, heart rate 112, BP 131/63, respiratory rate 17, 96% on chronic 3 L nasal cannula, CBC with WBC 12.5, hemoglobin 9.8, MCV 83, platelet 361 with left shift, coags unremarkable aside PTT 38.8, CMP with sodium 132, chloride 94, BUN/creatinine 24/1.43, glucose 209, lactic acid 1.8, hepatic profile not marked appearing aside alk phos 289, blood culture x2 pending upon ED evaluation, wound culture from dehisced left AKA site purulent drainage obtained and also pending upon evaluation, patient undergoing chest x-ray as well as plain film of the left femur upon requested evaluation of patient. In the ED patient ministered IV vancomycin, Rocephin, Tylenol 1000 mg p.o. x1 as well as a 1 L normal saline bolus. [facility] Medical History (Updated 06/01/22 @ 03:[address] Vesna Guardado MD) Benign hypertension CAD (coronary artery disease) Chronic respiratory failure with hypoxia COPD (chronic obstructive pulmonary disease) Diabetic neuropathy Former tobacco use GERD (gastroesophageal reflux disease) History of non-ST elevation myocardial infarction (NSTEMI) HLD (hyperlipidemia) Lymphedema of lower extremity Morbid obesity Obstructive sleep apnea Type 2 diabetes mellitus with diabetic polyneuropathy Home Medications Omeprazole [Prilosec] 40 mg PO DAILY 12/30/12 [History Last Taken 01/17/13] aspirin 81 mg chewable tablet 81 mg PO DAILY@0800 12/30/12 [History Last Taken 01/17/13] loratadine 10 mg tablet (Allergy Relief (loratadine)) 10 mg PO DAILY 12/30/12 [History Last Taken 01/17/13] metformin 1,000 mg tablet 1,000 mg PO BID 12/30/12 [History Last Taken 01/17/13] montelukast 10 mg tablet 10 mg PO DAILY 12/30/12 [History Last Taken 01/17/13] furosemide 40 mg tablet 40 mg PO DAILY 08/12/19 [History Last Taken Unknown] cholecalciferol (vitamin D3) 1,250 mcg (50,000 unit) capsule 50,000 unit PO WE 12/26/21 [History Last Taken Unknown] nortriptyline 10 mg capsule 20 mg PO QHS 12/26/21 [History Last Taken Unknown] acetaminophen 325 mg tablet (Tylenol) 650 mg PO Q6H PRN PRN Pain 1-10 Or Fever>100.7 #0 tabs 05/07/22 [Rx Last Taken Unknown] albuterol sulfate 2.5 mg/3 mL (0.083 %) solution for nebulization 2.5 mg (3 mL) inhalation Q2H PRN PRN SOB/Wheezing #0 mL 05/07/22 [Rx Last Taken Unknown] amlodipine 10 mg tablet 10 mg PO DAILY #0 tabs 05/07/22 [Rx Last Taken Unknown] ascorbic acid (vitamin C) 500 mg tablet 500 mg PO TIDCM #0 tabs 05/07/22 [Rx Last Taken Unknown] atorvastatin 40 mg tablet 40 mg PO QHS #0 tabs 05/07/22 [Rx Last Taken Unknown] clopidogrel 75 mg tablet 75 mg PO DAILY #0 tabs 05/07/22 [Rx Last Taken Unknown] enoxaparin 40 mg/0.4 mL subcutaneous syringe 40 mg (0.4 mL) subcut BID #0 mL 05/07/22 [Rx Last Taken Unknown] ferrous sulfate 325 mg (65 mg iron) tablet (FeroSul) 325 mg PO TIDCM #0 tabs 05/07/22 [Rx Last Taken Unknown] gabapentin 300 mg capsule 300 mg PO BIDCM #0 caps 05/07/22 [Rx Last Taken Unknown] insulin glargine-yfgn 100 unit/mL (3 mL) subcutaneous pen 35 unit (0.35 mL) subcut 1100 #0 mL 05/07/22 [Rx Last Taken Unknown] insulin lispro 100 unit/mL subcutaneous pen (Humalog KwikPen (U-100) Insulin) See Protocol subcut ACHS #0 mL 05/07/22 [Rx Last Taken Unknown] menthol 0.44 %-zinc oxide 20.6 % topical ointment (Calmoseptine) 1 applic topical BID #0 grams 05/07/22 [Rx Last Taken Unknown] metoprolol tartrate 25 mg tablet 25 mg PO BID #0 tabs 05/07/22 [Rx Last Taken Unknown] polyethylene glycol 3350 17 gram oral powder packet 17 g PO DAILY #0 ea 05/07/22 [Rx Last Taken Unknown] sennosides 8.6 mg-docusate sodium 50 mg tablet (Stool Softener-Stimulant Laxative) 2 tab PO BID PRN PRN Constipation #0 tabs 05/07/22 [Rx Last Taken Unknown] Allergy/AdvReac Type Severity Reaction Status Date / Time Penicillins [PCN] Allergy Rash Verified 05/25/22 13:05 Family History (Updated 06/01/22 @ 03:[address] Vesna Guardado MD) Mother Stomach cancer Father Heart disease CVA (cerebral vascular accident) Hypertension Diabetes Surgical History (Updated 06/01/22 @ 03:[address] Vesna Guardado MD) S/P AKA (above knee amputation) unilateral Social History (Updated 06/01/22 @ 03:[address] Vesna Guardado MD) housing: other details: Prior to current SNF placement, notes her son lives with her. Smoking Status: Former smoker how long ago did patient quit smoking: Quit 12 years prior, smoked ~ 1.5 ppd since teen until quit. alcohol intake: never substance use type: does not use ROS ROS Narrative Admission Review of Systems: CONSTITUTIONAL: No weight loss, + fever, chills, weakness or fatigue. HEENT: + Chronic vision debility secondary to diabetic retinopathy Eyes: No blurred vision, double vision or yellow sclerae. Ears, Nose, Throat: No hearing loss, sneezing, congestion, runny nose or sore throat. SKIN: + Significant stasis disease right lower extremity, staged ecchymoses, intertrigo evidence, left lower extremity status post left AKA with significant dehisced lateral wound with purulent discharge/macerated appearance. CARDIOVASCULAR: No chest pain, chest pressure or chest discomfort, palpitations, edema, orthopnea, syncopal events. RESPIRATORY: No shortness of breath, cough or sputum, wheezing, hemoptysis. GASTROINTESTINAL: No anorexia, nausea, vomiting or diarrhea, abdominal pain, melena, BRBPR. GENITOURINARY: No dysuria, frequency, urgency or retention. NEUROLOGICAL: No headache, dizziness, syncope, paralysis, ataxia, numbness or tingling in the extremities, focal weakness, change in bowel or bladder control, seizure. MUSCULOSKELETAL: + muscle, back pain, joint pain or stiffness. HEMATOLOGIC: + anemia, bleeding or bruising. LYMPHATICS: No enlarged nodes. No history of splenectomy. PSYCHIATRIC: No history of depression or anxiety. ENDOCRINOLOGIC: No reports of sweating, cold or heat intolerance. No polyuria or polydipsia. ALLERGIES: No history of asthma, hives, eczema or rhinitis. Vital Signs Vital Signs Vital Signs: 06/01/22 01:31 06/01/22 01:41 06/01/22 01:37 Temperature 102.1 F H 102.1 F H Temperature Source Oral Oral Pulse Rate 112 H 113 H Respiratory Rate 17 15 Blood Pressure 131/63 H 131/63 H Blood Pressure Mean 85 85 Pulse Ox 96 95 96 Oxygen Delivery Method Nasal Cannula Nasal Cannula Nasal Cannula Oxygen Flow Rate (L/min) 3 3 3 Weight Weight: 291 lb 3.69 oz Body Mass Index (BMI) 51.5 Physical Exam Narrative Physical Examination: General: Awake, alert, oriented to self, month, year, recent events, cooperative, seated upright in the ED bed, mildly irritable, notes pain ongoing to the left stump. Skin: Normal color, normal turgor, no icterus, no cyanosis except + significant stasis disease right lower extremity/chronic lymphedema, staged ecchymoses, intertrigo evidence, left lower extremity status post left AKA with significant dehisced lateral wound with purulent discharge/macerated appearance. HEENT: AT/NC, EOMI, PERRLA, mildly dry MM, no carotid bruits or JVD noted; however, thickened neck makes evaluation difficult. Lungs: Mildly diminished, distant, appropriate effort, no rales, ronchi or wheezing. Heart: Mildly tachycardic with regular rhythm; no gallop, rub audible. Abdomen: Soft, morbidly obese, NTTP, difficult to assess distention given habitus, distant normal BS, no obvious HSM however habitus makes evaluation difficult Extremities: No cyanosis, no clubbing, see skin. Neurological: Patient awake, alert, oriented as noted, cognitive function in tact; pupils equally reactive to light and accommodation, cranial nerves II-XII grossly normal, moving all 4 extremities except limited left lower extremity stump movement secondary to pain elicited, no focal deficits, strength moderately to severely global decrease secondary to acute presentation Psychiatric: Affect appears fatigued, uncomfortable, irritable, no acute evidence of depressive or anxiety feelings. Results Lab / Micro Data Result Diagrams: 06/01/22 02:00 06/01/22 02:00 Labs: Laboratory Results - last 24 hr 06/01/22 02:00: WBC 12.5 H, RBC 3.52 L, Hgb 9.8 L, Hct 29.2 L, MCV 83.0 D, MCH 27.8, MCHC 33.6 D, RDW Std Deviation 63.8 H, RDW Coeff of Heather 21.6 H, Plt Count 361, MPV 9.2, Immature Gran % (Auto) 0.400, Neut % (Auto) 84.5 H, Lymph % (Auto) 7.7 L, [place] % (Auto) 6.9, Eos % (Auto) 0.1, Baso % (Auto) 0.4, Absolute Neuts (auto) 10.6 H, Absolute Lymphs (auto) 0.96, Nucleated RBC % 0, Anisocytosis 2+ 06/01/22 02:00: PT 14.9, INR 1.2, APTT 38.8 H 06/01/22 02:00: Sodium 132 L, Potassium 4.0, Chloride 94 L, Carbon Dioxide 29.0, Anion Gap 9, BUN 24 H, Creatinine 1.43 H, Estim Creat Clear Calc 34.18, Est GFR (MDRD) Af Amer 48 L, Est GFR (MDRD) Non-Af 40 L, BUN/Creatinine Ratio 16.8, Glucose 209 H, Calcium 8.9, Total Bilirubin 0.80, AST 16, ALT 22, Alkaline Phosphatase 289 H, Total Protein 7.6, Albumin 2.6 L, Globulin 5.0 H, Albumin/Globulin Ratio 0.5 L 06/01/22 02:00: Lactic Acid 1.8 Rhythm Strip Rhythm Strip: Sinus Tach Rate: 110 Ectopy: None Radiology Impression Chest X-Ray 06/01/22 01:34 IMPRESSION: No acute findings in the chest. 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 Ibarra complicated by STEPHY and NSTEMI who now presents to the [facility] ED on 06/01/22 with history of onset fever as well as confusion and increasing pain to the left AKA stump over the last 24 hours therefore patient transition from her skilled facility for evaluation in the ED. #1. Recent Left Foot Diabetic Wound w/ Associated Osteomyelitis s/p definitive AKA with post-operative dehisced wound with purulent drainage, acutely infected complicated by underlying diabetes mellitus type II, SNF facility reported Acute Encephalopathy (Not evident upon ED evaluation, resolved): Will admit to medical surgical floor maintain on IV vancomycin as well as Rocephin with pending wound culture per ED, will additionally obtain Wound MRSA PCR, plan repeat CBC in AM, continue affected extremity elevation above heart when seated and in bed, monitor erythema outline with VS checks, wound RN consultation requested, continue dry packing given moist wound in the interim, will consult Dr. Ibarra to evaluate patient and will defer further imaging to his discretion, NPO status in case of OR needs, maintain on judicious IV fluids, as needed pain medication as well as antiemetic medication. Will consult PT/OT/case management for discharge planning. #2. Recent Acute NSTEMI with nonobstructive CAD: Occurred in the setting of significant infection requiring eventual AKA, 05/02/2022 cardiac catheterization with mild nonobstructive disease with medical therapy recommended with continued calcium channel blockers as suspected involvement of vasospastic angina, continue aspirin, Plavix, metoprolol, echocardiogram with EF 50% with mildly dilated RV and moderate RV global systolic dysfunction, pulmonary pressures not evaluated that time, encourage continued outpatient follow-up with cardiology as previously arranged #3. Recent Acute kidney injury, resolved with now noted acute mild renal insufficiency: Patient during prior admission had serum creatinine elevation up to 1.86 upon presentation with baseline noted previously 0.9-1.0, admission BUN/creatinine 24/1.43, continue juices hydration, repeat CMP in a.m. #4. Chronic microcytic anemia: Admission hemoglobin 9.8, baseline hemoglobin 8- 9, recently 05/05/2022 following AKA was administered 2 unit PRBC, iron studies recently performed and findings consistent with iron deficiency, administered IV iron transfusions x3 days, continue iron supplementation and vitamin C for improved absorption, continue CBC trending. #5. Diabetes mellitus type II with associated neuropathy as well as diabetic retinopathy with legal blindness: Hold oral home regimen, most recent hemoglobin A1c 7.7% continue home insulin regimen, NPO status pending Surgery evaluation, accu checks w/ ISS, during recent presentation had been referred to endocrinology to assist with glycemic control and Trulicity initiation, maintain on fall precautions, continue nortriptyline and gabapentin regimen. #6. Chronic hypoxic respiratory failure suspected secondary to COPD, hypoventilation syndrome with associated allergic rhinitis: We will continue baseline supplementation 2 to 3 L, encourage head of bed, I-S, ATC budesonide therapy, as needed albuterol, continue montelukast and loratadine regimen. #7. Hypertension: Continue home regimen including metoprolol, Lasix, PRN hydralazine. #8. Hyperlipidemia: Recent FLP obtained during prior admission, continue statin therapy. #9. Chronic bilateral lower extremity lymphedema status post recent left AKA as noted: We will continue right lower extremity anshu wraps, elevation, diuresis. #10. Morbid Obesity: Weight loss and lifestyle changes encouraged. #11. Former tobacco use: Encourage continued tobacco cessation. #12. GERD: Continue patient on PPI. #13. SUSANNA: CPAP nightly. #14. DVT prophylaxis: SCD to right lower extremity, hold chemoprophylaxis in case of OR needs. #15. CODE status: Patient JAQUELINE is her daughter Jami. She does not believe living will is in place. Discussed CODE status at length including difference between FULL code, DNR-CCA and DNR-CC status. Following discussions about the differences in these status, requested Full Code status. Advanced Care Planning Face to Face Time: 16 minutes. Admission Evaluation Time spent evaluating chart, patient history, patient evaluation, care planning and discussion with specialists: 75 minutes. Charges/Coding Visit Charges Inpatient E&M: 93414 Init Hosp L3 Procedures Hospitalists Procedures: 37113 Advncd Care Plan 30 Min
[2022-06-01 03:53] LABS: Magnesium 0.9 mg/dL (1.6-2.6)
[2022-06-01 03:55] LABS: Mucous, Urine 0 SEEN /hpf (<or=2+); Squamous Epithelial Cells - UA 0 SEEN /hpf (5-10)
[2022-06-01 03:56] LABS: Color, Urine Yellow (Yellow); Glucose, Dipstick Normal (Normal); Ketone-Dipstick Negative (Negative); Leukocyte Esterase-Dipstick 500 /ul (Negative); Nitrite-Dipstick Negative (Negative); Occult Blood-Urine 250 /ul (Negative); Protein-Dipstick 100 mg/dl (Negative); Specific Gravity, Urine 1.015 (1.002-1.030); Urine Bilirubin Dipstick Negative (Negative); Urine Clarity Turbid (Clear); Urine Urobilinogen 1 mg/dl (Normal)
[2022-06-01 04:02] LABS: Bacteria 4+ /hpf (None Seen); Red Blood Cells-Urine 10-25 SEEN /hpf (0-5)
[2022-06-01 04:03] LABS: White Blood Cells >100 SEEN /hpf (0-5)
--- NOTE | 2022-06-01 04:42 | ED.RN ---
patients MARIS Farrell notified of patient admission and room number.
[2022-06-01 05:00] LABS: M R Staph aureus DNA By PCR POSITIVE (Negative); Probe Check PASS; Staph aureus DNA By PCR POSITIVE (Negative)
--- NOTE | 2022-06-01 05:14 | PCM.RX.CS ---
Consult Pharmacy has been consulted to manage selected antiobiotic: Vancomycin Type of Consult: New start Suspected Infection: Osteomyelitis Prior Doses of Antibiotics Received/Current Regimen: Medications Vancomycin HCl 1,250 mg/ (Sodium Chloride) 275 mls @ 167 mls/hr IV Q12H SARAH Discontinued Medications Vancomycin HCl 2,000 mg/ (Sodium Chloride) 540 mls @ 250 mls/hr IV X1 ONE Stop: 06/01/22 03:59 Last Admin: 06/01/22 03:30 Dose: 250 mls/hr Labs: Sodium 132 mmol/L (136-145) L 06/01/22 02:00 Potassium 4.0 mmol/L (3.5-5.1) 06/01/22 02:00 Chloride 94 mmol/L (98-107) L 06/01/22 02:00 Carbon Dioxide 29.0 mmol/L (21.0-32.0) 06/01/22 02:00 Anion Gap 9 (5-15) 06/01/22 02:00 BUN 24 mg/dL (7-18) H 06/01/22 02:00 Creatinine 1.43 mg/dL (0.55-1.02) H 06/01/22 02:00 Est GFR (MDRD) Af Amer 48 mL/min (>60) L 06/01/22 02:00 Est GFR (MDRD) Non-Af 40 mL/min (>60) L 06/01/22 02:00 BUN/Creatinine Ratio 16.8 RATIO (10-20) 06/01/22 02:00 Glucose 209 mg/dL (74-106) H 06/01/22 02:00 Weight used for dosin.7 kg Estimated Creatinine Clearance: 54 by ABW Goal Trough: 15-20 mcg/mL Pharmacy Plan for Drug Dosing: Pharmacy Service will continue to monitor and adjust dosing as required. Follow-Up Labs: Trough Vancomycin Labs to be done on [date and time ordered]: 06/02/22 @1500
[2022-06-01] MEDS: 0.9% Normal Saline 1,000 ML 125 ML IV ×3 (05:43→22:47)
[2022-06-01 06:05] LABS: Bedside Glucose 147 mg/dL (74-106)
[2022-06-01] MEDS: Magnesium Sulfate 4gm/100mL 4 GM/100 ML IV.SOLN. IV (06:51)
[2022-06-01 07:35] LABS: ALB/GLOB Ratio 0.5 RATIO (0.9-2.4); AST(SGOT) 22 U/L (15-37); Alanine Aminotransfer ALT/SGPT 20 U/L (13-56); Albumin, Serum 2.4 g/dL (3.2-5.0); Alkaline Phosphatase 292 U/L (45-117); Anion Gap 11 (5-15); BUN 25 mg/dL (7-18); BUN/Creat Ratio 17.9 RATIO (10-20); Calcium,Total 8.6 mg/dL (8.5-10.1); Chloride 97 mmol/L (98-107); EST Glomerular Filtration Rate 41 mL/min (>60); Est Glom Filt Rate - Afr Amer 49 mL/min (>60); Estimated Creatinine Clearance 34.91 ml/min; Globulin 4.4 g/dL (2.2-4.2); Glucose 147 mg/dL (74-106); Potassium 4.1 mmol/L (3.5-5.1); Protein, Total 6.8 g/dL (6.4-8.2); Sodium Level 136 mmol/L (136-145)
[2022-06-01] MEDS: oxyCODONE 5 MG Tablet PO (08:11)
--- NOTE | 2022-06-01 08:42 | CON.PCM.SX_ITS ---
Assessment & Plan Assessment/Plan (1) Status post above-knee amputation of left lower extremity: (2) Postoperative wound infection: PLAN: Plan L AKA infection appears secondary to malfunctioning wound vac that was not properly addressed though story is unclear from SNF/patient. Blistering along central aspect of wound appears possibly due to irritation from wound vac dressing or moisture-retention from ABD pad dressing in place at time of presentation to ED. Low suspicion for abscess/seroma by exam. XR did not show radiographic evidence of OM. I do not think this patient requires surgical intervention to address this infection at this time. I removed the remaining sutures. Pack the wound with dakins-soaked gauze to open/lateral portion, dry dressing to the rest of the incision. Change twice daily. I anticipate we will be able to return to wound vac in the next 1-2 days. Diet as tolerated. Continue with antibiotics per C&S. Will continue to follow. HPI Consult Data Date of Consult: 06/01/22 HPI Narrative Reason for Consultation: L AKA stump infection HPI Narrative: JUNG DUNAWAY, is a 61 F who presented to the [facility] ED last night from SNF with infection of her L AKA stump. In ED, patient was found to have fever to 102.1, mild leukocytosis, and purulent discharge from the wound. The patient was admitted, cultures obtained, and started on empiric antibiotics of vanco and ceftriaxone. Dr. Ibarra performed L AKA on 05/04/22 secondary to OM, significant tissue loss, and prolonged wound care efforts of a L heel wound. At the time of amputation, there was swelling of BLE in addition to significant amount of adipose tissue. The medial aspect of the stump was able to be closed with sutures, but there was too much tension to perform skin closure on the lateral aspect so a wond vac was applied. I saw patient for first post-op appt in office last week. At that time, the incision was well-healing, skin edges viable, and without signs/symptoms of infection. The lateral aspect of the wound had good granulation tissue formation. Half of the patient's sutures were removed and wound vac was to continue for the lateral open portion of the wound. Patient was scheduled to return to office today to remove the remaining sutures. Per ED report, SNF unable to report when/how/why wound vac had been turned off/removed from patient. Patient arrived to ER with wound vac removed and dry dressing with ABD in place. Patient was tired/sleeping at time of exam, but easily arousable. She reports pain in the amputation stump, chills. No N/V, SOB, CP. She tolerated the suture removal and wound care well. [facility] Medical History Benign hypertension CAD (coronary artery disease) Chronic respiratory failure with hypoxia COPD (chronic obstructive pulmonary disease) Diabetic neuropathy Former tobacco use GERD (gastroesophageal reflux disease) History of non-ST elevation myocardial infarction (NSTEMI) HLD (hyperlipidemia) Lymphedema of lower extremity Morbid obesity Obstructive sleep apnea Type 2 diabetes mellitus with diabetic polyneuropathy Home Medications Omeprazole [Prilosec] 40 mg PO DAILY Check with primary doctor 12/30/12 [History Last Taken 01/17/13] aspirin 81 mg chewable tablet 81 mg PO DAILY@0800 Check with primary doctor 12/30/12 [History Last Taken 01/17/13] loratadine 10 mg tablet (Allergy Relief (loratadine)) 10 mg PO DAILY Check with primary doctor 12/30/12 [History Last Taken 01/17/13] metformin 1,000 mg tablet 1,000 mg PO BID Check with primary doctor 12/30/12 [History Last Taken 01/17/13] montelukast 10 mg tablet 10 mg PO DAILY Check with primary doctor 12/30/12 [History Last Taken 01/17/13] furosemide 40 mg tablet 40 mg PO DAILY Check with primary doctor 08/12/19 [History Last Taken Unknown] cholecalciferol (vitamin D3) 1,250 mcg (50,000 unit) capsule 50,000 unit PO WE Check with primary doctor 12/26/21 [History Last Taken Unknown] nortriptyline 10 mg capsule 20 mg PO QHS Check with primary doctor 12/26/21 [History Last Taken Unknown] acetaminophen 325 mg tablet (Tylenol) 650 mg PO Q6H PRN PRN Pain 1-10 Or Fever>100.7 #0 tabs 05/07/22 [Rx Last Taken Unknown] sennosides 8.6 mg-docusate sodium 50 mg tablet (Stool Softener-Stimulant Laxative) 2 tab PO BID PRN PRN Constipation #0 tabs 05/07/22 [Rx Last Taken Unknown] amlodipine 10 mg tablet 10 mg PO DAILY Check with primary doctor 06/01/22 [History Last Taken Unknown] ascorbic acid (vitamin C) 500 mg tablet 500 mg PO TIDCM Check with primary doctor 06/01/22 [History Last Taken Unknown] atorvastatin 40 mg tablet 40 mg PO QHS Check with primary doctor 06/01/22 [History Last Taken Unknown] clopidogrel 75 mg tablet 75 mg PO DAILY Check with primary doctor 06/01/22 [History Last Taken Unknown] ferrous sulfate 325 mg (65 mg iron) tablet (FeroSul) 325 mg PO TIDCM Check with primary doctor 06/01/22 [History Last Taken Unknown] gabapentin 300 mg capsule 300 mg PO BIDCM Check with primary doctor 06/01/22 [History Last Taken Unknown] insulin glargine-yfgn 100 unit/mL (3 mL) subcutaneous pen 35 unit subcut 1100 Check with primary doctor 06/01/22 [History Last Taken Unknown] insulin lispro 100 unit/mL subcutaneous pen (Humalog KwikPen (U-100) Insulin) See Protocol subcut ACHS Check with primary doctor 06/01/22 [History Last Taken Unknown] menthol 0.44 %-zinc oxide 20.6 % topical ointment (Calmoseptine) 1 applic topical BID Check with primary doctor 06/01/22 [History Last Taken Unknown] metoprolol tartrate 25 mg tablet 25 mg PO BID Check with primary doctor 06/01/22 [History Last Taken Unknown] polyethylene glycol 3350 17 gram oral powder packet 17 g PO DAILY Check with primary doctor 06/01/22 [History Last Taken Unknown] tramadol 50 mg tablet 50 mg PO Q6H PRN pain 06/01/22 [History Last Taken Unknown] Allergy/AdvReac Type Severity Reaction Status Date / Time Penicillins [PCN] Allergy Rash Verified 05/25/22 13:05 Family History (Updated 06/01/22 @ 03:[address] Vesna Guardado MD) Mother Stomach cancer Father Heart disease CVA (cerebral vascular accident) Hypertension Diabetes Surgical History S/P AKA (above knee amputation) unilateral Social History (Updated 06/01/22 @ 03:[address] Vesna Guardado MD) housing: other details: Prior to current SNF placement, notes her son lives with her. Smoking Status: Former smoker how long ago did patient quit smoking: Quit 12 years prior, smoked ~ 1.5 ppd s brian teen until quit. alcohol intake: never substance use type: does not use Physical Exam Const alert and oriented x3 General Appearance: cooperative HEENT normocephalic, head/scalp atraumatic, hearing grossly normal bilaterally and external ears normal Eyes Eyes Narrative: Patient is legally blind General Eye: normal appearance of both eyes Neck full ROM General: normal visual inspection and trachea midline Resp normal respiratory effort, normal air movement, no retractions and no use of accessory muscles Effort and Inspection: able to speak in complete sentences and symmetric chest movement; Negative for respiratory distress, pursed lip breathing, labored, stridor, retractions or audible wheezes Cardio regular rate and regular rhythm Extremity Extremity Narrative: L AKA stump with medial aspect of incision site intact, skin edges viable and well-healed. Midline portion of the wound with skin edges approximated and viable, but with erythema and some blistering, serous drainage and minimal blood draining from this area. Lateral aspect of the incision is open (as it has been since surgery), minimal purulent drainage noted on dressings but none expressed, some adherent necrotic fat tissue; however, good pink granulation tis goran at the base and depth of wound improving with no tracking noted medially with probing. No palpable abscess/seroma, no erythema or significant warmth extending beyond the wound edge. Neuro oriented x3, CN's II-XII intact bilaterally, moves all extremities, no focal motor deficits and no sensory deficits noted Psych mental status grossly normal, thought process normal, cooperative, affect normal, speech normal and activity/motor behavior normal Lab / Micro Data Result Diagrams: 06/01/22 02:00 06/01/22 06:03 Labs: Laboratory Results - last 24 hr 06/01/22 02:00: WBC 12.5 H, RBC 3.52 L, Hgb 9.8 L, Hct 29.2 L, MCV 83.0 D, MCH 27.8, MCHC 33.6 D, RDW Std Deviation 63.8 H, RDW Coeff of Heather 21.6 H, Plt Count 361, MPV 9.2, Immature Gran % (Auto) 0.400, Neut % (Auto) 84.5 H, Lymph % (Auto) 7.7 L, [place] % (Auto) 6.9, Eos % (Auto) 0.1, Baso % (Auto) 0.4, Absolute Neuts (auto) 10.6 H, Absolute Lymphs (auto) 0.96, Nucleated RBC % 0, Anisocytosis 2+ 06/01/22 02:00: PT 14.9, INR 1.2, APTT 38.8 H 06/01/22 02:00: Sodium 132 L, Potassium 4.0, Chloride 94 L, Carbon Dioxide 29.0, Anion Gap 9, BUN 24 H, Creatinine 1.43 H, Estim Creat Clear Calc 34.18, Est GFR (MDRD) Af Amer 48 L, Est GFR (MDRD) Non-Af 40 L, BUN/Creatinine Ratio 16.8, Glucose 209 H, Calcium 8.9, Total Bilirubin 0.80, AST 16, ALT 22, Alkaline Phosphatase 289 H, Total Protein 7.6, Albumin 2.6 L, Globulin 5.0 H, Albumin/Globulin Ratio 0.5 L 06/01/22 02:00: Lactic Acid 1.8 06/01/22 02:00: Magnesium 0.9 L* 06/01/22 02:15: S.aureus Protein A PCR POSITIVE H, MRSA (PCR) POSITIVE H 06/01/22 03:45: Urine Color Yellow, Urine Clarity Turbid, Urine pH 5.0, Ur Specific [place] 1.015, Urine Protein 100 H, Urine Glucose (UA) Normal, Urine Ketones Negative, Urine Occult Blood 250 H, Urine Nitrite Negative, Urine Bilirubin Negative, Urine Urobilinogen 1 H, Ur Leukocyte Esterase 500 H, Urine RBC 10-25 SEEN, Urine WBC >100 SEEN, Ur Squamous Epith Cells 0 SEEN, Urine Bacteria 4+, Urine Mucus 0 SEEN 06/01/22 05:39: POC Glucose 147 H 06/01/22 06:03: WBC Cancelled, Corrected WBC Cancelled, RBC Cancelled, Hgb Cancelled, Hct Cancelled, MCV Cancelled, MCH Cancelled, MCHC Cancelled, RDW Std Deviation Cancelled, RDW Coeff of Heather Cancelled, Plt Count Cancelled, MPV Cancelled, Immature Gran % (Auto) Cancelled, Neut % (Auto) Cancelled, Lymph % (Auto) Cancelled, [place] % (Auto) Cancelled, Eos % (Auto) Cancelled, Baso % (Auto) Cancelled, Absolute Neuts (auto) Cancelled, Absolute Lymphs (auto) Cancelled, Total Counted Cancelled, Neutrophils % (Manual) Cancelled, Band Neutrophils % Cancelled, Lymphocytes % (Manual) Cancelled, Monocytes % (Manual) Cancelled, Eosinophils % (Manual) Cancelled, Basophils % (Manual) Cancelled, Metamyelocytes % Cancelled, Myelocytes % Cancelled, Promyelocytes % Cancelled, Blast Cells % Cancelled, Plasma Cell % (Manual) Cancelled, Other Cells % Cancelled, Nucleated RBC % Cancelled, Nucleated RBCs/100 WBC Cancelled, Differential Comment Cancelled, Diff Path Review Cancelled, Hypersegmented Neuts Cancelled, Atypical Lymphocytes Cancelled, Reactive Lymphocytes Cancelled, Smudge Cells Cancelled, Toxic Granulation Cancelled, Toxic Vacuolation Cancelled, Dohle Bodies Cancelled, Ros[place] Rods Cancelled, Platelet Estimate Cancelled, Plt Morphology Comment Cancelled, RBC Morphology Cancelled, Polychromasia Cancelled, Hypochromasia Cancelled, Poikilocytosis Cancelled, Basophilic Stippling Cancell ed, Anisocytosis Cancelled, Microcytosis Cancelled, Macrocytosis Cancelled, Spherocytes Cancelled, Sickle Cells Cancelled, Target Cells Cancelled, Tear Drop Cells Cancelled, Ovalocytes Cancelled, Stomatocytes Cancelled, [place] Bodies Cancelled, [place] Cells Cancelled, Bite Cells Cancelled, Crenated Cell Cancelled, Acanthocytes (Spur) Cancelled, Rouleaux Cancelled, Schistocytes Cancelled 06/01/22 06:03: Sodium 136, Potassium 4.1, Chloride 97 L, Carbon Dioxide 28.0, Anion Gap 11, BUN 25 H, Creatinine 1.40 H, Estim Creat Clear Calc 34.91, Est GFR (MDRD) Af Amer 49 L, Est GFR (MDRD) Non-Af 41 L, BUN/Creatinine Ratio 17.9, Glucose 147 H, Calcium 8.6, Total Bilirubin 0.70, AST 22, ALT 20, Alkaline Phosphatase 292 H, Total Protein 6.8, Albumin 2.4 L, Globulin 4.4 H, Albumin/Globulin Ratio 0.5 L Rhythm Strip Rhythm Strip: Sinus Tach Rate: 110 Ectopy: None Radiology Impression Chest X-Ray 06/01/22 01:34 IMPRESSION: No acute findings in the chest. Electronically Signed: Bhaskar Yadav MD at 3:14 EDT , Femur X-Ray 06/01/22 01:34 IMPRESSION: Some soft tissue swelling distally with possible ulceration. This may indicate a soft tissue infection. Electronically Signed: Bhaskar Yadav MD at 3:16 EDT , Charges/Coding Visit Charges Inpatient E&M: 35795 Init Hosp L2
[2022-06-01 08:43] LABS: Absolute Neutrophil Count 8.4 X10^3/uL (2.0-7.7); Basophil# 0.04 X10^3/uL; Basophil% 0.4 % (0-1); Eosinophil# 0.01 X10^3/uL; Eosinophils% 0.1 % (0-5); Hematocrit 28.6 % (37-47); Hemoglobin 9.4 g/dL (12.0-15.0); Lymphocyte % 7.9 % (19-41); Mean Corp Hgb Conc 32.9 g/dL (32-36); Mean Corpuscular Hgb 28.1 pg (27.0-32.0); Mean Corpuscular Volume 85.6 fL (81-99); Mean Platelet Vol. 9.1 fl (6.2-12.0); Monocyte# 0.83 X10^3/uL; Monocyte% 8.2 % (0-10); NRBC Flagged by Analyzer 0 % (0-5); Neutrophil # 8.39 X10^3/uL (2.7-7.7); Neutrophil % 82.7 % (47-70); POSITIVE MORPHOLOGY YES; Platelet Count 326 K/mm3 (150-450); RBC Distribution Width CV 21.4 % (11.6-14.6); RBC Distribution Width SD 67.1 fl (35.1-43.9); Red Blood Count 3.34 M/mm3 (4.2-5.4); White Blood Count 10.1 K/mm3 (4.4-11.0)
[2022-06-01 08:49] LABS: Differential Indicated SCAN CRITERIA MET
--- NOTE | 2022-06-01 09:00 | WOUNDNOTE ---
wound photo: left stump
[2022-06-01 09:44] LABS: Anisocytosis 1+
--- NOTE | 2022-06-01 09:49 | CASEMGMT ---
Addendum entered by Jodie Conwya 06/01/22 10:09: [facility] responded that pt is Medicaid bed hold and can return when medically ready. SW informed pt and family and completed GREEN SHEET and placed on pt chart. Original Note: Social Work SW in to pt room after being informed that pt came from SNF. SW introduced self and inquired about discharge plan. SW offered a list of SNF providers including quality and resource use data consistent with the patient?s preferred geographic region, medical needs, and insurance network from the [employer] Guide. Pt declined list, stated [facility], were pt was prior is preference. SW sent clinical updates to [facility] via [employer] and inquired about pt return. PLAN: [facility], pending approval to return SHARDA Almanza
[2022-06-01] MEDS: Montelukast 10 MG Tablet PO (10:44)
[2022-06-01] MEDS: Menthol/Lanolin/Calamine/Znox 113 GM Tube 1 APPLIC TOPICAL (10:44)
[2022-06-01] MEDS: Gabapentin 300 MG Capsule PO ×2 (10:45→18:00)
[2022-06-01] MEDS: Ferrous Sulfate 325 MG Tablet PO ×3 (10:45→18:00)
[2022-06-01] MEDS: Aspirin 81 MG TAB.CHEW PO (10:45)
[2022-06-01] MEDS: Ascorbic Acid 500 MG Tablet PO ×3 (10:45→18:00)
[2022-06-01] MEDS: Loratadine 10 MG Tablet PO (10:46)
[2022-06-01] MEDS: Metoprolol Tartrate 25 MG Tablet PO (10:46)
[2022-06-01] MEDS: amLODIPine 10 MG Tablet PO (10:46)
[2022-06-01] MEDS: Furosemide 40 MG Tablet PO (10:46)
[2022-06-01] MEDS: Pantoprazole Sodium 40 MG Tablet PO (10:47)
[2022-06-01] MEDS: Clopidogrel Bisulfate 75 MG Tablet PO (10:47)
[2022-06-01] MEDS: Insulin Glargine-YFGN 100 UNIT/ML Pen 35 UNIT SC (10:47)
[2022-06-01] MEDS: Acetaminophen 325 MG Tablet 650 MG PO (10:48)
[2022-06-01 11:05] LABS: Bedside Glucose 171 mg/dL (74-106)
[2022-06-01] MEDS: DAKIN'S SOL HALF STRENGTH (=0.25%) 1 APPLIC TOPICAL ×2 (11:11→23:00)
[2022-06-01] MEDS: Insulin Lispro 100 UNIT/ML INSULN.PEN SC ×2 (11:47→18:00)
[2022-06-01] MEDS: Glucerna Shake 120 ML LIQUID PO ×2 (12:02→18:00)
--- NOTE | 2022-06-01 14:03 | PN_ITS ---
Subjective Subjective Patient seen and examined. She denied any fever, chills, nausea or vomiting and denied any pain in her left lower extremity AKA stump. Review of systems otherwise negative. Objective Data Objective Data Vital Signs: Vital Signs Temp Pulse Resp BP Pulse Ox O2 Del Method O2 Flow Rate 102.9 F H 112 H 18 120/60 96 Nasal Cannula 2 06/01/22 09:20 06/01/22 10:46 06/01/22 09:20 06/01/22 10:46 06/01/22 09:20 06/01/22 09:20 06/01/22 09:20 Oxygen Flow Rate (L/min) 2 Oxygen Delivery Method Nasal Cannula Weight: 288 lb 2.307 oz Body Mass Index (BMI) 51.0 Intake & Output: Intake and Output for Last 24 Hours 05/30/22 05/31/22 06/01/22 23:59 23:59 23:59 Intake Total 1670 / 1670 Output Total 200 / 200 Balance 1470 / 1470 Lab / Micro Data Result Diagrams: 06/01/22 08:25 06/01/22 06:03 Labs: Laboratory Results - last 24 hr 06/01/22 02:00: WBC 12.5 H, RBC 3.52 L, Hgb 9.8 L, Hct 29.2 L, MCV 83.0 D, MCH 27.8, MCHC 33.6 D, RDW Std Deviation 63.8 H, RDW Coeff of Heather 21.6 H, Plt Count 361, MPV 9.2, Immature Gran % (Auto) 0.400, Neut % (Auto) 84.5 H, Lymph % (Auto) 7.7 L, [place] % (Auto) 6.9, Eos % (Auto) 0.1, Baso % (Auto) 0.4, Absolute Neuts (auto) 10.6 H, Absolute Lymphs (auto) 0.96, Nucleated RBC % 0, Anisocytosis 2+ 06/01/22 02:00: PT 14.9, INR 1.2, APTT 38.8 H 06/01/22 02:00: Sodium 132 L, Potassium 4.0, Chloride 94 L, Carbon Dioxide 29.0, Anion Gap 9, BUN 24 H, Creatinine 1.43 H, Estim Creat Clear Calc 34.18, Est GFR (MDRD) Af Amer 48 L, Est GFR (MDRD) Non-Af 40 L, BUN/Creatinine Ratio 16.8, Glucose 209 H, Calcium 8.9, Total Bilirubin 0.80, AST 16, ALT 22, Alkaline Phosphatase 289 H, Total Protein 7.6, Albumin 2.6 L, Globulin 5.0 H, Albumin/Globulin Ratio 0.5 L 06/01/22 02:00: Lactic Acid 1.8 06/01/22 02:00: Magnesium 0.9 L* 06/01/22 02:15: S.aureus Protein A PCR POSITIVE H, MRSA (PCR) POSITIVE H 06/01/22 03:45: Urine Color Yellow, Urine Clarity Turbid, Urine pH 5.0, Ur Specific [place] 1.015, Urine Protein 100 H, Urine Glucose (UA) Normal, Urine Ketones Negative, Urine Occult Blood 250 H, Urine Nitrite Negative, Urine Bilirubin Negative, Urine Urobilinogen 1 H, Ur Leukocyte Esterase 500 H, Urine RBC 10-25 SEEN, Urine WBC >100 SEEN, Ur Squamous Epith Cells 0 SEEN, Urine Bacteria 4+, Urine Mucus 0 SEEN 06/01/22 05:39: POC Glucose 147 H 06/01/22 06:03: WBC Cancelled, Corrected WBC Cancelled, RBC Cancelled, Hgb Cancelled, Hct Cancelled, MCV Cancelled, MCH Cancelled, MCHC Cancelled, RDW Std Deviation Cancelled, RDW Coeff of Heather Cancelled, Plt Count Cancelled, MPV C an[place], Immature Gran % (Auto) Cancelled, Neut % (Auto) Cancelled, Lymph % (Auto) Cancelled, [place] % (Auto) Cancelled, Eos % (Auto) Cancelled, Baso % (Auto) Cancelled, Absolute Neuts (auto) Cancelled, Absolute Lymphs (auto) Cancelled, Total Counted Cancelled, Neutrophils % (Manual) Cancelled, Band Neutrophils % Cancelled, Lymphocytes % (Manual) Cancelled, Monocytes % (Manual) Cancelled, Eosinophils % (Manual) Cancelled, Basophils % (Manual) Cancelled, Metamyelocytes % Cancelled, Myelocytes % Cancelled, Promyelocytes % Cancelled, Blast Cells % Cancelled, Plasma Cell % (Manual) Cancelled, Other Cells % Cancelled, Nucleated RBC % Cancelled, Nucleated RBCs/100 WBC Cancelled, Differential Comment Cancelled, Diff Path Review Cancelled, Hypersegmented Neuts Cancelled, Atypical Lymphocytes Cancelled, Reactive Lymphocytes Cancelled, Smudge Cells Cancelled, Toxic Granulation Cancelled, Toxic Vacuolation Cancelled, Dohle Bodies Cancelled, Rosendo Rods Cancelled, Platelet Estimate Cancelled, Plt Morphology Comment Cancelled, RBC Morphology Cancelled, Polychromasia Cancelled, Hypochromasia Cancelled, Poikilocytosis Cancelled, Basophilic Stippling Cancelled, Anisocytosis Cancelled, Microcytosis Cancelled, Macrocytosis Cancelled, Spherocytes Cancelled, Sickle Cells Cancelled, Target Cells Cancell ed, Tear Drop Cells Cancelled, Ovalocytes Cancelled, Stomatocytes Cancelled, [place] Bodies Cancelled, [place] Cells Cancelled, Bite Cells Cancelled, Crenated Cell Cancelled, Acanthocytes (Spur) Cancelled, Rouleaux Cancelled, Schistocytes Cancelled 06/01/22 06:03: Sodium 136, Potassium 4.1, Chloride 97 L, Carbon Dioxide 28.0, Anion Gap 11, BUN 25 H, Creatinine 1.40 H, Estim Creat Clear Calc 34.91, Est GFR (MDRD) Af Amer 49 L, Est GFR (MDRD) Non-Af 41 L, BUN/Creatinine Ratio 17.9, Glucose 147 H, Calcium 8.6, Total Bilirubin 0.70, AST 22, ALT 20, Alkaline Phosphatase 292 H, Total Protein 6.8, Albumin 2.4 L, Globulin 4.4 H, Albumin/Globulin Ratio 0.5 L 06/01/22 08:25: WBC 10.1, RBC 3.34 L, Hgb 9.4 L, Hct 28.6 L, MCV 85.6, MCH 28.1, MCHC 32.9, RDW Std Deviation 67.1 H, RDW Coeff of Heather 21.4 H, Plt Count 326, MPV 9.1, Immature Gran % (Auto) 0.700, Neut % (Auto) 82.7 H, Lymph % (Auto) 7.9 L, [place] % (Auto) 8.2, Eos % (Auto) 0.1, Baso % (Auto) 0.4, Absolute Neuts (auto) 8.4 H, Absolute Lymphs (auto) 0.80 L, Nucleated RBC % 0, Anisocytosis 1+ 06/01/22 10:33: POC Glucose 171 H Micro: Microbiology 03/22/23 02:15 Wound - Knee Gram Stain - Final Radiography Diagnostic Testing: Radiology Impression Chest X-Ray 06/01/22 01:34 IMPRESSION: No acute findings in the chest. Electronically Signed: Bhaskar Yadav MD at 3:14 EDT Reading Location ID and State: [facility] / [place] Tel , Service support , Femur X-Ray 06/01/22 01:34 IMPRESSION: Some soft tissue swelling distally with possible ulceration. This may indicate a soft tissue infection. Electronically Signed: Bhaskar Yadav MD at 3:16 EDT Reading Location ID and State: [facility] / [place] Tel , Service support , Rhythm Strip Rhythm Strip: Sinus Tach Rate: 110 Ectopy: None Physical Exam Const alert and oriented x3 HEENT normocephalic and moist oral mucous membranes Eyes PERRL and EOMs intact bilaterally Neck supple and no JVD Lymph Lymphatic: no lymphadenopathy noted Resp normal respiratory effort, normal air movement and clear to auscultation bilaterally Cardio regular rhythm, S1 normal heart sound, S2 normal heart sound and no murmurs Cardio Narrative: tachycardic Palpation: normal PMI GI normal to inspection, nondistended, normoactive bowel sounds, soft to palpation, non-tender and non-distended Extremity normal capillary refill and no clubbing, cyanosis or edema Extremity Narrative: left AKA stump is clean. Skin General Skin Exam: no breakdown Neuro CN's II-XII intact bilaterally and no focal motor deficits Motor Exam: strength 5/5 throughout Psych thought process normal Appearance: appropriate Assessment & Plan Assessment/Plan (1) Encephalopathy acute: (2) Postoperative wound infection: PLAN: Plan #LLE stump infection * Patient had left AKA due to diabetic foot wound and associated osteomyelitis in April 2022. She was discharged to SNF from where she presented with re ported encephalopathy. This had improved by the time she came in. * Patient noted to be having increased discharge from the left stump as well. * Wound PCR growing Staph aureus. * On IV vancomycin and ceftriaxone. * Vascular surgery consulted * MRSA PCR positive. Will await blood cultures * consult ID * get 2D echo * #UTI: Urinalysis showed 4+ bacteria. Urine cultures ordered. on IV ceftriaxone #CAD * Was recently treated for non-STEMI. Cardiac cath showed mild nonobstructive disease. Medical therapy recommended. * On aspirin and Plavix as well as metoprolol. * Has known EF of 50%. * #STEPHY: Creatinine is 1.4. Baseline creatinine is around 0.9. Will hydrate gently with fluids and monitor. 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 On Trulicity. Accu-Cheks ACHS. On gabapentin for neuropathy. #Chronic hypoxic respiratory failure due to COPD: On 2 to 3 L of oxygen. #Hypertension: On amlodipine and metoprolol as well as Lasix #Hypomagnesemia: Magnesium 0.9. Will replace aggressively and trend. #Hyperlipidemia: On statin DVT prophylaxis: Lovenox Charges/Coding Visit Charges Inpatient E&M: 33027 Subs Hosp L3
[2022-06-01] MEDS: Nystatin Powder 15gm Bottle 1 APPLIC TOPICAL (14:47)
[2022-06-01] MEDS: Juven (unflavored) Packet 1 PACKET PO (18:00)
[2022-06-01 20:36] LABS: Bedside Glucose 152 mg/dL (74-106)
--- NOTE | 2022-06-01 20:56 | CPS ---
Pt refuses PAP at this time
--- NOTE | 2022-06-01 21:15 | NURSING ---
This nurse assumed care of patient at 2114.
[2022-06-01] MEDS: Ceftriaxone 1 GM/50 ML BAG IV (23:59)
[2022-06-02] VITALS (9 sets, daily range): BP systolic 114–131; BP diastolic 48–78; PULSE 75–98; RESP 16–20; TEMP 36.6–37.1; O2SAT 94–96; BMI 51.9
[2022-06-02] MEDS: Menthol/Lanolin/Calamine/Znox 113 GM Tube 1 APPLIC TOPICAL ×3 (00:01→22:27)
[2022-06-02] MEDS: Nystatin Powder 15gm Bottle 1 APPLIC TOPICAL ×4 (00:02→22:27)
[2022-06-02] MEDS: oxyCODONE 5 MG Tablet PO ×3 (00:03→16:08)
[2022-06-02 01:21] LABS: Bedside Glucose 128 mg/dL (74-106)
[2022-06-02] MEDS: 0.9% Normal Saline 1,000 ML 125 ML IV ×3 (06:03→23:23)
[2022-06-02 07:10] LABS: Bedside Glucose 113 mg/dL (74-106)
[2022-06-02 07:16] LABS: Absolute Lymphocyte Count 1.45 X10^3/uL (0.83-4.51); Basophil# 0.04 X10^3/uL; Basophil% 0.4 % (0-1); Eosinophil# 0.11 X10^3/uL; Eosinophils% 1.1 % (0-5); Hematocrit 25.8 % (37-47); Hemoglobin 8.1 g/dL (12.0-15.0); Lymphocyte # 1.45 X10^3/ul (0.83-4.51); Lymphocyte % 14.2 % (19-41); Mean Corp Hgb Conc 31.4 g/dL (32-36); Mean Corpuscular Hgb 27.3 pg (27.0-32.0); Mean Corpuscular Volume 86.9 fL (81-99); Mean Platelet Vol. 9.7 fl (6.2-12.0); Monocyte# 0.59 X10^3/uL; Monocyte% 5.8 % (0-10); NRBC Flagged by Analyzer 0 % (0-5); Neutrophil # 7.95 X10^3/uL (2.7-7.7); Neutrophil % 77.5 % (47-70); POSITIVE MORPHOLOGY YES; Platelet Count 319 K/mm3 (150-450); RBC Distribution Width CV 21.3 % (11.6-14.6); RBC Distribution Width SD 67.2 fl (35.1-43.9); Red Blood Count 2.97 M/mm3 (4.2-5.4); White Blood Count 10.2 K/mm3 (4.4-11.0)
[2022-06-02 07:44] LABS: Anion Gap 8 (5-15); BUN 29 mg/dL (7-18); BUN/Creat Ratio 21.3 RATIO (10-20); Calcium,Total 8.3 mg/dL (8.5-10.1); Chloride 99 mmol/L (98-107); Creatinine, Serum 1.36 mg/dL (0.55-1.02); EST Glomerular Filtration Rate 42 mL/min (>60); Est Glom Filt Rate - Afr Amer 51 mL/min (>60); Estimated Creatinine Clearance 35.93 ml/min; Glucose 116 mg/dL (74-106); Potassium 3.6 mmol/L (3.5-5.1); Sodium Level 136 mmol/L (136-145)
[2022-06-02 08:10] LABS: Differential Indicated SCAN CRITERIA MET
[2022-06-02 08:18] LABS: Differential Comment SCANNED
[2022-06-02] MEDS: DAKIN'S SOL HALF STRENGTH (=0.25%) 1 APPLIC TOPICAL ×2 (08:32→22:30)
--- NOTE | 2022-06-02 09:05 | PCM.PN.SRG ---
Subjective Subjective Patient reports she had a better night last night. She says overall she is feeling much better than she had been. Pain in her L AKA stump is improving. She was also noted to have signs of UTI, cultures pending. She is more alert and interactive this morning compared to yesterday. Today she is able to tell me that she really started to feel badly Monday and felt progressively worse through Monday night before presenting to ER. She says she was having increasing pain in her L amputation stump at that time, up to 10/10 pain. She also tells me she was having a lot of burning and pain with urination. She was feeling fevered, chilled, and nauseous as well. Objective Data Objective Data Vital Signs: Vital Signs Temp Pulse Resp BP Pulse Ox O2 Del Method O2 Flow Rate 98 F 75 16 114/52 L 96 Nasal Cannula 2 06/02/22 05:00 06/02/22 05:00 06/02/22 05:00 06/02/22 05:00 06/02/22 07:25 06/02/22 07:25 06/02/22 07:25 Oxygen Flow Rate (L/min) 2 Oxygen Delivery Method Nasal Cannula Weight: 293 lb 3.437 oz Body Mass Index (BMI) 51.9 Intake & Output: Intake and Output for Last 24 Hours 05/31/22 06/01/22 06/02/22 23:59 23:59 23:59 Intake Total 4665 / 4665 1233.33 / 1233.33 Output Total 700 / 1100 600 / 600 Balance 3965 / 3565 633.33 / 633.33 Lab / Micro Data Result Diagrams: 06/02/22 06:05 06/02/22 06:05 Labs: Laboratory Results - last 24 hr 06/01/22 08:25: Anisocytosis 1+ 06/01/22 10:33: POC Glucose 171 H 06/01/22 17:07: POC Glucose 152 H 06/01/22 23:57: POC Glucose 128 H 06/02/22 06:02: POC Glucose 113 H 06/02/22 06:05: Sodium 136, Potassium 3.6, Chloride 99, Carbon Dioxide 29.0, Anion Gap 8, BUN 29 H, Creatinine 1.36 H, Estim Creat Clear Calc 35.93, Est GFR (MDRD) Af Amer 51 L, Est GFR (MDRD) Non-Af 42 L, BUN/Creatinine Ratio 21.3 H, Glucose 116 H, Calcium 8.3 L, Magnesium 2.0 06/02/22 06:05: WBC 10.2, RBC 2.97 L, Hgb 8.1 L, Hct 25.8 L, MCV 86.9, MCH 27.3, MCHC 31.4 L, RDW Std Deviation 67.2 H, RDW Coeff of Heather 21.3 H, Plt Count 319, MPV 9.7, Immature Gran % (Auto) 1.000 H, Neut % (Auto) 77.5 H, Lymph % (Auto) 14.2 L, [place] % (Auto) 5.8, Eos % (Auto) 1.1, Baso % (Auto) 0.4, Absolute Neuts (auto) 8.0 H, Absolute Lymphs (auto) 1.45, Nucleated RBC % 0, Differential Comment SCANNED Micro: Microbiology 06/01/22 02:15 Wound - Knee Gram Stain - Final Rhythm Strip Rhythm Strip: Sinus Tach Rate: 110 Ectopy: None Physical Exam Const alert and oriented x3 General Appearance: cooperative HEENT normocephalic, head/scalp atraumatic, hearing grossly normal bilaterally and external ears normal Eyes Eyes Narrative: Patient is legally blind General Eye: normal appearance of both eyes Neck full ROM General: normal visual inspection and trachea midline Resp normal respiratory effort, normal air movement, no retractions and no use of accessory muscles Effort and Inspection: able to speak in complete sentences and symmetric chest movement; Negative for respiratory distress, pursed lip breathing, labored, stridor, retractions or audible wheezes Cardio regular rate and regular rhythm Extremity Extremity Narrative: L AKA stump with medial aspect intact and well-healed. Midline portion of the wound had some blistering yesterday, today with a small opening and now draining salmon-colored fluid, no purulence noted. Today tracks about 7cm in. No surrounding erythema/focal swelling/palpable fluctuance. Lateral aspect of the incision is open (as it has been since surgery), no purulent drainage noted today, some adherent necrotic fat tissue; however, good pink granulation tissue at the base and depth of wound improving with no tracking. Neuro oriented x3, CN's II-XII intact bilaterally, moves all extremities, no focal motor deficits and no sensory deficits noted Psych mental status grossly normal, thought process normal, cooperative, affect normal, speech normal and activity/motor behavior normal Assessment & Plan Assessment/Plan (1) Status post above-knee amputation of left lower extremity: (2) Postoperative wound infection: PLAN: Plan Seems she also has UTI (culture growing GNR) in addition to L AKA stump wound (growing staph spec and GBS), sensitivities for both pending, still on vanco and ceftriaxone for now. Patient has been hemodynamically stable, fever seems to be improving, she is feeling better overall. Continue with dakins-soaked gauze dressing to lateral open portion and pack small midline opening with iodoform to wick drainage, change dressings twice daily or more often as needed to keep clean and dry. Will continue to follow. Charges/Coding Visit Charges Inpatient E&M: 63416 Subs Hosp L1
[2022-06-02] MEDS: Gabapentin 300 MG Capsule PO ×2 (10:12→16:25)
[2022-06-02] MEDS: Ascorbic Acid 500 MG Tablet PO ×3 (10:12→16:36)
[2022-06-02] MEDS: Polyethylene Glycol 3350 17 GM PACKET PO (10:12)
[2022-06-02] MEDS: Ferrous Sulfate 325 MG Tablet PO ×3 (10:13→16:36)
[2022-06-02] MEDS: Aspirin 81 MG TAB.CHEW PO (10:13)
[2022-06-02] MEDS: Clopidogrel Bisulfate 75 MG Tablet PO (10:14)
[2022-06-02] MEDS: Loratadine 10 MG Tablet PO (10:14)
[2022-06-02] MEDS: Juven (unflavored) Packet 1 PACKET PO ×2 (10:14→16:25)
[2022-06-02] MEDS: Pantoprazole Sodium 40 MG Tablet PO (10:14)
[2022-06-02] MEDS: Furosemide 40 MG Tablet PO (10:15)
[2022-06-02] MEDS: Senna/Docusate Sodium 1 Tablet 2 TABLET PO (10:15)
[2022-06-02] MEDS: Enoxaparin 40 MG/0.4 ML Syringe SC (10:19)
[2022-06-02] MEDS: amLODIPine 10 MG Tablet PO (10:22)
[2022-06-02] MEDS: Metoprolol Tartrate 25 MG Tablet PO ×3 (10:22→22:59)
[2022-06-02] MEDS: Montelukast 10 MG Tablet PO (10:23)
--- NOTE | 2022-06-02 11:47 | PN_ITS ---
Subjective Subjective Patient seen and examined. She says she is feeling better today. She has no active complaints and had an uneventful night. Review of systems otherwise negative. She has remained hemodynamically stable. Objective Data Objective Data Vital Signs: Vital Signs Temp Pulse Resp BP Pulse Ox O2 Del Method O2 Flow Rate 98.7 F 91 20 H 119/48 L 96 Nasal Cannula 2 06/02/22 09:49 06/02/22 10:22 06/02/22 09:49 06/02/22 09:49 06/02/22 09:49 06/02/22 09:49 06/02/22 10:37 Oxygen Flow Rate (L/min) 2 Oxygen Delivery Method Nasal Cannula Weight: 293 lb 3.437 oz Body Mass Index (BMI) 51.9 Intake & Output: Intake and Output for Last 24 Hours 05/31/22 06/01/22 06/02/22 23:59 23:59 23:59 Intake Total 4665 / 4665 1233.33 / 1233.33 Output Total 700 / 1100 600 / 600 Balance 3965 / 3565 633.33 / 633.33 Lab / Micro Data Result Diagrams: 06/02/22 06:05 06/02/22 06:05 Labs: Laboratory Results - last 24 hr 06/01/22 17:07: POC Glucose 152 H 06/01/22 23:57: POC Glucose 128 H 06/02/22 06:02: POC Glucose 113 H 06/02/22 06:05: Sodium 136, Potassium 3.6, Chloride 99, Carbon Dioxide 29.0, Anion Gap 8, BUN 29 H, Creatinine 1.36 H, Estim Creat Clear Calc 35.93, Est GFR (MDRD) Af Amer 51 L, Est GFR (MDRD) Non-Af 42 L, BUN/Creatinine Ratio 21.3 H, Glucose 116 H, Calcium 8.3 L, Magnesium 2.0 06/02/22 06:05: WBC 10.2, RBC 2.97 L, Hgb 8.1 L, Hct 25.8 L, MCV 86.9, MCH 27.3, MCHC 31.4 L, RDW Std Deviation 67.2 H, RDW Coeff of Heather 21.3 H, Plt Count 319, MPV 9.7, Immature Gran % (Auto) 1.000 H, Neut % (Auto) 77.5 H, Lymph % (Auto) 14.2 L, [place] % (Auto) 5.8, Eos % (Auto) 1.1, Baso % (Auto) 0.4, Absolute Neuts (auto) 8.0 H, Absolute Lymphs (auto) 1.45, Nucleated RBC % 0, Differential Comment SCANNED Micro: Microbiology 06/01/22 02:15 Wound - Knee Gram Stain - Final 06/01/22 02:15 Wound - Knee Wound Culture - Preliminary Staphylococcus species Beta streptococcus 06/01/22 03:45 Urine, Catheterized Urine Culture - Preliminary GNR 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 Rhythm Strip Rhythm Strip: Sinus Tach Rate: 110 Ectopy: None Physical Exam Const alert and oriented x3 HEENT normocephalic, moist oral mucous membranes and oropharynx normal Eyes PERRL and EOMs intact bilaterally Neck supple and no JVD Lymph Lymphatic: no lymphadenopathy noted and no lymphedema noted Resp normal respiratory effort, normal air movement and clear to auscultation bilaterally Cardio regular rate, regular rhythm, S1 normal heart sound, S2 normal heart sound and no murmurs Palpation: normal PMI GI normal to inspection, nondistended, normoactive bowel sounds, soft to palpation, non-tender and non-distended Extremity normal capillary refill and no clubbing, cyanosis or edema Extremity Narrative: left AKA stump dressing intact Skin General Skin Exam: no breakdown Neuro CN's II-XII intact bilaterally and no focal motor deficits Motor Exam: strength 5/5 throughout Psych thought process normal and cooperative Appearance: appropriate Assessment & Plan Assessment/Plan (1) Encephalopathy acute: (2) Postoperative wound infection: PLAN: Plan #LLE stump infection * Patient had left AKA due to diabetic foot wound and associated osteomyelitis in April 2022. She was discharged to SNF from where she presented with reported encephalopathy. This had improved by the time she came in. * Patient noted to be having increased discharge from the left stump as well. * blood PCR growing Staph aureus. * On IV vancomycin and ceftriaxone. * Vascular surgery consulted * MRSA PCR positive. Will await blood cultures * consult ID * Wound culture growing Staphylococcus species and beta Streptococcus * #UTI: Urinalysis showed 4+ bacteria. on IV ceftriaxone. 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 #CAD * Was recently treated for non-STEMI. Cardiac cath showed mild nonobstructive disease. Medical therapy recommended. * On aspirin and Plavix as well as metoprolol. * Has known EF of 50%. * #STEPHY: Creatinine is 1.4. Baseline creatinine is around 0.9. Will hydrate gently with fluids and monitor. 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 On Trulicity. Accu-Cheks ACHS. On gabapentin for neuropathy. #Chronic hypoxic respiratory failure due to COPD: On 2 to 3 L of oxygen. #Hypertension: On amlodipine and metoprolol as well as Lasix #Hypomagnesemia: resolved. #Hyperlipidemia: On statin DVT prophylaxis: Lovenox Charges/Coding Visit Charges Inpatient E&M: 37057 Subs Hosp L2
[2022-06-02 12:25] LABS: Bedside Glucose 255 mg/dL (74-106)
[2022-06-02] MEDS: Insulin Lispro 100 UNIT/ML INSULN.PEN SC ×3 (12:47→23:20)
[2022-06-02] MEDS: Glucerna Shake 120 ML LIQUID PO ×2 (12:47→16:14)
[2022-06-02] MEDS: Insulin Glargine-YFGN 100 UNIT/ML Pen 35 UNIT SC (12:48)
--- NOTE | 2022-06-02 13:25 | CASEMGMT ---
Addendum entered by Catherine Vazquez 06/02/22 13:31: A list of SNF providers including quality and resource use data and consistent with the patient?s preferred geographic region, medical needs, and insurance network were provided to the pt from the [facility] Guide. SHARDA Penny Original Note: Social Work SW received message from pt dgt Jami stating that pt has not received good care at [facility] and does not want her to return. Jami inquiring about TCU and SW explained that this is not in network with pt insurance. A list of SNF providers including quality and resource use data and consistent with the patient?s preferred geographic region, medical needs, and insurance network were provided via the [facility] Guide Link. Dgt preferred provider is 1. [facility] 2. [facility]. [facility]. SW met with pt to discuss discharge plan. Pt is tearful throughout conversation while discussing care received at [facility]. SW discussed options of returning to [facility] or changing facilities. SW also informed pt about [facility] Care Ombudsman and offered to give her phone number to call. Pt uncertain what to do at this time and requesting that SW contact [employer] operations manager Brittany Gunderson. VM left for Brittany and SW requested pt consider options for discharge planning. SW will await return call from Brittany and then followup with pt. SHARDA Penny
[2022-06-02 16:13] LABS: Vancomycin, Trough Level 23.6 ug/mL (5.0-15.0)
--- NOTE | 2022-06-02 16:26 | PCM.RX.CS ---
Consult Pharmacy has been consulted to manage selected antiobiotic: Vancomycin Type of Consult: Follow-up Prior Doses of Antibiotics Received/Current Regimen: Currently on 1250mg iv q12h. Labs: Sodium 136 mmol/L (136-145) 06/02/22 06:05 Potassium 3.6 mmol/L (3.5-5.1) 06/02/22 06:05 Chloride 99 mmol/L (98-107) 06/02/22 06:05 Carbon Dioxide 29.0 mmol/L (21.0-32.0) 06/02/22 06:05 Anion Gap 8 (5-15) 06/02/22 06:05 BUN 29 mg/dL (7-18) H 06/02/22 06:05 Creatinine 1.36 mg/dL (0.55-1.02) H 06/02/22 06:05 Est GFR (MDRD) Af Amer 51 mL/min (>60) L 06/02/22 06:05 Est GFR (MDRD) Non-Af 42 mL/min (>60) L 06/02/22 06:05 BUN/Creatinine Ratio 21.3 RATIO (10-20) H 06/02/22 06:05 Glucose 116 mg/dL (74-106) H 06/02/22 06:05 Vancomycin Trough 23.6 ug/mL (5.0-15.0) H 06/02/22 14:57 Microbiology: Microbiology 06/01/22 02:15 Wound - Knee Gram Stain - Final 06/01/22 02:15 Wound - Knee Wound Culture - Preliminary Staphylococcus species Beta streptococcus 06/01/22 03:45 Urine, Catheterized Urine Culture - Preliminary GNR lactose accounts receivable supervisor Weight used for dosin kg Estimated Creatinine Clearance: 58 ml/min Goal Trough: 15-20 mcg/mL Pharmacy Plan for Drug Dosing: Trough level today ~10.5hrs post dose was high at @23.6. CrCl calculated to be ~58ml/min using an adjusted body weight of 84.6kg. Will hold further dosing for now. Random level ordered for AM. Will determine new dosing when level <20. Pharmacy Service will continue to monitor and adjust dosing as required. Follow-Up Labs: Trough Vancomycin - random level 3.24.23 @0600
[2022-06-02 17:20] LABS: Bedside Glucose 226 mg/dL (74-106)
[2022-06-02] MEDS: MELATONIN 3 MG TABLET PO (22:25)
[2022-06-02] MEDS: Acetaminophen 325 MG Tablet 650 MG PO ×2 (22:25)
[2022-06-02] MEDS: Ceftriaxone 1 GM/50 ML BAG IV (22:26)
[2022-06-02] MEDS: Atorvastatin Calcium 40 MG Tablet PO ×2 (22:59)
[2022-06-02] MEDS: Nortriptyline 10 MG Capsule 20 MG PO ×2 (23:00)
[2022-06-02] MEDS: 0.9% Saline Lock 10 ML Syringe IV (23:23)
[2022-06-02 23:56] LABS: Bedside Glucose 152 mg/dL (74-106)
[2022-06-03] VITALS (7 sets, daily range): BP systolic 116–133; BP diastolic 52–65; PULSE 70–86; RESP 16–18; TEMP 36.4–36.6; O2SAT 94–97; BMI 52.8
[2022-06-03] MEDS: oxyCODONE 5 MG Tablet PO ×2 (01:28→18:36)
[2022-06-03] MEDS: 0.9% Normal Saline 1,000 ML 125 ML IV ×2 (06:34→13:59)
[2022-06-03] MEDS: Nystatin Powder 15gm Bottle 1 APPLIC TOPICAL ×2 (06:35→11:42)
[2022-06-03 06:42] LABS: Absolute Lymphocyte Count 1.41 X10^3/uL (0.83-4.51); Absolute Neutrophil Count 5.4 X10^3/uL (2.0-7.7); Basophil# 0.03 X10^3/uL; Basophil% 0.4 % (0-1); Eosinophil# 0.21 X10^3/uL; Eosinophils% 2.8 % (0-5); Hematocrit 26.5 % (37-47); Hemoglobin 8.3 g/dL (12.0-15.0); Lymphocyte # 1.41 X10^3/ul (0.83-4.51); Lymphocyte % 18.7 % (19-41); Mean Corp Hgb Conc 31.3 g/dL (32-36); Mean Corpuscular Hgb 27.1 pg (27.0-32.0); Mean Corpuscular Volume 86.6 fL (81-99); Mean Platelet Vol. 9.5 fl (6.2-12.0); Monocyte# 0.45 X10^3/uL; NRBC Flagged by Analyzer 0 % (0-5); Neutrophil # 5.36 X10^3/uL (2.7-7.7); POSITIVE MORPHOLOGY YES; Platelet Count 320 K/mm3 (150-450); RBC Distribution Width CV 20.9 % (11.6-14.6); RBC Distribution Width SD 65.5 fl (35.1-43.9); Red Blood Count 3.06 M/mm3 (4.2-5.4); White Blood Count 7.5 K/mm3 (4.4-11.0)
[2022-06-03 06:44] LABS: Anion Gap 7 (5-15); BUN 30 mg/dL (7-18); BUN/Creat Ratio 24.6 RATIO (10-20); Calcium,Total 8.4 mg/dL (8.5-10.1); Chloride 105 mmol/L (98-107); Creatinine, Serum 1.22 mg/dL (0.55-1.02); EST Glomerular Filtration Rate 48 mL/min (>60); Est Glom Filt Rate - Afr Amer 58 mL/min (>60); Estimated Creatinine Clearance 40.06 ml/min; Glucose 118 mg/dL (74-106); Potassium 3.4 mmol/L (3.5-5.1); Sodium Level 139 mmol/L (136-145)
[2022-06-03 06:46] LABS: Differential Indicated SCAN CRITERIA MET
[2022-06-03 06:47] LABS: Vancomycin, Random Level 14.5 ug/mL (0.0-15.0)
[2022-06-03 07:15] LABS: Bedside Glucose 109 mg/dL (74-106)
[2022-06-03 08:03] LABS: Anisocytosis 1+
[2022-06-03] MEDS: Polyethylene Glycol 3350 17 GM PACKET PO (08:21)
[2022-06-03] MEDS: Potassium Chloride Oral Tablet 20 MEQ 40 MEQ PO (08:21)
[2022-06-03] MEDS: Glucerna Shake 120 ML LIQUID PO ×3 (08:22→17:02)
[2022-06-03] MEDS: Aspirin 81 MG TAB.CHEW PO (08:22)
[2022-06-03] MEDS: Ferrous Sulfate 325 MG Tablet PO ×3 (08:22→17:02)
[2022-06-03] MEDS: Juven (unflavored) Packet 1 PACKET PO ×2 (08:22→17:02)
[2022-06-03] MEDS: Loratadine 10 MG Tablet PO (08:23)
[2022-06-03] MEDS: Furosemide 40 MG Tablet PO (08:23)
[2022-06-03] MEDS: Ascorbic Acid 500 MG Tablet PO ×3 (08:23→17:02)
[2022-06-03] MEDS: DAKIN'S SOL HALF STRENGTH (=0.25%) 1 APPLIC TOPICAL (08:23)
[2022-06-03] MEDS: Metoprolol Tartrate 25 MG Tablet PO (08:23)
[2022-06-03] MEDS: amLODIPine 10 MG Tablet PO (08:24)
[2022-06-03] MEDS: Clopidogrel Bisulfate 75 MG Tablet PO (08:24)
[2022-06-03] MEDS: Enoxaparin 40 MG/0.4 ML Syringe SC (08:24)
[2022-06-03] MEDS: Montelukast 10 MG Tablet PO (08:24)
[2022-06-03] MEDS: Pantoprazole Sodium 40 MG Tablet PO (08:24)
[2022-06-03] MEDS: Menthol/Lanolin/Calamine/Znox 113 GM Tube 1 APPLIC TOPICAL (08:25)
[2022-06-03] MEDS: Gabapentin 300 MG Capsule PO ×2 (08:32→17:02)
--- NOTE | 2022-06-03 08:45 | PCM.RX.CS ---
Consult Pharmacy has been consulted to manage selected antiobiotic: Vancomycin Type of Consult: Follow-up Prior Doses of Antibiotics Received/Current Regimen: the patient had been on vanc 1250mg q12h until it was held yesterday due to a high trough Labs: Sodium 139 mmol/L (136-145) 06/03/22 06:18 Potassium 3.4 mmol/L (3.5-5.1) L 06/03/22 06:18 Chloride 105 mmol/L (98-107) 06/03/22 06:18 Carbon Dioxide 27.0 mmol/L (21.0-32.0) 06/03/22 06:18 Anion Gap 7 (5-15) 06/03/22 06:18 BUN 30 mg/dL (7-18) H 06/03/22 06:18 Creatinine 1.22 mg/dL (0.55-1.02) H 06/03/22 06:18 Est GFR (MDRD) Af Amer 58 mL/min (>60) L 06/03/22 06:18 Est GFR (MDRD) Non-Af 48 mL/min (>60) L 06/03/22 06:18 BUN/Creatinine Ratio 24.6 RATIO (10-20) H 06/03/22 06:18 Glucose 118 mg/dL (74-106) H 06/03/22 06:18 Vancomycin Trough 23.6 ug/mL (5.0-15.0) H 06/02/22 14:57 Random Vancomycin 14.5 ug/mL (0.0-15.0) 06/03/22 06:18 Microbiology: Microbiology 06/01/22 02:15 Wound - Knee Gram Stain - Final 06/01/22 02:15 Wound - Knee Wound Culture - Preliminary Staphylococcus aureus Beta streptococcus 06/01/22 03:45 Urine, Catheterized Urine Culture - Final Klebsiella pneumoniae sp pneum Weight used for dosin.2 kg Estimated Creatinine Clearance: 65 ml/min Goal Trough: 15-20 mcg/mL Pharmacy Plan for Drug Dosing: The vanc random level drawn at 06:18 this morning was 14.5. Since it is back below 20, kingsley resume dosing at a newly calculated dose of 750mg IV q12h. This is also the dose the patient had most recently been on during another admission about a month ago. Will check a trough before the 4th dose. The patient's CrCl of 65 ml/min was calculated using an adjusted body weight. Pharmacy Service will continue to monitor and adjust dosing as required. Follow-Up Labs: Trough Vancomycin Labs to be done on [date and time ordered]: 06/04/22 19:30
--- NOTE | 2022-06-03 10:04 | CASEMGMT ---
Addendum entered by Catherine Vazquez 06/03/22 17:36: Discharge information and change of nursing facility faxed to [facility] occupational health and safety manager SHARDA Spence Addendum entered by Catherine Vazquez 06/03/22 17:30: No return calls from [facility]. [facility] is able to accept pt. SW submitted for new Level of Care and it was obtained. Physician updated and pt to discharge today. SW met with pt and updated on discharge plan and pt is agreeable. Phone call to pt dgt and she is agreeable to d/c to [facility] today. Transportation arranged with [facility] for 7:30 picker and packer via [facility]. [facility], LOC, Discharge orders and covid results sent to [facility] via [facility]. Pt, pt dgt, nursing and [facility] updated on discharge time. SW emailed pt's dgt information on [facility] program and [facility] care Ombudsman program per her request. Plan: [facility], intermediate level of care SHARDA Penny Original Note: Social Work SW spoke with Brittany Gunderson [facility] occupational health and safety manager. Pt would like to use the [facility] program and this is pts current concern. SW spoke with [facility] program and confirmed pt can change facilities and continue with this program. SW updated pt. SW met with pt to discuss discharge plan. Pt states she has talked to her daughter and they are both in agreement that pt will not return to [facility]. Pt choices are 1. [facility] 2. [facility]. Referral has been sent to [facility] yesterday with no reply. Phone call to [facility] and admissions is out today but information receptionist states she will have Taylor call this SW. Phone call to Daphne at the [facility]. They do have beds available. Referral sent. SW to continue to follow for discharge planning. [facility] updated and SW requested [facility] be sent to this SW to obtain Level of Care. Plan: [facility] vs [facility], pending acceptance and new Level of Care SHARDA Penny
[2022-06-03] MEDS: Insulin Glargine-YFGN 100 UNIT/ML Pen 35 UNIT SC (11:37)
[2022-06-03] MEDS: Insulin Lispro 100 UNIT/ML INSULN.PEN SC ×2 (11:39→17:01)
[2022-06-03 12:11] LABS: Bedside Glucose 167 mg/dL (74-106)
--- NOTE | 2022-06-03 12:27 | PN.SURG_ITS ---
Subjective Subjective Patient says her leg was bothering her a bit last night, she felt like maybe the dressing was a little tighter than usual, but otherwise the pain has been better. She denies chills, N/V today. She has been hemodynamically stable, no fever for the last 24 hours. She is still on IV vanco and ceftriaxone for both wound infection and UTI, ID consult has been placed. Objective Data Objective Data Vital Signs: Vital Signs Temp Pulse Resp BP Pulse Ox O2 Del Method O2 Flow Rate 97.5 F L 78 18 125/61 H 97 Room Air 2 06/03/22 08:18 06/03/22 08:23 06/03/22 08:18 06/03/22 08:23 06/03/22 08:18 06/03/22 08:18 06/02/22 10:37 Oxygen Flow Rate (L/min) 2 Oxygen Delivery Method Room Air Weight: 298 lb 1.039 oz Body Mass Index (BMI) 52.8 Intake & Output: Intake and Output for Last 24 Hours 06/01/22 06/02/22 06/03/22 23:59 23:59 23:59 Intake Total 4665 / 4665 3961.25 / 3961.25 1409.17 / 1409.17 Output Total 700 / 1100 1300 / 1300 800 / 800 Balance 3965 / 3565 2661.25 / 2661.25 609.17 / 609.17 Lab / Micro Data Result Diagrams: 06/03/22 06:18 06/03/22 06:18 Labs: Laboratory Results - last 24 hr 06/02/22 14:57: Vancomycin Trough 23.6 H 06/02/22 16:11: POC Glucose 226 H 06/02/22 23:18: POC Glucose 152 H 06/03/22 06:18: WBC 7.5, RBC 3.06 L, Hgb 8.3 L, Hct 26.5 L, MCV 86.6, MCH 27.1, MCHC 31.3 L, RDW Std Deviation 65.5 H, RDW Coeff of Heather 20.9 H, Plt Count 320, MPV 9.5, Immature Gran % (Auto) 1.100 H, Neut % (Auto) 71.0 H, Lymph % (Auto) 18.7 L, [place] % (Auto) 6.0, Eos % (Auto) 2.8, Baso % (Auto) 0.4, Absolute Neuts (auto) 5.4, Absolute Lymphs (auto) 1.41, Nucleated RBC % 0, Anisocytosis 1+ 06/03/22 06:18: Sodium 139, Potassium 3.4 L, Chloride 105, Carbon Dioxide 27.0, Anion Gap 7, BUN 30 H, Creatinine 1.22 H, Estim Creat Clear Calc 40.06, Est GFR (MDRD) Af Amer 58 L, Est GFR (MDRD) Non-Af 48 L, BUN/Creatinine Ratio 24.6 H, Glucose 118 H, Calcium 8.4 L 06/03/22 06:18: Random Vancomycin 14.5 06/03/22 06:30: POC Glucose 109 H 06/03/22 11:38: POC Glucose 167 H Micro: Microbiology 06/01/22 02:15 Wound - Knee Gram Stain - Final 06/01/22 02:15 Wound - Knee Wound Culture - Preliminary Staphylococcus aureus Streptococcus group A 06/01/22 03:45 Urine, Catheterized Urine Culture - Final Klebsiella pneumoniae sp pneum Rhythm Strip Rhythm Strip: Sinus Tach Rate: 110 Ectopy: None Physical Exam Const alert and oriented x3 General Appearance: cooperative HEENT normocephalic, moist oral mucous membranes and oropharynx normal Eyes PERRL and EOMs intact bilaterally Eyes Narrative: Patient is legally blind General Eye: normal appearance of both eyes Neck supple and no JVD General: normal visual inspection and trachea midline Lymph Lymphatic: no lymphadenopathy noted and no lymphedema noted Resp normal respiratory effort, normal air movement and clear to auscultation bilaterally Effort and Inspection: able to speak in complete sentences and symmetric chest movement; Negative for respiratory distress, pursed lip breathing, labored, stridor, retractions or audible wheezes Cardio regular rate, regular rhythm, S1 normal heart sound, S2 normal heart sound and no murmurs Palpation: normal PMI GI normal to inspection, nondistended, normoactive bowel sounds, soft to palpation, non-tender and non-distended Extremity normal capillary refill and no clubbing, cyanosis or edema Extremity Narrative: L AKA stump with medial aspect intact and well-healed. Midline small opening continues to drain, today serosanguinous fluid with occasional white chunks but no ny purulence. Today tracks about 6.5cm in, improved from prio. No surrounding erythema/focal swelling/palpable fluctuance in this area.. Lateral aspect of the incision remains open (as it has been since surgery), no significant drainage, some adherent necrotic fat tissue; however, good pink granulation tissue at the base and depth of wound improving with no tracking. There is erythema on lateral aspect of L thigh, not extending to the wound edges or to the groin, slight warmth. Traced with surgical marker. Skin General Skin Exam: no breakdown Neuro CN's II-XII intact bilaterally and no focal motor deficits Motor Exam: strength 5/5 throughout Psych thought process normal and cooperative Appearance: appropriate Assessment & Plan Assessment/Plan (1) Status post above-knee amputation of left lower extremity: (2) Postoperative wound infection: PLAN: Plan She has been fever-free for over 24 hours. Her WBC count is within normal range. Her pain is better controlled. The midline opening continues to drain well, depth improved today. The lateral portion of the wound still with good granulation tissue and improving depth. Continue with dakins soaked gauze to the lateral open portion and continue to pack midline tunneling to promote drainage, dry dressing over top. Change at least twice daily or more often as needed to keep clean and dry. Continue with antibiotics as directed by primary team. If patient is otherwise medically stable, okay to discharge from vascular perspective. Please continue dressings as above 2-3 times daily at SNF. Will have her f/u outpatient in office in 1-2 weeks to monitor wound progress. Discharge planning per primary team. Will continue to follow while in hospital. Charges/Coding Visit Charges Inpatient E&M: [address] [facility] Hosp L1
--- NOTE | 2022-06-03 14:12 | PCM.CONS.GEN ---
Assessment & Plan Assessment/Plan (1) Postoperative wound infection: PLAN: Wound cx showing staph aureus and GAS so far. Ucx with klebs. Vascular following, they do not suspect underlying osteo. Cont vanc/ceftriaxone, likely candidate for po abx at discharge. Will follow, thank you (2) Status post above-knee amputation of left lower extremity: HPI Consult Data Date of Consult: 06/03/22 HPI Narrative Reason for Consultation: stump infection HPI Narrative: JUNG DUNAWAY, is a 61 F with DM, had L AKA 05/04/[address] Ibarra at [facility]. Presented with several days fever, confusion, L stump pain/redness/swelling/drainage. Admitted here on vanc/ceftriaxone, feeling much better. Pain was severe on admit. Full ROS performed and neg except as noted above. [facility] Medical History Benign hypertension CAD (coronary artery disease) Chronic respiratory failure with hypoxia COPD (chronic obstructive pulmonary disease) Diabetic neuropathy Former tobacco use GERD (gastroesophageal reflux disease) History of non-ST elevation myocardial infarction (NSTEMI) HLD (hyperlipidemia) Lymphedema of lower extremity Morbid obesity Obstructive sleep apnea Type 2 diabetes mellitus with diabetic polyneuropathy Home Medications Omeprazole [Prilosec] 40 mg PO DAILY Check with primary doctor 12/30/12 [History Last Taken 01/17/13] aspirin 81 mg chewable tablet 81 mg PO DAILY@0800 Check with primary doctor 12/30/12 [History Last Taken 01/17/13] loratadine 10 mg tablet (Allergy Relief (loratadine)) 10 mg PO DAILY Check with primary doctor 12/30/12 [History Last Taken 01/17/13] metformin 1,000 mg tablet 1,000 mg PO BID Check with primary doctor 12/30/12 [History Last Taken 01/17/13] montelukast 10 mg tablet 10 mg PO DAILY Check with primary doctor 12/30/12 [History Last Taken 01/17/13] furosemide 40 mg tablet 40 mg PO DAILY Check with primary doctor 08/12/19 [History Last Taken Unknown] cholecalciferol (vitamin D3) 1,250 mcg (50,000 unit) capsule 50,000 unit PO WE Check with primary doctor 12/26/21 [History Last Taken Unknown] nortriptyline 10 mg capsule 20 mg PO QHS Check with primary doctor 12/26/21 [History Last Taken Unknown] acetaminophen 325 mg tablet (Tylenol) 650 mg PO Q6H PRN PRN Pain 1-10 Or Fever>100.7 #0 tabs 05/07/22 [Rx Last Taken Unknown] sennosides 8.6 mg-docusate sodium 50 mg tablet (Stool Softener-Stimulant Laxative) 2 tab PO BID PRN PRN Constipation #0 tabs 05/07/22 [Rx Last Taken Unknown] amlodipine 10 mg tablet 10 mg PO DAILY Check with primary doctor 06/01/22 [History Last Taken Unknown] ascorbic acid (vitamin C) 500 mg tablet 500 mg PO TIDCM Check with primary doctor 06/01/22 [History Last Taken Unknown] atorvastatin 40 mg tablet 40 mg PO QHS Check with primary doctor 06/01/22 [History Last Taken Unknown] clopidogrel 75 mg tablet 75 mg PO DAILY Check with primary doctor 06/01/22 [History Last Taken Unknown] ferrous sulfate 325 mg (65 mg iron) tablet (FeroSul) 325 mg PO TIDCM Check with primary doctor 06/01/22 [History Last Taken Unknown] gabapentin 300 mg capsule 300 mg PO BIDCM Check with primary doctor 06/01/22 [History Last Taken Unknown] insulin glargine-yfgn 100 unit/mL (3 mL) subcutaneous pen 35 unit subcut 1100 Check with primary doctor 06/01/22 [History Last Taken Unknown] insulin lispro 100 unit/mL subcutaneous pen (Humalog KwikPen (U-100) Insulin) See Protocol subcut ACHS Check with primary doctor 06/01/22 [History Last Taken Unknown] menthol 0.44 %-zinc oxide 20.6 % topical ointment (Calmoseptine) 1 applic topical BID Check with primary doctor 06/01/22 [History Last Taken Unknown] metoprolol tartrate 25 mg tablet 25 mg PO BID Check with primary doctor 06/01/22 [History Last Taken Unknown] polyethylene glycol 3350 17 gram oral powder packet 17 g PO DAILY Check with primary doctor 06/01/22 [History Last Taken Unknown] tramadol 50 mg tablet 50 mg PO Q6H PRN pain 06/01/22 [History Last Taken Unknown] Allergy/AdvReac Type Severity Reaction Status Date / Time Penicillins [PCN] Allergy Rash Verified 05/25/22 13:05 Family History (Updated 06/01/22 @ 03:[address] Vesna Guardado MD) Mother Stomach cancer Father Heart disease CVA (cerebral vascular accident) Hypertension Diabetes Surgical History S/P AKA (above knee amputation) unilateral Social History (Updated 06/01/22 @ 03:[address] Vesna Guardado MD) housing: other details: Prior to current SNF placement, notes her son lives with her. Smoking Status: Former smoker how long ago did patient quit smoking: Quit 12 years prior, smoked ~ 1.5 ppd since teen until quit. alcohol intake: never substance use type: does not use Physical Exam Const alert, oriented x3 and no apparent distress General Appearance: cooperative HEENT normocephalic and head/scalp atraumatic Neck supple and No nodes Resp normal air movement and clear to auscultation bilaterally Cardio regular rate and regular rhythm GI soft to palpation, non-tender and non-distended Extremity General Extremity: edema Skin Skin Narrative: L AKA stump some redness at incision. L lateral thigh mild erythema. Neuro CN's II-XII intact bilaterally Lab / Micro Data Attestation: I reviewed the patient's lab results. Result Diagrams: 06/03/22 06:18 06/03/22 06:18 Labs: Laboratory Results - last 24 hr 06/02/22 14:57: Vancomycin Trough 23.6 H 06/02/22 16:11: POC Glucose 226 H 06/02/22 23:18: POC Glucose 152 H 06/03/22 06:18: WBC 7.5, RBC 3.06 L, Hgb 8.3 L, Hct 26.5 L, MCV 86.6, MCH 27.1, MCHC 31.3 L, RDW Std Deviation 65.5 H, RDW Coeff of Heather 20.9 H, Plt Count 320, MPV 9.5, Immature Gran % (Auto) 1.100 H, Neut % (Auto) 71.0 H, Lymph % (Auto) 18.7 L, [place] % (Auto) 6.0, Eos % (Auto) 2.8, Baso % (Auto) 0.4, Absolute Neuts (auto) 5.4, Absolute Lymphs (auto) 1.41, Nucleated RBC % 0, Anisocytosis 1+ 03/24/23 06:18: Sodium 139, Potassium 3.4 L, Chloride 105, Carbon Dioxide 27.0, Anion Gap 7, BUN 30 H, Creatinine 1.22 H, Estim Creat Clear Calc 40.06, Est GFR (MDRD) Af Amer 58 L, Est GFR (MDRD) Non-Af 48 L, BUN/Creatinine Ratio 24.6 H, Glucose 118 H, Calcium 8.4 L 06/03/22 06:18: Random Vancomycin 14.5 06/03/22 06:30: POC Glucose 109 H 06/03/22 11:38: POC Glucose 167 H Micro: Microbiology 06/01/22 02:15 Wound - Knee Gram Stain - Final 06/01/22 02:15 Wound - Knee Wound Culture - Preliminary Staphylococcus aureus Streptococcus group A 06/01/22 03:45 Urine, Catheterized Urine Culture - Final Klebsiella pneumoniae sp pneum Rhythm Strip Rhythm Strip: Sinus Tach Rate: 110 Ectopy: None
--- NOTE | 2022-06-03 15:13 | TREXTCAR_ITS ---
Diet Diet Order/Speech Therapy: 06/01/22 09:55 Diet: Carbohydrate Controlled Is pt able to select menu?: Yes Routine Orders/Code Status Enema Type: Fleetz Enema Frequency: Daily PRN Suppository Type: Dulcolax 10mg Suppository Frequency: Daily PRN O2 Frequency: PRN Keep PO Greater than or Equal to (%): 90 Wound(s) left stump: Wound Type: surgical wound/incision Dressing Change: Dakins moistened gauze/nugauze packing R abdomen: Wound Type: Abrasion Therapies Weight Bearing: Weight bearing as tolerated Physical Therapy: Eval and Treat Occupational Therapy: Eval and Treat Problem/Diagnosis (1) Postoperative wound infection: Status: Acute Code(s): T81.49XA - Infection following a procedure, other surgical site, initial encounter (2) Status post above-knee amputation of left lower extremity: Status: Acute Code(s): Z89.612 - Acquired absence of left leg above knee Plan #LLE stump infection * Patient had left AKA due to diabetic foot wound and associated osteomyelitis in April 2022. She was discharged to SNF from where she presented with reported encephalopathy. This had improved by the time she came in. * Patient noted to be having increased discharge from the left stump as well. * blood PCR growing Staph aureus. * On IV vancomycin and ceftriaxone. * Vascular surgery consulted * MRSA PCR positive. Will await blood cultures * consult ID * Wound culture growing Staphylococcus species and beta Streptococcus * #UTI: Urinalysis showed 4+ bacteria. on IV ceftriaxone. 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 #CAD * Was recently treated for non-STEMI. Cardiac cath showed mild nonobstructive disease. Medical therapy recommended. * On aspirin and Plavix as well as metoprolol. * Has known EF of 50%. * #STEPHY: Creatinine is 1.4. Baseline creatinine is around 0.9. Will hydrate gently with fluids and monitor. 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 On Trulicity. Accu-Cheks ACHS. On gabapentin for neuropathy. #Chronic hypoxic respiratory failure due to COPD: On 2 to 3 L of oxygen. #Hypertension: On amlodipine and metoprolol as well as Lasix #Hypomagnesemia: resolved. #Hyperlipidemia: On statin DVT prophylaxis: Lovenox Allergies/Procedures Done in Hospital Allergies Penicillins [PCN] Allergy (Verified 05/25/22 13:05) Rash Type of Care/Length of Stay Estimated LOS: Convalescent Care Less Than 30 days Type of Care Needed: Skilled Rehab Potential: Fair Prognosis: Fair Additional Orders/Day of Discharge Day of Discharge: 06/03/22 Dietary and Speech Recommendations Dietitian Recommendations/Changes: RD will change diet to CCD diet to manage blood glucose. RD will order 120mL Glucerna TID with medpass and Ramesh BID to promote wound healing. Discharge Plan Admission Admit Date/Time: 06/01/22 03:18 Primary Reason for Your Visit: left AKA stump infection Attending Provider: Taylor Silva Primary Care Provider: Radha Medina Consulting Providers: Ariel Ibarra ; Vesna Guardado ; Dawit Duran Instructions Patient Instructions: Wound Infection Tx Discharge Orders/Prescriptions Prescriptions: New doxycycline hyclate 100 mg capsule 100 mg PO BID Qty: 20 0RF cefdinir 300 mg capsule 300 mg PO BID Qty: 20 0RF Continued aspirin 81 MG tablet,chewable 81 mg PO DAILY@0800 Label Comments: HEART montelukast 10 MG tablet 10 mg PO DAILY Label Comments: ALLERGIES Omeprazole [Prilosec] 40 MG capsule 40 mg PO DAILY Label Comments: REFLUX metformin 1,000 MG tablet 1,000 mg PO BID Label Comments: DIABETES loratadine [Allergy Relief (loratadine)] 10 MG tablet 10 mg PO DAILY Label Comments: ALLERGIES furosemide 40 MG tablet 40 mg PO DAILY nortriptyline 10 mg capsule 20 mg PO QHS Label Comments: TAKE 2 CAPSULES BY MOUTH DAILY AT BEDTIME. cholecalciferol (vitamin D3) 1,250 mcg (50,000 unit) capsule 50,000 unit PO WE Label Comments: TAKE ONE CAPSULE BY MOUTH ONE TIME A WEEK acetaminophen [Tylenol] 325 mg Tablet 650 mg PO Q6H PRN PRN (Reason: Pain 1-10 Or Fever>100.7) Qty: 0 0RF sennosides-docusate sodium [Stool Softener-Stimulant Laxat] 8.6-50 mg Tablet 2 tab PO BID PRN PRN (Reason: Constipation) Qty: 0 0RF tramadol 50 mg Tablet 50 mg PO Q6H PRN (Reason: pain) atorvastatin 40 mg tablet 40 mg PO QHS polyethylene glycol 3350 17 gram powder in packet 17 g PO DAILY clopidogrel 75 mg tablet 75 mg PO DAILY ascorbic acid (vitamin C) 500 mg tablet 500 mg PO TIDCM amlodipine 10 mg tablet 10 mg PO DAILY ferrous sulfate [FeroSul] 325 mg (65 mg iron) tablet 325 mg PO TIDCM gabapentin 300 mg capsule 300 mg PO BIDCM insulin lispro [Humalog KwikPen Insulin] 100 unit/mL insulin pen See Protocol subcut ACHS Protocol: 3. Sliding Scale Insulin Med Dosing Condition: 150-189 mg/dl = 1 unit Condition: 190-229 mg/dl = 2 units Condition: 230-269 mg/dl = 3 units Condition: 270-309 mg/dl = 4 units Condition: 310-349 mg/dl = 5 units Condition: 350-399 mg/dl = 6 units Condition: 400-449 mg/dl = 7 units Condition: Greater than 449 call physician Protocol Text: - Use for Total Daily Dose of Insulin 37-55 units - Obsese, infected, or steroid patients MEDIUM DOSING ALGORITHIM metoprolol tartrate 25 mg tablet 25 mg PO BID menthol-zinc oxide [Calmoseptine] 0.44-20.6 % ointment 1 applic topical BID Protocol: *Topical Application Instructions APPLICATION INSTRUCTIONS: Apply to affected areas insulin glargine-yfgn 100 unit/mL (3 mL) insulin pen 35 unit subcut 1100 Referrals / Follow Up: Ariel Ibarra MD [Med Staff - Active Staff] - Within 2 Weeks Radha Median MD [Primary Care Provider] - Within 2 Weeks Dawit Duran MD [Med Staff - Active Staff] - Within 2 Weeks Disposition Disposition (needs filled in before D/C Order can be placed): Long Term Facility
--- NOTE | 2022-06-03 15:14 | DS.PCM_ITS ---
Providers Date of Admission: 06/01/22 Date of Discharge: 06/03/22 Primary Care Physician: Dr. Radha Medina MD Consultations 06/01/22 04:46 Consult: Onc/Wound/insulation hoseman Routine Comment: Consult: Vascular Surgery Routine Consulting Provider: Ariel Ibarra Reason for Consult: L AKA infection EMERGENT Consult: No Notified: Yes Date Notified: 06/01/22 Time Notified: 03:20 Method of Notification: Text 06/02/22 12:03 Consult: Infectious Disease Routine Consulting Provider: Dawit Duran Reason for Consult: left AKA stump infection EMERGENT Consult: No MD Notified: Yes Date Notified: 06/02/22 Time Notified: 12:39 Method of Notification: Text Reason For Visit: L AKA INFECTION Diagnosis Discharge Diagnosis (1) Postoperative wound infection: Status: Acute Code(s): T81.49XA - Infection following a procedure, other surgical site, initial encounter (2) Status post above-knee amputation of left lower extremity: Status: Acute Code(s): Z89.612 - Acquired absence of left leg above knee Plan #LLE stump infection * Patient had left AKA due to diabetic foot wound and associated osteomyelitis in April 2022. She was discharged to SNF from where she presented with reported encephalopathy. This had improved by the time she came in. * Patient noted to be having increased discharge from the left stump as well. * blood PCR growing Staph aureus. * On IV vancomycin and ceftriaxone. * Vascular surgery consulted * MRSA PCR positive. Will await blood cultures * consult ID * Wound culture growing Staphylococcus species and beta Streptococcus * #UTI: Urinalysis showed 4+ bacteria. on IV ceftriaxone. 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 #CAD * Was recently treated for non-STEMI. Cardiac cath showed mild nonobstructive disease. Medical therapy recommended. * On aspirin and Plavix as well as metoprolol. * Has known EF of 50%. * #STEPHY: Creatinine is 1.4. Baseline creatinine is around 0.9. Will hydrate gently with fluids and monitor. 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 On Trulicity. Accu-Cheks ACHS. On gabapentin for neuropathy. #Chronic hypoxic respiratory failure due to COPD: On 2 to 3 L of oxygen. #Hypertension: On amlodipine and metoprolol as well as Lasix #Hypomagnesemia: resolved. #Hyperlipidemia: On statin DVT prophylaxis: Lovenox Medications at Discharge Home Medications Omeprazole [Prilosec] 40 mg PO DAILY Check with primary doctor 12/30/12 aspirin 81 mg chewable tablet 81 mg PO DAILY@0800 Check with primary doctor 12/30/12 loratadine 10 mg tablet (Allergy Relief (loratadine)) 10 mg PO DAILY Check with primary doctor 12/30/12 metformin 1,000 mg tablet 1,000 mg PO BID Check with primary doctor 12/30/12 montelukast 10 mg tablet 10 mg PO DAILY Check with primary doctor 12/30/12 furosemide 40 mg tablet 40 mg PO DAILY Check with primary doctor 08/12/19 cholecalciferol (vitamin D3) 1,250 mcg (50,000 unit) capsule 50,000 unit PO WE Check with primary doctor 12/26/21 nortriptyline 10 mg capsule 20 mg PO QHS Check with primary doctor 12/26/21 acetaminophen 325 mg tablet (Tylenol) 650 mg PO Q6H PRN PRN Pain 1-10 Or Fever>100.7 #0 tabs 05/07/22 sennosides 8.6 mg-docusate sodium 50 mg tablet (Stool Softener-Stimulant Laxative) 2 tab PO BID PRN PRN Constipation #0 tabs 05/07/22 amlodipine 10 mg tablet 10 mg PO DAILY Check with primary doctor 06/01/22 ascorbic acid (vitamin C) 500 mg tablet 500 mg PO TIDCM Check with primary doctor 06/01/22 atorvastatin 40 mg tablet 40 mg PO QHS Check with primary doctor 06/01/22 clopidogrel 75 mg tablet 75 mg PO DAILY Check with primary doctor 06/01/22 ferrous sulfate 325 mg (65 mg iron) tablet (FeroSul) 325 mg PO TIDCM Check with primary doctor 06/01/22 gabapentin 300 mg capsule 300 mg PO BIDCM Check with primary doctor 06/01/22 insulin glargine-yfgn 100 unit/mL (3 mL) subcutaneous pen 35 unit subcut 1100 Check with primary doctor 06/01/22 insulin lispro 100 unit/mL subcutaneous pen (Humalog KwikPen (U-100) Insulin) See Protocol subcut ACHS Check with primary doctor 06/01/22 menthol 0.44 %-zinc oxide 20.6 % topical ointment (Calmoseptine) 1 applic topical BID Check with primary doctor 06/01/22 metoprolol tartrate 25 mg tablet 25 mg PO BID Check with primary doctor 06/01/22 polyethylene glycol 3350 17 gram oral powder packet 17 g PO DAILY Check with primary doctor 06/01/22 tramadol 50 mg tablet 50 mg PO Q6H PRN pain 06/01/22 cefdinir 300 mg capsule 300 mg PO BID #20 caps 06/03/22 doxycycline hyclate 100 mg capsule 100 mg PO BID #20 caps 06/03/22 Hospital Course Operations None Procedures None Summary of Care Provided Minutes Spent on Discharge: 45 Hospital Course: Patient is a 61-year-old female with a past medical history as outlined was adm itted through the ED on 06/01/2022 from her longterm with a complaint of altered mental status and increased pain and discharge in the left AKA stump wound. On admission she was noted to have purulent discharge from the left lower extremity AKA stump. She had had a wound VAC in place but this had been taken off. jail could not state exactly when it had come off. On admission urinalysis also showed evidence of UTI. She was admitted and managed for infection of her left lower extremity stump as well as UTI. She was started on IV vancomycin and Rocephin. Vascular surgery was consulted and did not think there was any bone involvement. Wound cultures and blood cultures were obtained. MRSA PCR was positive. Wound cultures grew Staphylococcus species and beta Streptococcus. Urine culture grew Klebsiella pneumonia. Patient gradually felt better. I do reviewed her recommended that she could be discharged on p.o. doxycycline and Cefdinir. Blood cultures were negative at time of discharge. She was [facility] to [facility] on [facility]22. She is follow-up with her primary care doctor, ID and vascular surgery. Patient seen and examined prior to discharge. She felt better and had no complaints. Review of symptoms otherwise negative. Labs and vitals reviewed. Home medication reviewed and reconciled. Physical Exam Const alert, oriented x3 and no apparent distress HEENT normocephalic, head/scalp atraumatic, hearing grossly normal bilaterally, moist oral mucous membranes and oropharynx normal Eyes PERRL and EOMs intact bilaterally Neck supple and no JVD Lymph Lymphatic: no lymphadenopathy noted and no lymphedema noted Resp normal respiratory effort, normal air movement and clear to auscultation bilaterally Cardio regular rate, regular rhythm, S1 normal heart sound, S2 normal heart sound and no murmurs Cardio Narrative: tachycardic Palpation: normal PMI GI normal to inspection, nondistended, normoactive bowel sounds, soft to palpation, non-tender and non-distended Extremity normal capillary refill and no clubbing, cyanosis or edema Extremity Narrative: left AKA stump dressing intact Skin no rashes or lesions noted Skin Narrative: intact dressing over wound stump Neuro oriented x3, CN's II-XII intact bilaterally, moves all extremities and no focal motor deficits Sensorium / Orientation: awake Motor Exam: strength 5/5 throughout Psych thought process normal and cooperative Appearance: appropriate Weight / BMI Weight Weight: 298 lb 1.039 oz Body Mass Index (BMI) 52.8 ABG / Lab / Microbiology Data Result Diagrams: 06/03/22 06:18 06/03/22 06:18 Laboratory: Laboratory Results - last 24 hr 06/02/22 14:57: Vancomycin Trough 23.6 H 06/02/22 16:11: POC Glucose 226 H 06/02/22 23:18: POC Glucose 152 H 06/03/22 06:18: WBC 7.5, RBC 3.06 L, Hgb 8.3 L, Hct 26.5 L, MCV 86.6, MCH 27.1, MCHC 31.3 L, RDW Std Deviation 65.5 H, RDW Coeff of Heather 20.9 H, Plt Count 320, MPV 9.5, Immature Gran % (Auto) 1.100 H, Neut % (Auto) 71.0 H, Lymph % (Auto) 18.7 L, [place] % (Auto) 6.0, Eos % (Auto) 2.8, Baso % (Auto) 0.4, Absolute Neuts (auto) 5.4, Absolute Lymphs (auto) 1.41, Nucleated RBC % 0, Anisocytosis 1+ 06/03/22 06:18: Sodium 139, Potassium 3.4 L, Chloride 105, Carbon Dioxide 27.0, Anion Gap 7, BUN 30 H, Creatinine 1.22 H, Estim Creat Clear Calc 40.06, Est GFR (MDRD) Af Amer 58 L, Est GFR (MDRD) Non-Af 48 L, BUN/Creatinine Ratio 24.6 H, Gl ucose 118 H, Calcium 8.4 L 06/03/22 06:18: Random Vancomycin 14.5 06/03/22 06:30: POC Glucose 109 H 06/03/22 11:38: POC Glucose 167 H Microbiology: Microbiology 06/01/22 02:30 Blood Culture (Wb) - Left Hand Blood Culture - Preliminary No growth in 48 hours. 06/01/22 02:00 Blood Culture (Wb) - Anticubital Right Blood Culture - Preliminary No growth in 48 hours. 06/01/22 02:15 Wound - Knee Gram Stain - Final 06/01/22 02:15 Wound - Knee Wound Culture - Preliminary Staphylococcus aureus Streptococcus group A 06/01/22 03:45 Urine, Catheterized Urine Culture - Final Klebsiella pneumoniae sp pneum D/C Instructions Discharge Diet: Low fat / Low cholesterol Discharge Activity: Return to Normal Activity Call your doctor if your incision/area has: Continuous Slow Oozing, Sudden Increased Bleeding, Increased Pain/ Swelling, Increased Redness, Foul Smelling Discharge and Swelling at the incision site Call your doctor if you observe: Fever of 101 or Higher, Shortness of breath and Swelling in the ankles Meaningful Use Info Meaningful Use Diagnoses (Choose all that apply): None applicable Discharge Plan Admission Admit Date/Time: 06/01/22 03:18 Primary Reason for Your Visit: left AKA stump infection Attending Provider: Taylor Silva Primary Care Provider: Radha Medina Consulting Providers: Ariel Ibarra ; Vesna Guardado ; Dawit Duran Instructions Patient Instructions: Wound Infection Tx Discharge Orders/Prescriptions Prescriptions: New doxycycline hyclate 100 mg capsule 100 mg PO BID Qty: 20 0RF cefdinir 300 mg capsule 300 mg PO BID Qty: 20 0RF Continued aspirin 81 MG tablet,chewable 81 mg PO DAILY@0800 Label Comments: HEART montelukast 10 MG tablet 10 mg PO DAILY Label Comments: ALLERGIES Omeprazole [Prilosec] 40 MG capsule 40 mg PO DAILY Label Comments: REFLUX metformin 1,000 MG tablet 1,000 mg PO BID Label Comments: DIABETES loratadine [Allergy Relief (loratadine)] 10 MG tablet 10 mg PO DAILY Label Comments: ALLERGIES furosemide 40 MG tablet 40 mg PO DAILY nortriptyline 10 mg capsule 20 mg PO QHS Label Comments: TAKE 2 CAPSULES BY MOUTH DAILY AT BEDTIME. cholecalciferol (vitamin D3) 1,250 mcg (50,000 unit) capsule 50,000 unit PO WE Label Comments: TAKE ONE CAPSULE BY MOUTH ONE TIME A WEEK acetaminophen [Tylenol] 325 mg Tablet 650 mg PO Q6H PRN PRN (Reason: Pain 1-10 Or Fever>100.7) Qty: 0 0RF sennosides-docusate sodium [Stool Softener-Stimulant Laxat] 8.6-50 mg Tablet 2 tab PO BID PRN PRN (Reason: Constipation) Qty: 0 0RF tramadol 50 mg Tablet 50 mg PO Q6H PRN (Reason: pain) atorvastatin 40 mg tablet 40 mg PO QHS polyethylene glycol 3350 17 gram powder in packet 17 g PO DAILY clopidogrel 75 mg tablet 75 mg PO DAILY ascorbic acid (vitamin C) 500 mg tablet 500 mg PO TIDCM amlodipine 10 mg tablet 10 mg PO DAILY ferrous sulfate [FeroSul] 325 mg (65 mg iron) tablet 325 mg PO TIDCM gabapentin 300 mg capsule 300 mg PO BIDCM insulin lispro [Humalog KwikPen Insulin] 100 unit/mL insulin pen See Protocol subcut ACHS Protocol: 3. Sliding Scale Insulin Med Dosing Condition: 150-189 mg/dl = 1 unit Condition: 190-229 mg/dl = 2 units Condition: 230-269 mg/dl = 3 units Condition: 270-309 mg/dl = 4 units Condition: 310-349 mg/dl = 5 units Condition: 350-399 mg/dl = 6 units Condition: 400-449 mg/dl = 7 units Condition: Greater than 449 call physician Protocol Text: - Use for Total Daily Dose of Insulin 37-55 units - Obsese, infected, or steroid patients MEDIUM DOSING ALGORITHIM metoprolol tartrate 25 mg tablet 25 mg PO BID menthol-zinc oxide [Calmoseptine] 0.44-20.6 % ointment 1 applic topical BID Protocol: *Topical Application Instructions APPLICATION INSTRUCTIONS: Apply to affected areas insulin glargine-yfgn 100 unit/mL (3 mL) insulin pen 35 unit subcut 1100 Referrals / Follow Up: Ariel Ibarra MD [Med Staff - Active Staff] - Within 2 Weeks Radha Medina MD [Primary Care Provider] - Within 2 Weeks Dawit Duran MD [Med Staff - Active Staff] - Within 2 Weeks Disposition Disposition (needs filled in before D/C Order can be placed): Intermediate Facility Charges/Coding Visit Charges Inpatient E&M: 77037 Disch Hosp >30min
[2022-06-03 17:40] LABS: Bedside Glucose 219 mg/dL (74-106)
[2022-06-03] MEDS: Acetaminophen 325 MG Tablet 650 MG PO (18:37)
== END 2022-06-03 20:05 | disposition intermediate care facility (04) | DRG 349 ==
LOC: ED 03:14 → MS3 07:30
PROVIDERS: Admitting Provider Family Medicine; Emergency Provider Emergency Medicine; PCP Internal Medicine; Visit Provider Student in an Organized Health Care Education/Training Program
DX: T87.44 Infection of amputation stump, left lower extremity (principal); T87.81 Dehiscence of amputation stump; N17.9 Acute kidney failure, unspecified; J44.9 Chronic obstructive pulmonary disease, unspecified; E11.42 Type 2 diabetes mellitus with diabetic polyneuropathy; E11.319 Type 2 diabetes mellitus with unspecified diabetic retinopathy without macular edema; J96.11 Chronic respiratory failure with hypoxia; Z68.43 Body mass index [BMI] 50.0-59.9, adult; E66.01 Morbid (severe) obesity due to excess calories; Z79.4 Long term (current) use of insulin; I25.10 Atherosclerotic heart disease of native coronary artery without angina pectoris; K21.9 Gastro-esophageal reflux disease without esophagitis; G47.33 Obstructive sleep apnea (adult) (pediatric); I10 Essential (primary) hypertension; I25.2 Old myocardial infarction; E78.5 Hyperlipidemia, unspecified; I89.0 Lymphedema, not elsewhere classified; E83.42 Hypomagnesemia; Y83.5 Amputation of limb(s) as the cause of abnormal reaction of the patient, or of later complication, without mention of misadventure at the time of the procedure; N39.0 Urinary tract infection, site not specified; Z79.82 Long term (current) use of aspirin; Z79.02 Long term (current) use of antithrombotics/antiplatelets; Z79.84 Long term (current) use of oral hypoglycemic drugs; Z79.899 Other long term (current) drug therapy; Z87.891 Personal history of nicotine dependence; Z79.01 Long term (current) use of anticoagulants; B96.1 Klebsiella pneumoniae [K. pneumoniae] as the cause of diseases classified elsewhere; B95.62 Methicillin resistant Staphylococcus aureus infection as the cause of diseases classified elsewhere
CPT/HCPCS: 36415; 71046; 73552; 80048; 80053; 80202; 81001; 82962; 83605; 83735; 85025; 85610; 85730; 87040; 87070; 87077; 87086; 87088; 87186; 87205; 87640; 87811; 93005; 96361; 96365; 96366; 96367; 96372; 97110; 97162; 97166; 97530; 97535; 97802; 99221; 99252; 99285; A4216; G0378; G0463; J0696

== ENCOUNTER 2024-06-18 21:26 | Inpatient (IN) | payer MEDICAID, SELFPAY ==
[2024-06-18 21:27] VITALS: BP 151/56; PULSE 75; RESP 20; TEMP 36.8; O2SAT 93; BMI 55.4
[2024-06-18 21:31] VITALS: BP 130/56; PULSE 77; RESP 20; TEMP 36.8; O2SAT 94
--- NOTE | 2024-06-18 21:52 | RAD_ITS ---
EXAM: Right foot, tibia and fibular radiographs. CLINICAL HISTORY: Pain COMPARISON: None TECHNIQUE: 3 views of the right foot and 4 views of the right tibia and fibula. FINDINGS: No acute fracture or dislocation. [id number] multifocal osteoarthritis, the imaged knee joint and midfoot. Small posterior and plantar calcaneal enthesophyte. No radiopaque foreign body. RAD/Tibia & Fibula 2 Views IMPRESSION: No acute fracture or dislocation. Reading Location: [facility]
--- NOTE | 2024-06-18 21:52 | RAD_ITS ---
EXAM: Right foot, tibia and fibular radiographs. CLINICAL HISTORY: Pain COMPARISON: None TECHNIQUE: 3 views of the right foot and 4 views of the right tibia and fibula. FINDINGS: No acute fracture or dislocation. [id number] multifocal osteoarthritis, the imaged knee joint and midfoot. Small posterior and plantar calcaneal enthesophyte. No radiopaque foreign body. RAD/Foot 2 Views IMPRESSION: No acute fracture or dislocation. Reading Location: [facility]
--- NOTE | 2024-06-18 22:23 | EX.ED.DYSGE1 ---
HPI History of Present Illness Chief Complaint: Wound Detail of Chief Complaint: Patient presents because of cellulitis right lower extremity Informant: patient and family Onset/Context/Timing Onset: Weeks (1.5) Context: Sudden Onset Timing: Continuous Quality: Wound dorsal surface second toe with erythema of 2nd through 5th toe and fo Location: Toes, foot and anterior right leg Current Severity: Moderate Maximum Severity: Moderate Worsened by: Patient with poorly controlled diabetes and significant lymphedema Relieved by: Nothing Associated Symptoms Associated Symptoms: Now complains of drainage from anterior leg Narrative Narrative: Patient is a 63-year-old woman. She resides at nursing facility. She completed a course of doxycycline 2 days ago. She does have history of type 2 diabetes. She had a foot infection of her left foot that resulted in an AKA. She presents because of concern for cellulitis of the right leg and foot. Patient states her last A1c was high. She does not know the number. She is visually impaired and not able to tell me if there is been a significant change in the color of her toes/foot or leg. She states the drainage from her leg started 2 days ago. She states someone thought they could help her and scraped the cellulitis away from her anterior leg. She denies fever or chills. She does not know what her most recent blood sugar results were. She does have type 2 diabetes on insulin. She also has neuropathy and takes gabapentin. Patient denies headache, visual, ocular auditory symptoms other than being visually impaired. She denies cardiac or respiratory symptoms. She denies GI or urologic symptoms. Prior similar symptoms: Yes Recent Illness/Hospitalization: Yes [facility] Medical History Former tobacco use COPD (chronic obstructive pulmonary disease) History of non-ST elevation myocardial infarction (NSTEMI) HLD (hyperlipidemia) CAD (coronary artery disease) GERD (gastroesophageal reflux disease) Chronic respiratory failure with hypoxia Type 2 diabetes mellitus with diabetic polyneuropathy Morbid obesity Diabetic neuropathy Benign hypertension Lymphedema of lower extremity Obstructive sleep apnea Home Medications ?Medication ?Instructions ?Recorded ?Last Taken ?Type aspirin 81 mg chewable tablet 81 mg PO DAILY@0800 Check with 12/30/12 01/17/13 History primary doctor metformin 1,000 mg tablet 1,000 mg PO BID Check with primary 12/30/12 01/17/13 History doctor montelukast 10 mg tablet 10 mg PO DAILY Check with primary 12/30/12 01/17/13 History doctor furosemide 40 mg tablet 40 mg PO DAILY Check with primary 08/12/19 Unknown History doctor acetaminophen 325 mg tablet 650 mg (2 x 325 mg) PO Q6H PRN PRN 05/07/22 Unknown Rx (Tylenol) Pain 1-10 Or Fever>100.7 #0 tabs sennosides 8.6 mg-docusate sodium 2 tab PO BID PRN PRN Constipation 05/07/22 Unknown Rx 50 mg tablet (Stool #0 tabs Softener-Stimulant Laxative) amlodipine 10 mg tablet 10 mg PO DAILY Check with primary 06/01/22 Unknown History doctor atorvastatin 40 mg tablet 40 mg PO QHS Check with primary 06/01/22 Unknown History doctor clopidogrel 75 mg tablet 75 mg PO DAILY Check with primary 06/01/22 Unknown History doctor gabapentin 300 mg capsule 300 mg PO BIDCM Check with primary 06/01/22 Unknown History doctor insulin lispro 100 unit/mL See Protocol subcut ACHS Check 06/01/22 Unknown History subcutaneous pen (Humalog KwikPen with primary doctor (U-100) Insulin) menthol 0.44 %-zinc oxide 20.6 % 1 applic topical BID Check with 06/01/22 Unknown History topical ointment (Calmoseptine) primary doctor metoprolol tartrate 25 mg tablet 25 mg PO BID Check with primary 06/01/22 Unknown History doctor cefdinir 300 mg capsule 300 mg PO BID #20 caps 06/03/22 Unknown Rx cholecalciferol (vitamin D3) 50 50 mcg PO DAILY 06/18/24 Unknown History mcg (2,000 unit) tablet dulaglutide 3 mg/0.5 mL 3 mg subcut QWEEK 06/18/24 Unknown History subcutaneous pen injector (Trulicity) furosemide 20 mg tablet (Lasix) 20 mg PO DAILY 06/18/24 Unknown History insulin glargine 100 unit/mL (3 60 unit subcut QPM 06/18/24 Unknown History mL) subcutaneous pen (Basaglar KwikPen U-100 Insulin) insulin lispro 100 unit/mL 20 unit subcut TIDCM 06/18/24 Unknown History subcutaneous pen oxybutynin chloride 5 mg 5 mg PO DAILY 06/18/24 Unknown History tablet,extended release 24 hr pantoprazole 40 mg tablet,delayed 40 mg PO DAILY 06/18/24 Unknown History release therapeutic multivitamin (Oncovite 1 tab PO DAILY 06/18/24 Unknown History tablet) Allergy/AdvReac Type Severity Reaction Status Date / Time latex Allergy Mild Hives Verified 06/18/24 21:32 Penicillins (PCN) Allergy Rash Verified 06/18/24 21:32 Family History Mother Stomach cancer Father Heart disease CVA (cerebral vascular accident) Hypertension Diabetes Surgical History 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 Smoking Status: Former smoker how long ago did patient quit smoking: Quit 12 years prior, smoked ~ 1.5 ppd since teen until quit. alcohol intake: never substance use type: does not use ROS ROS ED Constitutional Constitutional ED: Denies chills, fever(s), subjective or sweats Eyes Eyes: Reports other Details: Samira is visually impaired. ; Denies blurry vision or change in vision ENT ENT ED: Reports rhinorrhea and sore throat Cardiovascular Cardiovascular: Denies chest pain or palpitations Respiratory/Chest Respiratory/Chest: Denies cough, dyspnea or dyspnea on exertion Gastrointestinal Gastrointestinal: Denies abdominal pain, diarrhea, nausea or vomiting Genitourinary Genitourinary ED: Denies dysuria, hematuria or urinary frequency Musculoskeletal Musculoskeletal: Denies arthralgias or myalgias Integumentary Reports rash Neurologic Neurologic: Reports paresthesias RLE Psychiatric Psychiatric: Denies anxiety or depression Hematologic/Lymphatic Hematologic/Lymphatic: Reports systems reviewed and no addt'l complaints, except as documented Allergic/Immunologic Allergic/Immunologic ED: Denies mouth swelling or tongue swelling EXAM Physical Exam Const Vital Signs: 06/18/24 21:27 06/18/24 21:31 06/18/24 22:31 Temperature 98.2 F 98.2 F 98.3 F Temperature Source Oral Oral Oral Pulse Rate 75 77 85 Respiratory Rate 20 H 20 H 19 H Blood Pressure 151/56 H 130/56 H 96/66 Blood Pressure Mean 87 80 76 Pulse Ox 93 94 91 Oxygen Delivery Method Room Air Room Air Room Air 06/18/24 23:00 06/19/24 00:00 06/19/24 00:05 Temperature 98.2 F 98.3 F 98.3 F Temperature Source Oral Oral Pulse Rate 81 75 74 Respiratory Rate 19 H 19 H 19 H Blood Pressure 117/47 L 140/61 H 140/61 H Blood Pressure Mean 70 87 87 Pulse Ox 92 93 93 Oxygen Delivery Method Room Air Room Air Positive well nourished and well developed Constitutional Narrative: BMI is 55.4 General Appearance ED: well developed and NAD; Negative for cyanotic, diaphoretic or pallor HEENT Reports moist mucous membranes HEENT Narrative: Head is atraumatic and normocephalic. Ears normal. Nares patent. Posterior pharynx without erythema or exudate. There is no angioedema. Eyes PERRL and EOMs intact bilaterally General Eye ED: Yes pale conjunctiva; Negative for scleral icterus Neck no lymphadenopathy, supple and no JVD Neck Narrative: Trachea is midline. Difficult to assess for JVD because of body habitus. Chest Wall palpation of chest normal Chest Narrative: Patient has areas of excoriation. She believes she has hives. Resp normal respiratory effort and clear to auscultation bilaterally Cardio regular rate, regular rhythm, S1 normal heart sound and S2 normal heart sound; Negative for no murmurs GI normal to inspection, nondistended, normoactive bowel sounds, non-tender and non-distended; Negative for hepatosplenomegaly or no masses GI Narrative: Difficult to assess for PAD splenomegaly or mass due to body habitus. Back/Spine Back/Spine Narrative: Multiple areas of excoriation without evidence infection. Extremity Extremity Narrative: Patient has significant lymphedema of the right lower extremity. She has an AKA left lower extremity. Unable to appreciate pulses due to the amount of lymphedema. There is a wound dorsal surface of the second toe with erythema of all toes worse 2nd through 5th. There is also erythema and warmth to the dorsum of the right foot and anterior right leg. There is breakdown of the skin with deformity of the skin noted. There is no appreciable popliteal lymphadenopathy or inguinal lymphadenopathy. There is no ulcer noted on the plantar surface of the foot. Neuro oriented x3 and CN's II-XII intact bilaterally Sensorium / Orientation: alert Psych mental status grossly normal Skin No no rashes or lesions noted, No no wounds and skin turgor normal Skin Narrative: Described under the extremity portion of the EMR General Skin Exam: Negative for jaundice or pallor MDM MDM MDM Narrative Medical decision making narrative: Patient has at the minimum infection of her toes and right foot. There is concern for infection of the anterior right leg as well. Appropriate blood work was obtained to assess glucose, renal function CO2 anion gap. Renal function to determine if antibiotics need to be adjusted. X-ray was obtained to assess for any subcutaneous air or foreign body. CBC to assess white count and differential. ESR and CRP because of possibility of osteomyelitis. History & Record Review Additional record(s) reviewed:: Prior inpatient record (Patient was admitted June 01 and discharged on the 2022. She was admitted for infectious encephalopathy of her left lower stump. The infection involve the left lower extremity stump. Urinalysis also revealed 4+ bacteria.), Prior ED visit (Dr. Osorio's ER note was reviewed. Note was authored June 01, 2022.) and Prior labs Lab Data Attestation: I reviewed the patient's lab results. Lab results narrative: White count is normal with a slight shift. Patient is mildly anemic with normal indices. Competence of metabolic panel is remarkable glucose of 300 with a normal CO2 anion gap. Lactate is elevated 3. Suspect the elevated lactate is due to the fact the patient is on metformin. In light of this we will obtain blood cultures prior to starting antibiotics. Labs: Laboratory Results - last 24 hr 06/18/24 22:20 WBC 8.9 RBC 3.71 L Hgb 11.3 L Hct 33.5 L MCV 90.3 MCH 30.5 MCHC 33.7 RDW Std Deviation 44.2 H RDW Coeff of Heather 13.4 Plt Count 280 MPV 10.0 Immature Gran % (Auto) 0.700 Neut % (Auto) 74.5 H Lymph % (Auto) 17.2 L Sequoyah % (Auto) 5.4 Eos % (Auto) 1.8 Baso % (Auto) 0.4 Absolute Neuts (auto) 6.6 Absolute Lymphs (auto) 1.53 Nucleated RBC % 0 Sodium 138 Potassium 3.8 Chloride 98 Carbon Dioxide 25.1 Anion Gap 15 BUN 14 Creatinine 1.14 Estim Creat Clear Calc 70.33 Est GFR (MDRD) Non-Af 54 L BUN/Creatinine Ratio 12.0 Glucose 300 H Lactic Acid 3.0 H* Calcium 8.7 Total Bilirubin 0.36 AST 25 ALT 19 Alkaline Phosphatase 187 H Total Protein 7.1 Albumin 3.7 Globulin 3.4 Albumin/Globulin Ratio 1.1 Radiography Chest X-Ray - ED: 2 View (Right tib-fib reveals significant soft tissue swelling with defect of the anterior portion of the right leg. There is no foreign body. There is no abnormality osseous structures.) and Read by ED Physician (Three-view x-ray of the foot reveals significant soft tissue swelling. There is no subcutaneous air. There is no evidence of foreign body. There is no evidence of osteomyelitis.) Diagnostic Testing: Clinical Impression(s) from Imaging Studies Foot X-Ray 06/18/24 21:52 IMPRESSION: No acute fracture or dislocation. Reading Location: [facility] Tibia/Fibula X-Ray 06/18/24 21:52 IMPRESSION: No acute fracture or dislocation. Reading Location: [facility] Management Discussion w/another healthcare provider: Hospitalist (Spoke with Dr. Mendez regarding patient. Full admit MedSurg for diabetic right lower extremity infection failed outpatient therapy) Discharge Plan Dx/Rx/DC Orders Clinical Impression: Diabetic infection of right foot, Type 2 diabetes mellitus with diabetic polyneuropathy, Anemia, Type 2 diabetes mellitus with hyperglycemia, Acidosis, lactic, Lymphedema of right lower extremity, Failure of outpatient treatment Disposition Disposition: Acute Care Hospital [facility]
[2024-06-18 22:31] VITALS: BP 96/66; PULSE 85; RESP 19; TEMP 36.8; O2SAT 91
[2024-06-18 22:34] LABS: Absolute Lymphocyte Count 1.53 X10^3/uL (0.83-4.51); Absolute Neutrophil Count 6.6 X10^3/uL (2.0-7.7); Basophil# 0.04 X10^3/uL; Basophil% 0.4 % (0-1); Eosinophil# 0.16 X10^3/uL; Eosinophils% 1.8 % (0-5); Hematocrit 33.5 % (37-47); Hemoglobin 11.3 g/dL (12.0-15.0); Lymphocyte # 1.53 X10^3/ul (0.83-4.51); Lymphocyte % 17.2 % (19-41); Mean Corp Hgb Conc 33.7 g/dL (32-36); Mean Corpuscular Hgb 30.5 pg (27.0-32.0); Mean Corpuscular Volume 90.3 fL (81-99); Monocyte# 0.48 X10^3/uL; Monocyte% 5.4 % (0-10); NRBC Flagged by Analyzer 0 % (0-5); Neutrophil # 6.63 X10^3/uL (2.7-7.7); Neutrophil % 74.5 % (47-70); Platelet Count 280 K/mm3 (150-450); RBC Distribution Width CV 13.4 % (11.6-14.6); RBC Distribution Width SD 44.2 fl (35.1-43.9); Red Blood Count 3.71 M/mm3 (4.2-5.4); White Blood Count 8.9 K/mm3 (4.4-11.0)
[2024-06-18 23:00] VITALS: BP 117/47; PULSE 81; RESP 19; TEMP 36.8; O2SAT 92
[2024-06-18 23:27] LABS: ALB/GLOB Ratio 1.1 RATIO (0.9-2.4); AST(SGOT) 25 U/L (<=31); Alanine Aminotransfer ALT/SGPT 19 U/L (<=34); Albumin, Serum 3.7 g/dL (3.4-4.8); Alkaline Phosphatase 187 U/L (35-104); Anion Gap 15 (5-15); BUN 14 mg/dL (4-19); Calcium,Total 8.7 mg/dL (7.6-11.0); Carbon Dioxide 25.1 mmol/L (21.0-32.0); Chloride 98 mmol/L (98-108); Creatinine, Serum 1.14 mg/dL (0.70-1.20); EST Glomerular Filtration Rate 54 (>60); Estimated Creatinine Clearance 70.33 ml/min (50-250); Globulin 3.4 g/dL (2.2-4.2); Glucose 300 mg/dL (70-99); Potassium 3.8 mmol/L (3.3-5.1); Protein, Total 7.1 g/dL (5.9-8.4); Sodium Level 138 mmol/L (133-145); Total Bilirubin 0.36 mg/dL (0.00-1.30)
[2024-06-19] VITALS (12 sets, daily range): BP systolic 140–164; BP diastolic 47–67; PULSE 66–89; RESP 17–20; TEMP 36.6–36.8; O2SAT 93–98; BMI 55.0
[2024-06-19] MEDS: Meropenem 1 GM in 0.9% Normal Saline (100mL MB+) 100 ML IV ×4 (00:04→22:04)
--- NOTE | 2024-06-19 00:12 | HP.PCM.HOS_ITS ---
[facility] - General General Date of Admission: 06/19/24 Date of Service: 06/19/24 Chief Complaint: Worsening Right DFU with Cellulitis. [facility] Narrative JUNG DUNAWAY, is a 63 F with a past medical history of essential hypertension; on amlodipine, metoprolol and furosemide, hyperlipidemia; on atorvastatin, former tobacco abuse (quit ~2012); subsequent COPD on chronic oxygen 2L NC, super-morbid obesity; with BMI of 55.4 this admission, SUSANNA; on CPAP, DM-2; uncontrolled with hyperglycemia in spite of insulin glargine 60 units sq every night, insulin lispro 20 units 3 times daily, insulin lispro SSI and metformin twice daily, weekly dulaglutide, diabetic polyneuropathy; on gabapentin twice daily, CAD; s/p NSTEMI, PVD; s/p Left AKA on BASA and clopidogrel, chronic lower extremity lymphedema, history of allergies; on montelukast, OAB; on oxybutynin, GERD; on pantoprazole, OA and recently diagnosed Right DFU with patient having recently completed a course of oral doxycycline without subsequent improvement with patient currently residing at [facility] who presents to [facility] ER complaining of worsening Right DFU with cellulitis. Ms. Dunaway reports her symptoms began approximately 10 days prior to admission with a sudden-onset of cellulitis in her RLE complicated by development of a wound on the dorsal surface of her second toe with erythema extending from the second to the fifth toes. She then developed drainage from her anterior leg in spite of completing her course of doxycycline 2 days ago with an acute worsening of her symptoms since that time. She admits her blood sugars are typically high in the 300 mg/dL range and she affirms that her last hemoglobin A1c was high. She states she had a similar infection in her Left foot that resulted in her AKA in addition to a recent scraping deep skin cleaning done as an outpatient ~2 weeks ago by an aide at a local [facility]. She is chronically visually impaired so she could not confirm if there was a significant change in the color of her Right lower extremity. She admits to paresthesias in her Right lower extremity and runny nose with sore throat. She denies associated fever, chills, nausea, vomiting, diarrhea, constipation, abdominal pain, chest pain, palpitations, heart racing, dysuria, hematuria, arthralgias or headache. In the ER she was diagnosed with Right DFU with cellulitis extending up the Right leg complicated by laboratory evidence of Hyperglycemia of 300 mg/dL present on admission and Lactic Acidosis of 3 mmol/L present on admission suspected to be due to Adverse Drug Reaction to metformin with x-rays of the Right foot and tibial/fibula n egative for acute pathologic changes such as fracture, dislocation or obvious signs of osteomyelitis. She was then admitted to the general medical floor for ongoing care for a stay that is expected to extend beyond 2 midnights. [facility] Medical History (Updated 06/19/24 @ 00:[address] Dima Armenta, DO) Obstructive sleep apnea Former tobacco use COPD (chronic obstructive pulmonary disease) History of non-ST elevation myocardial infarction (NSTEMI) HLD (hyperlipidemia) CAD (coronary artery disease) GERD (gastroesophageal reflux disease) Chronic respiratory failure with hypoxia Type 2 diabetes mellitus with diabetic polyneuropathy Morbid obesity Diabetic neuropathy Benign hypertension Lymphedema of lower extremity Home Medications ?Medication ?Instructions ?Recorded ?Last Taken ?Type aspirin 81 mg chewable tablet 81 mg PO DAILY@0800 [facility] with 12/30/12 01/17/13 History primary doctor metformin 1,000 mg tablet 1,000 mg PO BID Check with p rimary 12/30/12 01/17/13 History doctor montelukast 10 mg tablet 10 mg PO DAILY Check with pr imary 12/30/12 01/17/13 History doctor furosemide 40 mg tablet 40 mg PO DAILY Check with pr imary 08/12/19 Unknown History doctor acetaminophen 325 mg tablet 650 mg (2 x 325 mg) PO Q6H PRN PRN 05/07/22 Unknown Rx (Tylenol) Pain 1-10 Or Fever>100.7 #0 tabs sennosides 8.6 mg-docusate sodium 2 tab PO BID PRN PRN Constipation 05/07/22 Unknown Rx 50 mg tablet (Stool #0 tabs Softener-Stimulant Laxative) amlodipine 10 mg tablet 10 mg PO DAILY Check with pr imary 06/01/22 Unknown History doctor atorvastatin 40 mg tablet 40 mg PO QHS Check with prim sammy 06/01/22 Unknown History doctor clopidogrel 75 mg tablet 75 mg PO DAILY Check with pr imary 06/01/22 Unknown History doctor gabapentin 300 mg capsule 300 mg PO BIDCM Check with p rimary 06/01/22 Unknown History doctor insulin lispro 100 unit/mL See Protocol subcut ACHS Ch benson 06/01/22 Unknown History subcutaneous pen (Humalog Edilberto with primary doctor (U-100) Insulin) menthol 0.44 %-zinc oxide 20.6 % 1 applic topical BID Check with 06/01/22 Unknown History topical ointment (Calmoseptine) primary doctor metoprolol tartrate 25 mg tablet 25 mg PO BID Check wi th primary 06/01/22 Unknown History doctor cefdinir 300 mg capsule 300 mg PO BID #20 caps 06/03 Unknown Rx cholecalciferol (vitamin D3) 50 50 mcg PO DAILY Unknown History mcg (2,000 unit) tablet dulaglutide 3 mg/0.5 mL 3 mg subcut QWEEK 06/18/24 U nknown History subcutaneous pen injector (Trulicity) furosemide 20 mg tablet (Lasix) 20 mg PO DAILY 5 Unknown History insulin glargine 100 unit/mL (3 60 unit subcut QPM 11/04 Unknown History mL) subcutaneous pen (Basaglar Edilberto U-100 Insulin) insulin lispro 100 unit/mL 20 unit subcut TIDCM Unknown History subcutaneous pen oxybutynin chloride 5 mg 5 mg PO DAILY 06/18/24 Unkno wn History tablet,extended release 24 hr pantoprazole 40 mg tablet,delayed 40 mg PO DAILY 06/18 Unknown History release therapeutic multivitamin (Oncovite 1 tab PO DAILY 11/04 Unknown History tablet)
--- NOTE | 2024-06-19 00:12 | PCM.HP.STD ---
[facility] - General General Date of Admission: 06/19/24 Date of Service: 06/19/24 Chief Complaint: Worsening Right DFU with Cellulitis. [facility] Narrative JUNG ROJAS, is a 63 F with a past medical history of essential hypertension; on amlodipine, metoprolol and furosemide, hyperlipidemia; on atorvastatin, former tobacco abuse (quit ~2012); subsequent COPD on chronic oxygen 2L NC, super-morbid obesity; with BMI of 55.4 this admission, SUSANNA; on CPAP, DM-2; uncontrolled with hyperglycemia in spite of insulin glargine 60 units sq every night, insulin lispro 20 units 3 times daily, insulin lispro SSI and metformin twice daily, weekly dulaglutide, diabetic polyneuropathy; on gabapentin twice daily, CAD; s/p NSTEMI, PVD; s/p Left AKA on BASA and clopidogrel, chronic lower extremity lymphedema, history of allergies; on montelukast, OAB; on oxybutynin, GERD; on pantoprazole, OA and recently diagnosed Right DFU with patient having recently completed a course of oral doxycycline without subsequent improvement with patient currently residing at [facility] who presents to [facility] ER complaining of worsening Right DFU with cellulitis. Ms. Rojas reports her symptoms began approximately 10 days prior to admission with a sudden-onset of cellulitis in her RLE complicated by development of a wound on the dorsal surface of her second toe with erythema extending from the second to the fifth toes. She then developed drainage from her anterior leg in spite of completing her course of doxycycline 2 days ago with an acute worsening of her symptoms since that time. She admits her blood sugars are typically high in the 300 mg/dL range and she affirms that her last hemoglobin A1c was high. She states she had a similar infection in her Left foot that resulted in her AKA in addition to a recent scraping deep skin cleaning done as an outpatient ~2 weeks ago by an aide at a local [facility]. She is chronically visually impaired so she could not confirm if there was a significant change in the color of her Right lower extremity. She admits to paresthesias in her Right lower extremity and runny nose with sore throat. She denies associated fever, chills, nausea, vomiting, diarrhea, constipation, abdominal pain, chest pain, palpitations, heart racing, dysuria, hematuria, arthralgias or headache. In the ER she was diagnosed with Right DFU with cellulitis extending up the Right leg complicated by laboratory evidence of Hyperglycemia of 300 mg/dL present on admission and Lactic Acidosis of 3 mmol/L present on admission suspected to be due to Adverse Drug Reaction to metformin with x-rays of the Right foot and tibial/fibula negative for acute pathologic changes such as fracture, dislocation or obvious signs of osteomyelitis. She was then admitted to the general medical floor for ongoing care for a stay that is expected to extend beyond 2 midnights. [facility] Medical History (Updated 06/19/24 @ 00:[address] Dima Armenta, DO) Obstructive sleep apnea Former tobacco use COPD (chronic obstructive pulmonary disease) History of non-ST elevation myocardial infarction (NSTEMI) HLD (hyperlipidemia) CAD (coronary artery disease) GERD (gastroesophageal reflux disease) Chronic respiratory failure with hypoxia Type 2 diabetes mellitus with diabetic polyneuropathy Morbid obesity Diabetic neuropathy Benign hypertension Lymphedema of lower extremity Home Medications ?Medication ?Instructions ?Recorded ?Last Taken ?Type aspirin 81 mg chewable tablet 81 mg PO DAILY@0800 Check with 12/30/12 01/17/13 History primary doctor metformin 1,000 mg tablet 1,000 mg PO BID Check with primary 12/30/12 01/17/13 History doctor montelukast 10 mg tablet 10 mg PO DAILY Check with primary 12/30/12 01/17/13 History doctor furosemide 40 mg tablet 40 mg PO DAILY Check with primary 08/12/19 Unknown History doctor acetaminophen 325 mg tablet 650 mg (2 x 325 mg) PO Q6H PRN PRN 05/07/22 Unknown Rx (Tylenol) Pain 1-10 Or Fever>100.7 #0 tabs sennosides 8.6 mg-docusate sodium 2 tab PO BID PRN PRN Constipation 05/07/22 Unknown Rx 50 mg tablet (Stool #0 tabs Softener-Stimulant Laxative) amlodipine 10 mg tablet 10 mg PO DAILY Check with primary 06/01/22 Unknown History doctor atorvastatin 40 mg tablet 40 mg PO QHS Check with primary 06/01/22 Unknown History doctor clopidogrel 75 mg tablet 75 mg PO DAILY Check with primary 06/01/22 Unknown History doctor gabapentin 300 mg capsule 300 mg PO BIDCM Check with primary 06/01/22 Unknown History doctor insulin lispro 100 unit/mL See Protocol subcut ACHS Check 06/01/22 Unknown History subcutaneous pen (Humalog KwikPen with primary doctor (U-100) Insulin) menthol 0.44 %-zinc oxide 20.6 % 1 applic topical BID Check with 06/01/22 Unknown History topical ointment (Calmoseptine) primary doctor metoprolol tartrate 25 mg tablet 25 mg PO BID Check with primary 06/01/22 Unknown History doctor cefdinir 300 mg capsule 300 mg PO BID #20 caps 06/03/22 Unknown Rx cholecalciferol (vitamin D3) 50 50 mcg PO DAILY 06/18/24 Unknown History mcg (2,000 unit) tablet dulaglutide 3 mg/0.5 mL 3 mg subcut QWEEK 06/18/24 Unknown History subcutaneous pen injector (Trulicity) furosemide 20 mg tablet (Lasix) 20 mg PO DAILY 06/18/24 Unknown History insulin glargine 100 unit/mL (3 60 unit subcut QPM 06/18/24 Unknown History mL) subcutaneous pen (Basaglar KwikPen U-100 Insulin) insulin lispro 100 unit/mL 20 unit subcut TIDCM 06/18/24 Unknown History subcutaneous pen oxybutynin chloride 5 mg 5 mg PO DAILY 06/18/24 Unknown History tablet,extended release 24 hr pantoprazole 40 mg tablet,delayed 40 mg PO DAILY 06/18/24 Unknown History release therapeutic multivitamin (Oncovite 1 tab PO DAILY 06/18/24 Unknown History tablet) Allergy/AdvReac Type Severity Reaction Status Date / Time latex Allergy Mild Hives Verified 06/18/24 21:32 Penicillins (PCN) Allergy Rash Verified 06/18/24 21:32 metformin AdvReac lactic Verified 06/19/24 00:48 acidosis Family History Mother Stomach cancer Father Heart disease CVA (cerebral vascular accident) Hypertension Diabetes Surgical History 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 Smoking Status: Former smoker how long ago did patient quit smoking: Quit 12 years prior, smoked ~ 1.5 ppd since teen until quit. alcohol intake: never substance use type: does not use ROS ROS Narrative Review of Systems: Constitutional: Patient denies fever or chills. Eyes: Patient admits to chronic poor vision but she denies discharge from eyes. ENT: Patient admits to runny nose and sore throat but she denies ear pain. Resp: Patient denies shortness of breath or cough. CV: Patient denies chest pain, palpitations or heart racing. GI: Patient denies abdominal pain, nausea, vomiting, diarrhea or constipation. : Patient denies dysuria, hematuria or urinary frequency. MSK: Patient has chronic 4+ RLE edema but she denies arthralgias or myalgias. Skin: Patient admits to severe Right DFU with RLE cellulitis as per HPI. Psych: Patient denies symptoms of uncontrolled depression or anxiety. Neuro: Patient admits to paresthesias in the Right lower extremity but she denies headache or focal neurologic deficits. Allergy: Patient denies lip swelling, tongue swelling or urticaria. Hematology: Patient denies easy bleeding or easy bruisability. Endocrinology: Patient admits to polyuria and polydipsia but she denies polyphagia or heat/cold intolerance. 14 point ROS otherwise negative save for positives noted above in HPI. Vital Signs Vital Signs Vital Signs: 06/18/24 21:27 06/18/24 21:31 06/18/24 22:31 Temperature 98.2 F 98.2 F 98.3 F Temperature Source Oral Oral Oral Pulse Rate 75 77 85 Respiratory Rate 20 H 20 H 19 H Blood Pressure 151/56 H 130/56 H 96/66 Blood Pressure Mean 87 80 76 Pulse Ox 93 94 91 Oxygen Delivery Method Room Air Room Air Room Air 06/18/24 23:00 06/19/24 00:00 06/19/24 00:05 Temperature 98.2 F 98.3 F 98.3 F Temperature Source Oral Oral Pulse Rate 81 75 74 Respiratory Rate 19 H 19 H 19 H Blood Pressure 117/47 L 140/61 H 140/61 H Blood Pressure Mean 70 87 87 Pulse Ox 92 93 93 Oxygen Delivery Method Room Air Room Air Weight Weight: 312 lb 13.375 oz Body Mass Index (BMI) 55.4 Physical Exam Const alert, oriented x3 and no apparent distress Constitutional Narrative: Patient is morbidly obese with chronically ill but nontoxic appearance. General Appearance: cooperative HEENT normocephalic, head/scalp atraumatic, hearing grossly normal bilaterally and moist oral mucous membranes Eyes PERRL and EOMs intact bilaterally Neck no lymphadenopathy, supple and no JVD Resp normal respiratory effort, no retractions, no use of accessory muscles and clear to auscultation bilaterally Cardio regular rate and regular rhythm GI normal to inspection, nondistended, normoactive bowel sounds, soft to palpation, non-tender and non-distended GI Narrative: Morbidly obese. Extremity Extremity Narrative: Patient has significant ~4+ lymphedema to the RLE with evidence of previous Left AKA. Patient has a wound to the dorsal surface of her second toe and erythema of all toes from the second to the fifth. She was also noted to have warmth to the dorsum of the right foot and anterior leg with breakdown of the skin and deformity noted with no appreciable popliteal or inguinal LAD and no ulcer noted on the plantar surface of the foot. Skin Skin Narrative: Patient has significant ~4+ lymphedema to the RLE with evidence of previous left AKA. Patient has a wound to the dorsal surface of her second toe and erythema of all toes from the second to the fifth. She was also noted to have warmth to the dorsum of the right foot and anterior leg with breakdown of the skin and deformity noted with no appreciable popliteal or inguinal LAD and no ulcer noted on the plantar surface of the foot. Neuro oriented x3, CN's II-XII intact bilaterally, moves all extremities and no focal motor deficits Sensorium / Orientation: awake, alert, oriented to person, oriented to place and oriented to time Speech: speech normal Psych affect normal Results Medical Records Data Attestation: I reviewed the patient's medical records Lab / Micro Data Attestation: I reviewed the patient's lab results. 06/19/24 03:45 06/18/24 22:20 Labs: Laboratory Results - last 24 hr 06/18/24 22:20: WBC 8.9, RBC 3.71 L, Hgb 11.3 L, Hct 33.5 L, MCV 90.3, MCH 30.5, MCHC 33.7, RDW Std Deviation 44.2 H, RDW Coeff of Heather 13.4, Plt Count 280, MPV 10.0, Immature Gran % (Auto) 0.700, Neut % (Auto) 74.5 H, Lymph % (Auto) 17.2 L, [place] % (Auto) 5.4, Eos % (Auto) 1.8, Baso % (Auto) 0.4, Absolute Neuts (auto) 6.6, Absolute Lymphs (auto) 1.53, Nucleated RBC % 0, Sodium 138, Potassium 3.8, Chloride 98, Carbon Dioxide 25.1, Anion Gap 15, BUN 14, Creatinine 1.14, Estim Creat Clear Calc 70.33, Est GFR (MDRD) Non-Af 54 L, BUN/Creatinine Ratio 12.0, Glucose 300 H, Lactic Acid 3.0 H*, Calcium 8.7, Total Bilirubin 0.36, AST 25, ALT 19, Alkaline Phosphatase 187 H, Total Protein 7.1, Albumin 3.7, Globulin 3.4, Albumin/Globulin Ratio 1.1 Imaging Radiology Impression Foot X-Ray 06/18/24 21:52 IMPRESSION: No acute fracture or dislocation. Reading Location: [facility] Tibia/Fibula X-Ray 06/18/24 21:52 IMPRESSION: No acute fracture or dislocation. Reading Location: [facility] Assessment & Plan Assessment/Plan (1) Diabetic foot ulcer associated with type 2 diabetes mellitus: QUALIFIERS: Diabetic foot ulcer location: unspecified part of foot Laterality: right Non-pressure ulcer stage: with fat layer exposed Qualified Code(s): E11.621 - Type 2 diabetes mellitus with foot ulcer; L97.512 - Non-pressure chronic ulcer of other part of right foot with fat layer exposed (2) Cellulitis: QUALIFIERS: Laterality: right Site of cellulitis: extremity Site of cellulitis of extremity: lower extremity Qualified Code(s): L03.115 - Cellulitis of right lower limb (3) Failure of outpatient treatment: (4) Type 2 diabetes mellitus with hyperglycemia: QUALIFIERS: Diabetes mellitus long term care administrator insulin use: with long term care administrator use Qualified Code(s): E11.65 - Type 2 diabetes mellitus with hyperglycemia; Z79.4 - long term care administrator (current) use of insulin (5) Diabetic polyneuropathy: QUALIFIERS: Diabetes mellitus type: type 2 Qualified Code(s): E11.42 - Type 2 diabetes mellitus with diabetic polyneuropathy (6) Lactic acidosis: (7) Adverse drug reaction: QUALIFIERS: Encounter type: initial encounter Qualified Code(s): T50.905A - Adverse effect of unspecified drugs, medicaments and biological substances, initial encounter (8) Lymphedema of right lower extremity: (9) Status post above-knee amputation of left lower extremity: (10) Morbid obesity with BMI of 50.0-59.9, adult: (11) Obstructive sleep apnea: PLAN: Plan 1. Right DFU with Cellulitis extending up the Right leg in the setting of recent outpatient antibiotic treatment failure with doxycycline suggesting MDR organism with likely polymicrobial infection - Admit to general medical floor. Continue empiric IV meropenem and IV vancomycin begun in the ER and await culture & sensitivity data. Check MRI of the Right foot to evaluate for possible osteomyelitis. Give acetaminophen as needed for [id number] (level 1-5/10) pain or fever. Give morphine IV as needed for severe (level 6-10/10) pain. Give ondansetron IV as needed nausea and vomiting. Patient did not have signs of sepsis present on admission with no leukocytosis, no left-shift, no fever and no hypotension. We will consult wound RN to see patient on rounds in the a.m. with help appreciated in advance. Finally, we we will consult Dr. Blanco of the podiatry service see this patient on rounds in the a.m. for further recommendations with help appreciated in advance. 2. DM-2; uncontrolled with Hyperglycemia 300 mg/dL present on admission in spite of insulin glargine 60 units sq every night, insulin lispro 20 units 3 times daily CM, insulin lispro SSI and metformin twice daily, weekly dulaglutide plus diabetic polyneuropathy; on gabapentin twice daily precipitating #1 - Keep NPO for now. FSBS q. 6 hours plus SSI. Check HgbA1c to objectively evaluate quality of diabetic control. Finally, we will consult clinical dietitian to see this patient on rounds in a.m. to enhance diabetic education with help appreciated in advance. 3. Lactic Acidosis of 3 mmol/L present on admission suspected to be due to Adverse Drug Reaction to metformin complicating #1 & #2 - Stop metformin and add to list of allergies to prevent recurrence as this agent is clearly not helping to control her brittle and severe DM-2. Serialize lactates to follow trend of hopeful improvement. Patient did not have signs of sepsis present on admission. 4. PVD; s/p Left AKA on BASA and clopidogrel in the setting of chronic lower extremity lymphedema compounding #1 - #3 - Hold BASA and clopidogrel until patient is evaluated by podiatry in case surgical intervention is required. 5. Super-morbid obesity; with BMI of 55.4 this admission plus SUSANNA; on CPAP adding to the burden of disease outlined from #1 - #4 - Weight loss will be recommended. Check TSH. Continue nocturnal CPAP as previous. This complicates her case and may hamper recovery. 6. Former tobacco abuse (quit ~2012); subsequent COPD on chronic oxygen 2L NC - Stable with no evidence of acute flare at this time. Give nebulizers as needed. 7. CAD; s/p NSTEMI - Stable. 8. Essential Hypertension; on amlodipine, metoprolol and furosemide - Current treatment to be maintained plus give prn IV hydralazine for systolic blood pressure > 160 mmHg. 9. Hyperlipidemia; on atorvastatin - Continue statin and check Lipid Profile. 10. History of allergies; on montelukast - Resume montelukast. 11. OAB; on oxybutynin - Continue current treatment. 12. GERD; on pantoprazole - Maintain PPI. 13. OA - Give acetaminophen as needed as per pain scale outlined in #1. 14. DVT prophylaxis - Enoxaparin 40 mg sq BID. Total time: Approximately (but not less than) 75 minutes. Charges/Coding Visit Charges Inpatient E&M: 32411 Init Hosp L3
[2024-06-19] MEDS: Vancomycin HCl 2,000 MG in 0.9% Normal Saline (500mL Bag) 500 ML 250 MG IV (00:52)
--- NOTE | 2024-06-19 01:45 | MRI_ITS ---
EXAM: Noncontrast MRI of the right foot. CLINICAL HISTORY: Cellulitis versus infection. COMPARISON: Right foot radiographs 06/18/2024 TECHNIQUE: Multi planar, multisequence MRI images of the right foot were obtained without IV contrast. FINDINGS: The examination is significantly suboptimal due to extensive motion artifact and the lack of intravenous contrast. There is extensive abnormal edema in the soft tissues and subcutaneous fat of the right foot there is no discrete drainable fluid collection, although evaluation is limited due to the lack of intravenous contrast. The major flexor and extensor tendons are intact. No definite abnormal marrow signal of the tarsal bones, metatarsals, or toes of the right foot, to strongly suggest osteomyelitis. Evaluation of the distal toes is limited due to small size of the structures and the presence of motion artifact. MRI/Lower Ext/No Jt/w/o IMPRESSION: Significantly suboptimal examination due to motion artifact and the lack of int ravenous contrast. No definite acute fracture or gross bony destructive process/osteomyelitis of t he right foot on the provided images. There is extensive abnormal increased signal involving the soft tissues and sub cutaneous fat of the right foot, greatest involving the dorsal aspect, suspicious for cellulitis. There is not evidence for discrete drainable fluid collection on the provided noncontrast images. Reading Location: [facility]
[2024-06-19 02:31] LABS: Reflex Lactate? Y
[2024-06-19 02:44] LABS: Magnesium 1.4 mg/dL (1.5-2.2)
--- NOTE | 2024-06-19 03:02 | PCM.RX.CS ---
Consult Antibiotic Management Pharmacy has been consulted to manage selected antibiotic: Vancomycin Type of Intervention Type of Consult: New start Labs Labs: Sodium 138 mmol/L (133-145) 06/18/24 22:20 Potassium 3.8 mmol/L (3.3-5.1) 06/18/24 22:20 Chloride 98 mmol/L (98-108) 06/18/24 22:20 Carbon Dioxide 25.1 mmol/L (21.0-32.0) 06/18/24 22:20 Anion Gap 15 (5-15) 06/18/24 22:20 BUN 14 mg/dL (4-19) 06/18/24 22:20 Creatinine 1.14 mg/dL (0.70-1.20) 06/18/24 22:20 Est GFR (MDRD) Non-Af 54 (>60) L 06/18/24 22:20 BUN/Creatinine Ratio 12.0 RATIO (10-20) 06/18/24 22:20 Glucose 300 mg/dL (70-99) H 06/18/24 22:20 Dosing Weight Weight used for dosin.1 kg Estimated Creatinine Clearance Estimated Creatinine Clearance: 70.33 Goal Trough Goal Trough: 15-20 mcg/mL Pharmacy Plan for Drug Dosing Pharmacy Plan for Drug Dosing: Pharmacy Service will continue to monitor and adjust dosing as required. ER DOSE 2GM 06/19 @ 0052. START 1750MG Q12H AND DRAW TROUGH PRIOR TO 4TH DOSE Follow-Up Labs Follow-Up Labs: Trough: Vancomycin Date/Time Labs Ordered Labs to be done on [date and time ordered]: 06/20 @ 1230
[2024-06-19] MEDS: 0.9% Normal Saline (1000mL) 1,000 ML 70 ML IV (03:12)
[2024-06-19 03:27] LABS: Mucous, Urine 0 SEEN /hpf (<or=2+)
[2024-06-19 03:31] LABS: Color, Urine Yellow (Yellow); Glucose, Dipstick 250 mg/dl (Normal); Ketone-Dipstick 5 mg/dl (Negative); Leukocyte Esterase-Dipstick 500 /ul (Negative); Nitrite-Dipstick Positive (Negative); Occult Blood-Urine 10 /ul (Negative); Protein-Dipstick 30 mg/dl (Negative); Specific Gravity, Urine 1.015 (1.002-1.030); Urine Bilirubin Dipstick Negative (Negative); Urine Clarity Sl. Cloudy (Clear); Urine Urobilinogen Normal (Normal)
[2024-06-19 03:48] LABS: Bacteria 3+ /hpf (None Seen); Red Blood Cells-Urine 0-5 SEEN /hpf (0-5); Renal Epithelial Cells 0-5 SEEN /hpf (0-5); Squamous Epithelial Cells - UA 0-5 SEEN /hpf (5-10); White Blood Cells 50-100 SEEN /hpf (0-5)
[2024-06-19 03:59] LABS: Absolute Lymphocyte Count 1.55 X10^3/uL (0.83-4.51); Absolute Neutrophil Count 6.5 X10^3/uL (2.0-7.7); Basophil# 0.02 X10^3/uL; Basophil% 0.2 % (0-1); Eosinophil# 0.12 X10^3/uL; Eosinophils% 1.4 % (0-5); Hematocrit 34.9 % (37-47); Hemoglobin 11.7 g/dL (12.0-15.0); Lymphocyte # 1.55 X10^3/ul (0.83-4.51); Lymphocyte % 17.7 % (19-41); Mean Corp Hgb Conc 33.5 g/dL (32-36); Mean Corpuscular Hgb 30.5 pg (27.0-32.0); Mean Corpuscular Volume 90.9 fL (81-99); Mean Platelet Vol. 9.9 fl (6.2-12.0); Monocyte# 0.49 X10^3/uL; Monocyte% 5.6 % (0-10); NRBC Flagged by Analyzer 0 % (0-5); Neutrophil # 6.52 X10^3/uL (2.7-7.7); Neutrophil % 74.5 % (47-70); Platelet Count 284 K/mm3 (150-450); RBC Distribution Width CV 13.6 % (11.6-14.6); RBC Distribution Width SD 44.2 fl (35.1-43.9); Red Blood Count 3.84 M/mm3 (4.2-5.4); White Blood Count 8.8 K/mm3 (4.4-11.0)
[2024-06-19 04:20] LABS: Phosphorus 2.6 mg/dL (2.7-4.5)
[2024-06-19 04:32] LABS: Lactic Acid 2.7 mmol/L (0.0-2.0)
[2024-06-19 06:12] LABS: ALB/GLOB Ratio 1.1 RATIO (0.9-2.4); AST(SGOT) 19 U/L (<=31); Alanine Aminotransfer ALT/SGPT 20 U/L (<=34); Albumin, Serum 3.8 g/dL (3.4-4.8); Alkaline Phosphatase 191 U/L (35-104); Anion Gap 13 (5-15); BUN 14 mg/dL (4-19); BUN/Creat Ratio 12.1 RATIO (10-20); Calcium,Total 8.7 mg/dL (7.6-11.0); Carbon Dioxide 24.7 mmol/L (21.0-32.0); Chloride 99 mmol/L (98-108); Creatinine, Serum 1.14 mg/dL (0.70-1.20); EST Glomerular Filtration Rate 54 (>60); Estimated Creatinine Clearance 70.07 ml/min (50-250); Globulin 3.5 g/dL (2.2-4.2); Glucose 299 mg/dL (70-99); Potassium 3.6 mmol/L (3.3-5.1); Protein, Total 7.3 g/dL (5.9-8.4); Sodium Level 137 mmol/L (133-145); Total Bilirubin 0.54 mg/dL (0.00-1.30)
[2024-06-19 06:22] LABS: Hemoglobin A1c 8.8 % (<=5.6)
[2024-06-19 06:24] LABS: Cholesterol 115 mg/dL (<=200); High Density Lipoprotein 36 mg/dL; Low Density Lipoprotein Calc. 46 mg/dL; Triglycerides 166 mg/dL; Very Low Density Lipoprotein 33 mg/dL (5-40)
[2024-06-19] MEDS: Insulin Lispro 100 UNIT/ML INSULN.PEN SC ×3 (06:31→17:18)
[2024-06-19] MEDS: 0.9% Saline Lock 10 ML Syringe IV ×3 (06:32→22:17)
[2024-06-19 07:02] LABS: Bedside Glucose 272 mg/dL (74-106)
[2024-06-19 07:02] LABS: Bedside Glucose 240 mg/dL (74-106)
--- NOTE | 2024-06-19 08:04 | PN.HOSP_ITS ---
Reason for Visit Reason for Visit: Diagnoses Type 2 diabetes mellitus with diabetic polyneuropathy (06/19/24) Type 2 diabetes mellitus with foot ulcer (06/19/24) Type 2 diabetes mellitus with other skin complications (06/19/24) Type 2 diabetes mellitus with hyperglycemia (06/19/24) Morbid (severe) obesity due to excess calories (06/19/24) Acidosis, unspecified (06/19/24) Obstructive sleep apnea (adult) (pediatric) (06/19/24) Lymphedema, not elsewhere classified (06/19/24) Cellulitis of right lower limb (06/19/24) Local infection of the skin and subcutaneous tissue, unspecified (06/19/24) Non-pressure chronic ulcer of other part of unspecified foot with unspecified severity (06/19/24) Non-pressure chronic ulcer of other part of right foot with fat layer exposed (06/19/24) Adverse effect of unspecified drugs, medicaments and biological substances, initial encounter (06/19/24) Body mass index [BMI] 50.0-59.9, adult (06/19/24) Other specified health status (06/19/24) group home (current) use of insulin (06/19/24) Acquired absence of left leg above knee (06/19/24) Subjective Subjective Upset about the lesion on her toe. Objective Data Objective Data Vital Signs: Vital Signs Temp Pulse Resp BP Pulse Ox O2 Del Method O2 Flow Rate 36.6 C 70 18 148/67 H 97 Nasal Cannula 2 06/19/24 01:58 06/19/24 01:58 06/19/24 01:58 06/19/24 01:58 06/19/24 01:58 06/19/24 03:31 06/19/24 03:31 Oxygen Flow Rate (L/min) 2 Oxygen Delivery Method Nasal Cannula Weight: 141.1 kg Body Mass Index (BMI) 55.0 Intake & Output: Intake and Output for Last 24 Hours 06/17/24 06/18/24 06/19/24 23:59 23:59 23:59 Intake Total 660 / 660 Output Total 100 / 100 Balance 560 / 560 Lab / Micro Data 06/19/24 03:45 06/19/24 03:45 Labs: Laboratory Results - last 24 hr 06/18/24 22:20: WBC 8.9, RBC 3.71 L, Hgb 11.3 L, Hct 33.5 L, MCV 90.3, MCH 30.5, MCHC 33.7, RDW Std Deviation 44.2 H, RDW Coeff of Heather 13.4, Plt Count 280, MPV 10.0, Immature Gran % (Auto) 0.700, Neut % (Auto) 74.5 H, Lymph % (Auto) 17.2 L, [place] % (Auto) 5.4, Eos % (Auto) 1.8, Baso % (Auto) 0.4, Absolute Neuts (auto) 6.6, Absolute Lymphs (auto) 1.53, Nucleated RBC % 0, Sodium 138, Potassium 3.8, Chloride 98, Carbon Dioxide 25.1, Anion Gap 15, BUN 14, Creatinine 1.14, Estim Creat Clear Calc 70.33, Est GFR (MDRD) Non-Af 54 L, BUN/Creatinine Ratio 12.0, G lucose 300 H, Lactic Acid 3.0 H*, Calcium 8.7, Magnesium 1.4 L, Total Bilirubin 0.36, AST 25, ALT 19, Alkaline Phosphatase 187 H, Total Protein 7.1, Albumin 3.7, Globulin 3.4, Albumin/Globulin Ratio 1.1 06/19/24 02:38: POC Glucose 272 H 06/19/24 03:20: Urine Color Yellow, Urine Clarity Sl. Cloudy, Urine pH 6.0, Ur Specific [place] 1.015, Urine Protein 30 H, Urine Glucose (UA) 250 H, Urine Ketones 5 H, Urine Occult Blood 10 H, Urine Nitrite Positive H, Urine Bilirubin Negative, Urine Urobilinogen Normal, Ur Leukocyte Esterase 500 H, Urine RBC 0-5 SEEN, Urine WBC 50-100 SEEN, Ur Squamous Epith Cells 0-5 SEEN, Ur Renal Epithelial Cell 0-5 SEEN, Urine Bacteria 3+, Urine Mucus 0 SEEN 06/19/24 03:45: WBC 8.8, RBC 3.84 L, Hgb 11.7 L, Hct 34.9 L, MCV 90.9, MCH 30.5, MCHC 33.5, RDW Std Deviation 44.2 H, RDW Coeff of Heather 13.6, Plt Count 284, MPV 9.9, Immature Gran % (Auto) 0.600, Neut % (Auto) 74.5 H, Lymph % (Auto) 17.7 L, [place] % (Auto) 5.6, Eos % (Auto) 1.4, Baso % (Auto) 0.2, Absolute Neuts (auto) 6.5, Absolute Lymphs (auto) 1.55, Nucleated RBC % 0, Sodium 137, Potassium 3.6, Chloride 99, Carbon Dioxide 24.7, Anion Gap 13, BUN 14, Creatinine 1.14, Estim Creat Clear Calc 70.07, Est GFR (MDRD) Non-Af 54 L, BUN/Creatinine Ratio 12.1, G lucose 299 H, Hemoglobin A1c 8.8, Lactic Acid 2.7 H*, Calcium 8.7, Phosphorus 2.6 L, Total Bilirubin 0.54, AST 19, ALT 20, Alkaline Phosphatase 191 H, Total Protein 7.3, Albumin 3.8, Globulin 3.5, Albumin/Globulin Ratio 1.1, Triglycerides 166, Cholesterol 115, LDL Cholesterol, Calc 46, VLDL Cholesterol 33, HDL Cholesterol 36 L, Cholesterol/HDL Ratio 3.20, TSH 3.040 06/19/24 06:27: POC Glucose 240 H Radiography Diagnostic Testing: Radiology Impression Foot X-Ray 06/18/24 21:52 IMPRESSION: No acute fracture or dislocation. Reading Location: [facility] Tibia/Fibula X-Ray 06/18/24 21:52 IMPRESSION: No acute fracture or dislocation. Reading Location: [facility] Physical Exam Const alert and no apparent distress Constitutional Narrative: seen on the commode. afebrile. Extremity Extremity Narrative: bilateral LE edema with venous stasis changes. Skin Skin Narrative: superficial lesion on dorsum of right 3rd toe. Neuro Sensorium / Orientation: awake and alert Assessment & Plan Assessment/Plan (1) Cellulitis: QUALIFIERS: Laterality: right Site of cellulitis: extremity Site of cellulitis of extremity: lower extremity Qualified Code(s): L03.115 - Cellulitis of right lower limb PLAN: xrays negative. MRI ordered. Podiatry consulted abx with vanc and meropenem PLAN: Plan Lactic acidosis: * likely skewed due to metformin use and not sepsis. * no additional work up. Lymphedema * Echo from 04/2022 showed an EF of 50% with dilated RV * suspect pt has pulmonary HTN (group 2) likely due to underlying SUSANNA. * start IV furosemide, fluid restrict. DM2: * a1c 8.8 * glargine. SSI. Chronic conditions: * obesity class III: complicates care and recovery. * HTN: amlodipine. metoprolol. VTE prophylaxis: LMWH. Charges/Coding Visit Charges Inpatient E&M: 28440 Subs Hosp L2
[2024-06-19] MEDS: Zinc Sulfate 50 mg zinc (220 mg) ORAL capsule PO (09:41)
[2024-06-19] MEDS: Metoprolol Tartrate 25 MG Tablet PO ×2 (09:41→22:14)
[2024-06-19] MEDS: Furosemide 40 MG Tablet PO (09:41)
[2024-06-19] MEDS: amLODIPine 10 MG Tablet PO (09:41)
[2024-06-19] MEDS: Cholecalciferol (VIT D3) 25 MCG TABLET (1,000 UNITS) 50 MCG PO (09:41)
[2024-06-19] MEDS: Tolterodine Tartrate 2 MG CAP.SA PO (09:41)
[2024-06-19] MEDS: Menthol/Lanolin/Calamine/Znox 113 GM Tube 1 APPLIC TOPICAL ×2 (09:42→22:01)
[2024-06-19] MEDS: Acetaminophen 325 MG Tablet 650 MG PO ×2 (09:48→17:24)
[2024-06-19] MEDS: Gabapentin 300 MG Capsule PO ×2 (09:49→22:14)
--- NOTE | 2024-06-19 10:56 | CASEMGMT ---
Addendum entered by Kitty Sagastume 06/19/24 11:07: Pt resides in [place]. SW updated. Kitty Sagastume DC Planning Asst. Original Note: Discharge Planning Updates sent to [facility]. Asked for confirmation of which unit pt resides. Awaiting response. Kitty Sagastume DC Planning Asst.
[2024-06-19] MEDS: Magnesium Sulfate 2 GM in Dextrose 5%-Water (100mL Bag) 100 ML IV (11:20)
[2024-06-19] MEDS: Morphine 2 MG/ML Syringe IV (12:08)
[2024-06-19 12:50] LABS: Bedside Glucose 262 mg/dL (74-106)
--- NOTE | 2024-06-19 13:36 | PCM.CONS.GEN ---
Assessment & Plan Assessment/Plan (1) Non-pressure chronic ulcer of right calf with fat layer exposed: (2) Non-pressure chronic ulcer of other part of right foot with fat layer exposed: (3) Diabetic polyneuropathy: QUALIFIERS: Diabetes mellitus type: type 2 Qualified Code(s): E11.42 - Type 2 diabetes mellitus with diabetic polyneuropathy (4) Diabetic foot ulcer associated with type 2 diabetes mellitus: QUALIFIERS: Diabetic foot ulcer location: unspecified part of foot Laterality: right Non-pressure ulcer stage: with fat layer exposed Qualified Code(s): E11.621 - Type 2 diabetes mellitus with foot ulcer; L97.512 - Non-pressure chronic ulcer of other part of right foot with fat layer exposed (5) Cellulitis of right lower limb: (6) Lymphedema of right lower extremity: (7) Lipodermatosclerosis: (8) Morbid obesity with BMI of 50.0-59.9, adult: PLAN: Plan Patient seen and evaluated Right lower extremity: There is significant edema and Lipolymphedema/lipodermatosclerosis to the right lower extremity. There is erythema of the right lower extremity with macerated tissue at the pretibial border in addition to thickened, yellow, brownish dried crust/plaque secondary to her lymphedema exudate with full-thickness ulceration underlying this tissue. There is significant edema of the digits with positive Stemmer sign at the second digit. There is a dorsal second digit ulceration x 2 overlying the distal/middle phalanx and proximal phalanx. Ulceration is superficial in nature with healthy granular base postdebridement of all the crusted macerated tissue. Ulcerative site does not probe to bone. WBC 8.8, lactic acid 2.7, glucose 300, HgbA1c 8.8% on 06/18/2024 Radiographs from 06/18/2024 were reviewed and are negative for acute osseous processes or osteomyelitis interpreted by radiology. I have also independently reviewed these and concur with radiographic read. MRI ordered 06/18/24, awaiting procedure and radiographic read. Currently on IV vancomycin/meropenem Following verbal consent a sharp excisional debridement was performed of the right lower extremity and second digit ulceration sites utilizing a #15 blade. Debridement was performed to the level of the subcutaneous tissue. 100% of the ulcerative sites were debrided. No local anesthetic was utilized secondary to diabetic peripheral polyneuropathy. Debridement consisted of removing fibrous, devitalized subcutaneous, biofilm, macerated nonviable tissue, crusting, slough. Hemostasis was achieved with pressure and gauze. Ulcerations noted to be Lucio stage I. Predebridement measurement not obtainable secondary to eschar and crusting. Postdebridement measurement second digit 3.0 cm x 1.0 cm x 0.1 cm, right lower extremity 8.0 cm x 13.0 cm x 0.1 cm. Patient tolerated the procedure well. Following debridement sites were dressed with Betadine soaked Adaptic, 4 x 4 gauze, ABD to the pretibial border, Kerlix, 4 inch Yasmany wrap, and 6 inch Yasmany wrap. Dressing to be changed daily by nursing staff Medicine team currently following for medical management, they are appreciated Wound nurse following for assistance in dressing changes, she is appreciated. May utilize right heel for transfer assistance At this time no acute podiatric surgical intervention is anticipated. Will continue to follow s/p bedside debridement. Jr. Yohannes Monterroso.P.[facility] [phone] HPI Consult Data Date of Consult: 06/19/24 HPI Narrative Reason for Consultation: Right lower extremity cellulitis second digit wound HPI Narrative: JUNG DUNAWAY, is a 63 F who presents to [facility] ED evening of 06/18/[address] her nursing facility, [facility] with complaint of right lower extremity cellulitis. She has PMHx of uncontrolled DM type II with peripheral polyneuropathy in spite of insulin, HLD, HTN, COPD on chronic oxygen 2 L nasal cannula, super morbid obesity with BMI of 55.4, lymphedema, lipodermatosclerosis, AKA left lower extremity, CAD, GERD. She reports symptoms began 10 days prior to admission with onset of cellulitis of the right lower extremity in addition to second digit dorsal wound. Patient does report bumping her toes when she maneuvers her wheelchair around the facility or into the bathroom and does not have feeling thus she does not realize she is doing so. Patient also has difficulty with vision due to her uncontrolled diabetes and does not check digits/foot regularly. She does state continued drainage from the right leg lymphedema site in addition to continued erythema despite completing course of doxycycline. She states that her blood sugars continue to run high in the 300s and her last A1c was also reported as high, however she cannot give number. She reports losing her left lower extremity to amputation due to similar infection in April 2022. Radiographs were obtained in the ED demonstrating no acute pathologic processes or obvious signs of osteomyelitis. Blood sugar in the ED was over 300 and WBC was 8.8 with left shift. She was started on IV Vanco/meropenem. Podiatry was consulted for further evaluation of second digit ulceration and lymphedema wounds to the right lower extremity. [facility] Medical History (Updated 06/19/24 @ 18:[address] Jordan Blanco, DPM) Obstructive sleep apnea Former tobacco use COPD (chronic obstructive pulmonary disease) History of non-ST elevation myocardial infarction (NSTEMI) HLD (hyperlipidemia) CAD (coronary artery disease) GERD (gastroesophageal reflux disease) Chronic respiratory failure with hypoxia Type 2 diabetes mellitus with diabetic polyneuropathy Morbid obesity Diabetic neuropathy Benign hypertension Lymphedema of lower extremity Home Medications ?Medication ?Instructions ?Recorded ?Last Taken ?Type aspirin 81 mg chewable tablet 81 mg PO DAILY@0800 Check with 12/30/12 01/17/13 History primary doctor metformin 1,000 mg tablet 1,000 mg PO BID Check with primary 12/30/12 01/17/13 History doctor montelukast 10 mg tablet 10 mg PO QHS Check with primary 12/30/12 01/17/13 History doctor furosemide 40 mg tablet 40 mg PO DAILY Check with primary 08/12/19 Unknown History doctor acetaminophen 325 mg tablet 650 mg (2 x 325 mg) PO Q6H PRN PRN 05/07/22 Unknown Rx (Tylenol) Pain 1-10 Or Fever>100.7 #0 tabs sennosides 8.6 mg-docusate sodium 2 tab PO BID PRN PRN Constipation 05/07/22 Unknown Rx 50 mg tablet (Stool #0 tabs Softener-Stimulant Laxative) amlodipine 10 mg tablet 10 mg PO DAILY Check with primary 06/01/22 Unknown History doctor atorvastatin 40 mg tablet 40 mg PO QHS Check with primary 06/01/22 Unknown History doctor clopidogrel 75 mg tablet 75 mg PO DAILY Check with primary 06/01/22 Unknown History doctor gabapentin 300 mg capsule 300 mg PO BIDCM Check with primary 06/01/22 Unknown History doctor insulin lispro 100 unit/mL See Protocol subcut ACHS Check 06/01/22 Unknown History subcutaneous pen (Humalog KwikPen with primary doctor (U-100) Insulin) menthol 0.44 %-zinc oxide 20.6 % 1 applic topical BID Check with 06/01/22 Unknown History topical ointment (Calmoseptine) primary doctor metoprolol tartrate 25 mg tablet 25 mg PO BID Check with primary 06/01/22 Unknown History doctor cefdinir 300 mg capsule 300 mg PO BID #20 caps 06/03/22 Unknown Rx cholecalciferol (vitamin D3) 50 50 mcg PO DAILY 06/18/24 Unknown History mcg (2,000 unit) tablet dulaglutide 3 mg/0.5 mL 3 mg subcut QWEEK 06/18/24 Unknown History subcutaneous pen injector (Trulicity) furosemide 20 mg tablet (Lasix) 20 mg PO DAILY 06/18/24 Unknown History insulin glargine 100 unit/mL (3 60 unit subcut QPM 06/18/24 Unknown History mL) subcutaneous pen (Basaglar KwikPen U-100 Insulin) insulin lispro 100 unit/mL 20 unit subcut TIDCM 06/18/24 Unknown History subcutaneous pen oxybutynin chloride 5 mg 5 mg PO DAILY 06/18/24 Unknown History tablet,extended release 24 hr pantoprazole 40 mg tablet,delayed 40 mg PO DAILY 06/18/24 Unknown History release therapeutic multivitamin (Oncovite 1 tab PO DAILY 06/18/24 Unknown History tablet) Allergy/AdvReac Type Severity Reaction Status Date / Time latex Allergy Mild Hives Verified 06/18/24 21:32 Penicillins (PCN) Allergy Rash Verified 06/18/24 21:32 metformin AdvReac lactic Verified 06/19/24 00:48 acidosis Family History Mother Stomach cancer Father Heart disease CVA (cerebral vascular accident) Hypertension Diabetes Surgical History 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 Smoking Status: Former smoker how long ago did patient quit smoking: Quit 12 years prior, smoked ~ 1.5 ppd since teen until quit. alcohol intake: never substance use type: does not use ROS Constitutional Constitutional: Denies body ache(s), chills or fever(s) Eyes Eyes: Reports other Details: Does have chronic poor vision secondary to uncontrolled diabetes ; Denies change in vision, diplopia or loss of vision ENT HEENT: Denies dysphagia, nasal congestion or nasal discharge Cardiovascular Cardiovascular: Denies chest pain, claudication or palpitations Respiratory/Chest Respiratory/Chest: Denies cough, dyspnea or shortness of breath at rest Gastrointestinal Gastrointestinal: Denies abdominal pain, constipation, diarrhea, nausea or vomiting Genitourinary Genitourinary: Denies dysuria, hematuria or urinary urgency Musculoskeletal Musculoskeletal: Denies joint pain, joint stiffness or joint swelling Integumentary Integumentary: Denies jaundice, lesions, pruritus or rash Neurologic Neurologic: Denies dizziness, numbness or seizures Psychiatric Psychiatric: Denies anxiety or depression Endocrine Endocrinology: Denies cold intolerance, heat intolerance, polydipsia, polyphagia or polyuria Hematologic/Lymphatic Hematologic/Lymphatic: Denies easy bleeding or easy bruising Allergic/Immunologic Allergic/Immunologic: Denies wheezing Physical Exam Const alert, oriented x3 and no apparent distress General Appearance: cooperative HEENT normocephalic Eyes General Eye: normal appearance of both eyes Neck General: normal visual inspection Lymph Lymphatic: no lymphadenopathy noted and lymphedema Lymphatic Narrative: Lipolymphedema right lower extremity Resp normal respiratory effort Cardio regular rate and regular rhythm Extremity no calf tenderness Extremity Narrative: Left lower extremity: AKA left lower extremity Right lower extremity: Vascular: DP and PT pulses nonpalpable secondary to significant lymphedema. CFT is less than 5 seconds to the digits. Pedal hair growth is absent to digits Neurologic: Gross sensation intact. Protective sensation is absent consistent with diabetic peripheral polyneuropathy Musculoskeletal: Muscle strength 4/5 secondary to nonambulatory status due to her AKA of the left lower extremity. Decreased range of motion of the ankle joint in dorsiflexion with the knee extended without pain or crepitus. Decreased range of motion of the subtalar joint, midtarsal joint, and first metatarsophalangeal joint without pain or crepitus. No pain to palpation of calf. No pain to palpation about the anterior aspect/pretibial ulceration or to second digit ulceration site. Dermatologic: There is significant edema and Lipolymphedema/lipodermatosclerosis to the right lower extremity. There is erythema of the right lower extremity with macerated tissue at the pretibial border in addition to thickened, yellow, brownish dried crust/plaque secondary to her lymphedema exudate with full-thickness ulceration underlying this tissue. There is significant edema of the digits with positive Stemmer sign at the second digit. There is a dorsal second digit ulceration x 2 overlying the distal/middle phalanx and proximal phalanx. Ulceration is superficial in nature with healthy granular base postdebridement of all the crusted macerated tissue. Ulcerative site does not probe to bone. Skin General Skin Exam: turgor decreased, venous stasis and dermatitis Neuro moves all extremities Lab / Micro Data 06/19/24 03:45 06/19/24 03:45 Labs: Laboratory Results - last 24 hr 06/18/24 22:20: WBC 8.9, RBC 3.71 L, Hgb 11.3 L, Hct 33.5 L, MCV 90.3, MCH 30.5, MCHC 33.7, RDW Std Deviation 44.2 H, RDW Coeff of Heather 13.4, Plt Count 280, MPV 10.0, Immature Gran % (Auto) 0.700, Neut % (Auto) 74.5 H, Lymph % (Auto) 17.2 L, [place] % (Auto) 5.4, Eos % (Auto) 1.8, Baso % (Auto) 0.4, Absolute Neuts (auto) 6.6, Absolute Lymphs (auto) 1.53, Nucleated RBC % 0, Sodium 138, Potassium 3.8, Chloride 98, Carbon Dioxide 25.1, Anion Gap 15, BUN 14, Creatinine 1.14, Estim Creat Clear Calc 70.33, Est GFR (MDRD) Non-Af 54 L, BUN/Creatinine Ratio 12.0, Glucose 300 H, Lactic Acid 3.0 H*, Calcium 8.7, Magnesium 1.4 L, Total Bilirubin 0.36, AST 25, ALT 19, Alkaline Phosphatase 187 H, Total Protein 7.1, Albumin 3.7, Globulin 3.4, Albumin/Globulin Ratio 1.1 06/19/24 02:38: POC Glucose 272 H 06/19/24 03:20: Urine Color Yellow, Urine Clarity Sl. Cloudy, Urine pH 6.0, Ur Specific [place] 1.015, Urine Protein 30 H, Urine Glucose (UA) 250 H, Urine Ketones 5 H, Urine Occult Blood 10 H, Urine Nitrite Positive H, Urine Bilirubin Negative, Urine Urobilinogen Normal, Ur Leukocyte Esterase 500 H, Urine RBC 0-5 SEEN, Urine WBC 50-100 SEEN, Ur Squamous Epith Cells 0-5 SEEN, Ur Renal Epithelial Cell 0-5 SEEN, Urine Bacteria 3+, Urine Mucus 0 SEEN 06/19/24 03:45: WBC 8.8, RBC 3.84 L, Hgb 11.7 L, Hct 34.9 L, MCV 90.9, MCH 30.5, MCHC 33.5, RDW Std Deviation 44.2 H, RDW Coeff of [place] 13.6, Plt Count 284, MPV 9.9, Immature Gran % (Auto) 0.600, Neut % (Auto) 74.5 H, Lymph % (Auto) 17.7 L, [place] % (Auto) 5.6, Eos % (Auto) 1.4, Baso % (Auto) 0.2, Absolute Neuts (auto) 6.5, Absolute Lymphs (auto) 1.55, Nucleated RBC % 0, Sodium 137, Potassium 3.6, Chloride 99, Carbon Dioxide 24.7, Anion Gap 13, BUN 14, Creatinine 1.14, Estim Creat Clear Calc 70.07, Est GFR (MDRD) Non-Af 54 L, BUN/Creatinine Ratio 12.1, Glucose 299 H, Hemoglobin A1c 8.8, Lactic Acid 2.7 H*, Calcium 8.7, Phosphorus 2.6 L, Total Bilirubin 0.54, AST 19, ALT 20, Alkaline Phosphatase 191 H, Total Protein 7.3, Albumin 3.8, Globulin 3.5, Albumin/Globulin Ratio 1.1, Triglycerides 166, Cholesterol 115, LDL Cholesterol, Calc 46, VLDL Cholesterol 33, HDL Cholesterol 36 L, Cholesterol/HDL Ratio 3.20, TSH 3.040 06/19/24 06:27: POC Glucose 240 H 06/19/24 11:55: POC Glucose 262 H Micro: Microbiology 06/19/24 04:30 Mucosa - Nasopharyngeal Respiratory Panel (PCR) - Final Imaging Radiology Impression Foot X-Ray 06/18/24 21:52 IMPRESSION: No acute fracture or dislocation. Reading Location: [facility] Tibia/Fibula X-Ray 06/18/24 21:52
[2024-06-19] MEDS: Vancomycin HCl 1,750 MG in 0.9% Normal Saline (500mL Bag) 500 ML 250 MG IV (14:10)
[2024-06-19] MEDS: Furosemide 40 MG/4 ML Vial IV ×2 (14:27→17:24)
--- NOTE | 2024-06-19 14:58 | WOUNDNOTE ---
wound photo: right lower leg
--- NOTE | 2024-06-19 14:58 | WOUNDNOTE ---
wound photo: right 2nd toe
[2024-06-19 15:32] LABS: M R Staph aureus DNA By PCR POSITIVE (Negative); Probe Check PASS; Staph aureus DNA By PCR POSITIVE (Negative)
[2024-06-19 16:46] LABS: Bedside Glucose 290 mg/dL (74-106)
[2024-06-19] MEDS: Insulin Glargine-YFGN 100 UNIT/ML Pen 40 UNIT SC (22:00)
[2024-06-19] MEDS: Enoxaparin 40 MG/0.4 ML Syringe SC (22:03)
[2024-06-19] MEDS: Montelukast 10 MG Tablet PO (22:03)
[2024-06-19] MEDS: Atorvastatin Calcium 40 MG Tablet PO (22:14)
[2024-06-19 22:42] LABS: Bedside Glucose 268 mg/dL (74-106)
[2024-06-20] VITALS (10 sets, daily range): BP systolic 125–146; BP diastolic 47–85; PULSE 73–90; RESP 17–20; TEMP 36.6–36.9; O2SAT 86–96; BMI 56.9
[2024-06-20] MEDS: Vancomycin HCl 1,750 MG in 0.9% Normal Saline (500mL Bag) 500 ML 250 MG IV (00:53)
[2024-06-20] MEDS: 0.9% Saline Lock 10 ML Syringe IV ×2 (00:53→08:30)
[2024-06-20] MEDS: Meropenem 1 GM in 0.9% Normal Saline (100mL MB+) 100 ML IV ×3 (06:04→21:47)
[2024-06-20 07:42] LABS: Absolute Lymphocyte Count 1.33 X10^3/uL (0.83-4.51); Absolute Neutrophil Count 6.1 X10^3/uL (2.0-7.7); Basophil# 0.01 X10^3/uL; Basophil% 0.1 % (0-1); Eosinophil# 0.09 X10^3/uL; Eosinophils% 1.1 % (0-5); Hematocrit 31.3 % (37-47); Hemoglobin 10.4 g/dL (12.0-15.0); Lymphocyte # 1.33 X10^3/ul (0.83-4.51); Lymphocyte % 16.6 % (19-41); Mean Corp Hgb Conc 33.2 g/dL (32-36); Mean Corpuscular Hgb 30.6 pg (27.0-32.0); Mean Corpuscular Volume 92.1 fL (81-99); Mean Platelet Vol. 10.1 fl (6.2-12.0); Monocyte# 0.39 X10^3/uL; Monocyte% 4.9 % (0-10); NRBC Flagged by Analyzer 0 % (0-5); Neutrophil # 6.14 X10^3/uL (2.7-7.7); Neutrophil % 76.8 % (47-70); POSITIVE COUNT YES; Platelet Count 259 K/mm3 (150-450); RBC Distribution Width CV 13.6 % (11.6-14.6); RBC Distribution Width SD 46.2 fl (35.1-43.9)
[2024-06-20 08:09] LABS: Differential Comment SCANNED; Differential Indicated SCAN CRITERIA MET
[2024-06-20] MEDS: Insulin Lispro 100 UNIT/ML INSULN.PEN SC ×3 (08:23→16:52)
[2024-06-20] MEDS: Gabapentin 300 MG Capsule PO ×2 (08:24→21:48)
[2024-06-20] MEDS: Furosemide 40 MG/4 ML Vial IV ×2 (08:27→16:47)
[2024-06-20 08:28] LABS: Anion Gap 12 (5-15); BUN 12 mg/dL (4-19); BUN/Creat Ratio 10.1 RATIO (10-20); Calcium,Total 8.1 mg/dL (7.6-11.0); Carbon Dioxide 26.4 mmol/L (21.0-32.0); Chloride 101 mmol/L (98-108); Creatinine, Serum 1.22 mg/dL (0.70-1.20); EST Glomerular Filtration Rate 50 (>60); Estimated Creatinine Clearance 66.94 ml/min (50-250); Glucose 237 mg/dL (70-99); Potassium 3.6 mmol/L (3.3-5.1); Sodium Level 139 mmol/L (133-145)
[2024-06-20] MEDS: Cholecalciferol (VIT D3) 25 MCG TABLET (1,000 UNITS) 50 MCG PO (08:28)
[2024-06-20] MEDS: Pantoprazole Sodium 40 MG Tablet PO (08:28)
[2024-06-20] MEDS: amLODIPine 10 MG Tablet PO (08:28)
[2024-06-20] MEDS: Zinc Sulfate 50 mg zinc (220 mg) ORAL capsule PO (08:28)
[2024-06-20] MEDS: Metoprolol Tartrate 25 MG Tablet PO ×2 (08:28→21:42)
[2024-06-20] MEDS: Tolterodine Tartrate 2 MG CAP.SA PO (08:28)
[2024-06-20] MEDS: Menthol/Lanolin/Calamine/Znox 113 GM Tube 1 APPLIC TOPICAL ×2 (08:29→21:40)
--- NOTE | 2024-06-20 08:29 | PN.HOSP_ITS ---
Reason for Visit Reason for Visit: Diagnoses Type 2 diabetes mellitus with hyperglycemia (06/19/24) Acidosis, unspecified (06/19/24) Obstructive sleep apnea (adult) (pediatric) (06/19/24) Cellulitis of right lower limb (06/19/24) Non-pressure chronic ulcer of right calf with fat layer exposed (06/19/24) Non-pressure chronic ulcer of other part of right foot with fat layer exposed (06/19/24) Panniculitis, unspecified (06/19/24) Adverse effect of unspecified drugs, medicaments and biological substances, initial encounter (06/19/24) alf (current) use of insulin (06/19/24) Acquired absence of left leg above knee (06/19/24) Subjective Subjective still with LE edema. She says at home she keeps it elevated, but fluid always returns when leg is dependent. Objective Data Objective Data Vital Signs: Vital Signs Temp Pulse Resp BP Pulse Ox O2 Del Method O2 Flow Rate 36.7 C 79 20 H 134/47 H 96 Nasal Cannula 2 06/20/24 08:13 06/20/24 08:13 06/20/24 08:13 06/20/24 08:13 06/20/24 08:13 06/20/24 08:13 06/20/24 08:13 Oxygen Flow Rate (L/min) 2 Oxygen Delivery Method Nasal Cannula Weight: 146 kg Body Mass Index (BMI) 56.9 Intake & Output: Intake and Output for Last 24 Hours 06/18/24 06/19/24 06/20/24 23:59 23:59 23:59 Intake Total 3939 / 3939 895 / 895 Output Total 1300 / 1300 1200 / 1200 Balance 2639 / 2639 -305 / -305 Lab / Micro Data 06/20/24 07:10 06/20/24 07:10 Labs: Laboratory Results - last 24 hr 06/19/24 11:55: POC Glucose 262 H 06/19/24 13:15: S.aureus Protein A PCR POSITIVE H, MRSA (PCR) POSITIVE H 06/19/24 16:25: POC Glucose 290 H 06/19/24 21:59: POC Glucose 268 H 06/20/24 07:10: WBC 8.0, RBC 3.40 L, Hgb 10.4 L, Hct 31.3 L, MCV 92.1, MCH 30.6, MCHC 33.2, RDW Std Deviation 46.2 H, RDW Coeff of Heather 13.6, Plt Count 259, MPV 10.1, Immature Gran % (Auto) 0.500, Neut % (Auto) 76.8 H, Lymph % (Auto) 16.6 L, [place] % (Auto) 4.9, Eos % (Auto) 1.1, Baso % (Auto) 0.1, Absolute Neuts (auto) 6.1, Absolute Lymphs (auto) 1.33, Nucleated RBC % 0, Differential Comment SCANNED, Sodium 139, Potassium 3.6, Chloride 101, Carbon Dioxide 26.4, Anion Gap 12, BUN 12, Creatinine 1.22 H, Estim Creat Clear Calc 66.94, Est GFR (MDRD) Non- Af 50 L, BUN/Creatinine Ratio 10.1, Glucose 237 H, Calcium 8.1 Micro: Microbiology 06/19/24 04:30 Mucosa - Nasopharyngeal Respiratory Panel (PCR) - Final Physical Exam Const alert and no apparent distress HEENT head/scalp atraumatic and moist oral mucous membranes Resp normal respiratory effort, no retractions, no use of accessory muscles and clear to auscultation bilaterally Cardio regular rate, regular rhythm and S2 normal heart sound Extremity General Extremity: edema right lower extremity moderate Neuro Sensorium / Orientation: awake Assessment & Plan Assessment/Plan (1) Cellulitis: QUALIFIERS: Laterality: right Site of cellulitis: extremity Site of cellulitis of extremity: lower extremity Qualified Code(s): L03.115 - Cellulitis of right lower limb PLAN: xrays negative. MRI ordered. Podiatry consulted and debrided RLE 2nd digit ulceration. More definitive surgery TBD. abx with vanc and meropenem Culture showing S. aureus, thus far. PLAN: Plan Lactic acidosis: * likely skewed due to metformin use and not sepsis. * no additional work up. Lymphedema * Echo from 04/2022 showed an EF of 50% with dilated RV * suspect pt has pulmonary HTN (group 2) likely due to underlying SUSANNA. * start IV furosemide, fluid restrict. DM2: * a1c 8.8 * glargine. SSI. Chronic conditions: * obesity class III: complicates care and recovery. * HTN: amlodipine. metoprolol. VTE prophylaxis: LMWH. Charges/Coding Visit Charges Inpatient E&M: 42333 Subs Hosp L2
[2024-06-20 08:43] LABS: Bedside Glucose 229 mg/dL (74-106)
[2024-06-20 12:19] LABS: Bedside Glucose 304 mg/dL (74-106)
--- NOTE | 2024-06-20 14:04 | CHAPLAIN ---
Type of Pastoral Visit _x__ Initial Visit ___ Follow-up Visit ___ On-call Visit ___ General Patient Visit ___ Spiritual Assessment ___ Family Conference ___ Bereavement ___ Rapid Response ___ Code Blue ___ Other (describe below) Pastoral Care Referral From _x__ Patient ___ Family ___ Nurse ___ Physician ___ Rn Psych ___ [employer]ical [employer] ___ Other (describe below) Sacrament/Intervention _x__ Active listening ___ Anointing ___ Amish ___ Bereavement ___ Communion ___ Elizabeth exploration ___ ___ Life review ___ Prayer ___ Reconciliation ___ Sacrament of Sick _x__ Supportive presence ___ Wedding ___ Other (describe below) Pastoral Comments patient had just received her lunch; pt is conflicted about having a visit since she is focused on eating; a family member is in the room; pt says that she knows what she is supposed to do now about her diet and medical care; pt denies further assistance needed at this time but is wiling for future visits
[2024-06-20 14:09] LABS: Vancomycin, Trough Level 26.9 ug/mL (5.0-15.0)
--- NOTE | 2024-06-20 14:18 | PCM.RX.CS ---
Consult Antibiotic Management Pharmacy has been consulted to manage selected antibiotic: Vancomycin Type of Intervention Type of Consult: Follow-up Suspected Infection Suspected Infection: Skin/Soft tissue Prior Doses of Antibiotics Prior Doses of Antibiotics Received/Current Regimen: Vancomycin 1750 mg Q12H last dose given 06/20 @ 0053 Labs Labs: Sodium 139 mmol/L (133-145) 06/20/24 07:10 Potassium 3.6 mmol/L (3.3-5.1) 06/20/24 07:10 Chloride 101 mmol/L (98-108) 06/20/24 07:10 Carbon Dioxide 26.4 mmol/L (21.0-32.0) 06/20/24 07:10 Anion Gap 12 (5-15) 06/20/24 07:10 BUN 12 mg/dL (4-19) 06/20/24 07:10 Creatinine 1.22 mg/dL (0.70-1.20) H 06/20/24 07:10 Est GFR (MDRD) Non-Af 50 (>60) L 06/20/24 07:10 BUN/Creatinine Ratio 10.1 RATIO (10-20) 06/20/24 07:10 Glucose 237 mg/dL (70-99) H 06/20/24 07:10 Vancomycin Trough 26.9 ug/mL (5.0-15.0) H 06/20/24 12:59 Microbiology Microbiology: Microbiology 06/19/24 13:15 Wound - Right Foot Wound Culture - Preliminary Staphylococcus aureus 06/19/24 04:30 Mucosa - Nasopharyngeal Respiratory Panel (PCR) - Final Dosing Weight Weight used for dosin kg Estimated Creatinine Clearance Estimated Creatinine Clearance: ~ 67 Goal Trough Goal Trough: 15-20 mcg/mL Pharmacy Plan for Drug Dosing Pharmacy Plan for Drug Dosing: Vancomycin trough = 26.9, hold scheduled vancomycin, random level in AM Pharmacy Service will continue to monitor and adjust dosing as required. Follow-Up Labs Follow-Up Labs: Trough: Vancomycin Date/Time Labs Ordered Labs to be done on [date and time ordered]: 06/21 @ 0600
[2024-06-20 17:32] LABS: Bedside Glucose 282 mg/dL (74-106)
[2024-06-20] MEDS: Insulin Glargine-YFGN 100 UNIT/ML Pen 40 UNIT SC (21:41)
[2024-06-20] MEDS: Atorvastatin Calcium 40 MG Tablet PO (21:42)
[2024-06-20] MEDS: Enoxaparin 40 MG/0.4 ML Syringe SC (21:42)
[2024-06-20] MEDS: Acetaminophen 325 MG Tablet 650 MG PO (21:48)
[2024-06-20] MEDS: Montelukast 10 MG Tablet PO (21:49)
[2024-06-20 22:14] LABS: Bedside Glucose 319 mg/dL (74-106)
[2024-06-21 02:21] VITALS: BP 121/53; PULSE 70; RESP 18; TEMP 36.7; O2SAT 94
[2024-06-21 03:06] VITALS: BMI 57.1
[2024-06-21] MEDS: Meropenem 1 GM in 0.9% Normal Saline (100mL MB+) 100 ML IV (05:34)
[2024-06-21] MEDS: 0.9% Normal Saline (100mL Bag) 100 ML 15 ML IV (05:34)
[2024-06-21] MEDS: Vancomycin Trough/Random Due 1 LAB MC (06:06)
[2024-06-21 06:19] LABS: Vancomycin, Random Level 14.8 ug/mL (0.0-15.0)
[2024-06-21 06:22] LABS: Anion Gap 12 (5-15); BUN 13 mg/dL (4-19); Calcium,Total 8.2 mg/dL (7.6-11.0); Carbon Dioxide 27.5 mmol/L (21.0-32.0); Chloride 99 mmol/L (98-108); Creatinine, Serum 1.14 mg/dL (0.70-1.20); EST Glomerular Filtration Rate 54 (>60); Glucose 295 mg/dL (70-99); Potassium 3.7 mmol/L (3.3-5.1); Sodium Level 138 mmol/L (133-145)
--- NOTE | 2024-06-21 06:30 | PHA.PHARE_ITS ---
Consult Antibiotic Management Pharmacy has been consulted to manage selected antibiotic: Vancomycin Type of Intervention Type of Consult: Follow-up Suspected Infection Suspected Infection: Skin/Soft tissue Labs Labs: Sodium 138 mmol/L (133-145) 06/21/24 05:48 Potassium 3.7 mmol/L (3.3-5.1) 06/21/24 05:48 Chloride 99 mmol/L (98-108) 06/21/24 05:48 Carbon Dioxide 27.5 mmol/L (21.0-32.0) 06/21/24 05:48 Anion Gap 12 (5-15) 06/21/24 05:48 BUN 13 mg/dL (4-19) 06/21/24 05:48 Creatinine 1.14 mg/dL (0.70-1.20) 06/21/24 05:48 Est GFR (MDRD) Non-Af 54 (>60) L 06/21/24 05:48 BUN/Creatinine Ratio 11.0 RATIO (10-20) 06/21/24 05:48 Glucose 295 mg/dL (70-99) H 06/21/24 05:48 Vancomycin Trough 26.9 ug/mL (5.0-15.0) H 06/20/24 12:59 Random Vancomycin 14.8 ug/mL (0.0-15.0) 06/21/24 05:48 Microbiology Microbiology: Microbiology 06/19/24 13:15 Wound - Right Foot Gram Stain - Final 06/19/24 13:15 Wound - Right Foot Wound Culture - Preliminary Staphylococcus aureus 06/19/24 04:30 Mucosa - Nasopharyngeal Respiratory Panel (PCR) - Final Dosing Weight Weight used for dosin kg Estimated Creatinine Clearance Estimated Creatinine Clearance: 67 Goal Trough Goal Trough: 15-20 mcg/mL Pharmacy Plan for Drug Dosing Pharmacy Plan for Drug Dosing: Vancomycin random level fell below 20 mcg/ml, at 14.8, so dosing will be re- started at 1500mg q12h. A trough level will be drawn prior to fourth dose. Pharmacy Service will continue to monitor and adjust dosing as required. Follow-Up Labs Follow-Up Labs: Trough: Vancomycin Date/Time Labs Ordered Labs to be done on [date and time ordered]: 06/22/24 @9011
[2024-06-21] MEDS: Vancomycin HCl 1,500 MG in 0.9% Normal Saline (500mL Bag) 500 ML 250 MG IV (06:53)
[2024-06-21 07:30] VITALS: O2SAT 98
--- NOTE | 2024-06-21 07:44 | PCM.PROGNOTE ---
Subjective Subjective Patient seen early this a.m. with wound nurse assistance. States she must of pulled her IV out overnight and will require new placement. Does complain of pain at the IV site nursing had just finished dressings of the site as she was being evaluated. She denies constitutional symptoms. Denies further complaints. Objective Data Objective Data Vital Signs: Vital Signs Temp Pulse Resp BP Pulse Ox O2 Del Method O2 Flow Rate 98.0 F 70 18 121/53 H 94 Nasal Cannula 2 06/21/24 02:21 06/21/24 02:21 06/21/24 02:21 06/21/24 02:21 06/21/24 02:21 06/21/24 02:21 06/21/24 02:21 Oxygen Flow Rate (L/min) 2 Oxygen Delivery Method Nasal Cannula Weight: 146.2 kg Body Mass Index (BMI) 57.1 Intake & Output: Intake and Output for Last 24 Hours 06/19/24 06/20/24 06/21/24 23:59 23:59 23:59 Intake Total 3939 / 3939 2545 / 2545 170 / 170 Output Total 1300 / 1300 4600 / 4600 200 / 200 Balance 2639 / 2639 -2055 / -2055 -30 / -30 Lab / Micro Data 06/20/24 07:10 06/21/24 05:48 Labs: Laboratory Results - last 24 hr 06/20/24 07:10: WBC 8.0, RBC 3.40 L, Hgb 10.4 L, Hct 31.3 L, MCV 92.1, MCH 30.6, MCHC 33.2, RDW Std Deviation 46.2 H, RDW Coeff of Heather 13.6, Plt Count 259, MPV 10.1, Immature Gran % (Auto) 0.500, Neut % (Auto) 76.8 H, Lymph % (Auto) 16.6 L, [place] % (Auto) 4.9, Eos % (Auto) 1.1, Baso % (Auto) 0.1, Absolute Neuts (auto) 6.1, Absolute Lymphs (auto) 1.33, Nucleated RBC % 0, Differential Comment SCANNED, Sodium 139, Potassium 3.6, Chloride 101, Carbon Dioxide 26.4, Anion Gap 12, BUN 12, Creatinine 1.22 H, Estim Creat Clear Calc 66.94, Est GFR (MDRD) Non-Af 50 L, BUN/Creatinine Ratio 10.1, Glucose 237 H, Calcium 8.1 06/20/24 08:20: POC Glucose 229 H 06/20/24 11:55: POC Glucose 304 H 06/20/24 12:59: Vancomycin Trough 26.9 H 06/20/24 16:41: POC Glucose 282 H 06/20/24 21:38: POC Glucose 319 H 06/21/24 05:48: Sodium 138, Potassium 3.7, Chloride 99, Carbon Dioxide 27.5, Anion Gap 12, BUN 13, Creatinine 1.14, Estim Creat Clear Calc 71.70, Est GFR (MDRD) Non-Af 54 L, BUN/Creatinine Ratio 11.0, Glucose 295 H, Calcium 8.2, Random Vancomycin 14.8 Micro: Microbiology 06/19/24 13:15 Wound - Right Foot Gram Stain - Final 06/19/24 13:15 Wound - Right Foot Wound Culture - Preliminary Staphylococcus aureus 06/19/24 04:30 Mucosa - Nasopharyngeal Respiratory Panel (PCR) - Final Radiography Diagnostic Testing: Radiology Impression Lower Extremity MRI 06/19/24 01:45 IMPRESSION: Significantly suboptimal examination due to motion artifact and the lack of intravenous contrast. No definite acute fracture or gross bony destructive process/osteomyelitis of the right foot on the provided images. There is extensive abnormal increased signal involving the soft tissues and subcutaneous fat of the right foot, greatest involving the dorsal aspect, suspicious for cellulitis. There is not evidence for discrete drainable fluid collection on the provided noncontrast images. Reading Location: [facility] Physical Exam Const alert, oriented x3 and no apparent distress General Appearance: cooperative HEENT normocephalic Eyes General Eye: normal appearance of both eyes Neck General: normal visual inspection Lymph Lymphatic: no lymphadenopathy noted and lymphedema Lymphatic Narrative: Lipolymphedema right lower extremity Resp normal respiratory effort Cardio regular rate and regular rhythm Extremity no calf tenderness Extremity Narrative: Left lower extremity: AKA left lower extremity Right lower extremity: Vascular: DP and PT pulses nonpalpable secondary to significant lymphedema. CFT is less than 5 seconds to the digits. Pedal hair growth is absent to digits Neurologic: Gross sensation intact. Protective sensation is absent consistent with diabetic peripheral polyneuropathy Musculoskeletal: Muscle strength 4/5 secondary to nonambulatory status due to her AKA of the left lower extremity. Decreased range of motion of the ankle joint in dorsiflexion with the knee extended without pain or crepitus. Decreased range of motion of the subtalar joint, midtarsal joint, and first metatarsophalangeal joint without pain or crepitus. No pain to palpation of calf. No pain to palpation about the anterior aspect/pretibial ulceration or to second digit ulceration site. Dermatologic: There is significant edema and Lipolymphedema/lipodermatosclerosis to the right lower extremity. There is resolving erythema of the right lower extremity with improvement of the ulcerative site at the pretibial border with newly epithelialized skin at the previous debridement site. Just proximal to this there is thickened, yellow, brownish dried crust/plaque secondary to her lymphedema. There is significant edema of the digits with positive Stemmer sign at the second digit. There is a dorsal second digit ulceration x 2 overlying the distal/middle phalanx which has now healed and proximal phalanx which is improving and nearly healed. Ulceration is superficial in nature with healthy granular base postdebridement of all the previously crusted, macerated tissue. Ulcerative site does not probe to bone. Skin General Skin Exam: turgor decreased, venous stasis and dermatitis Neuro moves all extremities Assessment & Plan Assessment/Plan (1) Non-pressure chronic ulcer of right calf with fat layer exposed: (2) Non-pressure chronic ulcer of other part of right foot with fat layer exposed: (3) Diabetic polyneuropathy: QUALIFIERS: Diabetes mellitus type: type 2 Qualified Code(s): E11.42 - Type 2 diabetes mellitus with diabetic polyneuropathy (4) Diabetic foot ulcer associated with type 2 diabetes mellitus: QUALIFIERS: Diabetic foot ulcer location: unspecified part of foot Laterality: right Non-pressure ulcer stage: with fat layer exposed Qualified Code(s): E11.621 - Type 2 diabetes mellitus with foot ulcer; L97.512 - Non-pressure chronic ulcer of other part of right foot with fat layer exposed (5) Cellulitis of right lower limb: (6) Lymphedema of right lower extremity: (7) Lipodermatosclerosis: (8) Morbid obesity with BMI of 50.0-59.9, adult: PLAN: Plan Patient seen and evaluated Right lower extremity: There is significant edema and Lipolymphedema/lipodermatosclerosis to the right lower extremity. There is resolving erythema of the right lower extremity with improvement of the ulcerative site at the pretibial border with newly epithelialized skin at the previous debridement site. Just proximal to this there is thickened, yellow, brownish dried crust/plaque secondary to her lymphedema. There is significant edema of the digits with positive Stemmer sign at the second digit. There is a dorsal second digit ulceration x 2 overlying the distal/middle phalanx which has now healed and proximal phalanx which is improving and nearly healed. Ulceration is superficial in nature with healthy granular base postdebridement of all the previously crusted, macerated tissue. Ulcerative site does not probe to bone. WBC 8.8 HgbA1c 8.8% on 06/18/2024 Radiographs from 06/18/2024 were reviewed and are negative for acute osseous processes or osteomyelitis interpreted by radiology. I have also independently reviewed these and concur with radiographic read. MRI ordered 06/18/24 demonstrates soft tissue swelling and changes consistent with cellulitis. No evidence of fracture or osteomyelitis. Currently on IV vancomycin/meropenem She did undergo bedside debridement on 06/19/2024 and there is significant improvement in the pretibial border site and the second digit with both sites nearly healed. Sites were dressed with Betadine soaked Adaptic, 4 x 4 gauze, ABD to the pretibial border, Kerlix, 4 inch Yasmany wrap, and 6 inch Yasmany wrap. Dressing to be changed daily by nursing staff Medicine team currently following for medical management, they are appreciated Wound nurse following for assistance in dressing changes, she is appreciated. May utilize right heel for transfer assistance At this time no acute podiatric surgical intervention is anticipated and with wounds nearly healed podiatry to sign off. Jr. Yohannes Monterroso.P.M. [facility] [phone]
--- NOTE | 2024-06-21 07:59 | PN.HOSP_ITS ---
Reason for Visit Reason for Visit: Diagnoses Type 2 diabetes mellitus with diabetic polyneuropathy (06/19/24) Type 2 diabetes mellitus with foot ulcer (06/19/24) Type 2 diabetes mellitus with hyperglycemia (06/19/24) Morbid (severe) obesity due to excess calories (06/19/24) Acidosis, unspecified (06/19/24) Obstructive sleep apnea (adult) (pediatric) (06/19/24) Lymphedema, not elsewhere classified (06/19/24) Cellulitis of right lower limb (06/19/24) Non-pressure chronic ulcer of right calf with fat layer exposed (06/19/24) Non-pressure chronic ulcer of other part of right foot with fat layer exposed (06/19/24) Panniculitis, unspecified (06/19/24) Adverse effect of unspecified drugs, medicaments and biological substances, initial encounter (06/19/24) Body mass index [BMI] 50.0-59.9, adult (06/19/24) residential (current) use of insulin (06/19/24) Acquired absence of left leg above knee (06/19/24) Subjective Subjective No new issues. Objective Data Objective Data Vital Signs: Vital Signs Temp Pulse Resp BP Pulse Ox O2 Del Method O2 Flow Rate 36.7 C 70 18 121/53 H 94 Nasal Cannula 2 06/21/24 02:21 06/21/24 02:21 06/21/24 02:21 06/21/24 02:21 06/21/24 02:21 06/21/24 02:21 06/21/24 02:21 Oxygen Flow Rate (L/min) 2 Oxygen Delivery Method Nasal Cannula Weight: 146.2 kg Body Mass Index (BMI) 57.1 Intake & Output: Intake and Output for Last 24 Hours 06/19/24 06/20/24 06/21/24 23:59 23:59 23:59 Intake Total 3939 / 3939 2545 / 2545 516.55 / 516.55 Output Total 1300 / 1300 4600 / 4600 200 / 200 Balance 2639 / 2639 -2055 / -5 316.55 / 316.55 Lab / Micro Data 06/20/24 07:10 06/21/24 05:48 Labs: Laboratory Results - last 24 hr 06/20/24 07:10: WBC 8.0, RBC 3.40 L, Hgb 10.4 L, Hct 31.3 L, MCV 92.1, MCH 30.6, MCHC 33.2, RDW Std Deviation 46.2 H, RDW Coeff of Heather 13.6, Plt Count 259, MPV 10.1, Immature Gran % (Auto) 0.500, Neut % (Auto) 76.8 H, Lymph % (Auto) 16.6 L, [place] % (Auto) 4.9, Eos % (Auto) 1.1, Baso % (Auto) 0.1, Absolute Neuts (auto) 6.1, Absolute Lymphs (auto) 1.33, Nucleated RBC % 0, Differential Comment SCANNED, Sodium 139, Potassium 3.6, Chloride 101, Carbon Dioxide 26.4, Anion Gap 12, BUN 12, Creatinine 1.22 H, Estim Creat Clear Calc 66.94, Est GFR (MDRD) Non-Af 50 L, BUN/Creatinine Ratio 10.1, Glucose 237 H, Calcium 8.1 06/20/24 08:20: POC Glucose 229 H 06/20/24 11:55: POC Glucose 304 H 06/20/24 12:59: Vancomycin Trough 26.9 H 06/20/24 16:41: POC Glucose 282 H 06/20/24 21:38: POC Glucose 319 H 06/21/24 05:48: Sodium 138, Potassium 3.7, Chloride 99, Carbon Dioxide 27.5, Anion Gap 12, BUN 13, Creatinine 1.14, Estim Creat Clear Calc 71.70, Est GFR (MDRD) Non-Af 54 L, BUN/Creatinine Ratio 11.0, Glucose 295 H, Calcium 8.2, Random Vancomycin 14.8 Micro: Microbiology 06/19/24 13:15 Wound - Right Foot Gram Stain - Final 06/19/24 13:15 Wound - Right Foot Wound Culture - Preliminary Staphylococcus aureus 06/19/24 04:30 Mucosa - Nasopharyngeal Respiratory Panel (PCR) - Final Radiography Diagnostic Testing: Radiology Impression Lower Extremity MRI 06/19/24 01:45 IMPRESSION: Significantly suboptimal examination due to motion artifact and the lack of intravenous contrast. No definite acute fracture or gross bony destructive process/osteomyelitis of the right foot on the provided images. There is extensive abnormal increased signal involving the soft tissues and subcutaneous fat of the right foot, greatest involving the dorsal aspect, suspicious for cellulitis. There is not evidence for discrete drainable fluid collection on the provided noncontrast images. Reading Location: [facility] Physical Exam Const alert and no apparent distress HEENT head/scalp atraumatic and moist oral mucous membranes Resp normal respiratory effort and no retractions Neuro Sensorium / Orientation: awake and alert Assessment & Plan Assessment/Plan (1) Cellulitis: QUALIFIERS: Laterality: right Site of cellulitis: extremity Site of cellulitis of extremity: lower extremity Qualified Code(s): L03.115 - Cellulitis of right lower limb PLAN: xrays negative. MRI limited due to movement and lack of IV contrast. No definitive osteomyelitis/abscess. Podiatry consulted and debrided RLE 2nd digit ulceration. No additional surgery necessary. abx with vanc and meropenem. Given Staph, will dc meropenem. Culture showing MRSA. Will discharge with linezolid. PLAN: Plan Lactic acidosis: * likely skewed due to metformin use and not sepsis. * no additional work up. Lymphedema * Echo from 04/2022 showed an EF of 50% with dilated RV * suspect pt has pulmonary HTN (group 2) likely due to underlying SUSANNA. * continue PO furosemide. Fluid restriction as able. DM2: * a1c 8.8 * glargine. SSI. Chronic conditions: * obesity class III: complicates care and recovery. * HTN: amlodipine. metoprolol. VTE prophylaxis: LMWH.
[2024-06-21 08:00] VITALS: BP 144/57; PULSE 70; RESP 20; TEMP 36.7; O2SAT 93
[2024-06-21] MEDS: Insulin Lispro 100 UNIT/ML INSULN.PEN SC ×2 (08:55→12:10)
[2024-06-21] MEDS: Cholecalciferol (VIT D3) 25 MCG TABLET (1,000 UNITS) 50 MCG PO (08:56)
[2024-06-21] MEDS: Ascorbic Acid 500 MG Tablet 1000 MG PO (08:56)
[2024-06-21 09:01] VITALS: PULSE 70
[2024-06-21] MEDS: Furosemide 40 MG/4 ML Vial IV (09:01)
[2024-06-21] MEDS: Metoprolol Tartrate 25 MG Tablet PO (09:01)
[2024-06-21] MEDS: amLODIPine 10 MG Tablet PO (09:01)
[2024-06-21] MEDS: Tolterodine Tartrate 2 MG CAP.SA PO (09:01)
[2024-06-21] MEDS: Zinc Sulfate 50 mg zinc (220 mg) ORAL capsule PO (09:02)
[2024-06-21] MEDS: Pantoprazole Sodium 40 MG Tablet PO (09:02)
[2024-06-21] MEDS: Acetaminophen 325 MG Tablet 650 MG PO (09:05)
[2024-06-21] MEDS: Gabapentin 300 MG Capsule PO (09:05)
[2024-06-21 09:33] LABS: Bedside Glucose 276 mg/dL (74-106)
--- NOTE | 2024-06-21 12:03 | PCM.DC.SUM ---
Providers Date of Admission: 06/19/24 Primary Care Physician: Dr. Radha Medina MD Consultations 06/19/24 01:45 Consult: Onc/Wound/weatherization specialist Routine Comment: Reason for Consult:: Right DFU with cellulitis. Consult: Podiatry Routine Consulting Provider: Jordan Blanco Reason for Consult: Right DFU with Cellulitis. EMERGENT Consult: No MD Notified: Yes Date Notified: 06/19/24 Time Notified: 06:26 Method of Notification: Text Reason For Visit: RIGHT DFU WITH CELLULITIS Diagnosis Discharge Diagnosis (1) Cellulitis: Status: Acute Code(s): L03.90 - Cellulitis, unspecified Qualifiers: Site of cellulitis: extremity Site of cellulitis of extremity: lower extremity Laterality: right Qualified Code(s): L03.115 - Cellulitis of right lower limb Plan: xrays negative. MRI limited due to movement and lack of IV contrast. No definitive osteomyelitis/abscess. Podiatry consulted and debrided RLE 2nd digit ulceration. No additional surgery necessary. abx with vanc and meropenem. Given Staph, will dc meropenem. Culture showing MRSA. Will discharge with linezolid. Plan Lactic acidosis: likely skewed due to metformin use and not sepsis. no additional work up. Lymphedema Echo from 04/2022 showed an EF of 50% with dilated RV suspect pt has pulmonary HTN (group 2) likely due to underlying SUSANNA. continue PO furosemide. Fluid restriction as able. DM2: a1c 8.8 glargine. SSI. Chronic conditions: obesity class III: complicates care and recovery. HTN: amlodipine. metoprolol. VTE prophylaxis: LMWH. Medications at Discharge Home Medications aspirin 81 mg chewable tablet 81 mg PO DAILY@0800 Check with primary doctor 12/30/12 metformin 1,000 mg tablet 1,000 mg PO BID Check with primary doctor 12/30/12 montelukast 10 mg tablet 10 mg PO QHS Check with primary doctor 12/30/12 acetaminophen 325 mg tablet (Tylenol) 650 mg (2 x 325 mg) PO Q6H PRN PRN Pain 1-10 Or Fever>100.7 #0 tabs 05/07/22 sennosides 8.6 mg-docusate sodium 50 mg tablet (Stool Softener-Stimulant Laxative) 2 tab PO BID PRN PRN Constipation #0 tabs 05/07/22 atorvastatin 40 mg tablet 40 mg PO QHS Check with primary doctor 06/01/22 clopidogrel 75 mg tablet 75 mg PO DAILY Check with primary doctor 06/01/22 gabapentin 300 mg capsule 300 mg PO BIDCM Check with primary doctor 06/01/22 insulin lispro 100 unit/mL subcutaneous pen (Humalog KwikPen (U-100) Insulin) See Protocol subcut ACHS Check with primary doctor 06/01/22 menthol 0.44 %-zinc oxide 20.6 % topical ointment (Calmoseptine) 1 applic topical BID Check with primary doctor 06/01/22 metoprolol tartrate 25 mg tablet 25 mg PO BID Check with primary doctor 06/01/22 cholecalciferol (vitamin D3) 50 mcg (2,000 unit) tablet 50 mcg PO DAILY 06/18/24 dulaglutide 3 mg/0.5 mL subcutaneous pen injector (Trulicity) 3 mg subcut QWEEK 06/18/24 insulin glargine 100 unit/mL (3 mL) subcutaneous pen (Basaglar KwikPen U-100 Insulin) 60 unit subcut QPM 06/18/24 insulin lispro 100 unit/mL subcutaneous pen 20 unit subcut TIDCM 06/18/24 oxybutynin chloride 5 mg tablet,extended release 24 hr 5 mg PO DAILY 06/18/24 pantoprazole 40 mg tablet,delayed release 40 mg PO DAILY 06/18/24 therapeutic multivitamin (Oncovite tablet) 1 tab PO DAILY 06/18/24 furosemide 40 mg tablet 40 mg PO BIDCM Check with primary doctor #60 tabs 06/21/24 linezolid 600 mg tablet 600 mg PO BID #10 tabs 06/21/24 potassium chloride 10 mEq capsule,extended release 10 meq PO DAILY #30 caps 06/21/24 Hospital Course Operations None Procedures None Summary of Care Provided Minutes Spent on Discharge: 32 Hospital Course: Pt presents with Right lower extremity cellulitis that originated from toe lesion. MRI was negative for osteomyelitis. Cx came back with MRSA and he will be discharged with linezolid. Her lypmhedema complicates recovery. She received IV furosemide, but continue PO furosemide. Weight / BMI Weight Weight: 146.2 kg Body Mass Index (BMI) 57.1 ABG / Lab / Microbiology Data 06/20/24 07:10 06/21/24 05:48 Laboratory: Laboratory Results - last 24 hr 06/20/24 11:55: POC Glucose 304 H 06/20/24 12:59: Vancomycin Trough 26.9 H 06/20/24 16:41: POC Glucose 282 H 06/20/24 21:38: POC Glucose 319 H 06/21/24 05:48: Sodium 138, Potassium 3.7, Chloride 99, Carbon Dioxide 27.5, Anion Gap 12, BUN 13, Creatinine 1.14, Estim Creat Clear Calc 71.70, Est GFR (MDRD) Non-Af 54 L, BUN/Creatinine Ratio 11.0, Glucose 295 H, Calcium 8.2, Random Vancomycin 14.8 06/21/24 08:54: POC Glucose 276 H Microbiology: Microbiology 06/19/24 13:15 Wound - Right Foot Gram Stain - Final 06/19/24 13:15 Wound - Right Foot Wound Culture - Final Meth. resistant Staph. aureus 06/19/24 04:30 Mucosa - Nasopharyngeal Respiratory Panel (PCR) - Final Radiography Diagnostic Testing: Radiology Impression Lower Extremity MRI 06/19/24 01:45 IMPRESSION: Significantly suboptimal examination due to motion artifact and the lack of intravenous contrast. No definite acute fracture or gross bony destructive process/osteomyelitis of the right foot on the provided images. There is extensive abnormal increased signal involving the soft tissues and subcutaneous fat of the right foot, greatest involving the dorsal aspect, suspicious for cellulitis. There is not evidence for discrete drainable fluid collection on the provided noncontrast images. [facility] Instructions Discharge Diet: 8 Cup Fluid Restriction and 2000 mg Sodium Diet DC O2, CPAP, BIPAP Needs Home O2 Discharge instructions: No Meaningful Use Info Meaningful Use Meaningful Use Diagnoses (Choose all that apply): None applicable Ischemic Stroke Statin Dosing Therapy Reference: STATIN DOSE THERAPY REFERENCE: * Patients > 75 years receive moderate or high dose statin therapy. * Patients 75 years or YOUNGER should receive HIGH intensity statin dose unless contraindicated. You will be required to document reason for non-treatment if statin daily dose does not meet guidelines. HIGH DOSE STATIN THERAPY DAILY Atorvastatin > than or = to 40 mg Rosuvastatin > than or = to 20 mg Amlodipine + Atorvastatin > than or = to 2.5/40 mg Ezetimibe + Simvastatin 10/80 mg Simvastatin 80mg Discharge Plan Admission Admit Date/Time: 06/19/24 00:59 Primary Reason for Your Visit: Cellulitis Attending Provider: Ariel Milan Primary Care Provider: Radha Medina Consulting Providers: Dima Armenta; Jordan Blnaco Discharge Orders/Prescriptions Prescriptions: New linezolid 600 mg tablet 600 mg PO BID Qty: 10 0RF potassium chloride 10 mEq capsule, extended release 10 meq PO DAILY Qty: 30 0RF Continued aspirin 81 MG tablet,chewable 81 mg PO DAILY@0800 Patient Comments: HEART montelukast 10 MG tablet 10 mg PO QHS Patient Comments: ALLERGIES metformin 1,000 MG tablet 1,000 mg PO BID Patient Comments: DIABETES acetaminophen [Tylenol] 325 mg Tablet 650 mg PO Q6H PRN PRN (Reason: Pain 1-10 Or Fever>100.7) Qty: 0 0RF sennosides-docusate sodium [Stool Softener-Stimulant Laxat] 8.6-50 mg Tablet 2 tab PO BID PRN PRN (Reason: Constipation) Qty: 0 0RF atorvastatin 40 mg tablet 40 mg PO QHS clopidogrel 75 mg tablet 75 mg PO DAILY gabapentin 300 mg capsule 300 mg PO BIDCM Patient Comments: pper pt takes in AM & QHS insulin lispro [Humalog KwikPen Insulin] 100 unit/mL insulin pen See Protocol subcut ACHS Protocol: 3. Sliding Scale Insulin Med Dosing Condition: 150-189 mg/dl = 1 unit Condition: 190-229 mg/dl = 2 units Condition: 230-269 mg/dl = 3 units Condition: 270-309 mg/dl = 4 units Condition: 310-349 mg/dl = 5 units Condition: 350-399 mg/dl = 6 units Condition: 400-449 mg/dl = 7 units Condition: Greater than 449 call physician Protocol Text: - Use for Total Daily Dose of Insulin 37-55 units - Obsese, infected, or steroid patients MEDIUM DOSING ALGORITHIM metoprolol tartrate 25 mg tablet 25 mg PO BID menthol-zinc oxide [Calmoseptine] 0.44-20.6 % ointment 1 applic topical BID Protocol: *Topical Application Instructions APPLICATION INSTRUCTIONS: Apply to affected areas insulin lispro 100 unit/mL insulin pen 20 unit subcut TIDCM insulin glargine [Basaglar KwikPen U-100 Insulin] 100 unit/mL (3 mL) insulin pen 60 unit subcut QPM Trulicity 3 mg/0.5 mL pen injector 3 mg subcut QWEEK oxybutynin chloride 5 mg tablet extended release 24hr 5 mg PO DAILY Oncovite Tablet 1 tab PO DAILY pantoprazole 40 mg tablet,delayed release (DR/EC) 40 mg PO DAILY cholecalciferol (vitamin D3) 50 mcg (2,000 unit) tablet 50 mcg PO DAILY Changed furosemide 40 MG tablet 40 mg PO BIDCM Qty: 60 0RF Discontinued amlodipine 10 mg tablet 10 mg PO DAILY cefdinir 300 mg capsule 300 mg PO BID Qty: 20 0RF furosemide [Lasix] 20 mg tablet 20 mg PO DAILY Referrals / Follow Up: Radha Medina MD [Primary Care Provider] - Within 2 Weeks Jordan Blanco DPM [Med Staff - Active Staff] - Within 2 Weeks Disposition Disposition (needs filled in before D/C Order can be placed): NonSkilled NH/Intermed Care Charges/Coding Visit Charges Inpatient E&M: 86491 Disch Hosp >30min
[2024-06-21] MEDS: Menthol/Lanolin/Calamine/Znox 113 GM Tube 1 APPLIC TOPICAL (12:11)
[2024-06-21 12:33] LABS: Bedside Glucose 324 mg/dL (74-106)
--- NOTE | 2024-06-21 14:13 | CASEMGMT ---
Discharge Planning Discharge orders and transport time sent to . Physicians will transport pt by wheelchair at 4p. Nursing, SW, pt, and her daughter updated. Kitty Sagastume DC Planning Asst.
[2024-06-21 14:46] VITALS: BP 119/60; PULSE 71; RESP 18; TEMP 36.5; O2SAT 91
--- NOTE | 2024-06-21 14:55 | NURSING ---
Report called to [facility]
--- NOTE | 2024-06-21 15:21 | PHA.DC_ITS ---
Pharmacy MA Med Reconciliation Pharmacy Service has performed discharge medication reconciliation for this patient. The patient's discharge medication list was reviewed for discrepancies and discrepancies were resolved. Medications at Discharge Home Medications aspirin 81 mg chewable tablet 81 mg PO DAILY@0800 Check with primary doctor 12/30/12 metformin 1,000 mg tablet 1,000 mg PO BID Check with primary doctor 12/30/12 montelukast 10 mg tablet 10 mg PO QHS Check with primary doctor 12/30/12 acetaminophen 325 mg tablet (Tylenol) 650 mg (2 x 325 mg) PO Q6H PRN PRN Pain 1- 10 Or Fever>100.7 #0 tabs 05/07/22 sennosides 8.6 mg-docusate sodium 50 mg tablet (Stool Softener-Stimulant Laxati ve) 2 tab PO BID PRN PRN Constipation #0 tabs 05/07/22 atorvastatin 40 mg tablet 40 mg PO QHS Check with primary doctor 06/01/22 clopidogrel 75 mg tablet 75 mg PO DAILY Check with primary doctor 06/01/22 gabapentin 300 mg capsule 300 mg PO BIDCM Check with primary doctor 06/01/22 insulin lispro 100 unit/mL subcutaneous pen (Humalog KwikPen (U-100) Insulin) See Protocol subcut ACHS Check with primary doctor 06/01/22 menthol 0.44 %-zinc oxide 20.6 % topical ointment (Calmoseptine) 1 applic topical BID Check with primary doctor 06/01/22 metoprolol tartrate 25 mg tablet 25 mg PO BID Check with primary doctor 06/01/22 cholecalciferol (vitamin D3) 50 mcg (2,000 unit) tablet 50 mcg PO DAILY 06/18/24 dulaglutide 3 mg/0.5 mL subcutaneous pen injector (Trulicity) 3 mg subcut QWEEK 06/18/24 insulin glargine 100 unit/mL (3 mL) subcutaneous pen (Basaglar KwikPen U-100 Insulin) 60 unit subcut QPM 06/18/24 insulin lispro 100 unit/mL subcutaneous pen 20 unit subcut TIDCM 06/18/24 oxybutynin chloride 5 mg tablet,extended release 24 hr 5 mg PO DAILY 06/18/24 pantoprazole 40 mg tablet,delayed release 40 mg PO DAILY 06/18/24 therapeutic multivitamin (Oncovite tablet) 1 tab PO DAILY 06/18/24 furosemide 40 mg tablet 40 mg PO BIDCM Check with primary doctor #60 tabs 06/21/24 linezolid 600 mg tablet 600 mg PO BID #10 tabs 06/21/24 potassium chloride 10 mEq capsule,extended release 10 meq PO DAILY #30 caps 06/21/24
== END 2024-06-21 18:32 | disposition intermediate care facility (04) | DRG 380 ==
LOC: ED 23:37 → PCU 06-19 01:12
PROVIDERS: Student in an Organized Health Care Education/Training Program; Admitting Provider Internal Medicine; Emergency Provider Emergency Medicine; PCP Internal Medicine
DX: E11.621 Type 2 diabetes mellitus with foot ulcer (principal); L97.212 Non-pressure chronic ulcer of right calf with fat layer exposed; I27.23 Pulmonary hypertension due to lung diseases and hypoxia; E87.20 Acidosis, unspecified; I70.232 Atherosclerosis of native arteries of right leg with ulceration of calf; E11.42 Type 2 diabetes mellitus with diabetic polyneuropathy; B95.62 Methicillin resistant Staphylococcus aureus infection as the cause of diseases classified elsewhere; Z68.43 Body mass index [BMI] 50.0-59.9, adult; J44.9 Chronic obstructive pulmonary disease, unspecified; D64.9 Anemia, unspecified; I10 Essential (primary) hypertension; I70.235 Atherosclerosis of native arteries of right leg with ulceration of other part of foot; Z89.612 Acquired absence of left leg above knee; E11.628 Type 2 diabetes mellitus with other skin complications; K21.9 Gastro-esophageal reflux disease without esophagitis; E78.5 Hyperlipidemia, unspecified; I25.10 Atherosclerotic heart disease of native coronary artery without angina pectoris; I89.0 Lymphedema, not elsewhere classified; Z79.4 Long term (current) use of insulin; M19.90 Unspecified osteoarthritis, unspecified site; G47.33 Obstructive sleep apnea (adult) (pediatric); L97.512 Non-pressure chronic ulcer of other part of right foot with fat layer exposed; E11.65 Type 2 diabetes mellitus with hyperglycemia; I25.2 Old myocardial infarction; E11.51 Type 2 diabetes mellitus with diabetic peripheral angiopathy without gangrene; I45.10 Unspecified right bundle-branch block; L03.115 Cellulitis of right lower limb; T38.3X5A Adverse effect of insulin and oral hypoglycemic [antidiabetic] drugs, initial encounter; E66.813 Obesity, class 3; Z99.81 Dependence on supplemental oxygen; Z79.02 Long term (current) use of antithrombotics/antiplatelets; Z79.82 Long term (current) use of aspirin; Z79.84 Long term (current) use of oral hypoglycemic drugs; Z79.85 Long-term (current) use of injectable non-insulin antidiabetic drugs; Z87.891 Personal history of nicotine dependence
CPT/HCPCS: 36415; 73590; 73620; 73718; 80048; 80053; 80061; 80202; 81001; 82962; 83036; 83605; 83735; 84100; 84443; 85025; 87040; 87070; 87077; 87186; 87205; 87633; 87640; 97116; 97162; 97530; 97802; 99285; J2185; A4216; J1940

== ENCOUNTER → 2024-09-20 | Outpatient (CLI) | payer MEDICAID, SELFPAY | END | disposition home or self-care (01) | LOC: SL 20:00 | PROVIDERS: PCP Internal Medicine; Referring Provider Nurse Practitioner Adult Health; Visit Provider Nurse Practitioner Adult Health | DX: G47.33 Obstructive sleep apnea (adult) (pediatric) (principal); E66.01 Morbid (severe) obesity due to excess calories; Z68.43 Body mass index [BMI] 50.0-59.9, adult; G47.34 Idiopathic sleep related nonobstructive alveolar hypoventilation | CPT/HCPCS: 95810 ==

== ENCOUNTER → 2024-11-25 | Outpatient (CLI) | payer MEDICAID, SELFPAY | END | disposition home or self-care (01) | LOC: SL 20:29 | PROVIDERS: PCP Internal Medicine; Referring Provider Nurse Practitioner Adult Health; Visit Provider Nurse Practitioner Adult Health | DX: G47.33 Obstructive sleep apnea (adult) (pediatric) (principal); E66.01 Morbid (severe) obesity due to excess calories; R79.81 Abnormal blood-gas level | CPT/HCPCS: 95811 ==

== ENCOUNTER 2024-12-13 11:48 | Emergency (ER) | payer MEDICAID, SELFPAY ==
[2024-12-13 11:49] VITALS: BP 139/73; PULSE 66; RESP 16; TEMP 36.6; O2SAT 96; BMI 53.6
[2024-12-13] MEDS: Lidocaine 1% /Epi 1:100 (20ml) 20 ML Vial INFILT (12:43)
--- NOTE | 2024-12-13 12:48 | EX.ED.DYSGE1 ---
HPI History of Present Illness Chief Complaint: Wound Check Narrative Narrative: Chief complaint and HPI: 64-year-old female with past medical history of DM2, HLD, COPD presents for evaluation of upper left chest boil. Patient states her boil became swollen about a week ago. States she had an incision and drainage performed by nurse several days ago. She states she is on doxycycline. States that the boil became more swollen again and needs drained. She denies any fever, chills, nausea, vomiting. Review of systems: See HPI Medications: As listed on the chart Allergies: As listed on the chart PFSH: Per chart Vital signs: As listed on the chart. Reviewed. Physical exam: Gen: A&O x3, NAD Head: Normocephalic, atraumatic Eyes: No sclera icterus, conjunctiva clear ENT: Moist mucous membranes Neck: Trachea midline CV: RRR, no murmurs, left upper chest boil that is erythematous and fluctuant Resp: Lungs CTA BL, no w/r/c Neuro: Alert, oriented, grossly intact, sensation intact Psych: Cooperative, appropriate mood and [facility] History (Updated 12/13/24 @ 13:[address] Anthony Park, DO) Lipodermatosclerosis Diabetic polyneuropathy Morbid obesity with BMI of 50.0-59.9, adult Lymphedema of right lower extremity Type 2 diabetes mellitus with hyperglycemia Anemia MRSA (methicillin resistant staph aureus) culture positive Obstructive sleep apnea Former tobacco use COPD (chronic obstructive pulmonary disease) History of non-ST elevation myocardial infarction (NSTEMI) HLD (hyperlipidemia) CAD (coronary artery disease) GERD (gastroesophageal reflux disease) Chronic respiratory failure with hypoxia Type 2 diabetes mellitus with diabetic polyneuropathy Morbid obesity Diabetic neuropathy Benign hypertension Lymphedema of lower extremity Home Medications ?Medication ?Instructions ?Recorded ?Last Taken ?Type aspirin 81 mg chewable tablet 81 mg PO DAILY@0800 Check with 12/30/12 01/17/13 History primary doctor metformin 1,000 mg tablet 1,000 mg PO BID Check with primary 12/30/12 01/17/13 History doctor montelukast 10 mg tablet 10 mg PO QHS Check with primary 12/30/12 01/17/13 History doctor acetaminophen 325 mg tablet 650 mg (2 x 325 mg) PO Q6H PRN PRN 05/07/22 Unknown Rx (Tylenol) Pain 1-10 Or Fever>100.7 #0 tabs sennosides 8.6 mg-docusate sodium 2 tab PO BID PRN PRN Constipation 05/07/22 Unknown Rx 50 mg tablet (Stool #0 tabs Softener-Stimulant Laxative) atorvastatin 40 mg tablet 40 mg PO QHS Check with primary 06/01/22 Unknown History doctor clopidogrel 75 mg tablet 75 mg PO DAILY Check with primary 06/01/22 Unknown History doctor gabapentin 300 mg capsule 300 mg PO BIDCM Check with primary 06/01/22 Unknown History doctor insulin lispro 100 unit/mL See Protocol subcut ACHS Check 06/01/22 Unknown History subcutaneous pen (Humalog KwikPen with primary doctor (U-100) Insulin) menthol 0.44 %-zinc oxide 20.6 % 1 applic topical BID Check with 06/01/22 Unknown History topical ointment (Calmoseptine) primary doctor metoprolol tartrate 25 mg tablet 25 mg PO BID Check with primary 06/01/22 Unknown History doctor cholecalciferol (vitamin D3) 50 50 mcg PO DAILY 06/18/24 Unknown History mcg (2,000 unit) tablet dulaglutide 3 mg/0.5 mL 3 mg subcut QWEEK 06/18/24 Unknown History subcutaneous pen injector (Trulicity) insulin glargine 100 unit/mL (3 60 unit subcut QPM 06/18/24 Unknown History mL) subcutaneous pen (Basaglar KwikPen U-100 Insulin) insulin lispro 100 unit/mL 20 unit subcut TIDCM 06/18/24 Unknown History subcutaneous pen oxybutynin chloride 5 mg 5 mg PO DAILY 06/18/24 Unknown History tablet,extended release 24 hr pantoprazole 40 mg tablet,delayed 40 mg PO DAILY 06/18/24 Unknown History release therapeutic multivitamin (Oncovite 1 tab PO DAILY 06/18/24 Unknown History tablet) furosemide 40 mg tablet 40 mg PO BIDCM Check with primary 06/21/24 Unknown Rx doctor #60 tabs linezolid 600 mg tablet 600 mg PO BID #10 tabs 06/21/24 Unknown Rx potassium chloride 10 mEq 10 meq PO DAILY #30 caps 06/21/24 Unknown Rx capsule,extended release cephalexin 500 mg capsule 500 mg PO BID 7 days #14 caps 12/13/24 Unknown Rx doxycycline hyclate 100 mg capsule 100 mg PO BID 7 days #14 caps 12/13/24 Unknown Rx Allergy/AdvReac Type Severity Reaction Status Date / Time latex Allergy Mild Hives Verified 12/13/24 11:52 Penicillins (PCN) Allergy Rash Verified 12/13/24 11:52 metformin AdvReac lactic Verified 12/13/24 11:52 acidosis Family History Mother Stomach cancer Father Heart disease CVA (cerebral vascular accident) Hypertension Diabetes Surgical History 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 Smoking Status: Former smoker how long ago did patient quit smoking: Quit 12 years prior, smoked ~ 1.5 ppd since teen until quit. alcohol intake: never substance use type: does not use EXAM Physical Exam Const Vital Signs: 12/13/24 11:49 Temperature 97.9 F Temperature Source Oral Pulse Rate 66 Respiratory Rate 16 Blood Pressure 139/73 H Blood Pressure Mean 95 Pulse Ox 96 Oxygen Delivery Method Room Air MDM MDM MDM Narrative Medical decision making narrative: 64-year-old female with past medical history of DM2, HLD, COPD presents for evaluation of upper left chest boil. Patient states her boil became swollen about a week ago. States she had an incision and drainage performed by nurse several days ago. She states she is on doxycycline. States that the boil became more swollen again and needs drained. On presentation, patient no acute distress. Nontoxic-appearing. See physical exam findings. Patient will need incision and drainage for infected boil. I do not think any laboratory workup is needed. Patient tolerated incision and drainage well. Patient is able to discharge home. Packing was placed. Okay to shower in 24 hours and packing needs to be removed. Will prolong doxycycline prescription as well as add on Keflex. Return precautions explained. She confirmed understand the plan. Follow-up with primary care physician and general surgery. Incision and Drainage Indication: Infected left chest boil Consent: Risks, benefits, and alternatives discussed with patient and consent obtained Procedure: The area was prepared and draped in the usual sterile manner. The site was anesthetized with 1% lidocaine with epinephrine. A cruciate incision was made in the skin and purulent material was expressed. The abscess was explored thoroughly, and sequestered pockets were opened. The abscess pocket was irrigated. Bleeding was minimal. The patient tolerated the procedure well without complications. Packing: Iodoform packing Follow-Up: Standard post-procedure care was explained and return precautions were given Impression: 1. Infected left chest boil Discharge Plan Triage Chief Complaint: Wound Check ED Provider: Anthony Park Dx/Rx/DC Orders Clinical Impression: Abscess Instructions: ED Abscess Incision And Drainage Prescriptions: New doxycycline hyclate 100 mg capsule 100 mg PO BID 7 Days Qty: 14 0RF cephalexin 500 mg capsule 500 mg PO BID 7 Days Qty: 14 0RF No Action aspirin 81 MG tablet,chewable 81 mg PO DAILY@0800 Patient Comments: HEART montelukast 10 MG tablet 10 mg PO QHS Patient Comments: ALLERGIES metformin 1,000 MG tablet 1,000 mg PO BID Patient Comments: DIABETES acetaminophen [Tylenol] 325 mg Tablet 650 mg PO Q6H PRN PRN (Reason: Pain 1-10 Or Fever>100.7) Qty: 0 0RF sennosides-docusate sodium [Stool Softener-Stimulant Laxat] 8.6-50 mg Tablet 2 tab PO BID PRN PRN (Reason: Constipation) Qty: 0 0RF atorvastatin 40 mg tablet 40 mg PO QHS clopidogrel 75 mg tablet 75 mg PO DAILY gabapentin 300 mg capsule 300 mg PO BIDCM Patient Comments: pper pt takes in AM & QHS insulin lispro [Humalog KwikPen Insulin] 100 unit/mL insulin pen See Protocol subcut ACHS Protocol: 3. Sliding Scale Insulin Med Dosing Condition: 150-189 mg/dl = 1 unit Condition: 190-229 mg/dl = 2 units Condition: 230-269 mg/dl = 3 units Condition: 270-309 mg/dl = 4 units Condition: 310-349 mg/dl = 5 units Condition: 350-399 mg/dl = 6 units Condition: 400-449 mg/dl = 7 units Condition: Greater than 449 call physician Protocol Text: - Use for Total Daily Dose of Insulin 37-55 units - Obsese, infected, or steroid patients MEDIUM DOSING ALGORITHIM metoprolol tartrate 25 mg tablet 25 mg PO BID menthol-zinc oxide [Calmoseptine] 0.44-20.6 % ointment 1 applic topical BID Protocol: *Topical Application Instructions APPLICATION INSTRUCTIONS: Apply to affected areas insulin lispro 100 unit/mL insulin pen 20 unit subcut TIDCM insulin glargine [Basaglar KwikPen U-100 Insulin] 100 unit/mL (3 mL) insulin pen 60 unit subcut QPM Trulicity 3 mg/0.5 mL pen injector 3 mg subcut QWEEK oxybutynin chloride 5 mg tablet extended release 24hr 5 mg PO DAILY Oncovite Tablet 1 tab PO DAILY pantoprazole 40 mg tablet,delayed release (DR/EC) 40 mg PO DAILY cholecalciferol (vitamin D3) 50 mcg (2,000 unit) tablet 50 mcg PO DAILY linezolid 600 mg tablet 600 mg PO BID Qty: 10 0RF potassium chloride 10 mEq capsule, extended release 10 meq PO DAILY Qty: 30 0RF furosemide 40 MG tablet 40 mg PO BIDCM Qty: 60 0RF Primary Care Provider: Radha Medina Referrals: Paco Gasca MD [Med Staff - Active Staff, General Surgery] - 3-5 Days Radha Medina MD [Primary Care Provider, Internal Medicine] - 3-5 Days Activity Restrictions/Additional Instructions: Okay to shower in 24 hours. Let soapy water run over the wound but do not scrub it. Packing needs to be removed in 24 hours. No soaking in the bath tubs, lakes, nunes, hot tubs, swimming pools, oceans until fully healed. Follow-up with primary care physician and general surgery. Return back to ED symptoms change or worsen. Stop taking your current doxycycline. Instead start the new prescription as I want to continue with longer duration. Added Keflex as well. Print Language: German Disposition Disposition: Home, Self Care
[2024-12-13 14:07] VITALS: BP 156/45; PULSE 69; RESP 16; O2SAT 97
[2024-12-13 15:54] VITALS: BP 145/87; PULSE 78; RESP 16; TEMP 36.6; O2SAT 99
== END 2024-12-13 15:54 | disposition home or self-care (01) ==
PROVIDERS: Emergency Provider Surgery; PCP Internal Medicine; Visit Provider Surgery
DX: L02.213 Cutaneous abscess of chest wall (principal); Z89.612 Acquired absence of left leg above knee; J44.9 Chronic obstructive pulmonary disease, unspecified; E11.42 Type 2 diabetes mellitus with diabetic polyneuropathy; Z79.4 Long term (current) use of insulin; E78.5 Hyperlipidemia, unspecified; I10 Essential (primary) hypertension; I25.10 Atherosclerotic heart disease of native coronary artery without angina pectoris; Z79.82 Long term (current) use of aspirin; Z79.02 Long term (current) use of antithrombotics/antiplatelets; Z79.899 Other long term (current) drug therapy; Z79.85 Long-term (current) use of injectable non-insulin antidiabetic drugs; Z79.84 Long term (current) use of oral hypoglycemic drugs; Z87.891 Personal history of nicotine dependence
CPT/HCPCS: 10060; 99284